=== PATIENT | female | born 1945 | race Caucasian/White ===

== ENCOUNTER 2019-08-18 09:55 | Outpatient (CLI) | payer MEDICARE, OTHER, SELFPAY ==
--- NOTE | ~2019-08-18 | CT_ITS ---
EXAMINATION: CT abdomen pelvis w con DATE: 08/18/2019 11:29 INDICATION: Chronic worsening right abdominal pain. Diarrhea. TECHNIQUE: Computed tomography (CT) of the abdomen and pelvis was performed with 100 cc Omnipaque 350 intravenous contrast. Automated exposure control and iterative reconstruction technique were employe d. Exam dose: 465.71 mGy-cm total exam DLP. COMPARISON: 01/20/2014 CT abdomen pelvis FINDINGS: There is mild discoid atelectasis or scarring at the middle lobe. The included lower lungs are clear of infiltrate or consolidation. Normal heart size. No pericardial or pleural effusion. Small sliding hiatal hernia. Diffuse hepatic steatosis. No hepatic space-occupying mass lesion. The gallbladder is present. Pancr eatic atrophy. No hepatic, pancreatic or adrenal mass lesion. There is an approximately 5.5 x 7 mm area of scarring or angiomyolipoma at the lateral aspect of the mid right kidney, with some fat attenuation. This is thought to be a benign process. No renal mass le julián is evident otherwise. No urinary tract calculus or hydroureteronephrosis. Normal caliber of the abdominal aorta with some atherosclerotic calcification of the abdominal aorta and iliac arteries. No intraperitoneal or retroperitoneal or pelvic mass lesion or adenopathy or ascites. There are numerous diverticula of the sigmoid colon; no CT evidence of diverticulitis. No bowel obstr uction, bowel wall thickening, pneumatosis or intraperitoneal free air is evident. Status post hysterectomy. The urinary bladder is unremarkable. Severe degenerative disc disease at L2-3 through L5-S1. IMPRESSION: Hepatic steatosis Small sliding hiatal hernia Diverticulosis of the colon Status post hysterectomy Reviewed, dictated and finalized at Location A. Reviewed, dictated and finalized at location A.
[2019-08-18 10:08] LABS: Basophils Absolute Auto 0.05 K/mm3 (0.00-0.10); Eosinophils Absolute Auto 0.09 K/mm3 (0.02-0.50); Eosinophils Percent Auto 1.8 % (1.0-6.0); Hematocrit 40.9 % (35.0-42.0); Hemoglobin 13.5 g/dL (11.7-13.8); Immature Granulocyte Absolute 0.02 K/mm3 (0.00-0.00); Immature Granulocyte Percent A 0.4 % (0.0-0.0); Lymphocytes Absolute Auto 1.81 K/mm3 (1.10-4.50); Lymphocytes Percent Auto 35.6 % (18.0-42.0); Mean Corpuscular Hemoglobin 31.3 pg (27.0-31.0); Mean Corpuscular Volume 94.9 fL (78.0-102.0); Mean Platelet Volume 10.5 fl (9.2-11.8); Monocytes Absolute Auto 0.54 K/mm3 (0.10-0.90); Monocytes Percent Auto 10.6 % (2.0-11.0); Neutrophils Absolute Auto 2.6 K/mm3 (1.7-7.2); Neutrophils Percent Auto 50.6 % (50.0-70.0); Platelet Count Result 221 K/mm3 (150-420); Red Blood Count 4.31 M/mm3 (4.20-5.40); Red Cell Distribution Width 12.6 % (11.6-14.4); White Blood Count 5.1 K/mm3 (4.8-10.8)
[2019-08-18 10:11] LABS: Add Urine Microscopic? NO; Appearance Urine Clear (Clear); Bilirubin Urine Negative (Negative); Blood Urine Negative (Negative); Color Urine Yellow (Yellow); Glucose Urine UA Negative (Negative); Ketones Urine Negative (Negative); Leukocyte Esterase Ur Negative LEU/UL (Negative); Nitrate Urine Negative (Negative); Protein Urine Negative (Negative); Specific Grav Ur 1.025 (1.010-1.020); Urobilinogen Urine 0.2 mg/dL (0.2-1.0); pH Urine 5.5 (5.0-8.0)
[2019-08-18 10:24] LABS: Estimated Glomerular Filt Rate > 60
[2019-08-18 10:26] LABS: Alanine Aminotransferase 44 U/L (14-59); Albumin Level 3.6 g/dL (3.4-5.0); Alkaline Phosphatase 84 U/L (46-116); Amylase 25 U/L (25-115); Anion Gap 10.8 mmol/L (7-16); Aspartate Amino Transferase 26 U/L (15-37); Bilirubin,Total 0.5 mg/dL (0.00-1.00); Blood Urea Nitrogen 13 mg/dL (7-18); Calcium 9.1 mg/dL (8.5-10.1); Carbon Dioxide 30 mmol/L (21-32); Chloride 107 mmol/L (98-108); Glucose 91 mg/dL (70-99); Lipase 37 U/L (73-393); Osmolality Calculated 298 mOsm/kg (285-295); Potassium 3.8 mmol/L (3.5-5.1); Sodium 144 mmol/L (136-145); Total Protein 6.9 g/dL (6.4-8.2)
== END 2019-08-18 09:56 | disposition home or self-care (01) ==
LOC: CHSLAB 09:58
PROVIDERS: PCP Internal Medicine; Visit Provider Internal Medicine
DX: R10.9 Unspecified abdominal pain (principal)
CPT/HCPCS: 36415; 74177; 80053; 81003; 82150; 83690; 85025; Q9965

== ENCOUNTER 2019-08-20 07:46 | Outpatient (CLI) | payer MEDICARE, OTHER, SELFPAY ==
--- NOTE | ~2019-08-20 | NM_ITS ---
EXAMINATION: NM hepatobiliary w pharm DATE: 08/20/2019 10:28 INDICATION: Gallbladder dysfunction. 2 weeks of postprandial right upper quadrant abdominal pain and diarrhea. COMPARISON: CT dated 08/18/2019 TECHNIQUE: 5.05 mCi Tc-99m mebrofenin (Choletec) was administered intravenously. Scintigraphic image s of the abdomen were obtained for one hour. 1.3 mcg sincalide (Kinevac) was administered by slow int ravenous infusion, and imaging was continued for 30 minutes. Gallbladder ejection fraction was calcul ated by the technologist. FINDINGS: There is normal clearance of radiotracer from the blood pool. There is homogeneous tracer uptake by t he liver. Activity progresses to the gallbladder and bowel. The gallbladder ejection fraction (GBEF) is 84% (normal 10-90%, but most patient with gallbladder dysfunction have GBEF < 35% which does over lap with the normal range). IMPRESSION: 1. Normal hepatobiliary scan. Reviewed, dictated and finalized at location A.
== END 2019-08-20 07:47 | disposition home or self-care (01) ==
LOC: CHSIMG 07:48
PROVIDERS: PCP Internal Medicine; Visit Provider Internal Medicine
DX: K82.8 Other specified diseases of gallbladder (principal); R10.11 Right upper quadrant pain
CPT/HCPCS: 78227; A9537; J2805

== ENCOUNTER 2019-10-30 09:55 | Outpatient (CLI) | payer MEDICARE, SELFPAY ==
[2019-10-30 10:08] LABS: Basophils Absolute Auto 0.06 K/mm3 (0.00-0.10); Eosinophils Absolute Auto 0.12 K/mm3 (0.02-0.50); Hematocrit 44.1 % (35.0-42.0); Hemoglobin 14.6 g/dL (11.7-13.8); Immature Granulocyte Absolute 0.02 K/mm3 (0.00-0.00); Immature Granulocyte Percent A 0.3 % (0.0-0.0); Lymphocytes Percent Auto 35.5 % (18.0-42.0); Mean Corpuscular HGB Conc 33.1 g/dL (32.0-36.0); Mean Corpuscular Hemoglobin 31.4 pg (27.0-31.0); Mean Corpuscular Volume 94.8 fL (78.0-102.0); Mean Platelet Volume 10.4 fl (9.2-11.8); Monocytes Absolute Auto 0.43 K/mm3 (0.10-0.90); Monocytes Percent Auto 7.3 % (2.0-11.0); Neutrophils Absolute Auto 3.2 K/mm3 (1.7-7.2); Neutrophils Percent Auto 53.9 % (50.0-70.0); Platelet Count Result 230 K/mm3 (150-420); Red Blood Count 4.65 M/mm3 (4.20-5.40); Red Cell Distribution Width 12.4 % (11.6-14.4); White Blood Count 5.9 K/mm3 (4.8-10.8)
[2019-10-30 10:15] LABS: Add Urine Microscopic? YES; Appearance Urine Clear (Clear); Bilirubin Urine Negative (Negative); Blood Urine Negative (Negative); Color Urine Yellow (Yellow); Glucose Urine UA Negative (Negative); Ketones Urine Negative (Negative); Leukocyte Esterase Ur Trace (Negative); Nitrate Urine Negative (Negative); Protein Urine Negative (Negative); Specific Grav Ur 1.015 (1.010-1.020)
[2019-10-30 10:19] LABS: RBC Urine 0-2 /hpf (0-2); Squamous Epithelial Cell Urine Few /hpf (Few); WBC Urine 0-3 /hpf (0-3)
[2019-10-30 10:20] LABS: Bacteria Urine Trace /hpf
[2019-10-30 10:32] LABS: BNP 87 pg/mL (0-100)
[2019-10-30 11:25] LABS: Alanine Aminotransferase 45 U/L (14-59); Albumin Level 3.8 g/dL (3.4-5.0); Alkaline Phosphatase 76 U/L (46-116); Anion Gap 11.5 mmol/L (7-16); Aspartate Amino Transferase 32 U/L (15-37); Bilirubin,Total 0.5 mg/dL (0.00-1.00); Blood Urea Nitrogen 16 mg/dL (7-18); Carbon Dioxide 31 mmol/L (21-32); Chloride 105 mmol/L (98-108); Cholesterol 226 mg/dL (0-200); Estimated Glomerular Filt Rate > 60; Free T3 3.35 pg/mL (2.18-3.98); Free T4 Free Thyroxine 1.16 ng/dL (0.76-1.46); Glucose 86 mg/dL (70-99); HDL Direct 58 mg/dL (40-60); LDL Cholesterol Calculated 146 mg/dL (<130); Osmolality Calculated 296 mOsm/kg (285-295); Potassium 4.5 mmol/L (3.5-5.1); Sodium 143 mmol/L (136-145); Thyroid Stimulating Hormone 1.46 uIU/mL (0.36-3.74); Total Protein 6.7 g/dL (6.4-8.2); Triglycerides 110 mg/dL (0-150)
[2019-11-02 19:41] LABS: Vitamin D 25 Hydroxy 29 ng/mL (30-100)
== END 2019-10-30 09:56 | disposition home or self-care (01) ==
PROVIDERS: PCP Internal Medicine; Visit Provider Internal Medicine
DX: I50.22 Chronic systolic (congestive) heart failure (principal); I25.10 Atherosclerotic heart disease of native coronary artery without angina pectoris; E78.2 Mixed hyperlipidemia; I10 Essential (primary) hypertension; M81.0 Age-related osteoporosis without current pathological fracture; R53.82 Chronic fatigue, unspecified
CPT/HCPCS: 36415; 80053; 80061; 81001; 82306; 83880; 84439; 84443; 84481; 85025

== ENCOUNTER 2019-11-13 09:17 | Outpatient (CLI) | payer MEDICARE, OTHER, SELFPAY ==
--- NOTE | ~2019-11-13 | DEXA_ITS ---
BMD(1) Young-Adult(2) Age-Matched(3) Region (g/cm2) T-score Z-score WHO Classification L1 0.934 -1.7 0.0 Osteopenia L2 1.036 -1.4 0.2 Osteopenia L3 1.228 0.1 1.8 Normal L4 1.229 0.1 1.7 Normal L1-L4 1.123 -0.6 1.1 Normal Trend: L1-L4 Change vs Change vs Measured Age BMD(1) Baseline Previous Date (years) (g/cm2) (%) (%) 11[age]13/2019 [age] 1.89 7.8* 4.0* 01[age]18/2016 70.3 1.080 3.6* 8.7* 09[age]29/2014 69.0 0.994 -4.6* -4.6* 05[age]23/2012 66.6 1.042 baseline - * - Indicates significant change based on 95% confidence interval. 1 - Statistically 68% of repeat scans fall within 1SD (+- 0.010 g/cm2 for AP Spine L1-L4) 2 - [place] (Combined NHANES (ages 20-30) / [employer] (ages 20-40)) AP Spine Reference Population (v112) 3 - Matched for Age, Weight (females 25-100 kg), Ethnic 11 - World Health Organization - Definition of Osteoporosis and Osteopenia for Women: Normal = T-score at or above -1.0 SD; Osteopenia = T-score between -1.0 and -2.5 SD; Osteoporosis = T-score at or below -2.5 SD; (WHO definitions only apply when a young healthy Women reference database is used to determine T-scores.) Printed: 11/13/2019 9:48:25 AM (13.60)76:3.00:50.00:12.0 0.00:10.44 0.60x1.05 23.7:%Fat=48.9% 0.00:0.00 0.00:0.00 Filename: [id number] Scan Mode: Standard;OneScan 37.0 Amoobi [id number] BMD(1) Young-Adult(2,7) Age-Matched(3) Region (g/cm2) T-score Z-score WHO Classification Neck Left 0.789 -1.8 0.0 Osteopenia Right 0.758 -2.0 -0.2 Osteopenia Mean 0.773 -1.9 -0.1 Osteopenia Difference 0.031 -0.2 -0.2 - Total Left 0.906 -0.8 0.8 Normal Right 0.842 -1.3 0.3 Osteopenia Mean 0.874 -1.1 0.5 Osteopenia Difference 0.064 -0.5 -0.5 - Hip [place] Length Comparison (mm) (Right = 102.7 mm) (Mean = 102.1 mm) (Left = 102.4 mm) Trend: Total Mean Change vs Change vs Measured Age BMD(1) Baseline Previous Date (years) (g/cm2) (%) (%) 11/13/2019 74.1 0.874 -2.5 1.6 05[birth year]23/2012 65.6 0.860 -4.0* -4.0* 09/20/2006 61.0 0.896 baseline - * - Indicates significant change based on 95% confidence interval. 1 - Statistically 68% of repeat scans fall within 1SD (+- 0.010 g/cm2 for DualFemur Total) 2 - [place] (Combined NHANES (ages 20-30) / [employer] (ages 20-40)) Femur Reference Population (v112) 3 - Matched for Age, Weight (females 25-100 kg), Ethnic 7 - DualFemur Total T-score difference is 0.5. Asymmetry is None. 11 - World Health Organization - Definition of Osteoporosis and Osteopenia for Women: Normal = T-score at or above -1.0 SD; Osteopenia = T-score between -1.0 and -2.5 SD; Osteoporosis = T-score at or below -2.5 SD; (WHO definitions only apply when a young healthy Women reference database is used to determine T-scores.) Printed: 11/13/2019 9:48:25 AM (13.60); Filename: [id number]; Right Femur; 19.2:%Fat=37.5%; Neck Angle (deg)= 75; Scan Mode: Standard 37.0 uGy; Left Femur; 18.3:%Fat=44.5%; Neck Angle (deg)= 71; Scan Mode: Standard 37.0 Amoobi [id number] Dear Jackson Rosa, Your patient Zulma Carnes completed a BMD test on 11/13/2019 using the Orteq DXA System (analysis version: 13.60) manufactured by [employer]. The following summarizes
== END 2019-11-13 09:18 | disposition home or self-care (01) ==
LOC: CHSIMG 09:19
PROVIDERS: PCP Internal Medicine; Visit Provider Internal Medicine
DX: M81.0 Age-related osteoporosis without current pathological fracture (principal)
CPT/HCPCS: 77080

== ENCOUNTER 2020-01-18 10:08 | Outpatient (CLI) | payer MEDICARE, OTHER, SELFPAY ==
[2020-01-18 10:23] VITALS: BP 131/70; PULSE 72; RESP 16; TEMP 36.4; O2SAT 98
[2020-01-18] MEDS: ZOLEDRONIC ACID 5 MG/100 ML 100 ML 400 MG IVPB (10:26)
--- NOTE | 2020-01-18 10:49 | PC.NURSE ---
Patient here for reclast infusion. Has had this in the past. Reeducation on med given. No concerns voiced. Reclast infusion administered. Tolerated well. Safe exit of hospital.
== END 2020-01-18 10:09 | disposition home or self-care (01) ==
LOC: CHSTREATRM 10:11
PROVIDERS: PCP Internal Medicine; Visit Provider Internal Medicine
DX: M81.0 Age-related osteoporosis without current pathological fracture (principal)
CPT/HCPCS: 96374; J3489

== ENCOUNTER 2020-03-21 15:19 | Outpatient (CLI) | payer MEDICARE, OTHER, SELFPAY ==
--- NOTE | ~2020-03-21 | XR_ITS ---
EXAMINATION: XR chest 2V DATE: 03/21/2020 15:46 INDICATION: Cough, sore throat and fatigue. TECHNIQUE: PA and lateral views of the chest were obtained. COMPARISON: Chest radiograph dated 11/19/2018 FINDINGS: Chronic eventration of the left hemidiaphragm. No focal airspace opacities, pulmonary edema, pleural effusion or pneumothorax. The cardiomediastinal silhouette is normal. Left breast appears smaller antwan n the right with a few surgical clips at the upper outer quadrant of the breast suggesting prior exci sional biopsy. Mild thoracic and severe lumbar spondylosis. IMPRESSION: 1. Chronic eventration of the left hemidiaphragm. No acute cardiopulmonary disease. Reviewed, dictated and finalized at location . SCREEN PROCESSOR IMPRESSION: 1. Chronic eventration of the left hemidiaphragm. No acute cardiopulmonary dise ase.
--- NOTE | ~2020-03-21 | XR_ITS ---
EXAMINATION: XR hip LT min 2V DATE: 03/21/2020 17:25 INDICATION: Chronic left hip pain TECHNIQUE: Anteroposterior and frog-leg lateral views of the left hip were obtained. COMPARISON: CT dated 08/18/2019 FINDINGS: Alignment is normal. No fracture or suspected avascular necrosis. Left hip joint space is relatively preserved. There is chondrocalcinosis along the left acetabular labrum. Endplate osteophytes at the l umbosacral junction with severe spondylosis evident on prior CT. IMPRESSION: 1. Chondrocalcinosis at the left acetabular labrum. Otherwise unremarkable left hip. Reviewed, dictated and finalized at location . ASSISTANT
[2020-03-21 15:36] LABS: Hemoglobin 13.2 g/dL (11.7-13.8); Mean Corpuscular HGB Conc 32.2 g/dL (32.0-36.0); Mean Corpuscular Hemoglobin 31.1 pg (27.0-31.0); Mean Corpuscular Volume 96.7 fL (78.0-102.0); Mean Platelet Volume 10.8 fl (9.2-11.8); Platelet Count Result 239 K/mm3 (150-420); Red Blood Count 4.24 M/mm3 (4.20-5.40); Red Cell Distribution Width 12.4 % (11.6-14.4); White Blood Count 8.5 K/mm3 (4.8-10.8)
[2020-03-21 15:55] LABS: Influenza Control Valid (Valid); SARS-CoV-2 Ag Negative (Negative)
[2020-03-21 16:13] LABS: Band Neutrophils Percent 0 % (0-6); Basophils Absolute Manual 0.08 K/mm3 (0-0.1); Basophils Percent Manual 1 % (0-1); Eosinophils Percent Manual 0 % (1-6); Lymphocytes Percent Manual 33 % (18-44); Monocytes Absolute Manual 0.51 K/mm3 (0.1-0.90); Monocytes Percent Manual 6 % (3-9); Neutrophils Percent Manual 60 % (46-73); Platelet Estimate Adequate (Adequate); Total Cells Counted 100
[2020-03-21 16:19] LABS: Alanine Aminotransferase 45 U/L (14-59); Albumin Level 3.8 g/dL (3.4-5.0); Alkaline Phosphatase 80 U/L (46-116); Anion Gap 8 mmol/L (8-16); Aspartate Amino Transferase 28 U/L (15-37); Bilirubin,Total 0.3 mg/dL (0.00-1.00); Blood Urea Nitrogen 16 mg/dL (7-18); Calcium 8.9 mg/dL (8.5-10.1); Carbon Dioxide 31 mmol/L (21-32); Chloride 105 mmol/L (98-108); Estimated Glomerular Filt Rate > 60; Glucose 114 mg/dL (70-99); Osmolality Calculated 300 mOsm/kg (285-295); Potassium 4.4 mmol/L (3.5-5.1); Sodium 144 mmol/L (136-145); Total Protein 6.8 g/dL (6.4-8.2)
== END 2020-03-21 15:20 | disposition home or self-care (01) ==
PROVIDERS: PCP Internal Medicine; Visit Provider Internal Medicine
DX: M25.552 Pain in left hip (principal); R05 Cough; J02.9 Acute pharyngitis, unspecified; Z20.828 Contact with and (suspected) exposure to other viral communicable diseases
CPT/HCPCS: 71046; 73502; 80053; 85025; 87426; 87804

== ENCOUNTER 2020-03-30 09:45 | Outpatient (CLI) | payer MEDICARE, OTHER, SELFPAY ==
--- NOTE | ~2020-03-30 | MR_ITS ---
EXAMINATION: MR hip LT wo con DATE: 03/30/2020 10:53 INDICATION: Left hip pain. TECHNIQUE: Magnetic resonance imaging (MRI) of the left hip was performed without intravenous contras t. Sequences included axial and coronal PD-weighted FS FSE and axial T1-weighted FSE of the pelvis. S equences of the hip included 2D FIESTA, T1-weighted fast GRE, and axial, coronal, and sagittal PD-himanshu ghted FS FSE. COMPARISON: Left hip radiograph 03/21/2020 FINDINGS: Bones/cartilage: There is lumbar levoscoliosis and severe spondylosis. No fracture. The hip joints demonstrate tiny os teophytes. Small [id number] images of left hip demonstrate partial thickness cartilage loss stencil printer iorly and posterior superiorly. Labrum: There is a tear of the left acetabular labrum. Fluid: There is no hip joint effusion. There is mild bilateral trochanteric bursitis. Soft tissues: There is moderate tendinopathy of the hamstring origins bilaterally. The iliopsoas tendons are normal . The left gluteal tendons are normal. There are partial tears of right gluteus minimus and gluteus m edius tendons. IMPRESSION: 1. Mild osteoarthritis of the hips. Reviewed, dictated and finalized at location A. RIPSAW OPERATOR
== END 2020-03-30 09:46 | disposition home or self-care (01) ==
LOC: CHSIMG 09:46
PROVIDERS: PCP Internal Medicine; Visit Provider Internal Medicine
DX: M25.552 Pain in left hip (principal)
CPT/HCPCS: 73721

== ENCOUNTER 2020-04-04 16:37 | Outpatient (CLI) | payer MEDICARE, SELFPAY ==
[2020-04-04 17:04] LABS: SARS-CoV-2 Ag Negative (Negative)
== END 2020-04-04 16:38 | disposition home or self-care (01) ==
LOC: CHSLAB 16:40
PROVIDERS: PCP Internal Medicine; Visit Provider Internal Medicine
DX: Z20.828 Contact with and (suspected) exposure to other viral communicable diseases (principal)
CPT/HCPCS: 87426

== ENCOUNTER 2020-05-20 11:38 | Outpatient (CLI) | payer MEDICARE, OTHER, SELFPAY ==
--- NOTE | ~2020-05-20 | CT_ITS ---
EXAMINATION: CTA chest PE protocol EXAM DATE: 05/20/2020 14:08 INDICATION: Dyspnea, COVID pneumonia, elevated d-dimer, persistent shortness of breath and dyspnea. TECHNIQUE: Spiral CTA of the chest (pulmonary arteries) was performed with 100 cc Omnipaque 350 intr avenous contrast injection. Images were acquired during the pulmonary arterial phase. Coronal maxi mum intensity projection 3D-reconstructions were created by the technologist on dedicated workstation . Axial, coronal and sagittal reformatted images were reviewed. The dose-length product (DLP) for t his examination was 369.68 mGy-cm. The exposure was tailored according to patient size (auto mA exp osure control), and iterative reconstruction (ASIR) was used as additional dose reduction technique. There is no prior study for comparison. FINDINGS: Pulmonary arteries are well opacified and without intraluminal filling defects. No thora cic aortic dissection. There are extensive predominantly linear opacities with regions of intersper sed groundglass opacity. Appearance is most consistent with resolving COVID pneumonia, may develop in to chronic lung scarring. There are no pleural or pericardial effusions. Tracheobronchial tree is p atent. There is no mediastinal, hilar or axillary lymphadenopathy. There is no pneumothorax. He art normal in size. There is mild coronary arterial calcification, arterial sclerosis. There is he patic steatosis. There is thoracic spondylosis without osteoblastic or osteolytic lesions identified . IMPRESSION: 1. No pulmonary emboli. 2. Extensive linear opacities with interspersed groundglass density, consistent with subacute to chr onic COVID pneumonia, developing chronic scarring. Reviewed, dictated and finalized at location A. E RIDE OPERATOR IMPRESSION: 1. No pulmonary emboli. 2. Extensive linear opacities with interspersed groundglass density, consisten t with subacute to chronic COVID pneumonia, developing chronic scarring.
--- NOTE | ~2020-05-20 | XR_ITS ---
EXAMINATION: XR chest 2V EXAM DATE: 05/20/2020 12:09 INDICATION: Post COVID pneumonia. Shortness of breath. TECHNIQUE: Frontal and lateral projections of the chest obtained and reviewed. Comparison is made to prior examination from 03/21/2020. FINDINGS: Scattered bilateral predominantly linear opacities, appearance consistent with subacute CO VID pneumonia, predominantly atelectasis which may develop to chronic scarring. No confluent consolid ation. This is new compared to previous examination. There is no pneumothorax suspected. There are no pleural effusions. There may be a sizable joint body in the left humeral anterior recess. Mild thora cic dextroscoliosis. IMPRESSION: Scattered predominantly linear opacities appearance consistent with subacute COVID pneumo ramón. Reviewed, dictated and finalized at location A. OUT MAN IMPRESSION: Scattered predominantly linear opacities appearance consistent with subacute COVID pneumonia.
[2020-05-20 11:57] LABS: Basophils Absolute Auto 0.06 K/mm3 (0.00-0.10); Basophils Percent Auto 0.9 % (0.0-1.0); Eosinophils Absolute Auto 0.06 K/mm3 (0.02-0.50); Eosinophils Percent Auto 0.9 % (1.0-6.0); Hematocrit 37.9 % (35.0-42.0); Hemoglobin 12.3 g/dL (11.7-13.8); Immature Granulocyte Absolute 0.02 K/mm3 (0.00-0.00); Immature Granulocyte Percent A 0.3 % (0.0-0.0); Lymphocytes Absolute Auto 1.65 K/mm3 (1.10-4.50); Lymphocytes Percent Auto 25.6 % (18.0-42.0); Mean Corpuscular HGB Conc 32.5 g/dL (32.0-36.0); Mean Corpuscular Hemoglobin 30.9 pg (27.0-31.0); Mean Corpuscular Volume 95.2 fL (78.0-102.0); Monocytes Absolute Auto 0.73 K/mm3 (0.10-0.90); Monocytes Percent Auto 11.3 % (2.0-11.0); Neutrophils Absolute Auto 3.9 K/mm3 (1.7-7.2); Platelet Count Result 344 K/mm3 (150-420); Red Blood Count 3.98 M/mm3 (4.20-5.40); Red Cell Distribution Width 13.4 % (11.6-14.4); White Blood Count 6.4 K/mm3 (4.8-10.8)
[2020-05-20 12:13] LABS: D Dimer 3.98 mg/L (0.19-0.50)
[2020-05-20 12:15] LABS: Alanine Aminotransferase 75 U/L (14-59); Albumin Level 3.6 g/dL (3.4-5.0); Alkaline Phosphatase 97 U/L (46-116); Anion Gap 6 mmol/L (8-16); Aspartate Amino Transferase 52 U/L (15-37); Bilirubin,Total 0.5 mg/dL (0.00-1.00); Blood Urea Nitrogen 11 mg/dL (7-18); Calcium 9.2 mg/dL (8.5-10.1); Carbon Dioxide 30 mmol/L (21-32); Chloride 97 mmol/L (98-108); Estimated Glomerular Filt Rate > 60; Glucose 104 mg/dL (70-99); Osmolality Calculated 275 mOsm/kg (285-295); Potassium 4.4 mmol/L (3.5-5.1); Sodium 133 mmol/L (136-145); Total Protein 7.7 g/dL (6.4-8.2)
[2020-05-20 12:19] LABS: BNP 48.8 pg/mL (0-100)
== END 2020-05-20 11:39 | disposition home or self-care (01) ==
PROVIDERS: PCP Internal Medicine; Visit Provider Internal Medicine
DX: R06.00 Dyspnea, unspecified (principal); U07.1 COVID-19; J12.82 Pneumonia due to coronavirus disease 2019; R79.1 Abnormal coagulation profile
CPT/HCPCS: 36415; 71046; 71275; 80053; 83880; 85025; 85380; Q9967

== ENCOUNTER 2020-06-02 16:58 | Emergency (ER) | payer MEDICARE, OTHER, SELFPAY ==
--- NOTE | ~2020-06-02 | XR_ITS ---
XR chest 2V 06/02/2020 18:04 Indication: Shortness of breath and chest pain. History of CHF Procedure: PA and lateral views of the chest Comparison: Comparison to multiple prior studies sequentially, with oldest reviewed study dated 02/28. Findings: Persistent patchy bilateral infiltrates, most confluent in the upper lungs. These findings unchanged compared with 05/20/2020. No pleural effusion or pneumothorax. Heart size normal. Impression: 1: Stable patchy bilateral infiltrates, suspicious for pneumonia. Reviewed, dictated and finalized at location A. BUTCHER Impression: 1: Stable patchy bilateral infiltrates, suspicious for pneumonia.
--- NOTE | ~2020-06-02 | CT_ITS ---
EXAMINATION: CTA chest PE protocol DATE: 06/02/2020 19:59 HISTORICAL INTERPRETER INDICATION: Shortness of breath. TECHNIQUE: Computed tomographic angiography (CTA) of the chest was performed with 100 mL Omnipaque-35 0 intravenous contrast. The dose-length product was 277.84 mGy-cm. Maximum intensity projection 3D-re constructions of the aorta and other arteries were constructed by the technologist on a separate work station. Automated exposure control and iterative reconstruction technique were employed. COMPARISON: CT dated 05/20/2020. FINDINGS: Study is technically adequate without evidence for pulmonary embolism. Heart size normal. N o significant pleural or pericardial effusion. There has been progression of extensive patchy groundg lass opacification with associated linear opacities no endobronchial lesions. No thoracic lymphadenop athy. No significant pleural or pericardial effusion. IMPRESSION: 1. Interval progression of extensive patchy lung consolidation involving all lobes, compatible with p neumonia. 2: No evidence for pulmonary embolism. Reviewed, dictated and finalized at location A. ORICAL INTERPRETER IMPRESSION: 1. Interval progression of extensive patchy lung consolidation involving all lo bes, compatible with pneumonia. 2: No evidence for pulmonary embolism.
[2020-06-02 17:36] VITALS: PULSE 83; RESP 18; TEMP 36.4; O2SAT 100
--- NOTE | 2020-06-02 17:42 | ECG_ITS ---
Measurements Intervals [place] Rate: 75 P: 22 ND: 125 QRS: -1 QRSD: 94 T: 10 QT: 347 QTc: 390 Interpretive Statements SINUS RHYTHM ATRIAL PREMATURE COMPLEX BORDERLINE R WAVE PROGRESSION, ANTERIOR LEADS MINIMAL Q WAVES- INFERIOR LEADS BORDERLINE ECG Electronically Signed On 06-02-2020 18:56:19 CERTIFIED TECHNICIAN by Reinaldo Smyth D.O.
[2020-06-02 17:43] VITALS: PULSE 76
--- NOTE | 2020-06-02 18:00 | ED.GENADULT ---
HPI - General Adult General Chief complaint: Shortness of Breath/Dyspnea Stated complaint: dyspnea/chest heaviness/post covid Time Seen by Provider: 06/02/20 17:44 Source: patient and family Mode of arrival: ambulatory Limitations: no limitations History of Present Illness HPI narrative: Patient is a 74-year-old female who presents with episodic chest heaviness that began yesterday lasted into the day felt a little bit more short of breath with speaking home health presented today said that she may have diminished lung sounds on the right upper region patient has been on home oxygen and short of breath since having Covid was in the hospital for roughly 20 days at [facility] has been home living with her daughter has been wearing oxygen daily and has follow-up with pulmonology in the near future patient approximately 2 weeks ago had evaluation with negative CT of the chest for pulmonary embolus. Patient has been using her nebulizer and inhaler medications with improvement. Patient denies new URI symptoms vomiting diarrhea. Related Data Home Medications Medication Instructions Recorded Confirmed aspirin [Aspir-81] 81 mg PO DAILY 06/02/20 06/02/20 biotin 1,000 mcg PO DAILY 06/02/20 06/02/20 calcium phos,dibas-vitamin D3 tablet PO 06/02/20 [Vitamin D (with calcium)] micpvvs-B1-cfld-copper-deepak 1 tablet PO BID 06/02/20 06/02/20 [Citracal-D3 Maximum Plus] carvedilol 06/02/20 cetirizine mg 06/02/20 coenzyme Q10 [Co Q-10] 200 mg PO DAILY 06/02/20 06/02/20 folic acid 06/02/20 furosemide 06/02/20 glucosamine-chondroitin [Osteo 2 tablet PO TID 06/02/20 06/02/20 Bi-Flex] lisinopril 06/02/20 magnesium 400 mg PO DAILY 06/02/20 06/02/20 omeprazole 06/02/20 potassium chloride meq PO 06/02/20 pravastatin 06/02/20 valacyclovir 06/02/20 vitamin E 400 unit PO DAILY 06/02/20 06/02/20 Allergies Allergy/AdvReac Type Severity Reaction Status Date / Time Sulfa (Sulfonamide Allergy Unknown Rash Verified 06/02/20 17:44 Antibiotics) Review of Systems Review of Systems: All systems reviewed & are unremarkable except as noted in HPI and below PMFSH Past Medical History Medical History (Updated 06/02/20 @ 20:28 by Joby Keen PA-C) CHF (congestive heart failure) Coronary artery disease COVID-19 On home oxygen therapy Family History Family History (Updated 08/15/17 @ 10:20 by DOCTOR UNKNOWN) Other Cerebrovascular accident Family history of cardiovascular disease Family history of malignant neoplasm Hypertension Social History Social History Smoking status: Never smoker Alcohol intake: current Gender identity (if verbalized by the patient): Female Exam Narrative: Exam Narrative: GENERAL: Well-appearing, well-nourished, and in no acute distress. HEAD: Normocephalic, atraumatic. EYES: PERRLA and EOMI. ENT: Nares clear, no rhinorrhea or epistaxis. Mucous membranes moist. NECK: Supple. No adenopathy or masses. No carotid bruits or JVD CHEST: Clear to auscultation. No respiratory distress. No wheezes rales or rhonchi HEART: Regular rate and rhythm. No murmur heard. Normal peripheral pulses. ABDOMEN: Soft, nontender, nondistended EXTREMITIES: Normal range of motion. 1+ edema lower extremities SKIN: Warm, dry, no rash. NEURO: No focal deficits. Alert and oriented x3. PSYCH: Normal mood and affect. Course Course Emergency Course: Patient evaluated in the emergency department had CAT scan of the chest which looks as though the patient has had interval development of pneumonia patient has had recurrent issues with this patient is afebrile nontoxic-appearing without high risk changes in the blood work at this time patient with oxygenation at 99% is on her nasal cannula oxygen has nebulizer treatments at home with incentive spirometer and pulse oximetry. Patient will precautionary be put on antibiotic with follow-up with primary care and given strict reasons to return.
[2020-06-02 18:26] LABS: Basophils Percent Auto 0.6 % (0.2-1.2); Eosinophils Absolute Auto 0.1 K/mm3 (0-0.3); Eosinophils Percent Auto 1.5 % (0-4.4); Hematocrit 38.1 % (37.0-47.0); Hemoglobin 12.3 g/dL (12.0-15.0); Immature Granulocyte Absolute 0.02 K/mm3 (0.00-0.031); Immature Granulocyte Percent A 0.3 % (0-0.5); Lymphocytes Absolute Auto 1.92 K/mm3 (0.9-3.2); Lymphocytes Percent Auto 28.9 % (18.3-44.2); Mean Corpuscular HGB Conc 32.3 g/dl (32-36); Mean Corpuscular Hemoglobin 31.2 pg (26-34); Mean Corpuscular Volume 96.7 fl (80-100); Mean Platelet Volume 10.4 fl (7.4-10.4); Monocytes Absolute Auto 0.6 K/mm3 (0.1-0.6); Monocytes Percent Auto 9.5 % (2.6-8.5); Neutrophils Absolute Auto 3.9 K/mm3 (1.3-6.7); Neutrophils Percent Auto 59.2 % (45.5-73.1); Platelet Count Result 213 k/mm3 (150-375); Red Blood Count 3.94 M/mm3 (4.2-5.4); Red Cell Distribution Width 13.6 % (11.5-14.5); White Blood Count 6.6 K/mm3 (4.5-10.0)
[2020-06-02] MEDS: SODIUM CHLORIDE 0.9% IV 500 ML 999 ML IV CONT (18:26)
[2020-06-02 18:28] LABS: Add Urine Microscopic? NO; Appearance Urine Clear (Clear); Bilirubin Urine Negative (Negative); Blood Urine Negative (Negative); Color Urine Colorless (Yellow); Glucose Urine UA Negative (Negative); Ketones Urine Negative (Negative); Leukocyte Esterase Ur Negative LEU/UL (Negative); Nitrate Urine Negative (Negative); Protein Urine Negative (Negative); Specific Grav Ur 1.006 (1.001-1.035); Urobilinogen Urine Negative mg/dL (<2.0)
[2020-06-02 18:38] LABS: INR 0.9
[2020-06-02 18:40] LABS: Anion Gap 4 mmol/L (8-16); Blood Urea Nitrogen 14 mg/dL (7-17); Calcium 9.8 mg/dL (8.4-10.2); Carbon Dioxide 32 mmol/L (22-30); Chloride 101 mmol/L (98-107); Estimated CRCL calculation 56 ml/min; Estimated Glomerular Filt Rate > 60; Glucose 102 mg/dL (65-105); Partial Thromboplastin Time 24.7 SECONDS (22.3-36.8); Potassium 4.5 mmol/L (3.4-5.0); Sodium 137 mmol/L (137-145)
[2020-06-02 18:46] LABS: D Dimer 0.93 ug/mL (<0.48)
[2020-06-02 18:51] VITALS: BP 120/56; PULSE 76; RESP 24; O2SAT 100
[2020-06-02 18:53] LABS: NT Pro B Type Natriuretic Pept 255 PG/ML (5-100); Troponin I < 0.012 ng/mL (0.000-0.034)
[2020-06-02 18:54] VITALS: O2SAT 100
[2020-06-02 19:22] VITALS: BP 120/65; PULSE 68; RESP 20; O2SAT 100
--- NOTE | 2020-06-02 19:23 | PC.NURSE ---
Assumed Care of Pt. at this time. report from KAROLINE Trimble
[2020-06-02 20:40] VITALS: BP 115/55; PULSE 71; RESP 24; O2SAT 100
== END 2020-06-02 20:40 | disposition home or self-care (01) ==
PROVIDERS: Emergency Medicine Emergency Medical Services; Emergency Provider Emergency Medicine; PCP Internal Medicine
DX: J18.9 Pneumonia, unspecified organism (principal); I50.9 Heart failure, unspecified; Z99.81 Dependence on supplemental oxygen; I25.10 Atherosclerotic heart disease of native coronary artery without angina pectoris; Z86.16 Personal history of COVID-19
CPT/HCPCS: 36415; 71046; 71275; 80048; 81003; 83880; 84484; 85025; 85380; 85610; 85730; 93005; 99284; J7040; Q9967

== ENCOUNTER 2020-06-06 16:51 | Outpatient (CLI) | payer MEDICARE, OTHER, SELFPAY ==
--- NOTE | ~2020-06-06 | XR_ITS ---
EXAMINATION: XR chest 2V DATE: 06/06/2020 17:17 INDICATION: Shortness of breath. Upper right chest pressure. Hypoxia. Cough. Pneumonia. TECHNIQUE: PA and lateral views of the chest were obtained. COMPARISON: Chest radiograph and CT dated 06/02/2020 FINDINGS: Full improvement in scattered coarse reticular opacities in both lungs with residual oblique linear o pacities in the anterior left midlung zone likely related to provided history of earlier computed pne umonia with interval improvement of residual lung disease. No new airspace opacities, pulmonary edema , pleural effusion or pneumothorax. The cardiomediastinal silhouette is normal. Severe degenerative s keletal changes at the left glenohumeral joint and lower cervical spine. Surgical clips project over the smaller left breast consistent with prior left breast excisional biopsy. IMPRESSION: 1. Interval decrease in bilateral airspace opacities consistent with improving COVID pneumonia. Reviewed, dictated and finalized at location A. OMATIC OFFICER
== END 2020-06-06 16:52 | disposition home or self-care (01) ==
LOC: CHSIMG 16:53
PROVIDERS: PCP Internal Medicine; Visit Provider Internal Medicine
DX: Z09 Encounter for follow-up examination after completed treatment for conditions other than malignant neoplasm (principal); J18.9 Pneumonia, unspecified organism
CPT/HCPCS: 71046

== ENCOUNTER 2020-06-20 07:57 | Outpatient (CLI) | payer MEDICARE, OTHER, SELFPAY ==
[2020-06-20 08:37] LABS: Alanine Aminotransferase 69 U/L (14-59); Albumin Level 3.7 g/dL (3.4-5.0); Alkaline Phosphatase 56 U/L (46-116); Anion Gap 8 mmol/L (8-16); Aspartate Amino Transferase 47 U/L (15-37); Bilirubin,Total 0.8 mg/dL (0.00-1.00); Blood Urea Nitrogen 15 mg/dL (7-18); Calcium 9.5 mg/dL (8.5-10.1); Carbon Dioxide 29 mmol/L (21-32); Chloride 104 mmol/L (98-108); Estimated Glomerular Filt Rate > 60; Glucose 98 mg/dL (70-99); Osmolality Calculated 292 mOsm/kg (285-295); Potassium 4.2 mmol/L (3.5-5.1); Sodium 141 mmol/L (136-145)
== END 2020-06-20 07:58 | disposition home or self-care (01) ==
LOC: CHSLAB 08:00
PROVIDERS: PCP Internal Medicine; Visit Provider Internal Medicine
DX: R94.5 Abnormal results of liver function studies (principal)
CPT/HCPCS: 36415; 80053

== ENCOUNTER 2020-06-27 07:01 | Outpatient (CLI) | payer MEDICARE, OTHER, SELFPAY ==
--- NOTE | ~2020-06-27 | MM_ITS ---
EXAMINATION: MM screening brandt BI w ravinder HISTORY: Screening TECHNIQUE: Craniocaudal and mediolateral oblique 3-D tomosynthesis images were obtained and synthetic 2-D images were generated. CAD analysis was submitted and interpreted. COMPARISON: Comparison to multiple prior studies sequentially, with oldest reviewed study dated 06/2014. BREAST PARENCHYMAL COMPOSITION: The breasts are heterogenously dense, which may obscure small masses. FINDINGS: There are surgical changes in the upper outer quadrant of the left breast, unchanged. There is no evidence of suspicious mass, calcification, or architectural distortion to suggest malignancy in either breast. There has been no suspicious interval change. IMPRESSION: 1. No mammographic evidence of malignancy. 2. Recommend routine screening mammography in one year. BI-RADS Category 2: Benign finding(s). Reviewed, dictated and finalized at location A. [employer]
== END 2020-06-27 07:02 | disposition home or self-care (01) ==
PROVIDERS: PCP Internal Medicine; Visit Provider Internal Medicine
DX: Z12.31 Encounter for screening mammogram for malignant neoplasm of breast (principal)
CPT/HCPCS: 77063; 77067

== ENCOUNTER 2020-07-14 14:20 | Outpatient (CLI) | payer MEDICARE, OTHER, SELFPAY ==
--- NOTE | ~2020-07-14 | XR_ITS ---
XR chest 2V DATE: 07/14/2020 14:50 INDICATION: Shortness of breath. Covid 19 pneumonia TECHNIQUE: PA and lateral views COMPARISON: June 06, 2020 PA and lateral chest June 02, 2020 2 view chest May 20, 2020 PA and lateral chest FINDINGS: There is mild residual infiltrate, atelectasis or fibrotic change in the mid to upper left lung and left lower lobe. No pulmonary consolidation is noted otherwise. No pleural effusion. There i s mild chronic elevation of the left leaf of the diaphragm. Normal heart size. No hilar or mediastinal enlargement. Osteoarthritic change at the glenohumeral joints. Dextroscoliosis and degenerative change of the thor acic spine. Osteopenia. IMPRESSION: Mild residual infiltrate, atelectasis or fibrotic change in the mid to upper left lung an d left lower lobe Reviewed, dictated and finalized at location A. IMPRESSION: Mild residual infiltrate, atelectasis or fibrotic change in the mid to upper left lung and left lower lobe
== END 2020-07-14 14:21 | disposition home or self-care (01) ==
PROVIDERS: PCP Internal Medicine
DX: U07.1 COVID-19 (principal); J12.82 Pneumonia due to coronavirus disease 2019; R06.02 Shortness of breath
CPT/HCPCS: 71046

== ENCOUNTER 2020-07-19 11:17 | Outpatient (CLI) | payer MEDICARE, OTHER, SELFPAY ==
--- NOTE | ~2020-07-19 | CT_ITS ---
EXAMINATION: CT diagnostic chest wo con EXAM DATE: 07/19/2020 16:02 INDICATION: Post COVID atelectasis, SOB, cough, diffuse chest heaviness. TECHNIQUE: Spiral CT of the chest without contrast. Axial, coronal and sagittal images were reviewe d. Coronal maximum intensity pixel images of chest reviewed. The dose-length product (DLP) for this examination was 180.73 mGy-cm. The exposure was tailored according to patient size (auto mA exposur e control), and iterative reconstruction (ASIR) was used as additional dose reduction technique. Comp arison is made to prior examination from 06/02/2020. FINDINGS: Significant interval improvement in previously seen bilateral groundglass opacities consis tent with subacute COVID pneumonia. There are residual regions of interlobular septal thickening whic h has appearance most consistent with interstitial lung disease probably will be chronic there is mil d bronchiectasis. There are no pleural or pericardial effusions. Tracheobronchial tree is patent. There is no media stinal, hilar or axillary lymphadenopathy. There is no pneumothorax. Heart normal in size. Ther e is mild to moderate coronary arterial calcification, arterial sclerosis. Upper abdomen is unremark able. There is thoracic spondylosis without osteoblastic or osteolytic lesions identified. IMPRESSION:. 1. 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 2. Mild bronchiectasis. Reviewed, dictated and finalized at location A. IMPRESSION:. 1. 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 2. Mild bronchiectasis.
[2020-07-19 11:47] LABS: Alanine Aminotransferase 52 U/L (14-59); Albumin Level 3.8 g/dL (3.4-5.0); Alkaline Phosphatase 61 U/L (46-116); Anion Gap 8 mmol/L (8-16); Aspartate Amino Transferase 44 U/L (15-37); Bilirubin,Total 0.6 mg/dL (0.00-1.00); Blood Urea Nitrogen 17 mg/dL (7-18); Calcium 9.4 mg/dL (8.5-10.1); Carbon Dioxide 31 mmol/L (21-32); Chloride 102 mmol/L (98-108); Estimated Glomerular Filt Rate > 60; Glucose 102 mg/dL (70-99); Osmolality Calculated 293 mOsm/kg (285-295); Potassium 4.2 mmol/L (3.5-5.1); Sodium 141 mmol/L (136-145); Total Protein 7.1 g/dL (6.4-8.2)
== END 2020-07-19 11:18 | disposition home or self-care (01) ==
PROVIDERS: PCP Internal Medicine; Visit Provider Internal Medicine
DX: J98.11 Atelectasis (principal); Z86.16 Personal history of COVID-19
CPT/HCPCS: 36415; 71250; 80053

== ENCOUNTER 2020-08-15 08:09 | Outpatient (CLI) | payer MEDICARE, OTHER, SELFPAY ==
--- NOTE | 2020-08-21 13:40 | WPDSIXMINUTE ---
Six Minute Walk Six Minute Walk: The patients O2 sats started at 99% on 2L And she dropped to as low as 84% on 2 L of oxygen per nasal cannula. Total walk distance 335.28 m conclusion: I would recommend 3 L of oxygen per nasal cannula on exertion and sleep and 2 L at rest. Six Minute Walk Procedure Procedure Performed Pulmonary Stress Test (6 min walk)
== END 2020-08-15 08:10 | disposition home or self-care (01) ==
PROVIDERS: PCP Internal Medicine; Visit Provider Internal Medicine
DX: J84.10 Pulmonary fibrosis, unspecified (principal); Z86.16 Personal history of COVID-19
CPT/HCPCS: 94618

== ENCOUNTER 2020-09-08 20:21 | Observation (INO) | payer MEDICARE, OTHER, SELFPAY ==
[2020-09-08] VITALS (12 sets, daily range): BP systolic 111–137; BP diastolic 52–60; PULSE 57–77; RESP 14–25; TEMP 36.4; O2SAT 92–100
--- NOTE | ~2020-09-08 | NM_ITS ---
EXAMINATION: NM martina stress w perfusion DATE: 09/09/2020 14:55 INDICATION: Chest pain TECHNIQUE: Rest images were obtained following intravenous administration of 11 mCi Tc99m tetrofosmin (Myoview). The patient was infused intravenously with Lexiscan (Regadenoson). Then, 27.1 mCi Tc99m t etrofosmin (Myoview) was administered intravenously, and stress images were obtained. Data was recons tructed into short axis and horizontal and vertical long axis SPECT images. Gated SPECT images were a lso obtained. COMPARISON: None. FINDINGS: There is no definite reversible or fixed perfusion abnormality to suggest ischemia or infar ction. There is normal left ventricular chamber size, wall motion and ejection fraction. Left ventr icular ejection fraction measures >70%. IMPRESSION: 1. Normal myocardial perfusion at rest and during stress. 2. Left ventricular ejection fraction measuring >70%. Reviewed, dictated and finalized at location A.
--- NOTE | ~2020-09-08 | CT_ITS ---
EXAMINATION: CTA chest PE protocol EXAM DATE: 09/08/2020 22:54 INDICATION: Midsternal chest pain, elevated d dimer. TECHNIQUE: Spiral CTA of the chest (pulmonary arteries) was performed with 100 cc Omnipaque 350 intr avenous contrast injection. Images were acquired during the pulmonary arterial phase. Coronal maxi mum intensity projection 3D-reconstructions were created by the technologist on dedicated workstation . Axial, coronal and sagittal reformatted images were reviewed. The dose-length product (DLP) for t his examination was 213.96 mGy-cm. The exposure was tailored according to patient size (auto mA exp osure control), and iterative reconstruction (ASIR) was used as additional dose reduction technique. Comparison is made to prior examination from 07/19/2020. FINDINGS: Pulmonary arteries are well opacified and without intraluminal filling defects. No thora cic aortic dissection. There is left upper lobe predominant interlobular septal thickening unchanged compared to prior study, probably sequela from patient's COVID pneumonia. Minimal diffuse groundglas s opacities also remain unchanged. There are no pleural or pericardial effusions. Tracheobronchial tree is patent. There is no mediastinal, hilar or axillary lymphadenopathy. There is no pneumoth orax. Heart normal in size. There is mild coronary arterial calcification, arterial sclerosis. Th ere is mild bronchiectasis. Upper abdomen is unremarkable. There is thoracic spondylosis without o steoblastic or osteolytic lesions identified. IMPRESSION: 1. No pulmonary emboli, acute findings or interval change. 2. Some chronic interstitial changes and groundglass opacities probably nonspecific interstitial pne umonitis pattern interstitial lung disease, could be sequela from patient's COVID pneumonia. Reviewed, dictated and finalized at location G. IMPRESSION: 1. No pulmonary emboli, acute findings or interval change. 2. Some chronic interstitial changes and groundglass opacities probably nonspe cific interstitial pneumonitis pattern interstitial lung disease, could be sequ bertha from patient's COVID pneumonia.
--- NOTE | ~2020-09-08 | XR_ITS ---
EXAMINATION: XR chest 2V EXAM DATE: 09/08/2020 21:06 INDICATION: Midsternal Cp X Today,Hx Covid+ 04/17,Heart Cath In 2012,Htn . TECHNIQUE: Frontal and lateral projections of the chest obtained and reviewed. Comparison is made to prior examination from 07/14/2020. FINDINGS: The lungs are clear. There are no pleural effusions. The cardiomediastinal silhouette is within normal limits. There is no pneumothorax suspected. Mild to moderate lumbar levoscoliosis. IMPRESSION: No acute cardiopulmonary findings. Reviewed, dictated and finalized at location A.
--- NOTE | 2020-09-08 20:25 | ECG_ITS ---
Measurements Intervals [place] Rate: 59 P: 39 WA: 126 QRS: 1 QRSD: 86 T: 9 QT: 374 QTc: 371 Interpretive Statements SINUS BRADYCARDIA BASELINE ARTIFACT- I, II, III, AVR, AVL BORDERLINE ECG Electronically Signed On 09-09-2020 6:42:58 CDT by Reinaldo Smyth D.O.
[2020-09-08 20:39] LABS: Basophils Absolute Auto 0.1 K/mm3 (0.0-0.1); Eosinophils Absolute Auto 0.2 K/mm3 (0-0.3); Eosinophils Percent Auto 1.7 % (0-4.4); Hematocrit 40.8 % (37.0-47.0); Immature Granulocyte Absolute 0.02 K/mm3 (0.00-0.031); Immature Granulocyte Percent A 0.2 % (0-0.5); Lymphocytes Absolute Auto 3.06 K/mm3 (0.9-3.2); Lymphocytes Percent Auto 35.3 % (18.3-44.2); Mean Corpuscular HGB Conc 31.9 g/dl (32-36); Mean Corpuscular Hemoglobin 30.4 pg (26-34); Mean Corpuscular Volume 95.6 fl (80-100); Mean Platelet Volume 10.5 fl (7.4-10.4); Monocytes Absolute Auto 0.7 K/mm3 (0.1-0.6); Monocytes Percent Auto 8.4 % (2.6-8.5); Neutrophils Absolute Auto 4.6 K/mm3 (1.3-6.7); Neutrophils Percent Auto 53.4 % (45.5-73.1); Platelet Count Result 258 k/mm3 (150-375); Red Blood Count 4.27 M/mm3 (4.2-5.4); Red Cell Distribution Width 13.1 % (11.5-14.5); White Blood Count 8.7 K/mm3 (4.5-10.0)
[2020-09-08 20:50] LABS: Partial Thromboplastin Time 24.4 SECONDS (22.3-36.8); Prothrombin Time 13.3 Seconds (11.1-14.7)
[2020-09-08 20:52] LABS: Anion Gap 7 mmol/L (8-16); Blood Urea Nitrogen 17 mg/dL (7-17); Calcium 9.7 mg/dL (8.4-10.2); Carbon Dioxide 29 mmol/L (22-30); Chloride 103 mmol/L (98-107); Estimated CRCL calculation 55 ml/min; Estimated Glomerular Filt Rate > 60; Glucose 121 mg/dL (65-105); Potassium 3.9 mmol/L (3.4-5.0); Sodium 139 mmol/L (137-145)
[2020-09-08 21:03] LABS: Troponin I < 0.012 ng/mL (0.000-0.034)
--- NOTE | 2020-09-08 21:48 | ED.CHESTPAIN ---
HPI - Chest Pain General Chief Complaint: Chest Pain Stated Complaint: chest pain and sob Time Seen by Provider: 09/08/20 21:38 Source: patient Mode of arrival: ambulatory Limitations: no limitations History of Present Illness HPI narrative: This is a 74 year old female with history of COVID pneumonia(04/17), CAD, CHF who presents for evaluation of chest tightness. She states she was sitting when she developed sudden onset midsternal chest tightness. She states the tightness lasted 15 minutes, and it was associated with dizziness . She denied associated nausea, vomiting or diaphoresis. She denies chest tightness currently. She denies having chest pain with exertion prior to this episode. She does reports after onset of her chest tightness she felt head pressure that has now resolved. She also noticed over the past 4 day increased nasal drainage and coughing up increase sputum. She denies fever or chills. Related Data Home Medications Medication Instructions Recorded Confirmed aspirin [Aspir-81] 81 mg PO DAILY 06/02/20 08/18/20 biotin 1,000 mcg PO DAILY 06/02/20 06/02/20 calcium phos,dibas-vitamin D3 tablet PO 06/02/20 [Vitamin D (with calcium)] [id number]-W2-bmxq-copper-deepak 1 tablet PO BID 06/02/20 06/02/20 [Citracal-D3 Maximum Plus] carvedilol 06/02/20 cetirizine mg 06/02/20 coenzyme Q10 [Co Q-10] 200 mg PO DAILY 06/02/20 08/18/20 folic acid 06/02/20 furosemide 06/02/20 glucosamine-chondroitin [Osteo 2 tablet PO TID 06/02/20 06/02/20 Bi-Flex] lisinopril 06/02/20 magnesium 400 mg PO DAILY 06/02/20 06/02/20 omeprazole 06/02/20 potassium chloride meq PO 06/02/20 pravastatin 06/02/20 valacyclovir 06/02/20 vitamin E 400 unit PO DAILY 06/02/20 06/02/20 Bifidobacterium infantis [Align] 4 mg PO HS 08/18/20 08/18/20 calcium citrate-vitamin D3 1 tablet 08/18/20 [Citracal + D Maximum] vitamin E 400 unit PO DAILY 04/22/21 04/22/21 vitamins A,C,Q-uqcg-gbhpfe 1 tablet 08/18/20 [PreserVision AREDS] Allergies Allergy/AdvReac Type Severity Reaction Status Date / Time Sulfa (Sulfonamide Allergy Unknown Rash Verified 09/08/20 20:28 Antibiotics) Review of Systems Review of Systems: All systems reviewed & are unremarkable except as noted in HPI and below PMFSH Past Medical History Medical History CHF (congestive heart failure) Coronary artery disease COVID-19 On home oxygen therapy Family History Family History (Updated 08/18/20 @ 12:07 by aDrling Clark, RN) Father Hyperlipidemia Cerebrovascular accident Hypertension Family history of cardiovascular disease Family history of malignant neoplasm Sibling Hyperlipidemia Hypertension Family history of cardiovascular disease Acute myocardial infarction Mother Hypertension Family history of cardiovascular disease Family history of malignant neoplasm Social History Social History Smoking status: Never smoker Alcohol intake: current Gender identity (if verbalized by the patient): Female Exam Const: General: no acute distress and alert Orientation/consciousness: patient oriented x3 Eyes: EOM: EOMs intact bilaterally Chest: Chest palpation & inspection: normal inspection of the chest Resp: Effort & Inspection: normal respiratory effort and no retractions Auscultation: clear to auscultation bilaterally Cardio: Rate: regular rate Rhythm: regular rhythm Heart sounds: no murmurs GI: GI Palp: Yes Soft to palpation, No Tenderness to palpation present (GI) and No Guarding due to palpation present (GI) Auscultation: normal bowel sounds Back/Spine/Pelvis: Back: no CVA tenderness Skin: General skin exam: normal color Rashes: no rashes Neuro: General: patient oriented x3 and moves all extremities Course Reevaluation(s) Reevaluation #1: I Discussed with patient plan to observe. She denies chest tightness currently. She will get serial troponi
[2020-09-08 22:15] LABS: D Dimer 0.85 ug/mL (<0.48)
[2020-09-08 22:16] LABS: Alanine Aminotransferase 45 U/L (4-35); Albumin Level 4.3 g/dL (3.5-5.1); Alkaline Phosphatase 74 U/L (38-126); Aspartate Amino Transferase 44 U/L (14-36); Bilirubin,Total 0.4 mg/dL (0.2-1.3); Lipase 37 U/L (23-300)
--- NOTE | 2020-09-08 23:18 | PC.NURSE ---
per EDP villegas aspirin held until CT taken.
[2020-09-08] MEDS: ASPIRIN 81 MG CHEWABLE TABLET 324 MG PO (23:23)
[2020-09-09] VITALS (10 sets, daily range): BP systolic 108–129; BP diastolic 44–63; PULSE 50–87; RESP 15–18; TEMP 36.1–36.4; O2SAT 98–100; BMI 25.8
--- NOTE | 2020-09-09 | EST_ITS ---
Patient Info Name: Zulma Carnes Age: 74 years : 1945 Gender: Female Ht: 63 in Wt: 144 lbs BSA: 1.72 m2 HR: 57 bpm BP: 121 / 67 mmHg Heart Rhythm: Sinus Rhythm Exam Date: 09/09/2020 1:50 PM Exam Location: [facility] Stress Patient Status: Inpatient Admit Date: 09/08/2020 Staff Ordering Physician: Joan Flores MD Attending Provider: Luisito Mai MD Exercise Technologist: Howie Yi RDCS, RT Exercise Physician: Mani Hernandez MD Exam Type: CA stress martina w NM Study Info Indications R07.89 - Other chest pain A regadenoson stress test was performed. Summary 1. Please correlate with nuclear medicine images, reported separately. 2. No abnormal ST-T wave changes with lexiscan. Protocol: Lexiscan Stress ECG Details Stage: REST Duration (min): 1 min : 7 sec HR (bpm): 59 SBP (mmHg): 121 DBP (mmHg): 67 Stage: REST Duration (min): 8 min : 52 sec HR (bpm): 86 SBP (mmHg): 121 DBP (mmHg): 67 Stage: STAGE 1 Duration (min): 1 min : 0 sec HR (bpm): 97 SBP (mmHg): 121 DBP (mmHg): 67 Stage: RECOVERY Duration (min): 1 min : 0 sec HR (bpm): 85 SBP (mmHg): 129 DBP (mmHg): 62 Stage: RECOVERY Duration (min): 2 min : 0 sec HR (bpm): 87 SBP (mmHg): 129 DBP (mmHg): 62 Stage: RECOVERY Duration (min): 3 min : 0 sec HR (bpm): 85 SBP (mmHg): 109 DBP (mmHg): 59 Stage: RECOVERY Duration (min): 4 min : 0 sec HR (bpm): 79 SBP (mmHg): 109 DBP (mmHg): 59 Stage: RECOVERY Duration (min): 5 min : 0 sec HR (bpm): 78 SBP (mmHg): 113 DBP (mmHg): 57 Stage: RECOVERY Duration (min): 6 min : 0 sec HR (bpm): 82 SBP (mmHg): 113 DBP (mmHg): 57 Stage: RECOVERY Duration (min): 6 min : 9 sec HR (bpm): 76 SBP (mmHg): 113 DBP (mmHg): 57 Rest HR: 86 bpm Peak HR: 97 bpm Rest Sys BP: 121 mmHg Peak Sys BP: 129 mmHg Max Pred HR: 147 bpm % Max Pred HR: 66 % Target HR: 125 bpm Max RPP: 12,513 bpm*mmHg Target HR Summary: Hemodynamic response to exercise was normal BP Response: Normal blood pressure response Termination Reason: Completed protocol Cardiac Symptoms: None Total Time: 1 min : 0 sec Rest Gonzalez BP: 67 mmHg Peak Gonzalez BP: 62 mmHg Total Dose: 0.4 mg Resting ECG Sinus bradycardia. Short [place] interval. Stress ECG No abnormal ST/T wave changes with exercise. Arrhythmias None. Report Signatures
--- NOTE | 2020-09-09 00:41 | PM.IMHP ---
H&P: HPI History of Present Illness Date/Time: 09/09/20 00:41 Chief Complaint: Chest pain Narrative: This is a 74-year-old female with past medical history significant for hypertension ,congestive heart failure ,dyslipidemia. Patient presented to the hospital she was brought to the emergency room by her grandson in their private car patient was at home sometime after dinner at the computer she was typing when she fell sudden onset retrosternal pressure intense squeeze recline back on the chair and felt really dizzy but no near-syncope or syncope no shortness of breath no diaphoresis no palpitations no orthopnea no PND no leg swelling states that she has been in her usual state of health prior to this no nausea no vomiting no abdominal pain no diarrhea however when she came to her pulmonary rehabilitation on Saturday of this week she had an episode where she felt extremely dizzy and overall not well her appetite has been okay a no other events have taken place. A preliminary workup in emergency room has been nonrevealing thus far. A CTA was performed and no pulmonary embolism was found but significant for interstitial lung disease. Patient had COVID pneumonia in April of 2020. Patient also just had her pneumonia vaccine after she was at the office for her pulmonology appointment and follow-up. Review of Systems Review of Systems: Narrative: Patient was brought to the emergency room after sudden onset of retrosternal chest pain lasted for about 5 minutes Constitutional: Constitutional: Denies chills, Reports fatigue, Denies fever(s) and Reports lethargy Eyes: Eyes: Denies change in vision ENT: Denies nasal congestion Cardiovascular: Cardiovascular: Reports chest pain, Denies irregular heart rhythm, Denies claudication, Denies radiating jaw, neck or arm pain and Denies dyspnea Respiratory: Respiratory: Denies cough, Denies dyspnea and Denies wheezing Gastrointestinal: Gastrointestinal: Denies abdominal pain and Reports diarrhea (One episode of diarrhea) Genitourinary: Genitourinary: Denies dysuria Musculoskeletal: Musculoskeletal: Denies arthralgias and Denies joint swelling Integumentary/Breasts: Skin/Breast: Denies rash Neurologic: Denies dizziness, Denies syncope and Denies focal weakness Endocrine: Endocrine: Denies cold intolerance, Denies fatigue, Denies heat intolerance and Denies palpitations Hematologic/Lymphatic: Hematologic/Lymphatic: Denies no additional hematologic/lymphatic complaints [facility] Past Medical History Medical History CHF (congestive heart failure) Coronary artery disease COVID-19 On home oxygen therapy Family History Family History (Updated 08/18/20 @ 12:07 by Darling Clark, KAROLINE) Father Hyperlipidemia Cerebrovascular accident Hypertension Family history of cardiovascular disease Family history of malignant neoplasm Sibling Hyperlipidemia Hypertension Family history of cardiovascular disease Acute myocardial infarction Mother Hypertension Family history of cardiovascular disease Family history of malignant neoplasm Social History Social History Smoking status: Never smoker Alcohol intake: current Gender identity (if verbalized by the patient): Female Meds Home Medications and Allergies Home Medications Medication Instructions Recorded Confirmed Type aspirin [Aspir-81] 81 mg PO DAILY 06/02/20 08/18/20 History biotin 1,000 mcg PO DAILY 06/02/20 06/02/20 History calcium phos,dibas-vitamin D3 tablet PO 06/02/20 History [Vitamin D (with calcium)] zfmvwcp-U0-ycjh-copper-deepak 1 tablet PO BID 06/02/20 06/02/20 History [Citracal-D3 Maximum Plus] carvedilol 06/02/20 History cetirizine mg 06/02/20 History coenzyme Q10 [Co Q-10] 200 mg PO DAILY 06/02/20 08/18/20 History folic acid 06/02/20 History furosemide 06/02/20 History glucosamine-chondroitin [Osteo 2 tablet PO TID 06/02/20 06/02/20 History
--- NOTE | 2020-09-09 01:42 | PC.NURSE ---
This patient, Zulma Carnes, was admitted to IMU Room 203-01onn 09/09/20 at 0045. Patient/family oriented to hospital policies and general routines including ID bracelet, bed and alarms, visiting hours, pain management, procedures, bathroom and other care routines, personal items, smoking policy, room service/diet, and visiting hours. Information on how to activate the Rapid Response Team has been discussed. Patient/Family are encouraged to report perceived risks to care and to ask questions if they do not understand what they are told or what they should do.
[2020-09-09 01:43] LABS: Troponin I < 0.012 ng/mL (0.000-0.034)
[2020-09-09 02:52] LABS: Troponin I < 0.012 ng/mL (0.000-0.034)
--- NOTE | 2020-09-09 06:00 | ECHO_ITS ---
Patient Info Name: Zulma Carnes Age: 74 years : 1945 Gender: Female Ht: 62 in Wt: 144 lbs BSA: 1.71 m2 HR: 58 bpm BP: 108 / 44 mmHg Heart Rhythm: Sinus Rhythm Technical Quality: Good Exam Date: 09/09/2020 8:56 AM Exam Location: [facility] Patient Status: Emergency Admit Date: 09/08/2020 Staff Ordering Physician: Magaly Alberto MD Parking Enforcement Specialist: Howie Yi RDCS, RT Attending Provider: Magaly Alberto MD Referring Physician: Dolly CHENG; Exam Type: CA echo doppler color flow Study Info Indications R07.9 - Chest pain, unspecified Strain analysis performed. Complete two-dimensional, color flow and Doppler transthoracic echocardiogram is performed with contrast to opacify the left ventricle and to improve the deliniation of the left ventricle endocardial borders. Summary 1. Left ventricular chamber dimension is normal. 2. Left ventricular systolic function is normal, estimated at 65-70%. 3. There is no increased left ventricular wall thickness. 4. Left ventricular septal wall motion is normal. 5. The left ventricular diastolic function is normal. 6. Left atrial chamber dimension is mildly enlarged. 7. There is mild mitral valve regurgitation. 8. The mitral valve has calcified annulus. 9. There is mild tricuspid valve regurgitation. Left Ventricle Left ventricular chamber dimension is normal. Left ventricular systolic function is normal, estimated at 65-70%. There is no increased left ventricular wall thickness. Left ventricular septal wall motion is normal. The left ventricular diastolic function is normal. Right Ventricle Right ventricular chamber dimension is normal. Right ventricular systolic function is normal. Left Atria Left atrial chamber dimension is mildly enlarged. Right Atria Right atrial chamber dimension is normal. Atrial Septum Intact interatrial septum visualized by color flow imaging. Aortic Valve The aortic valve is trileaflet. There is mild aortic valve sclerosis. There is no aortic valve stenosis. There is trace aortic valve regurgitation. Pulmonic Valve The pulmonic valve is normal. There is no pulmonic valve stenosis. There is trace pulmonic regurgitation. Mitral Valve The mitral valve has calcified annulus. There is no mitral valve stenosis. There is mild mitral valve regurgitation. Tricuspid Valve The tricuspid valve leaflets are normal. There is no significant tricuspid valve stenosis. There is mild tricuspid valve regurgitation. No pulmonary hypertension, estimated pulmonary arterial systolic pressure is 33 mmHg. Pericardium/Pleural The pericardium appears normal. There is no pericardial effusion. Inferior Vena Cava Normal inferior vena cava with >50% collapse upon inspiration consistent with normal right atrial pressure, 5 mmHg. Aorta The aortic root size at the sinus of Valsalva is normal. The prox ascending aorta size is normal. Left Ventricular Outflow Tract Name Value Normal LVOT 2D LVOT Diameter 1.9 cm LVOT Doppler LVOT Peak Gradient 4 mmHg LVOT Mean Grad
[2020-09-09] MEDS: OPTI-GEN TAB 1 TABLET PO (08:30)
[2020-09-09] MEDS: carvediloL 3.125 MG TABLET PO (08:30)
[2020-09-09] MEDS: ASPIRIN 81 MG ENTERIC TABLET PO (08:30)
[2020-09-09] MEDS: valACYclovir HCL 500 MG TABLET PO (08:30)
[2020-09-09] MEDS: FUROSEMIDE 20 MG TABLET PO (08:30)
[2020-09-09] MEDS: FOLIC ACID 1 MG TABLET PO (08:30)
[2020-09-09] MEDS: PANTOPRAZOLE SOD SESQUIHYDRATE 20 MG TAB PO (08:30)
[2020-09-09] MEDS: CHOLECALCIFEROL 1,000 UNITS TABLET 1000 UNITS PO (08:31)
[2020-09-09] MEDS: MAGNESIUM OXIDE 400 MG TABLET PO (08:31)
[2020-09-09] MEDS: lisinopriL 2.5 MG TABLET PO (08:31)
[2020-09-09] MEDS: LORATADINE 10 MG TABLET PO (08:31)
[2020-09-09] MEDS: VITAMIN E 400 UNIT CAPSULE PO (08:32)
[2020-09-09] MEDS: PERFLUTREN LIPID MICROSPHERES 1.5 ML VIAL DILUTED TO 10 ML TOTAL VOLUME IV PUSH (09:22)
--- NOTE | 2020-09-09 15:17 | PM.DS ---
DS: Admitting Diagnosis Admitting Diagnosis Admitting Diagnosis: Chest pain DS: Discharge Diagnosis Discharge Diagnosis (1) Chest pain: Code(s): R07.9 - Chest pain, unspecified Status: Acute Assessment and Plan: Patient has been placed in observation Tele monitoring Serial cardiac enzymes A stress test in a.m. Supportive care (2) CHF (congestive heart failure), NYHA class I: Code(s): I50.9 - Heart failure, unspecified Status: Acute Assessment and Plan: Appears to be euvolemic Continue to monitor Resume carvedilol and Lasix and lisinopril (3) Interstitial lung disease: Code(s): J84.9 - Interstitial pulmonary disease, unspecified Status: Acute Assessment and Plan: Patient had COVID pneumonia in April of this year She has been undergoing pulmonary rehabilitation DS: Summary Hospital Course Reason for hospitalization: Chief Complaint: Chest pain Narrative: This is a 74-year-old female with past medical history significant for hypertension ,congestive heart failure ,dyslipidemia. Patient presented to the hospital she was brought to the emergency room by her grandson in their private car patient was at home sometime after dinner at the computer she was typing when she fell sudden onset retrosternal pressure intense squeeze recline back on the chair and felt really dizzy but no near-syncope or syncope no shortness of breath no diaphoresis no palpitations no orthopnea no PND no leg swelling states that she has been in her usual state of health prior to this no nausea no vomiting no abdominal pain no diarrhea however when she came to her pulmonary rehabilitation on Saturday of this week she had an episode where she felt extremely dizzy and overall not well her appetite has been okay a no other events have taken place. A preliminary workup in emergency room has been nonrevealing thus far. A CTA was performed and no pulmonary embolism was found but significant for interstitial lung disease. Patient had COVID pneumonia in April of 2020. Patient also just had her pneumonia vaccine after she was at the office for her pulmonology appointment and follow-up. Hospital Course: Patient has been placed in observation Tele monitoring Serial cardiac enzymes A stress test in a.m. Supportive care Patient presented with chest pain 3 sets of cardiac enzymes are negative there is no acute changes on EKG, patient had a Lexiscan which was essentially normal, also had cardiac echo which was normal, patient's symptoms have resolved patient clinically stable will discharge the patient today Status at Discharge Functional status at discharge: independent ambulation Overall status at discharge: patient is back to baseline Time Spent with Patient Time attestation: Total time spent providing and/or coordinating discharge services: Patient was seen and examined at the time of the discharge Condition at discharge is stable Code status: Full code. Time spent preparing discharge summary, discharge medications, discussing discharge planning with family service caseworker and patient is 35 minutes. Time spent: Greater than 30 minutes Exam Narrative: Exam Narrative: Patient is comfortable, NAD HEENT: eyes are clear and none icteric LUNGS:CTA HEART: RR S1S2 ABD: BS+, Soft and nontender Lower extremities: no edema SKIN: nonjaundiced Neuro: grossly intact. DS: Data Data Completed and Pending Labs on day of discharge: Labs from last 24 hours 09/09/20 09/09/20 09/08/20 02:20 00:51 20:33 WBC RBC Hgb Hct MCV MCH MCHC RDW Plt Count MPV Immature Gran % (Auto) Neut % (Auto) Lymph % (Auto) [place] % (Auto) Eos % (Auto) Baso % (Auto) Lymph # (Auto) [place] # (Auto) Eos # (Auto) Baso # (Auto) Abs Immat Gran (auto) Absolute Neuts (auto) Absolute Nucleated RBC Nucleated RBC % PT INR APTT D-Dimer Sodium Potassium Ch
== END 2020-09-09 16:21 | disposition home or self-care (01) ==
LOC: ANHED 23:42 → ANHIMU 09-09 15:17
PROVIDERS: Emergency Medicine; Admitting Provider Internal Medicine; Emergency Provider General Practice; PCP Internal Medicine; Visit Provider Family Medicine
DX: R07.9 Chest pain, unspecified (principal); I11.0 Hypertensive heart disease with heart failure; I50.9 Heart failure, unspecified; E78.5 Hyperlipidemia, unspecified; I25.10 Atherosclerotic heart disease of native coronary artery without angina pectoris; J84.9 Interstitial pulmonary disease, unspecified; Z86.16 Personal history of COVID-19
CPT/HCPCS: 36415; 71046; 71275; 78452; 80048; 80076; 83690; 84484; 85025; 85380; 85610; 85730; 93005; 93017; 96374; 99285; A9270; A9502; C8929; G0378; J2785; Q9957; Q9967

== ENCOUNTER 2020-10-25 10:57 | Outpatient (CLI) | payer MEDICARE, OTHER, SELFPAY ==
[2020-10-25 11:54] LABS: Alanine Aminotransferase 23 U/L (4-35); Albumin Level 4.1 g/dL (3.5-5.1); Alkaline Phosphatase 64 U/L (38-126); Anion Gap 7 mmol/L (8-16); Aspartate Amino Transferase 34 U/L (14-36); Bilirubin,Total 0.4 mg/dL (0.2-1.3); Blood Urea Nitrogen 14 mg/dL (7-17); Calcium 9.6 mg/dL (8.4-10.2); Carbon Dioxide 26 mmol/L (22-30); Chloride 107 mmol/L (98-107); Estimated Glomerular Filt Rate > 60; Glucose 99 mg/dL (65-105); Potassium 4.3 mmol/L (3.4-5.0); Sodium 140 mmol/L (137-145)
== END 2020-10-25 10:58 | disposition home or self-care (01) ==
PROVIDERS: PCP Internal Medicine; Visit Provider Internal Medicine
DX: R74.01 Elevation of levels of liver transaminase levels (principal)
CPT/HCPCS: 36415; 80053; G0239

== ENCOUNTER 2020-11-05 10:15 | Outpatient (CLI) | payer MEDICARE, OTHER, SELFPAY ==
[2020-11-05 11:38] LABS: Hematocrit 39.6 % (37.0-47.0); Mean Corpuscular HGB Conc 32.8 g/dl (32-36); Mean Corpuscular Hemoglobin 31.2 pg (26-34); Mean Platelet Volume 11.3 fl (7.4-10.4); Platelet Count Result 230 k/mm3 (150-375); Red Blood Count 4.17 M/mm3 (4.2-5.4); Red Cell Distribution Width 12.9 % (11.5-14.5)
[2020-11-05 11:54] LABS: Add Urine Microscopic? YES; Alanine Aminotransferase 25 U/L (4-35); Albumin Level 4.3 g/dL (3.5-5.1); Alkaline Phosphatase 61 U/L (38-126); Anion Gap 7 mmol/L (8-16); Appearance Urine Clear (Clear); Aspartate Amino Transferase 37 U/L (14-36); Bacteria Urine Trace /hpf; Bilirubin Urine Negative (Negative); Bilirubin,Total 0.6 mg/dL (0.2-1.3); Blood Urea Nitrogen 16 mg/dL (7-17); Blood Urine Negative (Negative); Calcium 9.3 mg/dL (8.4-10.2); Carbon Dioxide 28 mmol/L (22-30); Chloride 103 mmol/L (98-107); Cholesterol 214 mg/dL (0-200); Color Urine Yellow (Yellow); Creatine Kinase 131 U/L (30-135); Estimated Glomerular Filt Rate > 60; Glucose 86 mg/dL (65-105); Glucose Urine UA Negative (Negative); HDL Direct 65 mg/dL; Ketones Urine Negative (Negative); Leukocyte Esterase Ur 1+ LEU/UL (NEGATIVE); Mucus Urine Rare /lpf; Nitrate Urine Negative (Negative); Potassium 4.3 mmol/L (3.4-5.0); Protein Urine Negative (Negative); RBC Urine 0-2 /hpf (0-2); Sodium 138 mmol/L (137-145); Specific Grav Ur 1.021 (1.001-1.035); Squamous Epithelial Cell Urine Moderate /hpf (Few); Triglycerides 140 mg/dL (<150); Urobilinogen Urine Negative mg/dL (<2.0); WBC Urine 0-3 /hpf (0-3)
[2020-11-05 11:58] LABS: NT Pro B Type Natriuretic Pept 196 pg/mL (5-100)
[2020-11-05 12:09] LABS: LDL Cholesterol Direct 102 mg/dL
[2020-11-05 13:11] LABS: Vitamin D 25 Hydroxy 48.2 ng/mL
== END 2020-11-05 10:16 | disposition home or self-care (01) ==
PROVIDERS: PCP Internal Medicine; Visit Provider Internal Medicine
DX: E78.5 Hyperlipidemia, unspecified (principal); I10 Essential (primary) hypertension; M81.0 Age-related osteoporosis without current pathological fracture; I50.22 Chronic systolic (congestive) heart failure
CPT/HCPCS: 36415; 80053; 80061; 81001; 82306; 82550; 83880; 85027

== ENCOUNTER 2020-12-16 09:30 | Outpatient (RCR) | payer MEDICARE, OTHER, SELFPAY ==
[2020-08-18 12:31] VITALS: PULSE 65
--- NOTE | 2020-09-09 08:50 | PCCPR ---
Addendum entered by Suzi Russo RN 09/15/20 18:52: Spoke with Zulma she is to follow up with Dr Rosa 09/19/20 asked that she inform us of her plan to return. She plans to ask for a release to return. Original Note: Absent due to illness Zulma called states she is hospitalized for chest pressure and increased SOB. She is to have additional diagnostic testing today. Explained she needs a release to resume rehab.
--- NOTE | 2020-09-22 17:23 | PCCPR ---
Spoke with Zulma torres, she had to cancel appointment with Dr. Rosa on 09/19 because she and her had the flu. She rescheduled the appointment for 09/27 and will obtain a release to return at that time.
== END 2020-12-16 23:59 | disposition home or self-care (01) ==
LOC: ANHCPREHAB 09:30
PROVIDERS: PCP Internal Medicine; Visit Provider Internal Medicine
DX: J84.10 Pulmonary fibrosis, unspecified (principal); B94.8 Sequelae of other specified infectious and parasitic diseases
CPT/HCPCS: 97150; G0239; G0424

== ENCOUNTER 2021-01-11 12:48 | Outpatient (CLI) | payer MEDICARE, OTHER, SELFPAY ==
--- NOTE | ~2021-01-11 | XR_ITS ---
EXAMINATION: XR chest 2V EXAM DATE: 01/11/2021 14:42 INDICATION: Cough, wheezing left lower TECHNIQUE: Frontal and lateral projections of the chest obtained and reviewed. Comparison is made to prior examination from 09/08/2020. FINDINGS: The lungs are clear. There are no pleural effusions. The cardiomediastinal silhouette is within normal limits. There is no pneumothorax suspected. The bones and soft tissues are unremarkab le. IMPRESSION: No acute cardiopulmonary findings. I discussed no acute findings with Dr. Rosa at 01/11/2021 13:33 CDT . Reviewed, dictated and finalized at location B.
[2021-01-11 13:38] LABS: Hematocrit 40.6 % (35.0-42.0); Hemoglobin 13.3 g/dL (11.7-13.8); Immature Granulocyte Percent A 0.1 % (0.0-0.0); Mean Corpuscular HGB Conc 32.8 g/dL (32.0-36.0); Mean Corpuscular Hemoglobin 31.3 pg (27.0-31.0); Mean Corpuscular Volume 95.5 fL (78.0-102.0); Mean Platelet Volume 10.5 fl (9.2-11.8); Platelet Count Result 234 K/mm3 (150-420); Red Blood Count 4.25 M/mm3 (4.20-5.40); Red Cell Distribution Width 12.9 % (11.6-14.4); White Blood Count 7.5 K/mm3 (4.8-10.8)
[2021-01-11 13:39] LABS: Basophils Percent Auto 0.8 % (0.0-1.0); Eosinophils Percent Auto 2.4 % (1.0-6.0); Lymphocytes Percent Auto 32.8 % (18.0-42.0); Monocytes Percent Auto 7.6 % (2.0-11.0); Neutrophils Percent Auto 56.3 % (50.0-70.0)
[2021-01-11 13:40] LABS: Basophils Absolute Auto 0.06 K/mm3 (0.00-0.10); Eosinophils Absolute Auto 0.18 K/mm3 (0.02-0.50); Immature Granulocyte Absolute 0.01 K/mm3 (0.00-0.00); Lymphocytes Absolute Auto 2.46 K/mm3 (1.10-4.50); Monocytes Absolute Auto 0.57 K/mm3 (0.10-0.90); Neutrophils Absolute Auto 4.2 K/mm3 (1.7-7.2)
[2021-01-11 14:46] LABS: SARS-CoV-2 RNA PCR Negative (Negative)
[2021-01-11 14:49] LABS: SARS-CoV-2 Ag Negative (Negative)
== END 2021-01-11 12:49 | disposition home or self-care (01) ==
PROVIDERS: PCP Internal Medicine; Visit Provider Internal Medicine
DX: R05 Cough (principal); R06.2 Wheezing; Z20.822 Contact with and (suspected) exposure to COVID-19
CPT/HCPCS: 36415; 71046; 85025; 87426; C9803; U0003; U0005

== ENCOUNTER 2021-01-30 08:11 | Outpatient (CLI) | payer MEDICARE, OTHER, SELFPAY ==
--- NOTE | 2021-02-06 10:48 | WPDSIXMINUTE ---
Six Minute Walk Procedure Procedure Performed Pulmonary Stress Test (6 min walk) Six Minute Walk The 6 minute walk test was carried out with the patient breathing ambient air. The pre-walk oxygen saturation was 98 %. The patient walked 1400 ft with the O2 saturation remaining over 92% during the walk. Impression: No evidence of oxyhemoglobin desaturation on this testing.
== END 2021-01-30 08:12 | disposition home or self-care (01) ==
PROVIDERS: PCP Internal Medicine; Visit Provider Internal Medicine
DX: J84.10 Pulmonary fibrosis, unspecified (principal); Z86.16 Personal history of COVID-19
CPT/HCPCS: 94618

== ENCOUNTER 2021-03-27 14:02 | Outpatient (CLI) | payer MEDICARE, OTHER, SELFPAY ==
--- NOTE | ~2021-03-27 | XR_ITS ---
XR chest 2V 03/27/2021 14:32 Indication: Shortness of breath. Prior Covid infection. Procedure: PA and lateral views of the chest Comparison: Comparison to multiple prior studies sequentially, with oldest reviewed study dated 11/2020. Findings: Heart size normal. There is chronic left upper lobe atelectasis/scarring. Chronic elevation of the left diaphragm. No acute focal pneumonia, edema or effusion. No pneumothorax. No acute osseou s abnormality. Impression: 1: No acute cardiopulmonary disease. Reviewed, dictated and finalized at location B. [employer] Impression: 1: No acute cardiopulmonary disease.
== END 2021-03-27 14:03 | disposition home or self-care (01) ==
LOC: ANHIMG 14:09
PROVIDERS: PCP Internal Medicine
DX: R06.02 Shortness of breath (principal)
CPT/HCPCS: 71046

== ENCOUNTER 2021-05-16 09:43 | Outpatient (CLI) | payer MEDICARE, OTHER, SELFPAY ==
[2021-05-16 10:55] LABS: Hematocrit 39.1 % (37.0-47.0); Mean Corpuscular HGB Conc 33.2 g/dl (32-36); Mean Corpuscular Hemoglobin 31.5 pg (26-34); Mean Corpuscular Volume 94.7 fl (80-100); Mean Platelet Volume 10.5 fl (7.4-10.4); Platelet Count Result 228 k/mm3 (150-375); Red Blood Count 4.13 M/mm3 (4.2-5.4); Red Cell Distribution Width 12.8 % (11.5-14.5); White Blood Count 6.5 K/mm3 (4.5-10.0)
[2021-05-16 11:02] LABS: Add Urine Microscopic? YES; Appearance Urine Clear (Clear); Bilirubin Urine Negative (Negative); Blood Urine Negative (Negative); Color Urine Yellow (Yellow); Glucose Urine UA Negative (Negative); Ketones Urine Negative (Negative); Leukocyte Esterase Ur Trace LEU/UL (NEGATIVE); Mucus Urine Rare /lpf; Nitrate Urine Negative (Negative); Protein Urine Negative (Negative); RBC Urine 0-2 /hpf (0-2); Specific Grav Ur 1.021 (1.001-1.035); Squamous Epithelial Cell Urine Occasional /hpf (Few); Urobilinogen Urine Negative mg/dL (<2.0); WBC Urine 0-3 /hpf (0-3)
[2021-05-16 11:13] LABS: Alanine Aminotransferase 23 U/L (4-35); Albumin Level 4.1 g/dL (3.5-5.1); Alkaline Phosphatase 68 U/L (38-126); Anion Gap 6 mmol/L (8-16); Aspartate Amino Transferase 27 U/L (14-36); Bilirubin,Total 0.6 mg/dL (0.2-1.3); Blood Urea Nitrogen 19 mg/dL (7-17); Calcium 9.3 mg/dL (8.4-10.2); Carbon Dioxide 30 mmol/L (22-30); Chloride 104 mmol/L (98-107); Cholesterol 220 mg/dL (0-200); Creatine Kinase 58 U/L (30-135); Estimated Glomerular Filt Rate > 60; Glucose 98 mg/dL (65-110); HDL Direct 66 mg/dL; Sodium 140 mmol/L (137-145); Triglycerides 133 mg/dL (<150)
[2021-05-16 11:22] LABS: NT Pro B Type Natriuretic Pept 333 pg/mL (5-100)
[2021-05-16 11:24] LABS: LDL Cholesterol Direct 132 mg/dL
[2021-05-16 11:44] LABS: Thyroid Stimulating Hormone 0.185 uIU/mL (0.465-4.680)
[2021-05-16 12:28] LABS: Free T4 Free Thyroxine 1.03 ng/mL (0.78-2.19); Vitamin D 25 Hydroxy 41.5 ng/mL
[2021-05-19 06:43] LABS: Triiodothyronine T3 Free 3.4 pg/mL (2.3-4.2)
== END 2021-05-16 09:44 | disposition home or self-care (01) ==
PROVIDERS: PCP Internal Medicine; Visit Provider Internal Medicine
DX: E78.2 Mixed hyperlipidemia (principal); I10 Essential (primary) hypertension; M81.0 Age-related osteoporosis without current pathological fracture; I50.22 Chronic systolic (congestive) heart failure; R53.82 Chronic fatigue, unspecified
CPT/HCPCS: 36415; 80053; 80061; 81001; 82306; 82550; 83880; 84439; 84443; 84481; 85027

== ENCOUNTER 2021-05-29 15:12 | Outpatient (CLI) | payer MEDICARE, OTHER, SELFPAY ==
--- NOTE | ~2021-05-29 | US_ITS ---
EXAMINATION: US thyroid EXAM DATE: 05/29/2021 15:42 INDICATION: Hyperthyroidism. TECHNIQUE: Multiple grayscale and Doppler images of the thyroid were obtained (by a technologist who performed the scan) and subsequently reviewed. Individual nodules and recommendations may be reporte d in accordance with TI-RADS system as designated by the 2017 ACR White Paper TI-RADS committee. The re is no prior study for comparison. FINDINGS: The right thyroid lobe measures 4.3 x 1.8 x 1.1 cm, the left measuring 4.1 x 1.4 x 1.2 cm. Mildly het erogeneous thyroid echogenicity and mildly hypervascular parenchyma. The isthmus measures 3 mm in thi ckness. There are scattered subcentimeter nodules requiring no further sonographic follow-up. IMPRESSION: Scattered small thyroid nodules. Return to clinical follow-up and if additional palpabl e abnormality develops a repeat ultrasound can be obtained. Reviewed, dictated and finalized at location G. CAL OFFICE TECHNICIAN IMPRESSION: Scattered small thyroid nodules. Return to clinical follow-up and if additional palpable abnormality develops a repeat ultrasound can be obtaine d.
== END 2021-05-29 15:13 | disposition home or self-care (01) ==
LOC: ANHIMG 15:19
PROVIDERS: PCP Internal Medicine; Visit Provider Internal Medicine
DX: E05.90 Thyrotoxicosis, unspecified without thyrotoxic crisis or storm (principal); E04.2 Nontoxic multinodular goiter
CPT/HCPCS: 76536

== ENCOUNTER 2021-07-11 12:24 | Outpatient (CLI) | payer MEDICARE, OTHER, SELFPAY ==
--- NOTE | ~2021-07-11 | MM_ITS ---
EXAMINATION: MM screening [facility] BI w ravinder HISTORY: Screening mammogram, family history of breast cancer in her mother and personal history of l eft breast cancer. TECHNIQUE: Craniocaudal and mediolateral oblique 3-D tomosynthesis images were obtained and synthetic 2-D images were generated. CAD analysis was submitted and interpreted. COMPARISON: 06/27/2020, 04/14/2019, 04/10/2018 BREAST PARENCHYMAL COMPOSITION: The breasts are heterogeneously dense, which may obscure small masses . FINDINGS: There are stable lumpectomy changes upper outer quadrant of the left breast. There is no mccord spicious mass, calcification, or architectural distortion to suggest malignancy in either breast. The re has been no suspicious interval change. IMPRESSION: 1. No mammographic evidence of malignancy. 2. Recommend routine screening mammography in one year. BI-RADS Category 2: Benign finding(s). Reviewed, dictated and finalized at location A.
== END 2021-07-11 12:25 | disposition home or self-care (01) ==
LOC: CHSIMG 12:25
PROVIDERS: PCP Internal Medicine; Visit Provider Internal Medicine
DX: Z12.31 Encounter for screening mammogram for malignant neoplasm of breast (principal)
CPT/HCPCS: 77063; 77067

== ENCOUNTER 2021-09-04 16:41 | Outpatient (CLI) | payer MEDICARE, OTHER, SELFPAY ==
--- NOTE | ~2021-09-04 | XR_ITS ---
EXAMINATION: XR chest 2V Exam Date/Time: 09/04/2021 17:00 CDT CLINICAL HISTORY: heaviness in chest x 1 wk Comparison: 03/27/2021. RESULT: Lines, tubes, and devices: Prior left breast surgery. Lungs and pleura: Clear. Stable left upper lung scar and left hemidiaphragm elevation. Cardiomediastinal silhouette: Stable cardiomediastinal silhouette. Other: No acute osseous or upper abdominal finding. IMPRESSION: No acute cardiopulmonary process Reviewed, dictated and finalized at location K.
--- NOTE | ~2021-09-04 | CT_ITS ---
EXAMINATION: CT sinus wo con DATE: 09/04/2021 17:16 INDICATION: TECHNIQUE: Computed tomography (CT) of the paranasal sinuses was performed without intravenous contra st. The dose-length product (DLP) was 327.26 mGy-cm. Iterative reconstruction was used. COMPARISON: None FINDINGS: There is normal development and pneumatization of the paranasal sinuses. Mild rightward bow ing of the posterior nasal septum. Opacification and mucosal thickening in the ethmoid air cells. Mil d bilateral maxillary mucosal thickening. Right maxillary retention cyst/polyp. Trace left mastoid fl uid with surrounding sclerosis/decreased pneumatization. Remaining aerated spaces are clear. Right os tiomeatal complex is patent. Narrowing of the left are new by fluid/mucosal thickening. Visualized so ft tissues are unremarkable. IMPRESSION: 1. Mild ethmoid and maxillary mucosal thickening 2. Left OMU narrowing. Reviewed, dictated and finalized at location K.
[2021-09-04 17:11] LABS: Anion Gap 10 mmol/L (8-16); Basophils Absolute Auto 0.07 K/mm3 (0.00-0.10); Basophils Percent Auto 0.7 % (0.0-1.0); Blood Urea Nitrogen 19 mg/dL (7-18); Calcium 8.6 mg/dL (8.5-10.1); Carbon Dioxide 25 mmol/L (21-32); Chloride 105 mmol/L (98-108); Eosinophils Absolute Auto 0.14 K/mm3 (0.02-0.50); Eosinophils Percent Auto 1.4 % (1.0-6.0); Estimated Glomerular Filt Rate > 60; Glucose 89 mg/dL (70-99); Hematocrit 40.5 % (35.0-42.0); Hemoglobin 13.2 g/dL (11.7-13.8); Immature Granulocyte Absolute 0.03 K/mm3 (0.00-0.00); Immature Granulocyte Percent A 0.3 % (0.0-0.0); Lymphocytes Absolute Auto 3.54 K/mm3 (1.10-4.50); Lymphocytes Percent Auto 35.6 % (18.0-42.0); Mean Corpuscular HGB Conc 32.6 g/dL (32.0-36.0); Mean Corpuscular Hemoglobin 31.1 pg (27.0-31.0); Mean Corpuscular Volume 95.5 fL (78.0-102.0); Mean Platelet Volume 10.5 fl (9.2-11.8); Monocytes Absolute Auto 0.59 K/mm3 (0.10-0.90); Monocytes Percent Auto 5.9 % (2.0-11.0); Neutrophils Absolute Auto 5.6 K/mm3 (1.7-7.2); Neutrophils Percent Auto 56.1 % (50.0-70.0); Osmolality Calculated 291 mOsm/kg (285-295); Platelet Count Result 218 K/mm3 (150-420); Red Blood Count 4.24 M/mm3 (4.20-5.40); Red Cell Distribution Width 12.9 % (11.6-14.4); Sodium 140 mmol/L (136-145)
[2021-09-04 17:15] LABS: CRP < 0.2 mg/dL (0.0-0.9)
[2021-09-04 17:54] LABS: Erythrocyte Sedimentation Rate 20 mm/hr (0-20)
[2021-09-07 21:53] LABS: Immunoglobulin E 5 kU/L (<=114)
[2021-09-13 22:48] LABS: ANCA Screen Negative (Negative)
== END 2021-09-04 16:42 | disposition home or self-care (01) ==
LOC: CHSLAB 16:44
PROVIDERS: PCP Internal Medicine; Visit Provider Internal Medicine
DX: J32.9 Chronic sinusitis, unspecified (principal)
CPT/HCPCS: 36415; 70486; 71046; 80048; 82785; 85025; 85652; 86036; 86140

== ENCOUNTER 2021-11-13 12:50 | Outpatient (CLI) | payer MEDICARE, OTHER, SELFPAY ==
--- NOTE | ~2021-11-13 | DEXA_ITS ---
Bone Density Report Name: SIDNEY ANDERSON Age: 76 Sex: Female Ethnicity: White Date of : 1945 Indication: postmenopausal; screening for osteoporosis; height loss; inflammatory bowel disease; cancer; hysterectomy; secondary osteoporosis; Referring Provider: Jackson Rosa Study: Bone densitometry was performed. Exam Date: November 13, 2021 Accession number: [id number] Bone Density: Region BMD T-score Z-score Classification AP Spine(L1, L3, L4) 0.915 -1.3 1.2 Osteopenia Femoral Neck (Left) 0.582 -2.4 -0.3 Osteopenia Total Hip (Left) 0.753 -1.5 0.2 Osteopenia Femoral Neck (Right) 0.595 -2.3 -0.2 Osteopenia Total Hip (Right) 0.769 -1.4 0.4 Osteopenia Femoral Neck Mean 0.588 -2.3 -0.3 Osteopenia Total Hip Mean 0.761 -1.5 0.3 Osteopenia World Health Organization criteria for BMD impression classify patients as: Normal (T-score at or above -1.0), Osteopenia (T-score between -1.0 and -2.5), or Osteoporosis (T-score at or below -2.5). 10-year Fracture Risk: FRAX not reported because: Treated for osteoporosis Clinical Information Provided by Patient: Has secondary osteoporosis Is being treated for osteoporosis Has used the following medications: Actonel (i.e. risedronate), Boniva (i.e. ibandronate), Reclast (i.e. zoledronate), Vitamin D, Calcium Has the following medical conditions: Cancer, Inflammatory bowel diseases, Hysterectomy Patient maximum height was 64 Drinks caffeinated beverages Onset of menses at age 15 Number of children 3 Impression: The patient has low bone mass, based on the Left Femoral Neck T-score. Discussion: It is important to ask patients whether they are taking their medications and to encourage continued and appropriate compliance with their osteoporosis therapies to reduce fracture risk. It is also important to review their risk factors and encourage appropriate calcium and vitamin D intakes, exercise, fall prevention and other lifestyle measures. Follow-Up: Consider a repeat BMD and Vertebral Fracture Assessment (VFA) exam in 2 years or sooner if medically necessary, to reassess this patient's status. Reported by: Dr. Ruddy Quiles on 11/13/2021 1:21:00 PM. Reviewed, dictated and finalized at location A. [facility]
== END 2021-11-13 12:51 | disposition home or self-care (01) ==
LOC: CHSIMG 12:52
PROVIDERS: PCP Internal Medicine; Visit Provider Internal Medicine
DX: M81.0 Age-related osteoporosis without current pathological fracture (principal)
CPT/HCPCS: 77080

== ENCOUNTER 2021-11-30 17:36 | Outpatient (CLI) | payer MEDICARE, OTHER, SELFPAY | END 2021-11-30 17:37 | disposition home or self-care (01) | LOC: CHSLAB 17:38 | PROVIDERS: PCP Internal Medicine; Visit Provider Internal Medicine | DX: R19.7 Diarrhea, unspecified (principal) | CPT/HCPCS: 87324 ==

== ENCOUNTER 2021-12-07 09:58 | Outpatient (CLI) | payer MEDICARE, OTHER, SELFPAY ==
--- NOTE | 2021-12-07 10:10 | PC.NURSE ---
Pt to OP infusion center amb per self. A&Ox3. Plan of care explained. Pt without questions or concerns. Oriented to area. Call nair in reach. Reminded to voice needs.
[2021-12-07] MEDS: ZOLEDRONIC ACID 5 MG/100 ML 100 ML 400 MG IVPB (10:25)
--- NOTE | 2021-12-07 10:41 | PC.NURSE ---
Medication infused. Pt tolerated well. Has no complaints. Discharged to home amb per self.
== END 2021-12-07 09:59 | disposition home or self-care (01) ==
LOC: CHSTREATRM 10:01
PROVIDERS: PCP Internal Medicine; Visit Provider Internal Medicine
DX: M81.0 Age-related osteoporosis without current pathological fracture (principal)
CPT/HCPCS: 96372; 96374; J3489

== ENCOUNTER 2022-05-29 09:35 | Outpatient (CLI) | payer MEDICARE, OTHER, SELFPAY ==
--- NOTE | 2022-05-29 | EST_ITS ---
Patient Info Name: Zulma Carnes Age: 76 years : 1945 Gender: Female Ht: 62 in Wt: 148 lbs BSA: 1.73 m2 HR: 64 bpm BP: 139 / 67 mmHg Heart Rhythm: Sinus Rhythm Exam Date: 05/29/2022 10:49 AM Exam Location: [facility] Stress Patient Status: Outpatient Admit Date: 05/29/2022 Staff Ordering Physician: Alen Cherry Attending Provider: Alen Cherry Exercise Technologist: Kanika Dan CT Nurse: YAIR HIGGINS Exam Type: CA stress martina w NM Study Info Indications R06.02 - Shortness of breath R53.83 - Other fatigue I25.10 - Atherosclerotic heart disease of [place] coronary artery without angina pectoris A regadenoson stress test was performed. Summary 1. No abnormal ST/T wave changes diagnostic of ischemia with Lexiscan. 2. Please correlate with nuclear medicine images, reported separately. Protocol: Lexiscan Stress ECG Details Stage: REST Duration (min): 0 min : 56 sec HR (bpm): 66 SBP (mmHg): 139 DBP (mmHg): 67 Stage: REST Duration (min): 5 min : 26 sec HR (bpm): 62 SBP (mmHg): 143 DBP (mmHg): 65 Stage: STAGE 1 Duration (min): 0 min : 59 sec HR (bpm): 92 SBP (mmHg): 143 DBP (mmHg): 65 Stage: RECOVERY Duration (min): 1 min : 0 sec HR (bpm): 90 SBP (mmHg): 143 DBP (mmHg): 65 Stage: RECOVERY Duration (min): 2 min : 0 sec HR (bpm): 83 SBP (mmHg): 143 DBP (mmHg): 65 Stage: RECOVERY Duration (min): 3 min : 0 sec HR (bpm): 81 SBP (mmHg): 142 DBP (mmHg): 64 Stage: RECOVERY Duration (min): 3 min : 48 sec HR (bpm): 74 SBP (mmHg): 142 DBP (mmHg): 64 Rest HR: 62 bpm Peak HR: 94 bpm Rest Sys BP: 143 mmHg Peak Sys BP: 142 mmHg Max Pred HR: 145 bpm % Max Pred HR: 65 % Target HR: 123 bpm Max RPP: 13,348 bpm*mmHg Total Time: 1 min : 0 sec Rest Gonzalez BP: 65 mmHg Peak Gonzalez BP: 64 mmHg Total Dose: 0.4 mg Resting ECG Sinus rhythm. Stress ECG Sinus rhythm. No abnormal ST/T wave changes diagnostic of ischemia with Lexiscan. Arrhythmias None. Report Signatures
--- NOTE | ~2022-05-29 | NM_ITS ---
EXAMINATION: NM martina stress w perfusion DATE: 05/29/2022 11:57 INDICATION: Coronary artery disease TECHNIQUE: Rest images were obtained following intravenous administration of 9.3 mCi Tc99m tetrofosmi n (Myoview). The patient was infused intravenously with Lexiscan (Regadenoson). Then, 30.0 mCi Tc99m tetrofosmin (Myoview) was administered intravenously, and stress images were obtained in supine posit ion. Repeat post stress images were obtained in prone position.. Data was reconstructed into short ax is and horizontal and vertical long axis SPECT images. Gated SPECT images were also obtained. COMPARISON: None. FINDINGS: There is no definite reversible or fixed perfusion abnormality to suggest ischemia or infar ction. There is normal left ventricular chamber size, wall motion and ejection fraction. Left ventr icular ejection fraction measures >70%. IMPRESSION: 1. Normal myocardial perfusion at rest and during stress. 2. Left ventricular ejection fraction measuring >70%. Reviewed, dictated and finalized at location A. TAPPER
== END 2022-05-29 09:36 | disposition home or self-care (01) ==
PROVIDERS: PCP Internal Medicine; Visit Provider Internal Medicine Cardiovascular Disease
DX: I25.10 Atherosclerotic heart disease of native coronary artery without angina pectoris (principal); I10 Essential (primary) hypertension; R07.9 Chest pain, unspecified; R06.02 Shortness of breath; R53.83 Other fatigue
CPT/HCPCS: 78452; 93017; A9502; J2785

== ENCOUNTER 2022-06-04 11:15 | Outpatient (CLI) | payer MEDICARE, OTHER, SELFPAY ==
--- NOTE | ~2022-06-04 | XR_ITS ---
EXAMINATION: XR chest 2V DATE: 06/04/2022 11:47 INDICATION: Cough for four days TECHNIQUE: Frontal and lateral views of the chest are obtained COMPARISON: 09/04/2021 FINDINGS: The lungs are free of acute opacities. No pleural effusion or pneumothorax. The cardiomedia stinal silhouette is normal. There is moderate thoracic spondylosis. There are changes of left total shoulder arthroplasty. There are changes of left partial mastectomy. IMPRESSION: 1. No acute cardiopulmonary abnormality. Reviewed, dictated and finalized at location B. T SERVICES COORDINATOR
[2022-06-04 11:34] LABS: Basophils Absolute Auto 0.06 K/mm3 (0.00-0.10); Basophils Percent Auto 0.9 % (0.0-1.0); Eosinophils Absolute Auto 0.14 K/mm3 (0.02-0.50); Eosinophils Percent Auto 2.2 % (1.0-6.0); Hematocrit 39.9 % (35.0-42.0); Hemoglobin 12.8 g/dL (11.7-13.8); Immature Granulocyte Absolute 0.01 K/mm3 (0.00-0.00); Immature Granulocyte Percent A 0.2 % (0.0-0.0); Lymphocytes Percent Auto 24.9 % (18.0-42.0); Mean Corpuscular HGB Conc 32.1 g/dL (32.0-36.0); Mean Corpuscular Hemoglobin 29.8 pg (27.0-31.0); Mean Platelet Volume 10.6 fl (9.2-11.8); Monocytes Absolute Auto 0.61 K/mm3 (0.10-0.90); Monocytes Percent Auto 9.5 % (2.0-11.0); Neutrophils Percent Auto 62.3 % (50.0-70.0); Platelet Count Result 185 K/mm3 (150-420); Red Blood Count 4.29 M/mm3 (4.20-5.40); Red Cell Distribution Width 12.8 % (11.6-14.4); White Blood Count 6.4 K/mm3 (4.8-10.8)
[2022-06-04 11:52] LABS: Alanine Aminotransferase 17 U/L (14-59); Albumin Level 3.6 g/dL (3.4-5.0); Alkaline Phosphatase 64 U/L (46-116); Anion Gap 8 mmol/L (8-16); Aspartate Amino Transferase 14 U/L (15-37); Bilirubin,Total 0.3 mg/dL (0.00-1.00); Blood Urea Nitrogen 13 mg/dL (7-18); Calcium 8.6 mg/dL (8.5-10.1); Carbon Dioxide 28 mmol/L (21-32); Chloride 103 mmol/L (98-108); Estimated Glomerular Filt Rate > 60; Glucose 115 mg/dL (70-99); Osmolality Calculated 289 mOsm/kg (285-295); Potassium 3.8 mmol/L (3.5-5.1); Sodium 139 mmol/L (136-145); Total Protein 7.3 g/dL (6.4-8.2)
== END 2022-06-04 11:16 | disposition home or self-care (01) ==
LOC: CHSLAB 11:19
PROVIDERS: PCP Internal Medicine; Visit Provider Internal Medicine
DX: R05.9 Cough, unspecified (principal)
CPT/HCPCS: 36415; 71046; 80053; 85025

== ENCOUNTER 2022-07-16 11:58 | Outpatient (CLI) | payer MEDICARE, OTHER, SELFPAY ==
--- NOTE | ~2022-07-16 | MM_ITS ---
EXAMINATION: MM screening [facility] BI w ravinder HISTORY: Screening TECHNIQUE: Craniocaudal and mediolateral oblique 3-D tomosynthesis images were obtained and synthetic 2-D images were generated. CAD analysis was submitted and interpreted. COMPARISON: Comparison to multiple prior studies sequentially, with oldest reviewed study dated 11/09. BREAST PARENCHYMAL COMPOSITION: The breasts are heterogeneously dense, which may obscure small masses . FINDINGS: There are benign breast calcifications. There are surgical changes in the upper aspect of t he left breast, consistent with previous lumpectomy. There is no evidence of suspicious mass, calcifi cation, or architectural distortion to suggest malignancy in either breast. There has been no suspici ous interval change. IMPRESSION: 1. No mammographic evidence of malignancy. 2. Recommend routine screening mammography in one year. BI-RADS Category 2: Benign finding(s). Reviewed, dictated and finalized at location A.
[2022-07-16 12:29] LABS: Basophils Absolute Auto 0.06 K/mm3 (0.00-0.10); Basophils Percent Auto 1.1 % (0.0-1.0); Eosinophils Absolute Auto 0.17 K/mm3 (0.02-0.50); Eosinophils Percent Auto 3.1 % (1.0-6.0); Hematocrit 39.4 % (35.0-42.0); Hemoglobin 12.8 g/dL (11.7-13.8); Immature Granulocyte Absolute 0.01 K/mm3 (0.00-0.00); Immature Granulocyte Percent A 0.2 % (0.0-0.0); Lymphocytes Absolute Auto 2.04 K/mm3 (1.10-4.50); Lymphocytes Percent Auto 36.7 % (18.0-42.0); Mean Corpuscular HGB Conc 32.5 g/dL (32.0-36.0); Mean Corpuscular Hemoglobin 30.3 pg (27.0-31.0); Mean Corpuscular Volume 93.1 fL (78.0-102.0); Mean Platelet Volume 10.7 fl (9.2-11.8); Monocytes Absolute Auto 0.33 K/mm3 (0.10-0.90); Monocytes Percent Auto 5.9 % (2.0-11.0); Platelet Count Result 251 K/mm3 (150-420); Red Blood Count 4.23 M/mm3 (4.20-5.40); Red Cell Distribution Width 13.9 % (11.6-14.4); White Blood Count 5.6 K/mm3 (4.8-10.8)
[2022-07-16 12:43] LABS: Hemoglobin A1C 5.5 % (<5.7)
[2022-07-16 12:46] LABS: Appearance Urine Clear (Clear); Bilirubin Urine Negative (Negative); Blood Urine Negative (Negative); Color Urine Light Yellow (Yellow); Glucose Urine UA Negative (Negative); Ketones Urine Negative (Negative); Leukocyte Esterase Ur Negative (Negative); Nitrate Urine Negative (Negative); Protein Urine Negative (Negative); Urobilinogen Urine 0.2 mg/dL (0.2-1.0)
[2022-07-16 13:17] LABS: Alanine Aminotransferase 26 U/L (14-59); Albumin Level 3.7 g/dL (3.4-5.0); Alkaline Phosphatase 68 U/L (46-116); Anion Gap 8 mmol/L (8-16); Aspartate Amino Transferase 22 U/L (15-37); Bilirubin,Total 0.6 mg/dL (0.00-1.00); Blood Urea Nitrogen 17 mg/dL (7-18); Carbon Dioxide 29 mmol/L (21-32); Chloride 108 mmol/L (98-108); Cholesterol 230 mg/dL (0-200); Estimated Glomerular Filt Rate > 60; Free T3 3.24 pg/mL (2.18-3.98); Free T4 Free Thyroxine 1.11 ng/dL (0.76-1.46); Glucose 102 mg/dL (70-99); HDL Direct 76 mg/dL (40-60); LDL Cholesterol Calculated 140 mg/dL (<130); NT Pro B Type Natriuretic Pept 402 pg/mL (0-450); Osmolality Calculated 301 mOsm/kg (285-295); Potassium 4.2 mmol/L (3.5-5.1); Sodium 145 mmol/L (136-145); Thyroid Stimulating Hormone 1.46 uIU/mL (0.36-3.74); Total Protein 6.7 g/dL (6.4-8.2); Triglycerides 71 mg/dL (0-150); Vitamin B12 384 pg/mL (193-986)
[2022-07-16 13:22] LABS: Add Urine Microscopic? NO
[2022-07-18 21:17] LABS: Vitamin D 25 Hydroxy 31 ng/mL (30-100)
[2022-07-21 05:12] LABS: Methylmalonic Acid 177 nmol/L (87-318)
== END 2022-07-16 11:59 | disposition home or self-care (01) ==
LOC: CHSIMG 12:02
PROVIDERS: PCP Internal Medicine; Visit Provider Internal Medicine
DX: G31.84 Mild cognitive impairment of uncertain or unknown etiology (principal); M81.0 Age-related osteoporosis without current pathological fracture; R73.01 Impaired fasting glucose; E78.2 Mixed hyperlipidemia; R53.82 Chronic fatigue, unspecified; I10 Essential (primary) hypertension; Z12.31 Encounter for screening mammogram for malignant neoplasm of breast; E53.8 Deficiency of other specified B group vitamins; I50.9 Heart failure, unspecified
CPT/HCPCS: 36415; 77063; 77067; 80053; 80061; 81003; 82306; 82607; 83036; 83880; 83921; 84439; 84443; 84481; 85025

== ENCOUNTER 2022-08-27 15:43 | Outpatient (CLI) | payer MEDICARE, OTHER, SELFPAY ==
--- NOTE | ~2022-08-27 | MR_ITS ---
MRI of the brain Clinical History: Dizziness Technique: Axial and sagittal T1-weighted images were acquired. These were followed by axial T2-weigh donnie, diffusion weighted, gradient, and FLAIR images. Following intravenous administration of 14 cc Mu ltiHance gadolinium, T1-weighted fat-sat imaging was performed in the axial and coronal planes. Findings: There is no acute infarct, intracranial hemorrhage, or mass lesion. There are mild chronic white matter changes in the periventricular white matter bilaterally. Ventricles and subarachnoid spaces are unremarkable. Orbits are unremarkable. Paranasal sinuses and m astoid air cells are essentially clear. Major intracranial flow voids are intact. Sagittal midline structures are intact. No abnormal postcontrast enhancement identified. IMPRESSION: Mild chronic vascular ischemic changes, otherwise unremarkable exam. Reviewed, dictated and finalized at location M.
--- NOTE | ~2022-08-27 | US_ITS ---
EXAMINATION: US carotid duplex BI DATE: 08/27/2022 16:31 INDICATION: Dizziness. Cerebral atherosclerosis. TECHNIQUE: Grayscale, color Doppler, and pulsed Doppler images of the cervical carotid arteries were obtained. The degree of vessel stenosis is placed in one of the following categories: normal, <50%, 5 0-69%, >=70% but less than near-occlusion, near-occlusion, or total occlusion. Note that percent sten osis relative to normal distal artery lumen diameter is indirectly measured from velocity measurement s as described by Ladarius, et al. Radiology 2003; 229:340-346. COMPARISON: None. FINDINGS: RIGHT: The right common carotid artery (CCA) peak systolic velocity (PSV) is 95 cm/s. The right internal car otid artery (ICA) PSV is 92 cm/s. The right ICA end-diastolic velocity (EDV) is 24 cm/s. The right IC A/CCA PSV ratio is 1.0. Grayscale and color Doppler images yield an estimate of <50% diameter reducti on from plaque in the ICA. The external carotid artery (ECA) PSV is 102 cm/s. There is antegrade flow in the right vertebral artery. LEFT: The left CCA PSV is 108 cm/s. The left ICA PSV is 95 cm/s. The left ICA EDV is 15 cm/s. The left ICA/ CCA PSV ratio is 0.9. Grayscale and color Doppler images yield an estimate of <50% diameter reduction from plaque in the ICA. The ECA PSV is 86 cm/s. There is antegrade flow in the left vertebral artery . IMPRESSION: 1. <50% stenosis in the right internal carotid artery. 2. <50% stenosis in the left internal carotid artery. Reviewed, dictated and finalized at location B.
== END 2022-08-27 15:44 | disposition home or self-care (01) ==
PROVIDERS: PCP Internal Medicine; Visit Provider Internal Medicine
DX: I65.23 Occlusion and stenosis of bilateral carotid arteries (principal)
CPT/HCPCS: 70553; 93880; A9577

== ENCOUNTER 2022-09-11 15:53 | Outpatient (CLI) | payer MEDICARE, OTHER, SELFPAY ==
--- NOTE | ~2022-09-11 | MR_ITS ---
MRI of the cervical spine Clinical History: Neck pain Technique: Axial T2-weighted and gradient images, and sagittal T1-weighted, T2-weighted, and STIR yordan ges were acquired. Findings: No acute fracture seen. 2 mm anterolisthesis of C4 over C5 is present. No suspicious bone m arrow signal abnormality seen. At C2-C3, there is no significant disc bulge or herniation. No spinal canal stenosis, cord compressio n, or neural foraminal narrowing. At C3-C4, there is degenerative disc narrowing, with minimal disc osteophyte complex. There is left-s ided facet arthropathy. No grayson spinal canal stenosis, cord compression, or right neural foraminal n arrowing. Probable minimal left neural foraminal narrowing. At C4-C5, there is mild disc osteophyte complex. No grayson spinal canal stenosis or cord compression. Bilateral neural foramina are probably preserved. At C5-C6, there is moderate degenerative distended with minimal disc osteophyte compresses. No grayson spinal canal stenosis or cord compression. There is probable minimal left neural foraminal narrowing. At C6-C7, there is moderate degenerative disc narrowing with minimal disc osteophyte complex. No boone k spinal canal stenosis or cord compression. There is probable left neural foraminal narrowing. Right neural foramen preserved. No abnormal signal seen in the spinal cord. Paravertebral soft tissues are unremarkable. Impression: Mild overall degenerative spondylosis, as detailed above. 2 mm anterolisthesis of C4 over C5. Reviewed, dictated and finalized at [facility]. Impression: Mild overall degenerative spondylosis, as detailed above. 2 mm anterolisthesis of C4 over C5.
== END 2022-09-11 15:54 | disposition home or self-care (01) ==
LOC: ANHIMG 15:55
PROVIDERS: PCP Internal Medicine
DX: M47.812 Spondylosis without myelopathy or radiculopathy, cervical region (principal); M43.12 Spondylolisthesis, cervical region
CPT/HCPCS: 72141

== ENCOUNTER 2022-10-25 16:09 | Outpatient (CLI) | payer MEDICARE, OTHER, SELFPAY ==
[2022-10-25 17:11] LABS: SARS-CoV-2 RNA PCR Positive (Negative)
== END 2022-10-25 16:10 | disposition home or self-care (01) ==
LOC: CHSLAB 16:12
PROVIDERS: PCP Internal Medicine; Visit Provider Nurse Practitioner Family
DX: U07.1 COVID-19 (principal)
CPT/HCPCS: 87635

== ENCOUNTER 2022-11-16 09:53 | Outpatient (CLI) | payer MEDICARE, OTHER, SELFPAY ==
[2022-11-16 10:46] LABS: Alanine Aminotransferase 23 U/L (6-35); Albumin Level 3.9 g/dL (3.5-5.1); Alkaline Phosphatase 79 U/L (38-126); Anion Gap 6 mmol/L (8-16); Aspartate Amino Transferase 26 U/L (14-36); Bilirubin,Total 0.3 mg/dL (0.2-1.3); Blood Urea Nitrogen 19 mg/dL (7-17); Calcium 8.8 mg/dL (8.4-10.2); Carbon Dioxide 30 mmol/L (22-30); Chloride 105 mmol/L (98-107); Cholesterol 200 mg/dL (0-200); Estimated Glomerular Filt Rate > 60; Glucose 96 mg/dL (65-110); HDL Direct 59 mg/dL; Potassium 4.1 mmol/L (3.4-5.0); Sodium 141 mmol/L (137-145); Triglycerides 91 mg/dL (<150)
[2022-11-16 10:47] LABS: Hemoglobin A1C 5.4 % (<5.7)
[2022-11-16 10:58] LABS: LDL Cholesterol Direct 102 mg/dL
== END 2022-11-16 09:54 | disposition home or self-care (01) ==
LOC: ANHLAB 09:55
PROVIDERS: PCP Internal Medicine; Visit Provider Internal Medicine
DX: E78.2 Mixed hyperlipidemia (principal); R73.01 Impaired fasting glucose
CPT/HCPCS: 36415; 80053; 80061; 83036

== ENCOUNTER 2023-01-15 11:17 | Outpatient (CLI) | payer MEDICARE, OTHER, SELFPAY | END 2023-01-15 11:18 | disposition home or self-care (01) | LOC: CHSLAB 11:21 | PROVIDERS: PCP Internal Medicine; Visit Provider Specialist | DX: C44.529 Squamous cell carcinoma of skin of other part of trunk (principal); L98.8 Other specified disorders of the skin and subcutaneous tissue | CPT/HCPCS: 88305 ==

== ENCOUNTER 2023-02-13 12:31 | Outpatient (CLI) | payer MEDICARE, OTHER, SELFPAY ==
[2023-02-13 12:50] VITALS: BMI 26.9
[2023-02-13] MEDS: ZOLEDRONIC ACID 5 MG/100 ML 100 ML 400 MG IVPB (12:50)
[2023-02-13 12:51] VITALS: BP 150/77; PULSE 68; RESP 14; TEMP 36.3; O2SAT 97
--- NOTE | 2023-02-13 13:23 | PC.NURSE ---
Patient here for yearly IV Reclast infusion. Education given. No concerns voiced. IV Reclast administered. SEE MAR. Tolerated well. Safe exit of hospital per self/amb.
== END 2023-02-13 12:32 | disposition home or self-care (01) ==
PROVIDERS: PCP Internal Medicine; Visit Provider Internal Medicine
DX: M81.0 Age-related osteoporosis without current pathological fracture (principal)
CPT/HCPCS: 96374; J3489

== ENCOUNTER 2023-03-05 14:38 | Outpatient (CLI) | payer MEDICARE, OTHER, SELFPAY | END 2023-03-05 14:39 | disposition home or self-care (01) | LOC: CHSLAB 14:42 | PROVIDERS: PCP Internal Medicine; Visit Provider Specialist | DX: C44.729 Squamous cell carcinoma of skin of left lower limb, including hip (principal) | CPT/HCPCS: 88305 ==

== ENCOUNTER 2023-05-10 12:14 | Outpatient (CLI) | payer MEDICARE, OTHER, SELFPAY ==
[2023-05-10 14:09] LABS: Hematocrit 42.4 % (37.0-47.0); Hemoglobin 13.4 g/dL (12.0-15.0); Mean Corpuscular HGB Conc 31.6 g/dl (32-36); Mean Corpuscular Hemoglobin 30.7 pg (26-34); Mean Platelet Volume 10.7 fl (7.4-10.4); Platelet Count Result 233 k/mm3 (150-375); Red Blood Count 4.37 M/mm3 (4.2-5.4); Red Cell Distribution Width 13.1 % (11.5-14.5); White Blood Count 6.3 K/mm3 (4.5-10.0)
[2023-05-10 14:21] LABS: Alanine Aminotransferase 22 U/L (6-35); Alkaline Phosphatase 59 U/L (38-126); Anion Gap 8 mmol/L (8-16); Aspartate Amino Transferase 31 U/L (14-36); Bilirubin,Total 0.8 mg/dL (0.2-1.3); Blood Urea Nitrogen 24 mg/dL (7-17); Calcium 9.2 mg/dL (8.4-10.2); Carbon Dioxide 27 mmol/L (22-30); Chloride 105 mmol/L (98-107); Cholesterol 223 mg/dL (0-200); Estimated Glomerular Filt Rate > 60; Glucose 94 mg/dL (65-110); HDL Direct 64 mg/dL; Potassium 4.3 mmol/L (3.4-5.0); Sodium 140 mmol/L (137-145); Triglycerides 80 mg/dL (<150)
[2023-05-10 14:22] LABS: Hemoglobin A1C 5.4 % (<5.7)
[2023-05-10 14:27] LABS: NT Pro B Type Natriuretic Pept 216 pg/mL (19.9-100)
[2023-05-10 14:32] LABS: LDL Cholesterol Direct 121 mg/dL
[2023-05-10 14:44] LABS: Free T4 Free Thyroxine 1.29 ng/mL (0.78-2.19)
[2023-05-10 14:48] LABS: Thyroid Stimulating Hormone 0.398 uIU/mL (0.465-4.680)
[2023-05-10 15:20] LABS: Appearance Urine Clear (Clear); Bilirubin Urine Negative (Negative); Blood Urine Negative (Negative); Color Urine Yellow (Yellow); Glucose Urine UA Negative (Negative); Ketones Urine Negative (Negative); Leukocyte Esterase Ur Negative LEU/UL (NEGATIVE); Nitrate Urine Negative (Negative); Protein Urine Negative (Negative); Specific Grav Ur 1.023 (1.001-1.035); Urobilinogen Urine 0.2 mg/dL (<2.0)
[2023-05-10 15:30] LABS: Add Urine Microscopic? NO
[2023-05-15 06:18] LABS: Triiodothyronine T3 Free 3.6 pg/mL (2.3-4.2)
== END 2023-05-10 12:15 | disposition home or self-care (01) ==
PROVIDERS: PCP Internal Medicine; Visit Provider Internal Medicine
DX: F03.A3 Unspecified dementia, mild, with mood disturbance (principal); E78.2 Mixed hyperlipidemia; I11.0 Hypertensive heart disease with heart failure; I50.9 Heart failure, unspecified; R53.82 Chronic fatigue, unspecified; I25.10 Atherosclerotic heart disease of native coronary artery without angina pectoris
CPT/HCPCS: 36415; 80053; 80061; 81003; 83036; 83880; 84439; 84443; 84481; 85027

== ENCOUNTER 2023-08-08 12:50 | Outpatient (CLI) | payer MEDICARE, OTHER, SELFPAY ==
--- NOTE | ~2023-08-08 | MM_ITS ---
EXAMINATION: MM screening [facility] BI w ravinder HISTORY: Screening TECHNIQUE: Craniocaudal and mediolateral oblique 3-D tomosynthesis images were obtained and synthetic 2-D images were generated. CAD analysis was submitted and interpreted. COMPARISON: Comparison to multiple prior studies sequentially, with oldest reviewed study dated 01/28. BREAST PARENCHYMAL COMPOSITION: Dense: The breasts are heterogeneously dense, which may obscure small masses FINDINGS: Stable architectural distortion upper aspect of the left breast, consistent with previous l umpectomy. There are benign bilateral breast calcifications which are unchanged. There is no evidence of suspicious mass, calcification, or architectural distortion to suggest malignancy in either breas t. There has been no suspicious interval change. IMPRESSION: 1. No mammographic evidence of malignancy. 2. Recommend routine screening mammography in one year. BI-RADS Category 2: Benign finding(s). Reviewed, dictated and finalized at location A.
== END 2023-08-08 12:51 | disposition home or self-care (01) ==
LOC: CHSIMG 12:51
PROVIDERS: PCP Internal Medicine; Visit Provider Internal Medicine
DX: Z12.31 Encounter for screening mammogram for malignant neoplasm of breast (principal)
CPT/HCPCS: 77063; 77067

== ENCOUNTER 2023-08-13 13:04 | Outpatient (CLI) | payer MEDICARE, OTHER, SELFPAY | END 2023-08-13 13:05 | disposition home or self-care (01) | LOC: CHSLAB 13:12 | PROVIDERS: PCP Internal Medicine; Visit Provider Specialist | DX: C44.529 Squamous cell carcinoma of skin of other part of trunk (principal) | CPT/HCPCS: 88305 ==

== ENCOUNTER 2023-11-08 10:15 | Outpatient (CLI) | payer MEDICARE, OTHER, SELFPAY ==
[2023-11-08 10:58] LABS: Hematocrit 40.9 % (37.0-47.0); Hemoglobin 13.3 g/dL (12.0-15.0); Mean Corpuscular HGB Conc 32.5 g/dl (32-36); Mean Corpuscular Hemoglobin 31.1 pg (26-34); Mean Corpuscular Volume 95.8 fl (80-100); Mean Platelet Volume 10.8 fl (7.4-10.4); Platelet Count Result 227 k/mm3 (150-375); Red Blood Count 4.27 M/mm3 (4.2-5.4); Red Cell Distribution Width 13.4 % (11.5-14.5); White Blood Count 5.9 K/mm3 (4.5-10.0)
[2023-11-08 11:01] LABS: Appearance Urine Clear (Clear); Bacteria Urine None Seen /hpf; Bilirubin Urine Negative (Negative); Blood Urine Negative (Negative); Color Urine Dark Yellow (Yellow); Glucose Urine UA Negative (Negative); Ketones Urine Trace mg/dL (Negative); Leukocyte Esterase Ur Trace LEU/UL (Negative); Nitrate Urine Negative (Negative); Non Pathogenic Casts 0-2; Protein Urine Trace mg/dL (Negative); RBC Urine 0-2 /hpf (0-2); Specific Grav Ur 1.026 (1.001-1.035); Squamous Epithelial Cell Urine Occasional /hpf (Few); WBC Urine 0-5 /hpf (0-3)
[2023-11-08 11:05] LABS: Add Urine Microscopic? YES
[2023-11-08 11:16] LABS: Alanine Aminotransferase 20 U/L (6-35); Albumin Level 4.5 g/dL (3.5-5.1); Alkaline Phosphatase 66 U/L (38-126); Anion Gap 8 mmol/L (4-12); Aspartate Amino Transferase 25 U/L (14-36); Bilirubin,Total 0.8 mg/dL (0.2-1.3); Blood Urea Nitrogen 19 mg/dL (7-17); Calcium 9.1 mg/dL (8.4-10.2); Carbon Dioxide 29 mmol/L (22-30); Chloride 104 mmol/L (98-107); Cholesterol 202 mg/dL (0-200); Creatine Kinase 66 U/L (30-135); Estimated Glomerular Filt Rate > 60; Glucose 96 mg/dL (65-110); HDL Direct 59 mg/dL; Potassium 4.2 mmol/L (3.4-5.0); Sodium 141 mmol/L (137-145); Triglycerides 130 mg/dL (<150)
[2023-11-08 11:25] LABS: NT Pro B Type Natriuretic Pept 227 pg/mL (19.9-100)
[2023-11-08 11:27] LABS: LDL Cholesterol Direct 115 mg/dL
[2023-11-08 11:34] LABS: Free T4 Free Thyroxine 1.27 ng/mL (0.78-2.19)
[2023-11-09 11:28] LABS: Triiodothyronine T3 Free 3.8 pg/mL (2.3-4.2)
== END 2023-11-08 10:16 | disposition home or self-care (01) ==
LOC: ANHLAB 10:22
PROVIDERS: PCP Internal Medicine; Visit Provider Internal Medicine
DX: I11.0 Hypertensive heart disease with heart failure (principal); I50.22 Chronic systolic (congestive) heart failure; E78.2 Mixed hyperlipidemia; E05.90 Thyrotoxicosis, unspecified without thyrotoxic crisis or storm
CPT/HCPCS: 36415; 80053; 80061; 81001; 82550; 83880; 84439; 84443; 84481; 85027

== ENCOUNTER 2023-12-10 13:11 | Outpatient (CLI) | payer MEDICARE, OTHER, SELFPAY ==
--- NOTE | ~2023-12-10 | DEXA_ITS ---
Bone Density Report Name: SIDNEY ANDERSON Age: 78 Sex: Female Ethnicity: White Date of : 1945 Indication: osteopenia; monitoring treatment; height loss; inflammatory bowel disease; cancer; hysterectomy; Referring Provider: Jackson Rosa Study: Bone densitometry was performed. Exam Date: December 10, 2023 Accession number: [id number] Bone Density: Region BMD T-score Z-score Classification AP Spine(L1-L4) 0.891 -1.4 1.1 Osteopenia Femoral Neck (Left) 0.560 -2.6 -0.4 Osteoporosis Total Hip (Left) 0.788 -1.3 0.6 Osteopenia Femoral Neck (Right) 0.584 -2.4 -0.2 Osteopenia Total Hip (Right) 0.787 -1.3 0.6 Osteopenia Femoral Neck Mean 0.572 -2.5 -0.3 Osteoporosis Total Hip Mean 0.787 -1.3 0.6 Osteopenia World Health Organization criteria for BMD impression classify patients as: Normal (T-score at or above -1.0), Osteopenia (T-score between -1.0 and -2.5), or Osteoporosis (T-score at or below -2.5). 10-year Fracture Risk: FRAX not reported because: Some T-score for Spine Total or Hip Total or Femoral Neck at or below -2.5 Treated for osteoporosis Previous Exams: Region Exam Age BMD T-score BMD Change BMD Change Date g/cm2 vs Baseline vs Previous AP Spine (L1-L4) 12/10/2023 78 0.891 -1.4 -0.102 (-10.3% -0.102 (-10.3% 11/13/2019 74 0.993 -0.5 Total Hip(Left) 12/10/2023 78 0.788 -1.3 0.035 (4.7%)* 0.035 (4.7%)* 11/13/2021 76 0.753 -1.5 Total Hip(Right) 12/10/2023 78 0.787 -1.3 0.017 (2.3%) 0.017 (2.3%) 11/13/2021 76 0.769 -1.4 *Denotes significance at 95% confidence level, LSC for AP Spine = 0.022 g/cm2, LSC for Total Hip = 0.027 g/cm2 # Denotes dissimilar scan types or analysis methods Clinical Information Provided by Patient: Is being treated for osteoporosis Has used the following medications: Actonel (i.e. risedronate), Boniva (i.e. ibandronate), Fosamax (i.e. alendronate), Reclast (i.e. zoledronate), Vitamin D, Calcium Has the following medical conditions: Cancer, Inflammatory bowel diseases, Hysterectomy Patient maximum height was 64 Menopause Age: 30 No regular weight bearing exercise Drinks caffeinated beverages Onset of menses at age 15 Number of children 3 Impression: The patient has osteoporosis, based on the Left Femoral Neck T-score. No significant bone loss was observed. Discussion: PATIENT UNDER TREATMENT WITH NO SIGNIFICANT BMD LOSS SINCE LAST EXAM. In an untreated
== END 2023-12-10 13:12 | disposition home or self-care (01) ==
LOC: CHSIMG 13:15
PROVIDERS: PCP Internal Medicine; Visit Provider Internal Medicine
DX: Z78.0 Asymptomatic menopausal state (principal); M85.89 Other specified disorders of bone density and structure, multiple sites; M81.0 Age-related osteoporosis without current pathological fracture
CPT/HCPCS: 77080

== ENCOUNTER 2024-04-03 13:03 | Outpatient (CLI) | payer MEDICARE, OTHER, SELFPAY ==
[2024-04-03 13:19] VITALS: BP 127/74; PULSE 72; RESP 14; TEMP 36.6; O2SAT 98
[2024-04-03 13:26] VITALS: BMI 24.3
[2024-04-03] MEDS: DENOSUMAB 60 MG/ML SYRINGE SUB-Q (13:34)
--- NOTE | 2024-04-03 13:39 | PC.NURSE ---
Patient here for Prolia injection. Education given. All concerns voiced answered. Injection administered. SEE MAR/patient care notes. Tolerated well.
== END 2024-04-03 13:04 | disposition home or self-care (01) ==
PROVIDERS: PCP Internal Medicine; Visit Provider Internal Medicine
DX: M81.0 Age-related osteoporosis without current pathological fracture (principal)
CPT/HCPCS: 96372; J0897

== ENCOUNTER 2024-05-07 08:55 | Outpatient (CLI) | payer MEDICARE, OTHER, SELFPAY ==
[2024-05-07 09:13] LABS: Hematocrit 40.1 % (35.0-42.0); Hemoglobin 12.9 g/dL (11.7-13.8); Mean Corpuscular HGB Conc 32.2 g/dL (32-36); Mean Corpuscular Volume 93.3 fL (78.0-102.0); Mean Platelet Volume 10.1 fl (9.2-11.8); Platelet Count Result 238 K/mm3 (150-420); White Blood Count 6.3 K/mm3 (4.8-10.8)
[2024-05-07 09:16] LABS: Add Urine Microscopic? NO; Appearance Urine Clear (Clear); Bilirubin Urine Negative (Negative); Blood Urine Negative (Negative); Color Urine Yellow (Yellow); Glucose Urine UA Negative (Negative); Ketones Urine Negative (Negative); Leukocyte Esterase Ur Negative (Negative); Nitrate Urine Negative (Negative); Protein Urine Negative (Negative); Specific Grav Ur 1.025 (1.010-1.020); Urobilinogen Urine 0.2 mg/dL (0.2-1.0)
[2024-05-07 10:08] LABS: Hemoglobin A1C 5.2 % (<5.7)
[2024-05-07 10:13] LABS: Alanine Aminotransferase 18 U/L (14-59); Albumin Level 3.7 g/dL (3.4-5.0); Alkaline Phosphatase 71 U/L (46-116); Anion Gap 8 mmol/L (4-12); Aspartate Amino Transferase 16 U/L (15-37); Bilirubin,Total 0.7 mg/dL (0.00-1.00); Blood Urea Nitrogen 18 mg/dL (7-18); Calcium 8.8 mg/dL (8.5-10.1); Carbon Dioxide 28 mmol/L (21-32); Chloride 106 mmol/L (98-108); Cholesterol 195 mg/dL (0-200); Creatine Kinase 74 U/L (26-192); Estimated Glomerular Filt Rate > 60; Free T3 3.16 pg/mL (2.18-3.98); Free T4 Free Thyroxine 1.15 ng/dL (0.76-1.46); Glucose 90 mg/dL (70-99); HDL Direct 64 mg/dL (40-60); LDL Cholesterol Calculated 110 mg/dL (<130); NT Pro B Type Natriuretic Pept 262 pg/mL (0-450); Osmolality Calculated 295 mOsm/kg (285-295); Potassium 4.2 mmol/L (3.5-5.1); Sodium 142 mmol/L (136-145); Thyroid Stimulating Hormone 2.97 uIU/mL (0.36-3.74); Total Protein 6.3 g/dL (6.4-8.2); Triglycerides 107 mg/dL (0-150)
== END 2024-05-07 08:56 | disposition home or self-care (01) ==
PROVIDERS: PCP Internal Medicine; Visit Provider Internal Medicine
DX: E78.2 Mixed hyperlipidemia (principal); I10 Essential (primary) hypertension; I50.22 Chronic systolic (congestive) heart failure; I25.10 Atherosclerotic heart disease of native coronary artery without angina pectoris; R73.01 Impaired fasting glucose; E05.90 Thyrotoxicosis, unspecified without thyrotoxic crisis or storm
CPT/HCPCS: 36415; 80053; 80061; 81003; 82550; 83036; 83880; 84439; 84443; 84481; 85027

== ENCOUNTER 2024-05-25 16:26 | Outpatient (CLI) | payer MEDICARE, OTHER, SELFPAY ==
--- OUTSIDE RECORDS SUMMARY | 2024-05-25 16:47 | XMS_ITS | CONTINUITY OF CARE DOCUMENT ---
Author Name tobin rudd Address Unknown Organization [facility] Address [address] [place] [address] [address] [place] [address] Phone [phone] Care Team Providers Care Physical Therapy Attendant Name Role Phone Gabe Wright MD Unavailable [phone] Gabe Wright MD Unavailable [phone] INSURANCE PROVIDERS Payer name Policy type / Coverage type Jdoie red constitution party ID FOR LIFE [id number] [place] [employer] Medicare [id number]
--- OUTSIDE RECORDS SUMMARY | 2024-05-25 16:47 | XMS_ITS | Clinical Summary ---
Author Organization [facility] Address [address] [place] [address]. [place], [place] [address] [place] [id number] Care Team Providers Care Aluminum Shingle Roofer Name Role Phone Jackson Rosa MD Primary Care Provider [phone] Carlos Agustin MD Unavailable Efrem Alves MD Unavailable Allergies Active Allergy Reactions Criticality Noted Date Comments Ibandronic Acid Palpitations Low 12/04/2017 Indomethacin Syncope 02/17/2019 Sulfa Antibiotics Rash Low 08/10/2014 Medications aspirin 81 MG chewable tabletIndication s:Anticoagulant Therapy Chew 1 tablet (81 mg total) by mouth daily. Indications: Anticoagulant Therapy 12/12/19 13 Active Calcium-Magnesiu m-Vitamin D 600-40-500 MG-MG-UNIT TABLET SR 24 HRIndications:Nu tritional Support Take 2 tablets by mouth daily. Indications: Nutritional Support 12/12/19 13 Active Coenzyme Q10 (COQ-10) 100 MG CapIndications:N utritional Support Take 200 mg by mouth daily. Indications: Nutritional Support 05/20/19 15 Active folic acid 1 MG tabletIndication s:Nutritional Support Take 1 tablet (1 mg total) by mouth daily. Indications: Nutritional Support 12/12/19 13 Active furosemide 20 MG tabletIndication s:Fluid Retention Take 1 tablet (20 mg total) by mouth daily. Indications: Fluid Retention 07/10/19 14 Active omeprazole 20 MG capsuleIndicatio ns:Gastroesophag eal Reflux Disease Take 1 capsule (20 mg total) by mouth daily. Indications: Gastroesophageal Reflux Disease 04/17/20 17 Active cetirizine 10 MG tabletIndication s:Allergic Rhinitis,Seasona l Allergy Take 1 tablet (10 mg total) by mouth daily. Indications: Allergic Rhinitis, Seasonal Allergy 1 tablet daily 02/12/20 19 Active pravastatin 10 MG tabletIndication s:Hypercholester olemia Take 1 tablet (10 mg total) by mouth daily. Indications: High Amount of Cholesterol in the Blood 1 tablet daily 02/12/20 19 Active valACYclovir 500 MG tabletIndication s:herpes virus Take 1 tablet (500 mg total) by mouth daily. Indications: herpes virus 02/12/20 19 Active Potassium 99 MG tablet Take 1 tablet by mouth as needed. Active Multiple Vitamins-Mineral s (PRESERVISION AREDS OR) Take 1 tablet by mouth daily. Active ipratropium-albu terol 0.5-2.5 (3) MG/3ML Solution as needed. 09/09/19 21 Active Boswellia-Glucos amine-Vit D (OSTEO BI-FLEX ONE PER DAY OR) Take 1 tablet by mouth daily. Active Magnesium 400 MG Tab Take 1 tablet by mouth daily. Active Biotin 1000 MCG Tab Take 1 tablet by mouth daily. Active Probiotic Product (ALIGN) 4 MG Cap Take 1 capsule by mouth every other day. Active vitamin E 400 UNIT capsule Take 1 capsule (400 Units total) by mouth 2 (two) times a week. Active losartan 25 MG tablet Take 1 tablet (25 mg total) by mouth daily. 09/28/19 21 Active FLOVENT HFA 220 MCG/ACT inhaler as needed. 05/08/19 22 Active ALPRAZolam (XANAX) 0.25 MG tablet as needed. 03/12/20 22 Active escitalopram (LEXAPRO) 10 MG tablet Take 0.5 tablets (5 mg total) by mouth daily. 05/18/19 23 Active amoxicillin (AMOXIL) 500 MG tablet Take 1 tablet (500 mg total) by mouth 3 (three) times daily. 08/08/19 24 Active COMPRESSION STOCKINGS, DME,Indications: Varicose veins of bilateral lower extremities with other complications,PV D (peripheral vascular disease) (CMS/HCC),Chroni c venous insufficiency Thigh high compression stockings. 20-30 mmHg, will be placed on you post procedure. Then follow post procedure directions. 1 Package 4 11/01/19 Active albuterol sulfate HFA 108 (90 Base) MCG/ACT inhaler Inhale 2 puffs into the lungs every 4 (four) hours as needed. 11/21/19 Active Active Problems Problem Noted Date Diagnosed Date SOB (shortness of breath) on exertion 06/24/2023 Chronic venous insufficiency 06/05/2023 Varicose veins of bilateral lower extremities with other complications 06/05/2023 History of breast cancer 01/29/2012 CAD (coronary artery disease) History of varicose veins HTN (hypertension) HLD (hyperlipidemia) PVD (peripheral vascular disease) Pain Overview (09/05/2018): Multiple back injections for pain. GERD (gastroesophageal reflux disease) Cataract [facility] ([facility]) Bleeding Overview (09/05/2018): : History of bleeding, 1yr ago lower GI bleed colonoscopy negative, 5-6 yrs stomach ulcer tamoxifen side effect. Anemia Encounters Date Type Department Care Team Description 05/25/2024 2:00 PM RESTAURANT GREETER Office Visit [facility] [address] [place] [address] Carlos Agustin MD Arrived 05/25/2024 1:27 PM RESTAURANT GREETER Hospital Encounter [facility] [address] [place] [address] Carlos Agustin MD Arrived 05/25/2024 Travel 05/22/2024 Telephone [facility] [address] [place] [address] Carlos Agustin MD Appointment Reminder 05/20/2024 Orders Only [facility] [address] [place] [address] Carlos Agusitn MD from Last 3 Months Family History Medical History Relation Comments CABG Brother 1 Heart Attack Brother 1 CHF Father Hyperlipidemia Father Hypertension Father Stroke Father Hypertension Mother Stroke Mother Heart Attack Other cardiovascular disease Other malignant neoplasm Other Relation Status Comments Brother 1 (Age 72) Brother 2 (Age 42) drowning accid ent Father Mother (Age 91) Other Social History Tobacco Use Types Packs/Day Years Used Date Smoking Tobacco: Never Passive Smoke Exposure: Never Smokeless Tobacco: Never Tobacco Cessation:Counseling Given: Not Answered Alcohol Use Standard Drinks/Week Comments Yes 0 (1 standard drink = 0.6 oz pur e alcohol) very rare wine usage Comments Unknown Sex and Gender Information Value Date Recorded Sex Assigned at Female 05/25/2024 1:26 PM RESTAURANT GREETER Legal Sex Female 9:00 PM CDT Gender Identity Not on file Sexual Orientation Not on file Occupation Industry Job Start Date Job End Date Retired Not on file Not on file Not on file Last Filed Vital Signs Vital Sign Reading Time Taken Comments Blood Pressure 128/58 01/30/2024 2:00 PM CDT Pulse 67 01/30/2024 2:00 PM CDT Temperature 36.1 ??C (97 ??F) 11/03/2019 12:30 PM CDT Respiratory Rate 18 01/30/2024 2:00 PM CDT Oxygen Saturation 95% 01/30/2024 2:00 PM CDT Inhaled Oxygen Concentration - - Weight 65.6 kg (144 lb 9.6 oz) 01/30/2024 2:00 P M CDT Height 157.5 cm (5' 2 ) 01/30/2024 2:00 PM CDT Body Mass Index 26.45 01/30/2024 2:00 PM CDT Plan of Treatment Upcoming Encounters Date Type Department Care Team (Late st Contact Info) Description 06/03/2024 1:00 PM RESTAURANT GREETER Office Visit [facility] [address] [place] [id number] Efrem Alves MD [address] [place] [address] Health Maintenance Due Date Last Done Comments ASCVD Statin 1945 Hepatitis C 1963 Zoster Vaccines (1 of 2) 1996 DTaP, Tdap and Td Vaccines (1 - Tdap) 12/02/1999 12/01/1999 Annual Medicare Wellness Visit 09/14/2011 ASCVD LDL 06/27/2014 06/27/2013 Pneumococcal Vaccine: 65+ Years (2 of 2 - PPSV23 or PCV20) 11/02/2020 09/07/2020 RSV Immunization or 60+ Years (1 - 1-dose 75+ series) 2021 COVID-19 Vaccine ( - season) 2023 01/31/2022, 05/03/2021, 08/30/2020, Additional history exists Influenza Adult (#1) 2024 03/12/2019, 01/28/2018, 01/04/2017, Additional history exists Dexa Scan (General) Completed 01/18/2016 Meningococcal B Vaccine Aged Out No l onger eligible based on patient's age to complete this topic Meningococcal Vaccine Aged Out No sally kleber eligible based on patient's age to complete this topic RSV Immunizations Under 20 Months Aged Out No longer eligible based on patient's age to complete this topic Medical Devices Implanted Type Area Shell Coremaker Device Identifier Shelf Expiration Date Model / Serial / Lot Knee Components Knee Components Description:Right knee Knee Components Knee Components Description:Rt knee Iol [employer] [id number] - [id number] Implanted:Qty: 1 on 10/13/2019 by Stephane Samson MD at [facility] Lens Left: Eye [employer] 01/27/2024 [id number] / [id number] / N/A Description:Implant verified by Iol [employer] Li61ao - [id number] Implanted:Qty: 1 on 11/03/2019 by Stephane Samson MD at [facility] Lens Right: Eye [employer] 08/27/2023 [id number] / [id number] Description:Lens verified pe r surgeon and chart Procedures Procedure Name Priority Date/Time Associated Diagnosis Comments ECG 12-LEAD Routine 05/25/2024 1:42 PM RESTAURANT GREETER Coronary artery disease involving hoh coronary artery of hoh heart, unspecified whether angina present Procedure Note - 05/25/2024 1:42 PM CSTThis note is in progress. [address] [place] [address] Test Date: 2024-05-25 Pat Name: ZULMA CARNES Department: 3 Room: Gender: Female Industrial Design Engineer: : [id number] Requested By: CARLOS AGUSTIN Order Number: [id number] Reading MD: Measurements Intervals [place] Rate: 80 P: 73 MS: 120 QRS: 64 QRSD: 88 T: 56 QT: 351 QTc: 406 Interpretive Statements SINUS RHYTHM MODERATE ST DEPRESSION LIPID PANEL Routine 06/27/2013 12:00 AM RESTAURANT GREETER from Last 3 Months or Most Recently Relevant to Health Maintenance Results * LIPID PANEL (06/27/2013 12:00 AM RESTAURANT GREETER) TRIGLYCERIDES 78 0 - 150 mg/dl MEDINFORMATIX TO EPIC CONVERSION CHOLESTEROL 215 0 - 200 mg/dl MEDINFORMAT[employer] TO EPIC CONVERSION HDL 61 40 - 59 mg/dl MEDIN[employer] TO EPIC CONVERSION LDL CONVERSION 138 0 - 100 mg/dl MEDINFORMATIX TO EPIC CONVERSION 06/27/2013 06/27/2013 Narrative MEDINFORMATIX TO EPIC CONVERSION - 07/14/2013 10:34 AM CDT Reviewed by ISA Jul 14 2013 10:40:27:000AM us Generic Conversion Md [facility] Final R esult MEDINFORMATIX TO EPIC CONVERSION from Last 3 Months or Most Recently Relevant to Health Maintenance [place] [address] [place] [address] MEDICARE MEDICARE Care Teams Aluminum Shingle Roofer Relationship Specialty Start Date End Date Jackson Rosa MD [address] [place] [address] PCP - General INTERNAL MEDICINE 04/02/16 Carlos Agustin MD [address] [place] [address] Consulting Physician CARDIOVASCULAR DISEASE 11/03/23 Efrem Alves MD [address] [place] [address] Vascular/Truck Packer INTERNAL MEDICINE 12/17/23
--- OUTSIDE RECORDS SUMMARY | 2024-05-25 16:48 | XMS_ITS | Encounter Summary ---
Author Organization [facility] Address [address] [place] [address] Care Team Providers Care Instructional Paraprofessional Name Role Phone Jackson Rosa MD Primary Care Provider + Encounter Details Date Type Department Care Team (Latest Contact Info) Description 07/12/2004 Outpatient Historical [facility] Cabezas, Cyndee Crespo MD NO ADDRESS ON FILE SCREENING MAMM-MALIG NEOPL-HI RISK (Primary Dx) Social History Tobacco Use Types Packs/Day Years Used Date Smoking Tobacco: Never Assessed Comments Unknown Sex and Gender Information Value Date Recorded Sex Assigned at Not on file Legal Sex Female 3:45 AM SWEATBAND MAKER Gender Identity Not on file Sexual Orientation Not on file documented as of this encounter Plan of Treatment Not on file documented as of this encounter Visit Diagnoses Diagnosis Screening mammogram for high-risk patient- Primary documented in this encounter Care Teams Instructional Paraprofessional Relationship Specialty Start Date End Date Jackson Rosa MD [address] [place] [address] PCP - General 07/05/09 documented as of this encounter
--- OUTSIDE RECORDS SUMMARY | 2024-05-25 16:48 | XMS_ITS | Patient Health Summary ---
Author Organization [facility] Address [address] [facility] [place] [address] Care Team Providers Care Appeals Nurse Name Role Phone Jackson Rosa MD Primary Care Provider [phone] Sammie Fox RN Unavailable Deyanira Daigle RN FLIGHT Unavailable Luis Carlos Rivas MD Unavailable [phone] Note from [facility],non-owned Affiliates and Associated Physician Practices is amultiple site organization consisting of ambulatory clinics and hospital sitesin [place], [place], [place] and [place]. This disclosure is being madepursuant to the Care Everywhere program and may not contain all information available regarding this patient. Last updated 18.[facility] Allergies * Sulfa Drugs(Rash) -Low Criticality Medications * Be aware that medications may not be up to date on this document. Alwaysverify current medications with the patient. * atenolol (TENORMIN) 25 MG tablet Take 25 mg by mouth once daily. * folic acid (FOLVITE) 1 MG tablet Take 1 mg by mouth once daily. * pravastatin (PRAVACHOL) 10 MG tablet Take 10 mg by mouth at bedtime. * esomeprazole (NEXIUM) 20 MG packet Take 20 mg by mouth once daily. * Vitamin E 400 UNITS CHEW Take 400 Units by mouth once daily. * Vitamin D, Cholecalciferol, 1000 UNITS TABS Take 5,000 Units by mouth once daily. * Coenzyme Q10 (CO Q 10) 10 MG CAPS Take 100 mg by mouth once daily. * Biotin 1000 MCG TABS Take 1,000 mcg by mouth once daily. * furosemide (LASIX) 20 MG tablet Take 20 mg by mouth once daily. Active Problems No known active problems Immunizations * Covid Pfizer primary monovalent 12+ yr 0.3mL Purple cap(Given 05/03/2021, 08/30/2020) * INFLUENZA VACCINE(Given 01/27/2015) * Pneumococcal Pcv13 Conj(Given 09/07/2020) * Td (Adult), 2 Lf Tetanus Toxoid, Adsorbed, Pf(Given 12/01/1999) Social History Tobacco Use Types Packs/Day Years Used Date Smoking Tobacco: Never Smokeless Tobacco: Never Alcohol Use Standard Drinks/Week Comments Yes 0 (1 standard drink = 0.6 oz pur e alcohol) Sex and Gender Information Value Date Recorded Sex Assigned at Female 05/03/2021 6:03 PM FUSE SPOOLER Gender Identity Female 05/03/2021 6:03 PM FUSE SPOOLER Sexual Orientation Straight 05/03/2021 6: 03 PM FUSE SPOOLER Last Filed Vital Signs Vital Sign Reading Time Taken Comments Blood Pressure 132/78 06/21/2016 8:16 AM FUSE SPOOLER Pulse 55 06/21/2016 8:16 AM FUSE SPOOLER Temperature 36.7 ??C (98.1 ??F) 08/13/2014 11:27 AM C DT Respiratory Rate 18 08/13/2014 11:27 AM CDT Oxygen Saturation 100% 08/13/2014 11:27 AM CDT Inhaled Oxygen Concentration - - Weight 70.3 kg (155 lb) 09/03/2016 3:25 PM CDT Height 157.5 cm (5' 2 ) 09/03/2016 3:25 PM CDT Body Mass Index 28.35 09/03/2016 3:25 PM CDT Medical Devices Implanted Type Area Superintendent Plant Protection Device Identifier Shelf Expiration Date Model / Serial / Lot Nexgen Complete Knee Solution Cruciate Retaining Trabecular Metal Monoblock Tibial Component Tibial Size 3, Femoral Size C-H, 10mm Height Implanted:Qty: 1 on 08/10/2014 by Angel Luis Villegas MD at [facility] Right: Knee [employer] 01/27/2019 [id number] Nexgen Complete Knee Solution Cruciate Retaining Cr-Flex Femoral Component Porous Size D, Right Implanted:Qty: 1 on 08/10/2014 by Angel Luis Villegas MD at [facility] Right: Knee [employer] 11/28/2023 / [id number] Bill Only Basic Derrick Excludes Agc Kn Implanted:Qty: 1 on 08/10/2014 by Angel Luis Villegas MD at [facility] [employer] BILL ONLY BASIC DERRICK EXCLUDES AGC KN ZIMM / / Bill Only Tb Upchrg Implanted:Qty: 1 on 08/10/2014 by Angel Luis Villegas MD at [facility] [employer] UPCHRG MELY BILL ONLY TB / / Procedures * XR KNEE RIGHT 2VW OR LESS(Performed 03/14/2015) Performed for Right knee pain * XR TIBIA FIBULA RIGHT 2VW(Performed 11/25/2014) Performed for Pain in joint, lower leg, right * XR KNEE RIGHT 4VW OR MORE(Performed 11/25/2014) Performed for Pain in joint, lower leg, right * C-REACTIVE PROTEIN(Performed 10/14/2014) Performed for Knee joint replacement by other means * ERYTHROCYTE SEDIMENTATION RATE(Performed 10/14/2014) Performed for Knee joint replacement by other means * XR KNEE RIGHT 2VW OR LESS(Performed 10/14/2014) Performed for Pain in joint, lower leg, right * XR KNEE RIGHT 2VW OR LESS(Performed 2014) Performed for Pain in joint, lower leg, right * XR KNEE RIGHT 2VW OR LESS(Performed 08/26/2014) Performed for Pain in joint, lower leg, right * LAB RESULTS ORDER(Performed 08/15/2014) * BASIC METABOLIC PANEL (CALCIUM TOTAL)(Performed 08/13/2014) * CBC W AUTO DIFFERENTIAL(Performed 08/13/2014) * BASIC METABOLIC PANEL (CALCIUM TOTAL)(Performed 08/11/2014) * CBC W AUTO DIFFERENTIAL(Performed 08/11/2014) * XR KNEE RIGHT 2VW OR LESS(Performed 08/10/2014) Performed for Postoperative examination * ARTHROPLASTY TOTAL KNEE MELY(Performed 08/10/2014) Performed for Right knee DJD * BLOOD TYPE VERIFICATION(Performed 08/10/2014) * TYPE + SCREEN PANEL(Performed 08/10/2014) Performed for Preop examination * PT-INR(Performed 08/10/2014) Performed for Preop examination * BASIC METABOLIC PANEL (CALCIUM TOTAL)(Performed 08/10/2014) Performed for Preop examination * CBC W AUTO DIFFERENTIAL(Performed 08/10/2014) Performed for Preop examination * URINALYSIS REFLEX MICROSCOPIC REFLEX CULTURE(Performed 08/02/2014) Performed for Preoperative examination * CULTURE MSSA/MRSA(Performed 08/02/2014) Performed for Preoperative examination * TRANSFERRIN(Performed 08/02/2014) Performed for Preoperative examination * ALBUMIN BLOOD(Performed 08/02/2014) Performed for Preoperative examination * XR KNEE RIGHT 4VW OR MORE(Performed 05/18/2014) Performed for Pain in joint, lower leg, right Results * XR KNEE 1 OR 2 VW RIGHT (03/14/2015 1:32 PM FUSE SPOOLER) Only the most recent of5 resultswithin the time period is included. Anatomical Region Laterality Modality Lower Extremity Radiographic Kristan ging 03/14/2015 3:17 PM FUSE SPOOLER Impressions 03/14/2015 3:18 PM FUSE SPOOLER Satisfactory postop appearance. Narrative 03/14/2015 3:18 PM FUSE SPOOLER Right knee 2 views. History: Postop. 2 views of the knee show total knee prosthesis in satisfactory position. Procedure Note Ata Hernández MD - 03/14/2015 Right knee 2 views. History: Postop. 2 views of the knee show total knee prosthesis in satisfactory position. IMPRESSION Satisfactory postop appearance. Angel Luis Villegas MD DIAGNOSTIC IMAGING O RDERABLES * XR TIBIA AND FIBULA 2 VW RIGHT (11/25/2014 1:23 PM CDT) Anatomical Region Laterality Modality Lower Extremity Radiographic Kristan ging 11/25/2014 3:07 PM CDT Impressions 11/25/2014 3:08 PM CDT No acute fracture of the right tibia or fibula. Narrative 11/25/2014 3:08 PM CDT Examination: Right tibia fibula 2 views History: Anterior leg pain Findings: 2 views of the right tibia and fibula were performed with comparison made to prior knee radiographs dated 11/25/2014. Partially seen is a 2 component right knee arthroplasty in unchanged position. Alignment of the right tibia and fibula appears normal. No acute fracture is seen. Procedure Note Дмитрий Beltre MD - 11/25/2014 Examination: Right tibia fibula 2 views History: Anterior leg pain Findings: 2 views of the right tibia and fibula were performed with comparison made to prior knee radiographs dated 11/25/2014. Partially seen is a 2 component right knee arthroplasty in unchanged position. Alignment of the right tibia and fibula appears normal. No acute fracture is seen. IMPRESSION No acute fracture of the right tibia or fibula. Angel Luis Villegas MD DIAGNOSTIC IMAGING O RDERABLES * XR KNEE 4+ VW RIGHT (11/25/2014 1:23 PM CDT) Only the most recent of2 resultswithin the time period is included. Anatomical Region Laterality Modality Lower Extremity Radiographic Kristan ging 11/25/2014 3:32 PM CDT Impressions 11/25/2014 3:33 PM CDT 2 component right knee arthroplasty in unchanged near anatomic position. Narrative 11/25/2014 3:33 PM CDT Examination: Right knee minimum 4 views History: Right knee osteoarthritis Findings: 4 views of the right knee were performed with comparison made to 10/14/2014. There is a 2 component right knee arthroplasty in unchanged near anatomic position. There is no periprosthetic fracture or osteolysis. No joint effusion is noted. Procedure Note Дмитрий Beltre MD - 11/25/2014 Examination: Right knee minimum 4 views History: Right knee osteoarthritis Findings: 4 views of the right knee were performed with comparison made to 10/14/2014. There is a 2 component right knee arthroplasty in unchanged near anatomic position. There is no periprosthetic fracture or osteolysis. No joint effusion is noted. IMPRESSION 2 component right knee arthroplasty in unchanged near anatomic position. Angel Luis Villegas MD DIAGNOSTIC IMAGING O RDERABLES * (ABNORMAL) C-REACTIVE PROTEIN (10/14/2014 3:02 PM CDT) C-Reactive Protein 0.59(H) <0.30 mg/dL 10/14/2014 3:34 PM CDT [facility] Blood BLOOD SPECIMEN / Unknown Lab Venipuncture / Unknown 10/14/2014 3:02 PM CDT 10/14/2014 3:07 PM CDT Angel Luis Villegas MD LAB - CHEMISTRY ORDE LUISANA Performing Organization Address City/[facility]/ZIP Co de Phone Number [facility] [address] [place] [phone] * (ABNORMAL) SED RATE WESTERGREN (10/14/2014 3:02 PM CDT) [facility] Erythrocyte Sedimentation Rate Westergren 34(H) 0 - 30 mm/hr 10/14/2014 3:35 PM CDT [facility] Blood BLOOD SPECIMEN / Unknown Lab Venipuncture / Unknown 10/14/2014 3:02 PM CDT 10/14/2014 3:07 PM CDT Angel Luis Villegas MD LAB - HEMATOLOGY ORD VAMSHI Performing Organization Address City/[facility]/ZIP Co de Phone Number [facility] [address] [place] [phone] * LAB RESULTS ORDER (08/15/2014 5:25 AM CDT) Narrative 08/15/2014 5:25 AM CDT Ordered by an unspecified provider. Scanned Document LAB - THERAPEUTIC DR FERNANDEZ MONITORING ORDERABLES * (ABNORMAL) CBC W AUTO DIFFERENTIAL (08/13/2014 4:19 AM CDT) Only the most recent of3 resultswithin the time period is included. [facility] WBC 6.1 4.4 - 10.7 x10^9/L 08/13/2014 4:47 AM CDT [facility] RBC 3.27(L) 3.80 - 5.20 x10^12/L 08/13/2014 4:47 AM CDT [facility] Hemoglobin 9.9(L) 12.0 - 15.6 gm/dL 08/13/2014 4:47 AM CDT [facility] Hematocrit 29.6(L) 35.9 - 45.5 % 08/13/2014 4:47 AM CDT [facility] MCV 90.5 80.7 - 98.3 fl 08/13/2014 4:47 AM CDT [facility] MCH 30.3 26.7 - 34.0 pg 08/13/2014 4:47 AM CDT [facility] MCHC 33.4 30.8 - 35.9 gm/dL 08/13/2014 4:47 AM CDT [facility] Platelet Count 185 153 - 416 x10^9/L 08/13/2014 4:47 AM T [facility] RDW-CV 12.1 12.1 - 14.9 % 08/13/2014 4:47 AM T [facility] MPV 10.9 9.4 - 12.9 fl 08/13/2014 4:47 AM T [facility] Neutrophils % 58.8 44.0 - 73.0 % 08/13/2014 4:47 AM T [facility] Lymphocytes % 26.1 20.0 - 43.0 % 08/13/2014 4:47 AM T [facility] Monocytes % 12.4 5.0 - 13.0 % 08/13/2014 4:47 AM T [facility] Eosinophils % 2.0 0.0 - 6.0 % 08/13/2014 4:47 AM T [facility] Basophils % 0.5 0.0 - 2.0 % 08/13/2014 4:47 AM T [facility] Immature Granulocytes 0.2 0 - 1 % 08/13/2014 4:47 AM CDT [facility] Neutrophil Absolute 3.62 2.01 - 7.14 x10^9/L 08/13/2014 4:47 AM CDT [facility] Lymphocytes Absolute 1.60 1.07 - 3.94 x10^9/L 08/13/2014 4:47 AM CDT [facility] Monocytes Absolute 0.76 0.26 - 1.07 x10^9/L 08/13/2014 4:47 AM CDT [facility] Eosinophils Absolute 0.12 0 - 0.47 x10^9/L 08/13/2014 4:47 AM CDT [facility] Basophils Absolute 0.03 0 - 0.08 x10^9/L 08/13/2014 4:47 AM CDT [facility] Immature Granulocytes Absolute 0.01 0.00 - 0.06 x10^9/L 08/13/2014 4:47 AM CDT [facility] Blood BLOOD SPECIMEN / Unknown Lab Venipuncture / Unknown 08/13/2014 4:19 AM CDT 08/13/2014 4:30 AM CDT Elyse Delcid MD LAB - HEMATOLOGY ORD ERABLES [facility] [address] [place] [address] * (ABNORMAL) BASIC METABOLIC PANEL (CALCIUM TOTAL) (08/13/2014 4:19 AM CDT) Only the most recent of3 resultswithin the time period is included. Glucose 95 74 - 106 mg/dL 08/13/2014 4:56 AM [facility] Sodium 142 136 - 145 mmol/L 08/13/2014 4:56 AM [facility] Potassium 4.0 3.5 - 5.1 mmol/L 08/13/2014 4:56 AM [facility] Chloride 108(H) 98 - 107 mmol/L 08/13/2014 4:56 AM [facility] CO2 29 22 - 31 mmol/L 08/13/2014 4:56 AM [facility] Calcium 8.7 8.5 - 10.1 mg/dL 08/13/2014 4:56 AM [facility] Anion Gap 5 5 - 15 mmol/L 08/13/2014 4:56 AM [facility] BUN 13 7 - 21 mg/dL 08/13/2014 4:56 AM [facility] Creatinine 0.48(L) 0.50 - 1.30 mg/dL 08/13/2014 4:56 AM [facility] eGFR by MDRD >60 >60 mL/min/1.7 3m2 08/13/2014 4:56 AM [facility] eGFR by MDRD >60 >60 mL/min/1.7 3m2 08/13/2014 4:56 AM T [facility] Blood BLOOD SPECIMEN / Unknown Lab Venipuncture / Unknown 08/13/2014 4:19 AM CDT 08/13/2014 4:30 AM CDT Elyse Delcid MD LAB - CHEMISTRY ASHLYN LIEBERMAN Performing Organization Address [facility] Co de Phone Number [facility] [address] [place] [address] * BLOOD TYPE VERIFICATION (08/10/2014 6:30 AM CDT) ABO O 08/10/2014 7:19 AM CDT [facility] Rh Type Positive 08/10/2014 7:19 AM CDT [facility] Miscellaneous samples (specimen) BLOOD SPECIMEN / Unknown Venipuncture / Unknown 08/10/2014 6:30 AM CDT 08/10/2014 7:13 AM CDT Angel Luis Villegas MD LAB - BLOOD BANK ORD VAMSHI Performing Organization Address [facility] de Phone Number [facility] [address] [place] [address] * TYPE + SCREEN PANEL (08/10/2014 6:21 AM CDT) ABO O 08/10/2014 7:09 AM CDT [facility] Rh Type Positive 08/10/2014 7:09 AM CDT [facility] Comment:History check perfor med. Retype required. Antibody Screen Negative 08/10/2014 7:09 AM CDT [facility] Miscellaneous samples (specimen) BLOOD SPECIMEN / Unknown Venipuncture / Unknown 08/10/2014 6:21 AM CDT 08/10/2014 6:25 AM CDT Martha Montez MD LAB - BLOOD BANK ORD VAMSHI Performing Organization Address [facility] Co de Phone Number [facility] [address] [place] [address] * PT-INR (08/10/2014 6:21 AM CDT) PT 10.7 9.5 - 11.6 sec 08/10/2014 6:42 AM CDT [facility] INR 1.0 0.9 - 1.1 08/10/2014 6:42 AM CDT [facility] Blood BLOOD SPECIMEN / Unknown Venipuncture / Unknown 08/10/2014 6:21 AM CDT 08/10/2014 6:25 AM CDT Narrative [facility] - 08/10/2014 6:42 AM CDT Conventional Warfarin Anticoagulant Therapy INR Reference Range: ??2.0-3.0 Intensive Warfarin Anticoagulant Therapy INR Reference Range: ? 2.5-3.5 Martha Montez MD LAB - COAGULATION OR DERABLES [facility] [address] [place] [address] * URINALYSIS ROUTINE W/REFLEX TO CULTURE (08/02/2014 1:08 PM CDT) Color UA Yellow Straw, Yellow, Dark Yellow 08/02/2014 1:24 PM CDT [facility] Clarity UA Clear 08/02/2014 1:24 PM CDT [facility] Specific [place] UA 1.009 1.005 - 1.030 08/02/2014 1:24 PM T [facility] pH UA 6.5 5.0 - 8.0 pH 08/02/2014 1:24 PM CDT [facility] Protein UA Negative Negative 08/02/2014 1:24 PM CDT [facility] Blood UA Negative Negative 08/02/2014 1:24 PM CDT [facility] Leukocyte UA Negative Negative 08/02/2014 1:24 PM CDT [facility] Nitrite UA Negative Negative 08/02/2014 1:24 PM CDT [facility] Glucose UA Negative Negative 08/02/2014 1:24 PM CDT [facility] Ketone UA Negative Negative 08/02/2014 1:24 PM CDT [facility] Bilirubin UA Negative Negative 08/02/2014 1:24 PM CDT [facility] Urobilinogen UA 0.2 0.1 - 1.0 EU/dL 08/02/2014 1:24 PM T [facility] Reflex Status Culture not indicated 08/02/2014 1:24 PM CDT [facility] Urine URINE SPECIMEN OBTAINED BY CLEAN CATCH PROCEDURE / Unknown Collection / Unknown 08/02/2014 1:08 PM CDT 08/02/2014 1:07 PM CDT Angel Luis Villegas MD LAB - URINALYSIS ORD ERABLES Performing Organization Address [facility] Co de Phone Number [facility] [address] [place] [address] * CULTURE MSSA/MRSA (08/02/2014 1:03 PM CDT) Culture Negative for MRSA/MSSA MIGUEL 08/03/2014 7:08 PM CDT [facility] Microbiology SPECIMEN FROM NASAL FOSSAE / Unknown Collection / Unknown 08/02/2014 1:03 PM CDT 08/02/2014 1:04 PM CDT Angel Luis Villegas MD LAB - MICROBIOLOGY O RDERABLES Performing Organization Address [facility] Co de Phone Number [facility] [address] [phone] * (ABNORMAL) TRANSFERRIN (08/02/2014 1:00 PM CDT) Transferrin 237(L) 250 - 380 mg/dL 08/02/2014 1:31 PM CDT [facility] Blood BLOOD SPECIMEN / Unknown Lab Venipuncture / Unknown 08/02/2014 1:00 PM CDT 08/02/2014 1:04 PM CDT Angel Luis Villegas MD LAB - CHEMISTRY ASHLYN LIEBERMAN Performing Organization Address City/[facility] Co de Phone Number [facility] [address] [place] [address] * ALBUMIN BLOOD (08/02/2014 1:00 PM CDT) Albumin 3.8 3.4 - 5.0 gm/dL 08/02/2014 1:25 PM CDT [facility] Blood BLOOD SPECIMEN / Unknown Lab Venipuncture / Unknown 08/02/2014 1:00 PM CDT 08/02/2014 1:04 PM CDT Angel Luis Villegas MD LAB - CHEMISTRY ASHLYN LIEBERMAN [facility] Organization Address City/State/ZIP Co de Phone Number [facility] [address] [place] [address] Care Teams Appeals Nurse Relationship Specialty Start Date End Date Jackson Rosa MD PCP - General Internal Medicine 05/18/14 Sammie Fox, KAROLINE Grain Elevator Superintendent 08/10/14 Deyanira Daigle, [facility] Account Development Associate 08/12/14 [place] [id number] [address] Orthopedic Surgery 09/03/16
--- OUTSIDE RECORDS SUMMARY | 2024-05-25 16:48 | XMS_ITS | Encounter Summary ---
Author Organization [facility] Address [address] [place] [address] Care Team Providers Care Diesel Bus Mechanic Name Role Phone Jackson Rosa MD Primary Care Provider + Encounter Details Date Type Department Care Team (Latest Contact Info) Description 01/29/2006 Outpatient Historical HIS [facility] GEOFF Cabezas, Cyndee Crespo MD NO ADDRESS ON FILE Other Follow-Up Examination (Primary Dx) Social History Tobacco Use Types Packs/Day Years Used Date Smoking Tobacco: Never Assessed Comments Unknown Sex and Gender Information Value Date Recorded Sex Assigned at Not on file Legal Sex Female 3:45 AM CANVAS BASTER Gender Identity Not on file Sexual Orientation Not on file documented as of this encounter Plan of Treatment Not on file documented as of this encounter Visit Diagnoses Diagnosis Other follow-up examination(V67.59)- Primary Other follow-up examination documented in this encounter Care Teams Diesel Bus Mechanic Relationship Specialty Start Date End Date Jackson Rosa MD [address] [place] [address] PCP - General 07/05/09 documented as of this encounter
--- OUTSIDE RECORDS SUMMARY | 2024-05-25 16:48 | XMS_ITS | Clinical Summary ---
Author Organization [facility] Administrative Offices Address [address] [place] [phone] Care Team Providers Care Sanitation Worker Cleaning Equipment Name Role Phone Jackson Rosa MD Primary Care Provider + Allergies Active Allergy Reactions Criticality Noted Date Comments Sulfa Dyne Rash Low 01/29/2012 Medications atenolol (TENORMIN) 25 mg Oral tablet Take 25 mg by mouth daily. Active folic acid (FOLVITE) 1 mg Oral tablet Take 1 mg by mouth daily. Active pravastatin (PRAVACHOL) 10 mg Oral tablet Take 10 mg by mouth Daily LATE. Active esomeprazole (NEXIUM) 20 mg Oral CpDR Take 20 mg by mouth daily before breakfast. Active GLUCOSAMINE HCL/CHONDR MERCEDES A NA (OSTEO BI-FLEX ORAL) Take by mouth. Active Coenzyme M94-Nnxwajw E (COQ10 SG 100) 100-100 mg-unit Oral Cap Take by mouth. Active ASPIRIN Take 1 Tablet by mouth. 12/11/2012 Active cholecalciferol, vitamin D3, 5,000 unit Take 1 Tablet by mouth. 07/26/2014 Active furosemide (LASIX) 20 mg tablet Take 1 Tablet by mouth. 07/09/2013 Active vitamin E 400 unit capsule Take 1 Tablet by mouth. 05/20/2014 Active BONIVA 150 mg tablet 01/30/2016 Active valACYclovir (VALTREX) 500 mg tablet 01/30/2016 Active Active Problems Problem Noted Date Diagnosed Date History of breast cancer 01/29/2012 Family History Medical History Relation Name Comments Heart Disease Brother 1 Heart Disease Brother 2 Healthy Brother 3 Healthy Brother 4 Heart Disease Father Breast Cancer Mother age:83 Heart Disease Mother age:83 Ovarian Cancer Neg Hx Relation Name Status Comments Brother 1 Brother 2 Brother 3 Alive Brother 4 Alive Father Mother age:83 Social History Tobacco Use Types Packs/Day Years Used Date Smoking Tobacco: Never Alcohol Use Standard Drinks/Week Comments Not Asked 0 (1 standard drink = 0.6 oz pur e alcohol) Comments Unknown Sex and Gender Information Value Date Recorded Sex Assigned at Not on file Legal Sex Female 3:45 AM JOB SPECIFICATION WRITER Gender Identity Not on file Sexual Orientation Not on file Last Filed Vital Signs Vital Sign Reading Time Taken Comments Blood Pressure 122/58 04/18/2016 9:52 AM JOB SPECIFICATION WRITER Pulse 61 04/18/2016 9:52 AM JOB SPECIFICATION WRITER Temperature - - Respiratory Rate - - Oxygen Saturation - - Inhaled Oxygen Concentration - - Weight 68.9 kg (152 lb) 04/18/2016 9:52 AM JOB SPECIFICATION WRITER Height 157.5 cm (5' 2 ) 04/18/2016 9:52 AM JOB SPECIFICATION WRITER Body Mass Index 27.8 04/18/2016 9:52 AM JOB SPECIFICATION WRITER Plan of Treatment Health Maintenance Due Date Last Done Comments DTAP/TDAP/TD VACCINES (1 - Tdap) 1965 PNEUMOCOCCAL VACCINE 65+ YEARS (1 of 2 - PCV) 09/13/18 66 ZOSTER VACCINE (1 of 2) 1996 RSV VACCINE (60+ or ) (1 - 1-dose 75+ series) 2021 INFLUENZA VACCINE (#1) 2023 OSTEOPOROSIS SCREENING Completed 01/18/2016 Procedures Procedure Name Priority Date/Time Associated Diagnosis Comments XR DEXA BONE DENSITY 2 SITES Routine 01/18/2016 from Last 3 Months or Most Recently Relevant to Health Maintenance Results * XR DEXA BONE DENSITY 2 SITES (01/18/2016) Anatomical Region Laterality Modality Other us Jackson Rosa MD DIAGNOSTIC IMAGING ORDER ELAN Edited Result - Final from Last 3 Months or Most Recently Relevant to Health Maintenance Insurance MEDICARE PART A AND B [facility] [place] [address] Care Teams Sanitation Worker Cleaning Equipment Relationship Specialty Start Date End Date Jackson Rosa MD [address] [place] [address] PCP - General 07/05/09
--- OUTSIDE RECORDS SUMMARY | 2024-05-25 16:48 | XMS_ITS | Encounter Summary ---
Author Organization [facility] Address [address] [place] [address]. [place], [place] [address] [place] [address] Care Team Providers Care Computer Aide Name Role Phone Jackson Rosa MD Primary Care Provider [phone] Irma Willams MD Unavailable Efrem Alves MD Unavailable Encounter Details Date Type Department Care Team (Late Contact Info) Description 05/20/2024 Orders Only [facility] [address] [place] [address] Irma Willams MD [address] [place] [address] Social History Tobacco Use Types Packs/Day Years Used Date Smoking Tobacco: Never Passive Smoke Exposure: Never Smokeless Tobacco: Never Alcohol Use Standard Drinks/Week Comments Yes 0 (1 standard drink = 0.6 oz pur e alcohol) very rare wine usage Comments Unknown Sex and Gender Information Value Date Recorded Sex Assigned at Female 05/25/2024 1:26 PM DERMATOLOGY NURSE PRACTITIONER Legal Sex Female 9:00 PM CDT Gender Identity Not on file Sexual Orientation Not on file Occupation Industry Job Start Date Job End Date Retired Not on file Not on file Not on file documented as of this encounter Plan of Treatment Upcoming Encounters Date Type Department Care Team (Late Contact Info) Description 06/03/2024 1:00 PM DERMATOLOGY NURSE PRACTITIONER Office Visit [facility] el [address] [place] [address] Efrem Alves MD [address] [place] [address] Pending Results Name Type Priority Associated Diagnoses Date /Time ECG 12 lead (HOSPITAL PERFORMED ONLY) EKG-NonRad Routine Coronary artery disease involving [place] coronary artery of [place] heart, unspecified whether angina present 05/25/2024 1:42 PM DERMATOLOGY NURSE PRACTITIONER documented as of this encounter Visit Diagnoses Diagnosis Coronary artery disease involving [place] coronary artery of [place] heart, unspecified whether angina present- Primary documented in this encounter Care Teams Computer Aide Relationship Specialty Start Date End Date Jackson Rosa MD [address] [place] [phone] PCP - General INTERNAL MEDICINE 04/02/16 Irma Willams MD [address] [place] [address] Consulting Physician CARDIOVASCULAR DISEASE 11/03/23 Efrem Alves MD [address] [place] [address] Vascular/Hospitalist Physician INTERNAL MEDICINE 12/17/23 documented as of this encounter
--- OUTSIDE RECORDS SUMMARY | 2024-05-25 16:48 | XMS_ITS | Encounter Summary ---
Author Organization [facility] Address [address] [place] [address]. [place], [place] [address] [place] [address] Care Team Providers Care Relief Mate Name Role Phone Jackson Rosa MD Primary Care Provider [phone] Irma Agustin MD Unavailable Efrem Alves MD Unavailable Encounter Details Date Type Department Care Team (Latest Contact Info) Description 05/25/2024 1:27 PM AGENT TELEGRAPHER Hospital Encounter [facility] [address] [facility] [address] Irma Agustin MD [address] [place] [address] Arrived Social History Tobacco Use Types Packs/Day Years Used Date Smoking Tobacco: Never Passive Smoke Exposure: Never Smokeless Tobacco: Never Alcohol Use Standard Drinks/Week Comments Yes 0 (1 standard drink = 0.6 oz pur e alcohol) very rare wine usage Comments Unknown Sex and Gender Information Value Date Recorded Sex Assigned at Female 05/25/2024 1:26 PM AGENT TELEGRAPHER Legal Sex Female 9:00 PM CDT Gender Identity Not on file Sexual Orientation Not on file Occupation Industry Job Start Date Job End Date Retired Not on file Not on file Not on file documented as of this encounter Plan of Treatment Upcoming Encounters Date Type Department Care Team (Late st Contact Info) Description 06/03/2024 1:00 PM AGENT TELEGRAPHER Office Visit [facility] eld [address] [place] [address] Efrem Alves MD [address] [place] [address] Pending Results Name Type Priority Associated Diagnoses Date /Time ECG 12 lead (HOSPITAL PERFORMED ONLY) EKG-NonRad Routine Coronary artery disease involving [place] coronary artery of [place] heart, unspecified whether angina present 05/25/2024 1:42 PM AGENT TELEGRAPHER documented as of this encounter Procedures Procedure Name Priority Date/Time Associated Diagnosis Comments ECG 12-LEAD Routine 05/25/2024 1:42 PM AGENT TELEGRAPHER Coronary artery disease involving [place] coronary artery of [place] heart, unspecified whether angina present Procedure Note - 05/25/2024 1:42 PM CSTThis note is in progress. [address] [place] [address] Test Date: 2024-05-25 Pat Name: ZULMA CARNES Department: 3 Room: Gender: Female Change Control Manager: : 1945 Requested By: IRMA AGUSTIN Order Number: [id number] Guilherme MD: Measurements Intervals [place] Rate: 80 P: 73 HI: 120 QRS: 64 QRSD: 88 T: 56 QT: 351 QTc: 406 Interpretive Statements SINUS RHYTHM MODERATE ST DEPRESSION documented in this encounter Visit Diagnoses Diagnosis Coronary artery disease involving [place] coronary artery of [place] heart, unspecified whether angina present documented in this encounter Care Teams Relief Mate Relationship Specialty Start Date End Date Jackson Rosa MD [address] [place] [address] PCP - General INTERNAL MEDICINE 04/02/16 Irma Agustin MD [address] [place] [address] Consulting Physician CARDIOVASCULAR DISEASE 11/03/23 Efrem Alves MD [address] [place] [address] [place] [address] Vascular/Physician Assistant Certified INTERNAL MEDICINE 12/17/23 documented as of this encounter
--- OUTSIDE RECORDS SUMMARY | 2024-05-25 16:48 | XMS_ITS | Encounter Summary ---
Author Organization [facility] Address [address] [place] [address] Care Team Providers Care Research Group Director Name Role Phone Jackson Rosa MD Primary Care Provider + Encounter Details Date Type Department Care Team (Latest Contact Info) Description 09/09/2001 Outpatient Historical HIS [facility] Cabezas, Cyndee Crespo MD NO ADDRESS ON FILE PERS HX OF BREAST MALIGNANCY (Primary Dx) Social History Tobacco Use Types Packs/Day Years Used Date Smoking Tobacco: Never Assessed Comments Unknown Sex and Gender Information Value Date Recorded Sex Assigned at Not on file Legal Sex Female 3:45 AM MANUFACTURE SPECIALIST Gender Identity Not on file Sexual Orientation Not on file documented as of this encounter Plan of Treatment Not on file documented as of this encounter Visit Diagnoses Diagnosis Personal history of malignant neoplasm of breast- Primary documented in this encounter Care Teams Research Group Director Relationship Specialty Start Date End Date Jackson Rosa MD [address] [place] [phone] PCP - General 07/05/09 documented as of this encounter
--- OUTSIDE RECORDS SUMMARY | 2024-05-25 16:48 | XMS_ITS | Encounter Summary ---
Author Organization [facility] Address [address] [place] [address] Care Team Providers Care Contract Accountant Name Role Phone Jackson Rosa MD Primary Care Provider + Encounter Details Date Type Department Care Team (Latest Contact Info) Description 08/12/2002 Outpatient Historical HIS [facility] Cabezas, Cyndee Crespo MD NO ADDRESS ON FILE SCREENING MAMM-MAILG NEOPL-OTHER (Primary Dx) Social History Tobacco Use Types Packs/Day Years Used Date Smoking Tobacco: Never Assessed Comments Unknown Sex and Gender Information Value Date Recorded Sex Assigned at Not on file Legal Sex Female 3:45 AM MEDICAL STAFF SERVICES MANAGER Gender Identity Not on file Sexual Orientation Not on file documented as of this encounter Plan of Treatment Not on file documented as of this encounter Visit Diagnoses Diagnosis Other screening mammogram- Primary documented in this encounter Care Teams Contract Accountant Relationship Specialty Start Date End Date Jackson Rosa MD [address] [place] [phone] PCP - General 07/05/09 documented as of this encounter
--- OUTSIDE RECORDS SUMMARY | 2024-05-25 16:48 | XMS_ITS | Encounter Summary ---
Author Organization [facility] Address [address] [place] [address]. [place] [address] [place] [address] Care Team Providers Care System Analyst Name Role Phone Jackson Rosa MD Primary Care Provider [phone] Irma Willams MD Unavailable Efrem Alves MD Unavailable Encounter Details Date Type Department Care Team (Latest Contact Info) Description 05/25/2024 Travel Social History Tobacco Use Types Packs/Day Years Used Date Smoking Tobacco: Never Passive Smoke Exposure: Never Smokeless Tobacco: Never Alcohol Use Standard Drinks/Week Comments Yes 0 (1 standard drink = 0.6 oz pur e alcohol) very rare wine usage Comments Unknown Sex and Gender Information Value Date Recorded Sex Assigned at Female 05/25/2024 1:26 PM CLERK SUPERVISOR Legal Sex Female 9:00 PM CDT Gender Identity Not on file Sexual Orientation Not on file Occupation Industry Job Start Date Job End Date Retired Not on file Not on file Not on file documented as of this encounter Plan of Treatment Upcoming Encounters Date Type Department Care Team (Late Contact Info) Description 06/03/2024 1:00 PM CLERK SUPERVISOR Office Visit [facility] [address] [place] [address] Efrem Alves MD [address] [place], [place] [address] documented as of this encounter Visit Diagnoses Not on filedocumented in this encounter Care Teams System Analyst Relationship Specialty Start Date End Date Jackson Rosa MD [address] [place] [address] PCP - General INTERNAL MEDICINE 04/02/16 Irma Willams MD [address] [place], [place] [address] Consulting Physician CARDIOVASCULAR DISEASE 11/03/23 Efrem Alves MD [address] [place], [place] [address] Vascular/Monitor Tech INTERNAL MEDICINE 12/17/23 documented as of this encounter
--- OUTSIDE RECORDS SUMMARY | 2024-05-25 16:48 | XMS_ITS | Encounter Summary ---
Author Organization [facility] Address [address] [place] [address] Care Team Providers Care Manager Delivery Name Role Phone Jackson Rosa MD Primary Care Provider + Encounter Details Date Type Department Care Team (Late st Contact Info) Description 08/14/2004 Outpatient Historical HIS [facility] Cyndee Cabezas MD NO ADDRESS ON FILE SURGERY FOLLOWUP, OTHER (Primary Dx) Social History Tobacco Use Types Packs/Day Years Used Date Smoking Tobacco: Never Assessed Comments Unknown Sex and Gender Information Value Date Recorded Sex Assigned at Not on file Legal Sex Female 3:45 AM DRAINMAN Gender Identity Not on file Sexual Orientation Not on file documented as of this encounter Plan of Treatment Not on file documented as of this encounter Visit Diagnoses Diagnosis Follow-up examination, following other surgery- Primary documented in this encounter Care Teams Manager Delivery Relationship Specialty Start Date End Date Jackson Rosa MD [address] [place] [phone] PCP - General 07/05/09 documented as of this encounter
--- OUTSIDE RECORDS SUMMARY | 2024-05-25 16:48 | XMS_ITS | Encounter Summary ---
Author Organization [facility] Address [address] [place] [address] Care Team Providers Care Oscillograph Technician Name Role Phone Jackson Rosa MD Primary Care Provider + Encounter Details Date Type Department Care Team (Latest Contact Info) Description 01/24/1999 Outpatient Historical HIS [facility] Cabezas, Cyndee Crespo MD NO ADDRESS ON FILE Other screening mammogram (Primary Dx) Social History Tobacco Use Types Packs/Day Years Used Date Smoking Tobacco: Never Assessed Comments Unknown Sex and Gender Information Value Date Recorded Sex Assigned at Not on file Legal Sex Female 3:45 AM LOCAL COORDINATOR Gender Identity Not on file Sexual Orientation Not on file documented as of this encounter Plan of Treatment Not on file documented as of this encounter Visit Diagnoses Diagnosis Other screening mammogram- Primary documented in this encounter Care Teams Oscillograph Technician Relationship Specialty Start Date End Date Jackson Rosa MD [address] [place] [address] PCP - General 07/05/09 documented as of this encounter
--- OUTSIDE RECORDS SUMMARY | 2024-05-25 16:48 | XMS_ITS | Encounter Summary ---
Author Organization [facility] Address [address] [place] [address]. [place], [place] [address] [place] [address] Care Team Providers Care Air [employer] Senior Officer Name Role Phone Jackson Rosa MD Primary Care Provider [phone] Gaurang Gonzalez MD Unavailable Unavailab Jeremiah Crowder MD Unavailable Unavailabl Whit Marcial APRN, SOCIAL WORKER ASSISTANT-C Unavailable Irma Willams MD Unavailable Efrem Alves MD Unavailable Encounter Details Date Type Department Care Team (Late Contact Info) Description 12/01/2014 Abstract [facility] AT [address] [address] Gaurang Gonzalez MD Social History Tobacco Use Types Packs/Day Years Used Date Smoking Tobacco: Never Alcohol Use Standard Drinks/Week Comments Yes 0 (1 standard drink = 0.6 oz pur e alcohol) Occasionally, Wine. Comments Unknown Sex and Gender Information Value Date Recorded Sex Assigned at Female 05/25/2024 1:26 PM UNDERGROUND HEAVY EQUIPMENT OPERATOR Legal Sex Female 9:00 PM CDT Gender Identity Not on file Sexual Orientation Not on file Occupation Industry Job Start Date Job End Date Retired Not on file Not on file Not on file documented as of this encounter Plan of Treatment Upcoming Encounters Date Type Department Care Team (Late st Contact Info) Description 06/03/2024 1:00 PM UNDERGROUND HEAVY EQUIPMENT OPERATOR Office Visit [facility] eld [address] [place] [address] Efrem Alves MD [address] [place] [address] documented as of this encounter Visit Diagnoses Not on filedocumented in this encounter Additional Health Concerns Infection Onset Date Last Indicated Resolved Time COVID-19 Rule Out 10/10/2019 10/10/2019 10/11/2019 1:50 PM CDT COVID-19 Rule Out 10/31/2019 10/31/2019 11/01/2019 10:23 PM CDT documented as of this encounter Care Teams [employer] Senior Officer Relationship Specialty Start Date End Date Jackson Rosa MD [address] [place] [address] PCP - General INTERNAL MEDICINE 04/02/16 Gaurang Gonzalez MD [address] [place] [address] CARDIOVASCULAR DISEASE 04/02/16 05/20/18 Jeremiah Rolon MD [address] [place] [address] [place] Fagot Heater Helper CARDIOVASCULAR DISEASE 07/28/18 11/02/23 Whit Perez, TELEPHONE INTERCEPTOR OPERATOR, SOCIAL WORKER ASSISTANT-C 9 [facility] [address] [place] [address] NURSE PRACTITIONER 02/17/19 12/05/23 Irma Willams MD [address] [place] [address] Consulting Physician CARDIOVASCULAR DISEASE 11/03/23 Efrem Alves MD [address] [place] [address] Vascular/Fagot Heater Helper INTERNAL MEDICINE 12/17/23 documented as of this encounter
--- OUTSIDE RECORDS SUMMARY | 2024-05-25 16:48 | XMS_ITS ---
Author Organization [facility] Address [address] [place] [address] Care Team Providers Care Imaging Clerk Name Role Phone Jackson Rosa MD Primary Care Provider [phone] Active Problems Problem Noted Date Diagnosed Date Anemia 09/06/2022 09/06/2022 Bleeding 09/06/2022 09/06/2022 Overview (09/06/2022): : History of bleeding, 1yr ago lower GI bleed colonoscopy negative, 5-6 yrs stomach ulcer tamoxifen side effect. Breast cancer 09/06/2022 09/06/2022 CAD (coronary artery disease) 09/06/2022 Cataract 09/06/2022 09/06/2022 History of varicose veins 09/06/20222022 HLD (hyperlipidemia) 09/06/2022 09/06/2022 Pain 09/06/2022 09/06/2022 Overview (09/06/2022): Multiple back injections for pain. HTN (hypertension) 09/06/2022 09/06/2022 Cervicalgia 07/27/2022 Primary localized osteoarthrosis of shoulder reg ion 02/13/2022 09/06/2022 Ear pressure, left 12/27/2021 Dysfunction of left eustachian tube 12/04/2021 Left chronic serous otitis media 11/16/2021 Chronic atticoantral suppurative otitis media of left ear 11/16/2021 Mixed conductive and sensori neural hearing loss of left ear with restricted hearing of right ear 11/16/2021 Sensorineural hearing loss (SNHL) of both ears 0 08/11/2021 ETD (Eustachian tube dysfunction), bilateral Mastoiditis of left side 08/11/2021 Pain in joint of left shoulder 07/17/2021 0 09/06/2022 Subclinical hyperthyroidism 07/04/2021 Assessment & Plan (07/04/2021 11:03 AM BAG MAKER): I explained to the patient how subclinical hyperthyroidism, a very often does not need specific treatment. It is hard to explain her symptoms on this very mildly overactive thyroid and treatment probably not make any difference. However one of the concerns with subclinical hyperthyroidism is bone density loss, which she already has. I have requested to repeat a TFTs including TPO antibody. Should the TSH continued to be suppressed, will probably start antithyroid medication with Tapazole, a low-dose, mostly for bone protection Regarding her scattered , thyroid nodules, they are the main reason for her subclinical hyperthyroidism. No specific intervention is indicated at this time but follow-up with ultrasound probably 1 or 2 years BMI 27.0-27.9,adult 10/12/2019 Right lower quadrant abdominal pain 09/07/2019 Assessment & Plan (10/12/2019 2:01 PM CDT): Severe pain that she was having before has resolved after taking flagyl. She is still having some pulling pain in right side that occurs with certain movement such as if she rolls from back to side in bed. She does have history of biliary narrowing found on EUS in 2017. She has had CT, HIDA scan, US, and labs done last month with PCP and these were all negative. No indication that this is biliary related. Given her history of spinal issues and pain occurring with certain movement, this is likely neuropathic. Assessment & Plan (09/07/2019 2:33 PM CDT): Pt having bloating/pain in RLQ. She says the pain does get better if she has a BM or passes gas. She does admit to having very foul smelling gas as well. She says she has had issues with BM's all her life. Possible bacterial overgrowth. She currently take Metamucil and Align probiotics. Will give course of flagyl. Continue probiotics and Metamucil. Alternating constipation and diarrhea 09/07/2019 Assessment & Plan (10/12/2019 1:56 PM CDT): Back to normal after taking course of flagyl. Pt was previously on Metamucil and Align. She stopped the Metamucil once her BM's became normal and just eats bran on daily basis. She continues to take align. Assessment & Plan (09/07/2019 2:35 PM CDT): Pt usually has BM daily. Will usually have small stool and feelings of incomplete emptying with first BM, then loose stools after this. She has lots of gas and bloating and usually gets better for some times after BM. She had stool studies done with PCP and these were negative. Will give course of flagyl. Bloating 09/07/2019 Assessment & Plan (10/12/2019 1:55 PM CDT): Resolved after taking flagyl Assessment & Plan (09/07/2019 2:36 PM CDT): Pt says as soon as she eats, she feels gurgling and gas, then pain in RLQ occurs. She says passing gas or having BM does relieve pain for a short time and then comes back. Continue Metamucil and Align. Will treat with flagyl to see if this will help with possible bacterial overgrowth. GERD (gastroesophageal reflux disease) 0 Assessment & Plan (09/07/2019 2:36 PM CDT): Well controlled on omeprazole 20mg daily. Continue this medication. 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 Abnormal rotation of CBD. They used conservative measures with diet. They considered ERCP if pain occurred, but did not need to do so. Pt denies fevers, chills, or abnormal color urine. Pain is more RLQ and appears to be related to BM's. Recent labs were normal. Shoulder pain 08/04/2015 09/06/2022 Knee pain 04/01/2015 09/06/2022 History of breast cancer 01/29/2012 023 Current Oncology Plans No current plan information found. Past Plans No past plan information found. Radiation Treatments * No radiation treatments are documented for this patient in [facility]. Treatments may have been administered in another system. Lifetime Dose Tracking * Chemical Lifetime Dose Automatic Entry Manual Entr y DLP 432 mGycm 432 mGycm 0 mGycm
--- OUTSIDE RECORDS SUMMARY | 2024-05-25 16:48 | XMS_ITS | Encounter Summary ---
Author Organization [facility] Address [address] [place] [address] Care Team Providers Care Qualifications Examiner Name Role Phone Jackson Rosa MD Primary Care Provider + Encounter Details Date Type Department Care Team (Latest Contact Info) Description 03/04/2007 Outpatient Historical [facility] Cabezas, Cyndee Crespo MD NO ADDRESS ON FILE Screening Mammogram for High-Risk Patient (Primary Dx) Social History Tobacco Use Types Packs/Day Years Used Date Smoking Tobacco: Never Assessed Comments Unknown Sex and Gender Information Value Date Recorded Sex Assigned at Not on file Legal Sex Female 3:45 AM NETWORK INFRASTRUCTURE ARCHITECT Gender Identity Not on file Sexual Orientation Not on file documented as of this encounter Plan of Treatment Not on file documented as of this encounter Visit Diagnoses Diagnosis Screening mammogram for high-risk patient- Primary documented in this encounter Care Teams Qualifications Examiner Relationship Specialty Start Date End Date Jackson Rosa MD [address] [place] [address] PCP - General 07/05/09 documented as of this encounter
--- OUTSIDE RECORDS SUMMARY | 2024-05-25 16:48 | XMS_ITS | Encounter Summary ---
Author Organization [facility] Address [address] [place] [address] Care Team Providers Care Manager Visual Name Role Phone Jackson Rosa MD Primary Care Provider + Encounter Details Date Type Department Care Team (Latest Contact Info) Description 09/05/1999 Outpatient Historical HIS [facility] Cabezas, Cyndee Crespo MD NO ADDRESS ON FILE Personal history of malignant neoplasm of breast (Primary Dx) Social History Tobacco Use Types Packs/Day Years Used Date Smoking Tobacco: Never Assessed Comments Unknown Sex and Gender Information Value Date Recorded Sex Assigned at Not on file Legal Sex Female 3:45 AM CONING MACHINE OPERATOR Gender Identity Not on file Sexual Orientation Not on file documented as of this encounter Plan of Treatment Not on file documented as of this encounter Visit Diagnoses Diagnosis Personal history of malignant neoplasm of breast- Primary documented in this encounter Care Teams Manager Visual Relationship Specialty Start Date End Date Jackson Rosa MD [address] [place] [address] PCP - General 07/05/09 documented as of this encounter
--- OUTSIDE RECORDS SUMMARY | 2024-05-25 16:48 | XMS_ITS | Encounter Summary ---
Author Organization [facility] Address [address] [place] [address] Care Team Providers Care Open Source Developer Name Role Phone Jackson Rosa MD Primary Care Provider + Encounter Details Date Type Department Care Team (Latest Contact Info) Description 10/13/2003 Outpatient Historical HIS [facility] Cabezas, Cyndee Crespo MD NO ADDRESS ON FILE SCREENING MAMM-MAILG NEOPL-OTHER (Primary Dx) Social History Tobacco Use Types Packs/Day Years Used Date Smoking Tobacco: Never Assessed Comments Unknown Sex and Gender Information Value Date Recorded Sex Assigned at Not on file Legal Sex Female 3:45 AM DEPUTY CLERK OF SUPERIOR COURT Gender Identity Not on file Sexual Orientation Not on file documented as of this encounter Plan of Treatment Not on file documented as of this encounter Visit Diagnoses Diagnosis Other screening mammogram- Primary documented in this encounter Care Teams Open Source Developer Relationship Specialty Start Date End Date Jackson Rosa MD [address] [place] [address] PCP - General 07/05/09 documented as of this encounter
--- OUTSIDE RECORDS SUMMARY | 2024-05-25 16:48 | XMS_ITS | Clinical Summary ---
Author Organization [facility] Address [address] [facility] [place] [address] Care Team Providers Care Family Nurse Name Role Phone Jackson Rosa MD Primary Care Provider [phone] Sammie Fox RN Unavailable Deyanira Daigle EDITORIAL PROJECT MANAGER Unavailable [phone] Luis Carlos Rivas MD Unavailable [phone] Source Comments [facility],non-owned Affiliates and Associated Physician Practices is amultiple site organization consisting of ambulatory clinics and hospital sitesin [place], [place], [place] and [place]. This disclosure is being madepursuant to the Care Everywhere program and may not contain all information available regarding this patient. Last updated 18.[facility] Allergies Active Allergy Reactions Criticality Noted Date Comments Sulfa Drugs Rash Low 08/10/2014 Medications * Be aware that medications may not be up to date on this document. Alwaysverify current medications with the patient. Medication Sig Dispensed Refills Start Date End Date Status atenolol (TENORMIN) 25 MG tablet Take 25 mg by mouth once daily. Active folic acid (FOLVITE) 1 MG tablet Take 1 mg by mouth once daily. Active pravastatin (PRAVACHOL) 10 MG tablet Take 10 mg by mouth at bedtime. Active esomeprazole (NEXIUM) 20 MG packet Take 20 mg by mouth once daily. Active Vitamin E 400 UNITS CHEW Take 400 Units by mouth once daily. Active Vitamin D, Cholecalciferol, 1000 UNITS TABS Take 5,000 Units by mouth once daily. Active Coenzyme Q10 (CO Q 10) 10 MG CAPS Take 100 mg by mouth once daily. Active Biotin 1000 MCG TABS Take 1,000 mcg by mouth once daily. Active furosemide (LASIX) 20 MG tablet Take 20 mg by mouth once daily. Active Active Problems No known active problems Immunizations Name Administration Dates Next Due [employer] primary monoval ent 12+ yr 0.3mL Purple cap 05/03/2021,08/30/2020 INFLUENZA VACCINE 01/27/2015 Pneumococcal Pcv13 Conj 09/07/2020 Td (Adult), 2 Lf Tetanus Toxoid, Adsorbed, Pf Family History Medical History Relation Name Comments CAD (Coronary Artery Disease) Other Hypertension Other Relation Name Status Comments Other Social History Tobacco Use Types Packs/Day Years Used Date Smoking Tobacco: Never Smokeless Tobacco: Never Alcohol Use Standard Drinks/Week Comments Yes 0 (1 standard drink = 0.6 oz pur e alcohol) Sex and Gender Information Value Date Recorded Sex Assigned at Female 05/03/2021 6:03 PM SUPPLIER SPECIALIST Gender Identity Female 05/03/2021 6:03 PM SUPPLIER SPECIALIST Sexual Orientation Straight 05/03/2021 6: 03 PM SUPPLIER SPECIALIST Last Filed Vital Signs Vital Sign Reading Time Taken Comments Blood Pressure 132/78 06/21/2016 8:16 AM SUPPLIER SPECIALIST Pulse 55 06/21/2016 8:16 AM SUPPLIER SPECIALIST Temperature 36.7 ??C (98.1 ??F) 08/13/2014 11:27 AM C DT Respiratory Rate 18 08/13/2014 11:27 AM CDT Oxygen Saturation 100% 08/13/2014 11:27 AM CDT Inhaled Oxygen Concentration - - Weight 70.3 kg (155 lb) 09/03/2016 3:25 PM CDT Height 157.5 cm (5' 2 ) 09/03/2016 3:25 PM CDT Body Mass Index 28.35 09/03/2016 3:25 PM CDT Plan of Treatment Health Maintenance Due Date Last Done Comments BONE DENSITY TESTING 1945 MEDICARE AWV ? 12 MONTHS 1945 HEPATITIS C SCREENING 09/08/1964 ZOSTER VACCINE (1 of 2) 1996 DTAP/TDAP/TD VACCINES (1 - Tdap) 12/02/1999 12/01/1999 PNEUMOCOCCAL VACCINE 50+ (2 of 2 - PPSV23) 09/07/2021 09/07/2020 Respiratory Syncytial Virus (RSV) Vaccine Pt: or over 60 yrs (1 - 1-dose 75+ series) 2021 COVID-19 VACCINE (4 - season) 2023 05/03/2021, 08/30/2020, 08/02/2020 INFLUENZA VACCINE (#1) 2023 , 03/12/2019, 01/28/2018, Additional history exists DEPRESSION SCREENING 04/29/2024 HEPATITIS B VACCINE Aged Out No longe r eligible based on patient's age to complete this topic HIB VACCINE Aged Out No longer eligi ble based on patient's age to complete this topic HPV VACCINE Aged Out No longer eligi ble based on patient's age to complete this topic MENINGOCOCCAL (Group B) VACCINE Aged Out No longer eligible based on patient's age to complete this topic MENINGOCOCCAL VACCINE Aged Out No sally kleber eligible based on patient's age to complete this topic Medical Devices Implanted Type Area Retail Marketing Executive Device Identifier Shelf Expiration Date Model / Serial / Lot Nexgen Complete Knee Solution Cruciate Retaining Trabecular Metal Monoblock Tibial Component Tibial Size 3, Femoral Size C-H, 10mm Height Implanted:Qty: 1 on 08/10/2014 by Angel Luis Villegas MD at [facility] Right: Knee [employer] 01/27/2019 [id number] Nexgen Complete Knee Solution Cruciate Retaining Cr-Flex Femoral Component Porous Size D, Right Implanted:Qty: 1 on 08/10/2014 by Angel Luis Villegas MD at [facility] Right: Knee [employer] 11/28/2023 / [id number] Bill Only Basic Derrick Excludes Agc Kn Implanted:Qty: 1 on 08/10/2014 by Angel Luis Villegas MD at [facility] [employer] BILL ONLY BASIC DERRICK EXCLUDES AGC KN ZIMM / / Bill Only Tb Upchrg Implanted:Qty: 1 on 08/10/2014 by Angel Luis Villegas MD at [facility] [employer] UPCHRG MELY BILL ONLY TB / / Care Teams Family Nurse Relationship Specialty Start Date End Date Jackson Rosa MD PCP - General Internal Medicine 05/18/14 Sammie Fox RN Strawhat Sizer [facility] 08/12/14 [place] [id number] [address] Orthopedic Surgery 09/03/16
--- OUTSIDE RECORDS SUMMARY | 2024-05-25 16:48 | XMS_ITS | Encounter Summary ---
Author Organization [facility] Address [address] [place] [address] Care Team Providers Care Separator Operator Shellfish Meats Name Role Phone Jackson Rosa MD Primary Care Provider + Encounter Details Date Type Department Care Team (Latest Contact Info) Description 09/03/2000 Outpatient Historical HIS [facility] GEOFF Cabezas, Cyndee Crespo MD NO ADDRESS ON FILE Personal history of malignant neoplasm of breast (Primary Dx) Social History Tobacco Use Types Packs/Day Years Used Date Smoking Tobacco: Never Assessed Comments Unknown Sex and Gender Information Value Date Recorded Sex Assigned at Not on file Legal Sex Female 3:45 AM CASHIER ASSOCIATE Gender Identity Not on file Sexual Orientation Not on file documented as of this encounter Plan of Treatment Not on file documented as of this encounter Visit Diagnoses Diagnosis Personal history of malignant neoplasm of breast- Primary documented in this encounter Care Teams Separator Operator Shellfish Meats Relationship Specialty Start Date End Date Jackson Rosa MD [address] [place] [phone] PCP - General 07/05/09 documented as of this encounter
--- OUTSIDE RECORDS SUMMARY | 2024-05-25 16:48 | XMS_ITS | Encounter Summary ---
Author Organization [facility] Address [address] [place] [address]. [place], [place] [id number] [place] [address] Care Team Providers Care Help Desk Representative Name Role Phone Jackson Rosa MD Primary Care Provider [phone] Irma Willams MD Unavailable Efrem Alves MD Unavailable Encounter Details Date Type Department Care Team (Late st Contact Info) Description 05/25/2024 2:00 PM CLAIMS ANALYST Office Visit [facility] [place] [address] Irma Willams MD [address] [place] [address] Arrived Social History Tobacco Use Types Packs/Day Years Used Date Smoking Tobacco: Never Passive Smoke Exposure: Never Smokeless Tobacco: Never Alcohol Use Standard Drinks/Week Comments Yes 0 (1 standard drink = 0.6 oz pur e alcohol) very rare wine usage Comments Unknown Sex and Gender Information Value Date Recorded Sex Assigned at Female 05/25/2024 1:26 PM CLAIMS ANALYST Legal Sex Female 9:00 PM CDT Gender Identity Not on file Sexual Orientation Not on file Occupation Industry Job Start Date Job End Date Retired Not on file Not on file Not on file documented as of this encounter Plan of Treatment Upcoming Encounters Date Type Department Care Team (Late st Contact Info) Description 06/03/2024 1:00 PM CLAIMS ANALYST Office Visit [facility] el [address] [place] [phone] Efrem Alves MD [address] [place] [address] documented as of this encounter Visit Diagnoses Not on filedocumented in this encounter Care Teams Help Desk Representative Relationship Specialty Start Date End Date Jackson Rosa MD [address] [place] [address] PCP - General INTERNAL MEDICINE 04/02/16 Irma Willams MD [address] [place] [address] Consulting Physician CARDIOVASCULAR DISEASE 11/03/23 Efrem Alves MD [address] [place] [address] Vascular/Framing Mill Operator INTERNAL MEDICINE 12/17/23 documented as of this encounter
--- OUTSIDE RECORDS SUMMARY | 2024-05-25 16:48 | XMS_ITS | Referral Summary ---
Author Organization [facility] Address [address] [place] [address] Care Team Providers Care Single Spindle Screw Machine Operator Name Role Phone Jackson Rosa MD Primary Care Provider [phone] Sammie Fox RN Unavailable [phone] Deyanira Daigle DIGITAL RETOUCHER Unavailable [phone] Luis Carlos Rivas MD Unavailable [phone] Source Comments [facility],non-owned Affiliates and Associated Physician Practices is amultiple site organization consisting of ambulatory clinics and hospital sitesin [place], [place], [place] and [place]. This disclosure is being madepursuant to the Care Everywhere program and may not contain all information available regarding this patient. Last updated 18.[facility] Allergies Active Allergy Reactions Criticality Noted Date [...] problems Immunizations Name Administration Dates Next Due [employer] primary monoval ent 12+ yr 0.3mL Purple cap 05/03/2021,08/30/2020 INFLUENZA VACCINE 01/27/2015 Pneumococcal Pcv13 Conj 09/07/2020 Td (Adult), 2 Lf Tetanus Toxoid, Adsorbed, Pf Social History Tobacco Use Types Packs/Day Years Used Date Smoking Tobacco: Never Smokeless Tobacco: Never Alcohol Use Standard Drinks/Week Comments Yes 0 (1 standard drink = 0.6 oz pur e alcohol) Sex and Gender Information Value Date Recorded Sex Assigned at Female 05/03/2021 6:03 PM AVIONICS ELECTRONICS TECHNICIAN Gender Identity Female 05/03/2021 6:03 PM AVIONICS ELECTRONICS TECHNICIAN Sexual Orientation Straight 05/03/2021 6: 03 PM AVIONICS ELECTRONICS TECHNICIAN Last Filed Vital Signs Vital Sign Reading Time Taken Comments Blood Pressure 132/78 06/21/2016 8:16 AM AVIONICS ELECTRONICS TECHNICIAN Pulse 55 06/21/2016 8:16 AM AVIONICS ELECTRONICS TECHNICIAN Temperature 36.7 ??C (98.1 ??F) 08/13/2014 11:27 AM C DT Respiratory Rate 18 08/13/2014 11:27 AM CDT Oxygen Saturation 100% 08/13/2014 11:27 AM CDT Inhaled Oxygen Concentration - - Weight 70.3 kg (155 lb) 09/03/2016 3:25 PM CDT Height 157.5 cm (5' 2 ) 09/03/2016 3:25 PM CDT Body Mass Index 28.35 09/03/2016 3:25 PM CDT Functional Status Functional Status Response Date of Assess ment Is person deaf or have serious hearing difficult y? No 08/10/2014 Is person blind or have serious difficulty seein g? No 08/10/2014 Does person have serious dif ficulty walking/climbing stairs? No 08/10/2014 Does person have difficulty dressing/bathing? No 08/10/2014 Does person have difficulty doing errands alone? No 08/10/2014 Cognitive Status Response Date of Assessm ent Does person have difficulty concentrating/remembering/making decisions? No 08/10/2014 Plan of Treatment Not on file Medical Devices Implanted Type Area Third Miller Device Identifier Shelf Expiration Date Model / Serial / Lot Nexgen Complete Knee Solution Cruciate Retaining Trabecular Metal Monoblock Tibial Component Tibial Size 3, Femoral Size C-H, 10mm Height Implanted:Qty: 1 on 08/10/2014 by Angel Luis Villegas MD at [facility] Right: Knee [employer] 01/27/2019 [id number] Nexgen Complete Knee Solution Cruciate Retaining Cr-Flex Femoral Component Porous Size D, Right Implanted:Qty: 1 on 08/10/2014 by Anegl Luis Villegas MD at [facility] Right: Knee [employer] 11/28/2023 / [id number] Bill Only Basic Derrick Excludes Agc Kn Implanted:Qty: 1 on 08/10/2014 by Angel Luis Villegas MD at [facility] [employer] BILL ONLY BASIC DERRICK EXCLUDES AGC KN ZIMM / / Bill Only Tb Upchrg Implanted:Qty: 1 on 08/10/2014 by Angel Luis Villegas MD at [facility] [employer] MELY BILL ONLY TB / / Care Teams Single Spindle Screw Machine Operator Relationship Specialty Start Date End Date Jackson Rosa MD PCP - General Internal Medicine 05/18/14 Sammie Fox, KAROLINE Carpet Cleaning Technician 08/10/14 Deyanira Daigle, [facility] Supervisor Loading 08/12/14 [place] [id number] [address] Orthopedic Surgery 09/03/16
--- OUTSIDE RECORDS SUMMARY | 2024-05-25 16:48 | XMS_ITS | Encounter Summary ---
Author Organization [facility] Address [address] [place] [address] Care Team Providers Care Legal Support Assistant Name Role Phone Jackson Rosa MD Primary Care Provider + Encounter Details Date Type Department Care Team (Latest Contact Info) Description 09/07/1998 Outpatient Historical HIS [facility] GE[facility] Cabezas, Cyndee Crespo MD NO ADDRESS ON FILE Personal history of malignant neoplasm of breast (Primary Dx) Social History Tobacco Use Types Packs/Day Years Used Date Smoking Tobacco: Never Assessed Comments Unknown Sex and Gender Information Value Date Recorded Sex Assigned at Not on file Legal Sex Female 3:45 AM CONTROL MANAGER Gender Identity Not on file Sexual Orientation Not on file documented as of this encounter Plan of Treatment Not on file documented as of this encounter Visit Diagnoses Diagnosis Personal history of malignant neoplasm of breast- Primary documented in this encounter Care Teams Legal Support Assistant Relationship Specialty Start Date End Date Jackson Rosa MD [address] [place] [phone] PCP - General 07/05/09 documented as of this encounter
--- OUTSIDE RECORDS SUMMARY | 2024-05-25 16:48 | XMS_ITS | Encounter Summary ---
Author Organization [facility] Address [address] [place] [address] Care Team Providers Care Peripheral Edp Equipment Operator Name Role Phone Jackson Rosa MD Primary Care Provider + Encounter Details Date Type Department Care Team (Latest Contact Info) Description 03/31/2008 Outpatient Historical HIS [facility] GEOFF Cabezas, Ezequiel Crespo MD NO ADDRESS ON FILE Other Screening Mammogram Social History Tobacco Use Types Packs/Day Years Used Date Smoking Tobacco: Never Assessed Comments Unknown Sex and Gender Information Value Date Recorded Sex Assigned at Not on file Legal Sex Female 3:45 AM SUBSTITUTE CROSSING GUARD Gender Identity Not on file Sexual Orientation Not on file documented as of this encounter Plan of Treatment Not on file documented as of this encounter Procedures Procedure Name Priority Date/Time Associated Diagnosis Comments MAMMO SCREEN BILAT W OR WO CAD Routine 03/31/2008 8:30 AM SUBSTITUTE CROSSING GUARD documented in this encounter Results * MAMMO DIGITAL SCREEN BILAT (03/31/2008 8:30 AM SUBSTITUTE CROSSING GUARD) Anatomical Region Laterality Modality Breast Bilateral Other 03/31/2008 8:30 AM SUBSTITUTE CROSSING GUARD Narrative 03/31/2008 12:03 PM SUBSTITUTE CROSSING GUARD ? [facility] ? [address] ?[place], [place] ??[address] ?Admit Date: 03/31/2008 ?ARCHIBEE, ZULMA A ?Sex: F ?Admit Prov: EZEQUIEL CABEZAS ? Date: 1945 ?Primary Care Prov: ? CMRN: [id number] ?Room: MDB-A ?SSN: [id number] ? IMAGING SERVICES ?Ordering Prov: EZQEUIEL CABEZAS ? Accession Number: [id number] ?Interpretation ? EXAM: BILATERAL SCREENING FULL FIELD DIGITAL MAMMOGRAM WITH CAD. 03/31/2008 ? History: Personal history of breast cancer with prior left conservation ? therapy. ? Technique: Mediolateral oblique and craniocaudal views of both breasts were ? performed using full field digital mammography. Computer aided diagnosis ? was performed. ??Comparison is made with prior studies dated 02/2007, ? 01/2006, 06/2004. ? Breast Composition: ??Scattered fibroglandular densities. ? Findings: ??Mammographic changes consistent with breast conservation therapy ? on the left are noted. No suspicious findings are seen on the mammogram. ? Since the prior exam, there has been no significant change. Computer aided ? diagnosis detected no significant abnormality. ? Assessment: BI-RADS Category: 2, benign findings. Stable postoperative ? changes. ? Recommendation: Bilateral screening mammogram in one year. ? Assessment BIRADS: ??2-Benign finding ? Recommendation: ??Normal interval follow-up ? Dictated by: ??ELENA LOU ? Electronically signed by: ??ELENA LOU ??03/31/2008 12:01 ? Transcribed: ??03/31/2008 11:08 ?AMK Procedure Note Elena Lou - 03/31/2008 [facility] [address] [place], [place] [address] Admit Date: 03/31/2008 ZULMA CARNES Sex: F Admit Prov: EZEQUIEL CABEZAS Date: 1945 Primary Care Prov: CMRN: [id number] Room: [facility] SSN: [id number] IMAGING SERVICES Ordering Prov: EZEQUIEL CABEZAS Interpretation EXAM: BILATERAL SCREENING FULL FIELD DIGITAL MAMMOGRAM WITH CAD.03/31/2008 History: Personal history of breast cancer with prior leftconservation therapy. Technique: Mediolateral oblique and craniocaudal views of bothbreasts were performed using full field digital mammography. Computer aideddiagnosis was performed. Comparison is made with prior studies dated104/2006, 01/2006, 06/2004. Breast Composition: Scattered fibroglandular densities. Findings: Mammographic changes consistent with breast conservationtherapy on the left are noted. No suspicious findings are seen on themammogram. Since the prior exam, there has been no significant change. Computeraided diagnosis detected no significant abnormality. Assessment: BI-RADS Category: 2, benign findings. Stablepostoperative changes. Recommendation: Bilateral screening mammogram in one year. Assessment BIRADS: 2-Benign finding Recommendation: Normal interval follow-up Dictated by: ELENA LOU Electronically signed by: ELENA LOU 03/31/2008 12:01 Transcribed: 03/31/2008 11:08 AMK Ezequiel Cabezas MD MAMMO ORDERABLES Final Resul t documented in this encounter Visit Diagnoses Diagnosis Other screening mammogram documented in this encounter Care Teams Peripheral Edp Equipment Operator Relationship Specialty Start Date End Date Jackson Rosa MD [address] [place] [phone] PCP - General 07/05/09 documented as of this encounter
[2024-05-25 16:49] LABS: Basophils Absolute Auto 0.08 K/mm3 (0.00-0.10); Basophils Percent Auto 1.1 % (0.0-1.0); Eosinophils Absolute Auto 0.16 K/mm3 (0.02-0.50); Eosinophils Percent Auto 2.2 % (1.0-6.0); Hematocrit 39.7 % (35.0-42.0); Hemoglobin 12.9 g/dL (11.7-13.8); Immature Granulocyte Absolute 0.02 K/mm3 (0.00-0.00); Immature Granulocyte Percent A 0.3 % (0.0-0.0); Lymphocytes Absolute Auto 2.43 K/mm3 (1.10-4.50); Lymphocytes Percent Auto 33.4 % (18.0-42.0); Mean Corpuscular HGB Conc 32.5 g/dL (32-36); Mean Corpuscular Hemoglobin 30.4 pg (27.0-31.0); Mean Corpuscular Volume 93.6 fL (78.0-102.0); Mean Platelet Volume 10.7 fl (9.2-11.8); Monocytes Absolute Auto 0.47 K/mm3 (0.10-0.90); Monocytes Percent Auto 6.5 % (2.0-11.0); Neutrophils Absolute Auto 4.12 K/mm3 (1.70-7.20); Neutrophils Percent Auto 56.5 % (50.0-70.0); Platelet Count Result 228 K/mm3 (150-420); Red Blood Count 4.24 M/mm3 (4.20-5.40); Red Cell Distribution Width 12.9 % (11.6-14.4); White Blood Count 7.3 K/mm3 (4.8-10.8)
--- OUTSIDE RECORDS SUMMARY | 2024-05-25 16:49 | XMS_ITS | Referral Summary ---
Author Organization [facility] Address [address] [place] [address] Care Team Providers Care Piano Regulator Name Role Phone Jackson Rosa MD Primary Care Provider [phone] Allergies Active Allergy Reactions Criticality Noted Date Comments Ibandronate Palpitations Low 12/04/2017 Sulfa (Sulfonamide Antibiotics) Rash Medium Febrile rash Medications pravastatin (PRAVACHOL) 10 mg tabletIndicatio ns:hyperlipidem ia Take 1 tablet (10 mg total) by mouth nightly Active omeprazole (PriLOSEC) 20 mg capsuleIndicati ons:gerd Take 1 capsule (20 mg total) by mouth every morning 8 Active furosemide (LASIX) 20 mg tabletIndicatio ns:Edema,hypert ension Take 1 tablet (20 mg total) by mouth every morning 8 Active aspirin 81 mg tabletIndicatio ns:prevention of thrombosis Take 1 tablet (81 mg total) by mouth every morning 8 Active coenzyme Q10 100 mg capsuleIndicati ons:supplement Take 1 tablet by mouth every morning Active vitamin E 400 unit capsuleIndicati ons:supplement Take 1 tablet by mouth 2 (two) times a week Saturday and Wednesdays 5 Active biotin 1 mg tabletIndicatio ns:supplement Take 1 tablet (1,000 mcg total) by mouth every morning Active potassium 99 mg tabletIndicatio ns:hypokalemia prevention Take 1 tablet (99 mg total) by mouth every morning Active glucosamine-cho ndroitin 250-200 mg tabletIndicatio ns:supplement Take 1 tablet by mouth every morning Active vit C/E/Zn/coppr/stephanie tein/zeaxan (PRESERVISION AREDS 2 ORAL)Indication s:eye health Take 1 tablet by mouth every morning Active valACYclovir (VALTREX) 500 mg tabletIndicatio ns:Skin/Soft Tissue Infection Take 1 tablet (500 mg total) by mouth every morning 6 Active cetirizine (ZyrTEC) 10 mg tabletIndicatio ns:Seasonal Allergic Rhinitis Take 1 tablet (10 mg total) by mouth every morning 0 Active Bifidobacterium infantis (ALIGN) 4 mg capsuleIndicati ons:gut health Take 1 capsule (4 mg total) by mouth every other day In the morning Active escitalopram (LEXAPRO) 5 mg tabletIndicatio ns:Anxiety with Depression Take 1 tablet (5 mg total) by mouth every morning 2 Active fluticasone propionate (FLONASE) 50 mcg/actuation nasal sprayIndication s:Allergic Rhinitis Administer 1 spray into each nostril daily as needed for allergies or rhinitis 2 Active ipratropium-alb uteroL (DUO-NEB) 0.5-2.5 mg/3 mL nebulizer solution Take 3 mL by nebulization as needed for wheezing or shortness of breath In winter months 1 Active losartan (COZAAR) 25 mg tabletIndicatio ns:hypertension Take 1 tablet (25 mg total) by mouth daily with breakfast 1 Active cyclobenzaprine (FLEXERIL) 5 mg tablet Take 1 tablet (5 mg total) by mouth nightly 10 tablet 2 Active Additional Information Patient taking differently:5 mg oral3 times daily PRN, muscle spasms, Indications: Muscle Spasm, Informant: Self, Reported on 11/26/2022 calcium 26-vit D3-magnesium 15 167 mg calcium- 1.67 mcg-83 mg capsuleIndicati ons:Hypocalcemi a Prevention,Prev ention of Vitamin D Deficiency Take 2 tablets by mouth every morning 3 Active folic acid 0.8 mg capsuleIndicati ons:supplement Take 1 tablet by mouth every morning [address] (CYMBALTA) 30 mg capsuleIndicati ons:Anxiety with Depression Take 1 capsule (30 mg total) by mouth nightly 3 Active mupirocin (BACTROBAN) 2 % ointmentIndicat ions:Minor Bacterial Skin Infections Apply 1 Application topically daily as needed (sore in nose) 3 Active ALPRAZolam (XANAX) 0.25 mg tabletIndicatio ns:anxiety Take 1 tablet (0.25 mg total) by mouth 3 (three) times a day as needed for anxiety 2 Active nystatin 100,000 unit/mL suspensionIndic ations:oral candidiasis Take 5 mL (500,000 Units total) by mouth 4 (four) times a day as needed (mouth sores/thrush) 3 Active HYDROcodone-emilie taminophen (NORCO) 5-325 mg per tabletIndicatio ns:Pain Take 1 tablet by mouth every 6 (six) hours as needed for pain 15 tablet 3 Active Additional Information Patient not taking.Reported on 02/18/2023 ofloxacin (FLOXIN) 0.3 % otic solution Administer 4 drops into the left ear 2 (two) times a day 5 mL 5 3 Active Additional Information Patient not taking.Reported on 02/18/2023 doxepin (SINEquan) 10 mg capsuleIndicati ons:Insomnia 1 tablet by mouth 30 minutes before bedtime 30 capsule 5 3 Active Active Problems Problem Noted Date Diagnosed [...] 07/04/2021 Assessment & Plan (07/04/2021 11:03 AM LOOM FIXER APPRENTICE): I explained to the patient how subclinical [...] PM CDT): Pt had EUS back in 2016 that showed atrophy of pancreas and portion [...] 09/06/2022 History of breast cancer 01/29/2012 023 Immunizations Name Administration Dates Next Due Influenza, Quadrivalent, Spl it, Preservative Free, Intramuscular 03/12/2019,01/28/2018,01/04/2017 Influenza, Trivalent, High D ose, Split, Preservative Free, Intramuscular 02/13/2013 Influenza, Trivalent, Preser vative Free, Intramuscular 01/27/2015 Influenza, Unspecified 01/27/2015 Pfizer SARS-CoV-2 Monovalent Vaccination (12+ Yrs) PURPLE 08/30/2020 Pfizer Sars-Cov-2 Bivalent V accination (12+ YRS) 01/31/2022 Pneumococcal Conjugate PCV 13 09/07/2020 Td, adsorbed 12/01/1999 Social History Tobacco Use Types Packs/Day Years Used Date Smoking Tobacco: Never Smokeless Tobacco: Never Tobacco Cessation:Counseling Given: Not Answered Alcohol Use Standard Drinks/Week Comments Yes 0 (1 standard drink = 0.6 oz pur e alcohol) social AUDIT-C Answer Date Recorded Q1: How often do you have a drink containing alc ohol? 2-4 times a month 12/21/2022 Q2: How many drinks containi ng alcohol do you have on a typical day when you are drinking? 1 or 2 12/21/2022 Q3: How often do you have si x or more drinks on one occasion? Never 12/21/2022 PHQ-2 Answer Date Recorded PHQ-2 Total Score (If total score is 3 or more points, staff should administer the PHQ-9) 0 07/04/2021 Personal Safety Answer Date Recorded Have you ever been in or are you currently in a harmful physical or emotional relationship or is someone making you feel afraid or unsafe? Denies 12/21/2022 Comments No Sex and Gender Information Value Date Recorded Sex Assigned at Not on file Legal Sex Female 12:56 AM LOOM FIXER APPRENTICE Gender Identity Female 10/06/2019 1:08 PM CDT Sexual Orientation Not on file Last Filed Vital Signs Vital Sign Reading Time Taken Comments Blood Pressure 148/77 02/18/2023 8:21 AM CDT Pulse 76 02/18/2023 8:21 AM CDT Temperature 36.7 ??C (98.1 ??F) 02/18/2023 8:21 AM CD T Respiratory Rate 19 12/21/2022 3:10 PM CDT Oxygen Saturation 95% 02/18/2023 8:21 AM CDT Inhaled Oxygen Concentration - - Weight 67.2 kg (148 lb 3.2 oz) 05/15/2023 3:06 P M LOOM FIXER APPRENTICE Height 157.5 cm (5' 2 ) 05/15/2023 3:06 PM LOOM FIXER APPRENTICE Body Mass Index 27.11 05/15/2023 3:06 PM LOOM FIXER APPRENTICE Plan of Treatment Not on file Medical Devices Implanted Type Area Pipe Manufacture Supervisor Device Identifier Shelf Expiration Date Model / Serial / Lot Knee Replacement Right: Knee Procedures Procedure Name Priority Date/Time Associated Diagnosis Comments COLONOSCOPY 12/04/2017 11:53 AM CDT from Last 3 Months or Most Recently Relevant to Health Maintenance Results * COLONOSCOPY (12/04/2017 11:53 AM CDT) Anatomical Region Laterality Modality Other Narrative Procedure Note Dwayne Chan MD - 12/04/2017 11:53 AM CDT [facility] Patient Name: Zulma Carnes Procedure Date: 12/04/2017 11:53 AM Date of : 1945 Admit Type: Outpatient Age: 72 Gender: Female Attending MD: Dwayne Chan MD Room: [facility] 2 Note Status: Finalized Patient Profile: 72 WF, no family h/o colon cancer. Screening. hasc/o irregular bowel movements. Procedure: Colonoscopy Indications: Screening for colorectal malignant neoplasm, Last colonoscopy: November 2009 Referring MD: Jackson Rosa MD Providers: Dwayne Chan MD Impression: - Diverticulosis in the distal sigmoid colon. - Internal hemorrhoids. - No specimens collected. Recommendation: - Repeat colonoscopy in 10 years for screeningpurposes. - Trial or probiotics daily. - Follow up my office if needed. Medicines: Monitored Anesthesia Care Complications: No immediate complications. Estimated Blood Loss: Estimated blood loss: none. Procedure: Pre-Anesthesia Assessment: - Prior to the procedure, a History and Physical was performed, and patient medications and allergieswere reviewed. The patient's tolerance of previous anesthesia was also reviewed. The risks and benefitsof the procedure and the sedation options and riskswere discussed with the patient. All questions were answered, and informed consent was obtained. Prior Anticoagulants: The patient has taken no previous anticoagulant or antiplatelet agents. ASA Grade Assessment: II - A patient with mild systemicdisease. After reviewing the risks and benefits, the patientwas deemed in satisfactory condition to undergo the procedure. The benefits, risks and alternatives of theprocedure and sedation were discussed and informed consent was obtained. All questions were answered. Please referto the signed informed consent document in the medical record. The scope was passed under direct vision.The Pediatric Colonoscope PCF-H190L [id number] was introduced through the anus and advanced to the the cecum, identified by appendiceal orifice andileocecal valve. The colonoscopy was performed without difficulty. The patient tolerated the procedurewell. The quality of the bowel preparation was good. Findings: The perianal and digital rectal examinations were normal. The cecum appeared normal. Many small-mouthed diverticula were found in the distal sigmoidcolon. No polyps and no inflammatory changes noted in the colon. Internal hemorrhoids were found during retroflexion. The hemorrhoids were small. Electronically signed by Dwayne Chan M.D. Dwayne Chan MD 12/04/2017 12:56:49 PM Number of Addenda: 0 Note Initiated On: 12/04/2017 11:53 AM Procedure Code(s): --- Professional --- G0121, Colorectal cancer screening; colonoscopy on individual not meeting criteria for high risk Diagnosis Code(s): --- Professional --- Z12.11, Encounter for screening for malignant neoplasm of colon K64.8, Other hemorrhoids K57.30, Diverticulosis of large intestine without perforation orabscess without bleeding CPT copyright 2017 [place] [employer]. All rights reserved. The codes documented in this report are preliminary and upon voice and data technician reviewmay be revised to meet current compliance requirements. Recognized by the [place] [employer] for promoting quality in endoscopy Dwayne Chan MD ENDOSCOPY PROCEDURES Final Result from Last 3 Months or Most Recently Relevant to Health Maintenance Insurance MEDICARE [facility] [place] MEDICARE MEDICARE FOR LIFE Advance Directives For more information, please contact: [phone] * Full Code (Latest Code Status on File) Date Activated Date Inactivated Comments 12/04/2017 11:05 AM 12/04/2017 3:39 PM Care Teams Piano Regulator Relationship Specialty Start Date End Date Jackson Rosa MD [address] [place] [address] PCP - General 07/04/16
--- OUTSIDE RECORDS SUMMARY | 2024-05-25 16:49 | XMS_ITS | Continuity of Care Document ---
Author Organization [facility] Address [address] [place] [address] Phone Care Team Providers Care Maintenance Porter Name Role Phone Elaine KLEIN, Cinthya Unavailable Unavailable Advance Directives Directive Yes / No Effective Date File Name No Information Encounters Encounter Description Practice Location Reason(s) For Visit Diagnoses Date Provider Providers Copied on Encounter [facility], [address], [place], [place], [address], [place] tel:[phone] [facility] No Information Elaine Mendes. [address] [facility] [place], [facility] [place], [place], [id number] , [place]. tel:[phone] [facility], [address], [place], [place], [id number], [place] tel:[phone] [facility] Dilation of biliary tract Azra Hung. [address], [place], [address], [place]. tel:[phone] Family History Family Member Type Diagnosis Age At Onset No Information Payers Payer name Insurance type Covered democrat ID Authoriza tion(s) No Information Social History [...]
--- OUTSIDE RECORDS SUMMARY | 2024-05-25 16:49 | XMS_ITS | Clinical Summary ---
Author Organization [facility] Address [address] [place] [address] Care Team Providers Care Cant Gang Sawyer Name Role Phone Jackson Rosa MD Primary Care Provider + [phone] Allergies Active Allergy Reactions Criticality Noted Date [...] 07/04/2021 Assessment & Plan (07/04/2021 11:03 AM SUPERVISORY AIR INTERCEPT CONTROLLER): I explained to the patient how subclinical [...] Conjugate PCV 13 09/07/2020 Td, adsorbed 12/01/1999 Surgical History Surgery Date Site/Laterality Comments HYSTERECTOMY 04/29/1976 - 04/28/1977 OOPHORECTOMY 04/29/1977 - 04/28/1978 APPENDECTOMY 04/29/1971 - 04/28/1972 MASTECTOMY PARTIAL / LUMPECTOMY 04/29/1995 - 04/28/1996 Left REPLACEMENT TOTAL KNEE 08/10/2014 Right COLONOSCOPY 11/27/2009 MYRINGOTOMY W/ TUBES 12/04/2021 Left COLONOSCOPY W/ POLYPECTOMY 12/04/2017 CATARACT EXTRACTION 10/13/2019 Left CATARACT EXTRACTION 11/03/2019 Right REVERSE TOTAL SHOULDER ARTHROPLASTY 01/27/2022 - 2021 Left Medical History Medical History Date Comments Irritable bowel syndrome Hyperlipidemia Myocardial infarction (HCC) Colon polyp Allergic rhinitis Anxiety Cancer (CMS/HCC) (HCC) Cataract Heart disease Hypertension History of kidney problems History of radiation therapy GERD (gastroesophageal reflux disease) Sinusitis Ear problems CHF (congestive heart failure) (CMS/[facility]) (HCC) Depression Osteopenia Osteoporosis History of radiation therapy 1994 Family History Medical History Relation Name Comments Cancer Father Cancer Mother Anesthesia problems Neg Hx Relation Name Status Comments Father Mother Social History Tobacco Use Types Packs/Day Years [...] on file Legal Sex Female 12:56 AM SUPERVISORY AIR INTERCEPT CONTROLLER Gender Identity Female 10/06/2019 1:08 PM CDT Sexual Orientation Not on file Obstetrics History Last Filed Vital Signs Vital Sign Reading Time Taken Comments Blood Pressure 148/77 02/18/2023 8:21 AM CDT Pulse 76 02/18/2023 8:21 AM CDT Temperature 36.7 ??C (98.1 ??F) 02/18/2023 8:21 AM CD T Respiratory Rate 19 12/21/2022 3:10 PM CDT Oxygen Saturation 95% 02/18/2023 8:21 AM CDT Inhaled Oxygen Concentration - - Weight 67.2 kg (148 lb 3.2 oz) 05/15/2023 3:06 P M SUPERVISORY AIR INTERCEPT CONTROLLER Height 157.5 cm (5' 2 ) 05/15/2023 3:06 PM SUPERVISORY AIR INTERCEPT CONTROLLER Body Mass Index 27.11 05/15/2023 3:06 PM SUPERVISORY AIR INTERCEPT CONTROLLER Plan of Treatment Health Maintenance Due Date Last Done Comments Hepatitis C Screening 1945 Hepatitis B Screening 1963 Zoster Vaccine (1 of 2) 1996 DTaP/Tdap/Td Vaccine (1 - Tdap) 12/02/1999 0 Well Visit 65+ 09/14/2011 Osteoporosis Screening-Bone Density Scan 01/17/2018 01/18/2016 Pneumococcal vaccine 65+ (2 of 2 - PPSV23 or PCV20) 09/07/2021 09/07/2020 Depression Screening 07/04/2022 07/04/2021 Fall Risk Assessment 12/22/2023 12/21/2022 Covid-19 Vaccine (4 - 2023-2 5 season) 2023 01/31/2022, 05/03/2021, 08/30/2020 Influenza Vaccine (#1) 2023 9, 01/28/2018, 01/04/2017, Additional history exists Breast Cancer Screening-Mammogram Discontinued 012 Colon Cancer Screening-CT Colonography Discontinued 12/04/2017 Colon Cancer Screening-Colonoscopy Discontinued 12/04/2017 Colon Cancer Screening-DNA Stool Discontinued 12/05/19 18 Colon Cancer Screening-FIT Discontinued 12/04/2017 Colon Cancer Screening-FOBT Discontinued 12/04/2017 Colon Cancer Screening-Sigmoidoscopy Discontinued 12/04/2017 Colorectal Cancer Screening Discontinued Medical Devices Implanted Type Area Hot Dip Plater Device Identifier Shelf Expiration Date Model / Serial / Lot Knee Replacement Right: Knee Procedures Procedure Name Priority Date/Time Associated Diagnosis Comments COLONOSCOPY 12/04/2017 11:53 AM CDT from Last 3 Months or Most Recently Relevant to Health Maintenance Results * COLONOSCOPY (12/04/2017 11:53 AM CDT) Anatomical Region Laterality Modality Other Narrative Procedure Note Dwayne Chan MD - 12/04/2017 11:[address] [facility] Patient Name: Zulma Carnes Procedure Date: 12/04/2017 11:53 AM Date of : 1945 Admit Type: Outpatient Age: 72 Gender: Female Attending MD: Dwayne Chan MD Room: [facility] ENDOSCOPY ROOM 2 Note Status: Finalized Patient [...] passed under direct vision.The Pediatric Colonoscope PCF-H190L [id number] was introduced through the anus and advanced [...] perforation orabscess without bleeding CPT copyright 2017 [employer]. All rights reserved. The codes documented in this report are preliminary and upon newspaper managing editor reviewmay be revised to meet current compliance requirements. Recognized by the [place] [employer] for promoting quality in endoscopy Dwayne Chan MD ENDOSCOPY PROCEDURES Final Result from Last 3 Months or Most Recently Relevant to Health Maintenance Insurance MEDICARE [facility] MEDICARE [facility] FOR LIFE Advance Directives For more information, please contact: [phone] * Full Code (Latest Code Status on File) Date Activated Date Inactivated Comments 12/04/2017 11:05 AM 12/04/2017 3:39 PM Care Teams Cant Gang Sawyer Relationship Specialty Start Date End Date Jackson Rosa MD [address] [place] [address] PCP - General 07/04/16
[2024-05-25 17:20] LABS: Alanine Aminotransferase 27 U/L (14-59); Alkaline Phosphatase 65 U/L (46-116); Anion Gap 10 mmol/L (4-12); Aspartate Amino Transferase 19 U/L (15-37); Bilirubin,Total 0.5 mg/dL (0.00-1.00); Calcium 9.7 mg/dL (8.5-10.1); Carbon Dioxide 30 mmol/L (21-32); Chloride 104 mmol/L (98-108); Estimated Glomerular Filt Rate > 60; Glucose 90 mg/dL (70-99); Potassium 4.3 mmol/L (3.5-5.1); Sodium 144 mmol/L (136-145); Total Protein 6.5 g/dL (6.4-8.2)
[2024-05-25 17:27] LABS: CRP < 0.5 mg/dL (0.0-0.9)
[2024-05-25 17:33] LABS: Blood Urea Nitrogen 20 mg/dL (7-18); Osmolality Calculated 300 mOsm/kg (285-295)
[2024-05-25 18:29] LABS: Erythrocyte Sedimentation Rate 24 mm/hr (0-20)
== END 2024-05-25 16:27 | disposition home or self-care (01) ==
PROVIDERS: PCP Internal Medicine; Visit Provider Internal Medicine
DX: R19.7 Diarrhea, unspecified (principal); R10.9 Unspecified abdominal pain
CPT/HCPCS: 36415; 80053; 82784; 83516; 85025; 85652; 86036; 86140; 86671

== ENCOUNTER 2024-05-27 08:11 | Outpatient (CLI) | payer MEDICARE, OTHER, SELFPAY ==
--- NOTE | ~2024-05-27 | CT_ITS ---
EXAMINATION: CT abdomen pelvis w con DATE: 05/27/2024 08:46 INDICATION: Right lower quadrant abdominal pain. Diarrhea. TECHNIQUE: Computed tomography (CT) of the abdomen and pelvis was performed with 100 mL Omnipaque 350 intravenous contrast. Automated exposure control and iterative reconstruction technique were employe d. The dose-length product was 284.21 mGy-cm. COMPARISON: CT abdomen and pelvis 08/18/2019 FINDINGS: The visualized portions of the lung bases are clear without pneumonia or pleural effusion. The heart size is normal. There are coronary artery calcifications. No pericardial effusion. The live r, gallbladder, spleen, pancreas, adrenal glands, and left kidney are normal. There is a 9 mm mass co ntaining fat in right kidney, consistent with an angiomyolipoma. There is diverticulosis of the colon without evidence of diverticulitis. The appendix is not visualized. There are no pathologically enla rged lymph nodes. There is no free intraperitoneal fluid. There is lumbar levoscoliosis and severe sp ondylosis. IMPRESSION: 1. No etiology for the patient's symptoms. Reviewed, dictated and finalized at location A. ING MACHINE OPERATOR
[2024-05-27 09:25] LABS: Toxigenic C. Diff NEGATIVE (NEGATIVE)
== END 2024-05-27 08:12 | disposition home or self-care (01) ==
LOC: CHSIMG 08:14
PROVIDERS: PCP Internal Medicine; Visit Provider Internal Medicine
DX: R19.7 Diarrhea, unspecified (principal); R10.9 Unspecified abdominal pain
CPT/HCPCS: 74177; 87045; 87425; 87427; 87449; 87493; 87798; Q9967

== ENCOUNTER 2024-06-08 17:49 | Outpatient (CLI) | payer MEDICARE, OTHER, SELFPAY ==
--- OUTSIDE RECORDS SUMMARY | 2024-06-08 17:54 | XMS_ITS | Encounter Summary ---
Author Organization [facility] Address [address] [place] [address] Care Team Providers Care Motel Clerk Name Role Phone Jackson Rosa MD Primary Care Provider + Encounter Details Date Type Department Care Team (Latest Contact Info) Description 09/03/2000 Outpatient Historical [facility] GEOFF Cabezas, Cyndee Crespo MD NO ADDRESS ON FILE Personal history of malignant neoplasm of breast (Primary Dx) Social History Tobacco Use Types Packs/Day Years Used Date Smoking Tobacco: Never Assessed Comments Unknown Sex and Gender Information Value Date Recorded Sex Assigned at Not on file Legal Sex Female 3:45 AM CUSTOMER SERVICE TECHNICIAN Gender Identity Not on file Sexual Orientation Not on file documented as of this encounter Plan of Treatment Not on file documented as of this encounter Visit Diagnoses Diagnosis Personal history of malignant neoplasm of breast- Primary documented in this encounter Care Teams Motel Clerk Relationship Specialty Start Date End Date Jackson Rosa MD [address] [place] [address] PCP - General 07/05/09 documented as of this encounter
--- OUTSIDE RECORDS SUMMARY | 2024-06-08 17:54 | XMS_ITS | Encounter Summary ---
Author Organization [facility] Address [facility] [address] [place] [address] Care Team Providers Care Turntable Engineer Name Role Phone Jackson Rosa MD Primary Care Provider [phone] Gaurang Gonzalez MD Unavailable Unavailab Jeremiah Crowder MD Unavailable UnavailWhit Garnett PARTRIDGE FARMER, METAL MINE INSPECTOR-C Unavailable Irma Willams MD Unavailable Efrem Alves MD Unavailable Encounter Details Date Type Department Care Team (Late Contact Info) Description 12/01/2014 Abstract [facility] AT [address] [address] Gaurang Gonzalez MD Social History Tobacco Use Types Packs/Day Years Used Date Smoking Tobacco: Never Alcohol Use Standard Drinks/Week Comments Yes 0 (1 standard drink = 0.6 oz pur e alcohol) Occasionally, Wine. Comments Unknown Sex and Gender Information Value Date Recorded Sex Assigned at Female 05/25/2024 1:26 PM RETAIL SERVICE SPECIALIST Legal Sex Female 9:00 PM CDT Gender Identity Not on file Sexual Orientation Not on file Occupation Industry Job Start Date Job End Date Retired Not on file Not on file Not on file documented as of this encounter Plan of Treatment Upcoming Encounters Date Type Department Care Team ([facility] Contact Info) Description 06/16/2024 1:00 PM RETAIL SERVICE SPECIALIST Appointment [facility] [address] [facility] [place] [address] Irma Willams MD [address] [place] [address] 05/10/2025 8:30 AM RETAIL SERVICE SPECIALIST Office Visit [facility] [address] [id number] Irma Willams MD [address] [place] [address] documented as of this encounter Visit Diagnoses Not on filedocumented in this encounter Additional Health Concerns Infection Onset Date Last Indicated Resolved Time COVID-19 Rule Out 10/10/2019 10/10/2019 10/11/2019 1:50 PM CDT COVID-19 Rule Out 10/31/2019 10/31/2019 11/01/2019 10:23 PM CDT documented as of this encounter Care Teams Turntable Engineer Relationship Specialty Start Date End Date Jackson Rosa MD [address] [place] [address] PCP - General INTERNAL MEDICINE 04/02/16 Gaurang Gonzalez MD [address] [place] [address] CARDIOVASCULAR DISEASE 04/02/16 05/20/18 Jeremiah Rolon MD [address] [place] [address] [place] Freight Team Associate CARDIOVASCULAR DISEASE 07/28/18 11/02/23 Whit Perez APRN, METAL MINE INSPECTOR-C [address] [facility] [address] [place] [address] NURSE PRACTITIONER 02/17/19 12/05/23 Irma Willams MD [address] [place] [address] Consulting Physician CARDIOVASCULAR DISEASE 11/03/23 Efrem Alves MD [address] [place] [address] Vascular/Freight Team Associate INTERNAL MEDICINE 12/17/23 documented as of this encounter
--- OUTSIDE RECORDS SUMMARY | 2024-06-08 17:54 | XMS_ITS | Encounter Summary ---
Author Organization [facility] Address [address] [place] [address] Care Team Providers Care Bakery Helper Name Role Phone Jackson Rosa MD Primary Care Provider + Encounter Details Date Type Department Care Team (Latest Contact Info) Description 03/31/2008 Outpatient Historical HIS [facility] Cabezas, Ezequiel Crespo MD NO ADDRESS ON FILE Other Screening Mammogram Social History Tobacco Use Types Packs/Day Years Used Date Smoking Tobacco: Never Assessed Comments Unknown Sex and Gender Information Value Date Recorded Sex Assigned at Not on file Legal Sex Female 3:45 AM GLASS BLOWING INSTRUCTOR Gender Identity Not on file Sexual Orientation Not on file documented as of this encounter Plan of Treatment Not on file documented as of this encounter Procedures Procedure Name Priority Date/Time Associated Diagnosis Comments MAMMO SCREEN BILAT W OR WO CAD Routine 03/31/2008 8:30 AM GLASS BLOWING INSTRUCTOR documented in this encounter Results * MAMMO DIGITAL SCREEN BILAT (03/31/2008 8:30 AM GLASS BLOWING INSTRUCTOR) Anatomical Region Laterality Modality Breast Bilateral Other 03/31/2008 8:30 AM GLASS BLOWING INSTRUCTOR Narrative 03/31/2008 12:03 PM GLASS BLOWING INSTRUCTOR [address] [address] Admit Date: 03/31/2008 ZULMA CARNES Sex: F Admit Prov: EZEQUIEL CABEZAS Date: 1945 Primary Care Prov: CMRN: [id number] Room: KIRT SSN: [id number] IMAGING SERVICES Ordering Prov: EZEQUIEL CABEZAS Accession Number: [id number] Interpretation EXAM: BILATERAL SCREENING FULL FIELD DIGITAL MAMMOGRAM WITH CAD. 03/31/2008 History: Personal history of breast cancer with prior left conservation therapy. Technique: Mediolateral oblique and craniocaudal views of both breasts were performed using full field digital mammography. Computer aided diagnosis was performed. Comparison is made with prior studies dated 02/2007, 01/2006, 06/2004. Breast Composition: Scattered fibroglandular densities. Findings: Mammographic changes consistent with breast conservation therapy on the left are noted. No suspicious findings are seen on the mammogram. Since the prior exam, there has been no significant change. Computer aided diagnosis detected no significant abnormality. Assessment: BI-RADS Category: 2, benign findings. Stable postoperative changes. Recommendation: Bilateral screening mammogram in one year. Assessment BIRADS: 2-Benign finding Recommendation: Normal interval follow-up Dictated by: ELENA LOU Electronically signed by: ELENA LOU 03/31/2008 12:01 Transcribed: 03/31/2008 11:08 AMK Procedure Note Elena Lou - 03/31/2008 [facility] [place] [address], [place] [address] Admit Date: 03/31/2008 ZULMA CARNES Sex: F Admit Prov: EZEQUIEL CABEZAS Date: 1945 Primary Care Prov: CMRN: [id number] Room: MASONAshleigh SSN: [id number] IMAGING SERVICES Ordering Prov: EZEQUIEL CABEZAS Interpretation [...] LOU 03/31/2008 12:01 Transcribed: 03/31/2008 11:08 AMK us Ezequiel Cabezas MD MAMMO ORDERABLES Final Resul t documented in this encounter Visit Diagnoses Diagnosis Other screening mammogram documented in this encounter Care Teams Bakery Helper Relationship Specialty Start Date End Date Jackson Rosa MD [address] [place] [address] PCP - General 07/05/09 documented as of this encounter
--- OUTSIDE RECORDS SUMMARY | 2024-06-08 17:54 | XMS_ITS ---
Author Organization [facility] Address [address] [place] [address] Care Team Providers Care Expense Analyst Name Role Phone Jackson Rosa MD Primary Care Provider + [phone] Active Problems Problem Noted Date Diagnosed Date [...] 07/04/2021 Assessment & Plan (07/04/2021 11:03 AM CRUTCHING CONTRACTOR): I explained to the patient how subclinical [...] treatments are documented for this patient in [facility]. Treatments may have been administered in another system. Lifetime Dose Tracking * Chemical Lifetime Dose Automatic Entry Manual Entr y DLP 432 mGycm 432 mGycm 0 mGycm
--- OUTSIDE RECORDS SUMMARY | 2024-06-08 17:54 | XMS_ITS | Continuity of Care Document ---
Author Organization [facility] Address [address] [place] [address] Phone Care Team Providers Care Pediatrician/Medical Doctor Name Role Phone Elaine KLEIN, Cinthya Unavailable Unavailable Advance Directives Directive Yes / No Effective Date File Name No Information Encounters Encounter Description Practice Location Reason(s) For Visit Diagnoses Date Provider Providers Copied on Encounter [facility] [address], [place], [place], [id number], [place] tel:[phone] [facility] No Information Elaine Mendes. [address] [facility], [facility] [place], [id number] , [place]. tel:[phone] [facility] [address], [place], [place], [address], [place] tel:[phone] [facility] Dilation of biliary tract Azra Hung. [address], [address], [place], [address], [place]. tel:[phone] Family History Family Member Type Diagnosis Age At Onset No Information Payers Payer name Insurance type Covered republican ID Authoriza tion(s) No Information Social History [...]
--- OUTSIDE RECORDS SUMMARY | 2024-06-08 17:54 | XMS_ITS | Clinical Summary ---
Author Organization [facility] Address [address] [place] [address] Care Team Providers Care Laborer Poultry Hatchery Name Role Phone Jakcson Rosa MD Primary Care Provider [phone] Irma Agustin MD Unavailable Efrem Alves MD Unavailable Allergies Active Allergy Reactions Criticality Noted Date Comments Ibandronic Acid Palpitations Low 12/04/2017 Indomethacin Syncope 02/17/2019 Sulfa Antibiotics Rash Low 08/10/2014 Medications aspirin 81 MG chewable tabletIndication s:Anticoagulant Therapy Chew 1 tablet (81 mg total) by mouth daily. Indications: Anticoagulant Therapy 013 Active Calcium-Magnesiu m-Vitamin D 600-40-500 MG-MG-UNIT TABLET SR 24 HRIndications:Nu tritional Support Take 2 tablets by mouth daily. Indications: Nutritional Support 013 Active Coenzyme Q10 (COQ-10) 100 MG CapIndications:N utritional Support Take 200 mg by mouth daily. Indications: Nutritional Support 015 Active folic acid 1 MG tabletIndication s:Nutritional Support Take 1 tablet (1 mg total) by mouth daily. Indications: Nutritional Support 013 Active furosemide 20 MG tabletIndication s:Fluid Retention Take 1 tablet (20 mg total) by mouth daily. Indications: Fluid Retention 014 Active omeprazole 20 MG capsuleIndicatio ns:Gastroesophag eal Reflux Disease Take 1 capsule (20 mg total) by mouth daily. Indications: Gastroesophageal Reflux Disease Active cetirizine 10 MG tabletIndication s:Allergic Rhinitis,Seasona l Allergy Take 1 tablet (10 mg total) by mouth daily. Indications: Allergic Rhinitis, Seasonal Allergy 1 tablet daily Active pravastatin 10 MG tabletIndication s:Hypercholester olemia Take 1 tablet (10 mg total) by mouth daily. Indications: High Amount of Cholesterol in the Blood 1 tablet daily Active valACYclovir 500 MG tabletIndication s:herpes virus Take 1 tablet (500 mg total) by mouth daily. Indications: herpes virus Active Potassium 99 MG tablet Take 1 tablet by mouth as needed. Active Multiple Vitamins-Mineral s (PRESERVISION AREDS OR) Take 1 tablet by mouth daily. Active Boswellia-Glucos amine-Vit D (OSTEO BI-FLEX ONE [...] tablet (25 mg total) by mouth daily. Active escitalopram (LEXAPRO) 10 MG tablet Take 0.5 tablets (5 mg total) by mouth daily. Active COMPRESSION STOCKINGS, DME,Indications: Varicose veins of bilateral lower extremities with other complications,PV D (peripheral vascular disease) (CMS/HCC),Chroni c venous insufficiency Thigh high compression stockings. 20-30 mmHg, will be placed on you post procedure. Then follow post procedure directions. 1 Package 4 Active albuterol sulfate HFA 108 (90 Base) MCG/ACT inhaler Inhale 2 puffs into the lungs every 4 (four) hours as needed. Active ipratropium-albu terol 0.5-2.5 (3) MG/3ML Solution as needed. 2024 Discontin ued(Disco ntinued by another clinician ) FLOVENT HFA 220 MCG/ACT inhaler as needed. 022 2024 Discontin ued(Disco ntinued by another clinician ) ALPRAZolam (XANAX) 0.25 MG tablet as needed. 022 2024 Discontin ued(Disco ntinued by another clinician ) amoxicillin (AMOXIL) 500 MG tablet Take 1 tablet (500 mg total) by mouth 3 (three) times daily. 024 2024 Discontin ued(Disco ntinued by another clinician ) Active Problems Problem Noted Date Diagnosed Date [...] GERD (gastroesophageal reflux disease) Cataract Breast cancer ([facility]) Bleeding Overview (09/05/2018): : History of bleeding, 1yr ago lower GI bleed colonoscopy negative, 5-6 yrs stomach ulcer tamoxifen side effect. Anemia Encounters Date Type Department Care Team Description 06/03/2024 1:00 PM SIZE TESTER [facility] [address] [place] [address] Efrem Alves MD Follow Up (4 month follow up - improved.) 06/03/2024 Travel 05/25/2024 2:00 PM SIZE TESTER Office Visit [facility] [address] [place] [address] Irma Agustin MD 05/25/2024 1:27 PM SIZE TESTER - 05/25/2024 11:59 PM SIZE TESTER Hospital Encounter [facility] [address] [place] [address] Iram Agustin MD Discharge Disposition: Home or Self Care (Routine Discharge) 05/25/2024 Travel 05/22/2024 Telephone [facility] [address] [place] [address] Irma Agustin MD Appointment Reminder 05/20/2024 Orders Only [facility] [address] [place] [address] Irma Agustin MD from Last 3 Months Family History [...] Sex Assigned at Female 05/25/2024 1:26 PM SIZE TESTER Legal Sex Female 9:00 PM CDT Gender Identity Not on file Sexual Orientation Not on file Occupation Industry Job Start Date Job End Date Retired Not on file Not on file Not on file Last Filed Vital Signs Vital Sign Reading Time Taken Comments Blood Pressure 138/72 06/03/2024 12:50 PM SIZE TESTER Pulse 69 06/03/2024 12:50 PM SIZE TESTER Temperature 36.1 C (97 F) 11/03/2019 12:30 PM CDT Respiratory Rate 16 06/03/2024 12:5 0 PM SIZE TESTER Oxygen Saturation 94% 06/03/2024 12: 50 PM SIZE TESTER Inhaled Oxygen Concentration - - Weight 63.4 kg (139 lb 12.8 oz) 025 12:50 PM SIZE TESTER Height 156.2 cm (5' 1.5 ) 06/03/2024 12 :50 PM SIZE TESTER Body Mass Index 25.99 06/03/2024 12:50 PM SIZE TESTER Plan of Treatment Upcoming Encounters Date Type Department Care Team (Late st Contact Info) Description 06/16/2024 1:[address] [facility] [address] [place] [address] Irma Agustin MD [address] [place] [address] 05/10/2025 8:30 AM SIZE TESTER [facility] [address] [place] [address] Irma Agustin MD [address] [place], [place] [address] Health Maintenance Due Date Last Done Comments [...] 1-dose 75+ series) 2021 COVID-19 Vaccine ( season) 2023 01/31/2022, 05/03/2021, 08/30/2020, Additional history [...] this topic Medical Devices Implanted Type Area Railroad Car Cleaner Device Identifier Shelf Expiration Date Model / Serial / Lot Knee Components Knee Components Description:Right knee Knee Components Knee Components Description:Rt knee Iol Augustus [id number] - [id number] Implanted:Qty: 1 on 10/13/2019 by Stephane Samson MD at [facility] Lens Left: Eye [employer] 01/27/2024 [id number] / [id number] / N/A Description:Implant verified by MD Iol Baus[employer] Li61ao - [id number] Implanted:Qty: 1 on 11/03/2019 by Stephane Samson MD at [facility] Lens Right: Eye [employer] 08/27/2023 [id number] / [id number] Description:Lens verified pe r surgeon and chart Procedures Procedure Name Priority Date/Time Associated Diagnosis Comments ECG 12-LEAD Routine 05/25/2024 1:42 PM SIZE TESTER Coronary artery disease involving [place] coronary artery of [place] heart, unspecified whether angina present LIPID PANEL Routine 06/27/2013 12:00 AM SIZE TESTER from Last 3 Months or Most Recently Relevant to Health Maintenance Results * ECG 12 lead (HOSPITAL PERFORMED ONLY) (05/25/2024 1:42 PM SIZE TESTER) 05/25/2024 1:42 PM SIZE TESTER Narrative [facility] - 05/26/2024 6:18 AM SIZE TESTER [address] [place] [address] Test Date: 2024-05-25 Pat Name: [facility] Department: 3 Room: Gender: Female Fine Arts Packer: : [id number] Requested By: IRMA AGUSTIN Order Number: [id number] Reading MD: Irma Agustin Measurements Intervals [place] Rate: 80 P: 73 [place]: 120 QRS: 64 QRSD: 88 T: 56 QT: 351 QTc: 406 Interpretive Statements SINUS RHYTHM MODERATE ST DEPRESSION TESTER Procedure Note Irma Agustin MD - 05/26/[address] [place] [address] Test Date: 2024-05-25 Pat Name: [facility] Department: 3 Room: Gender: Female Fine Arts Packer: : [id number] Requested By: IRMA AGUSTIN Order Number: [id number] Reading MD: Irma Agustin Measurements Intervals [place] Rate: 80 P: 73 [place]: 120 QRS: 64 QRSD: 88 T: 56 QT: 351 QTc: 406 Interpretive Statements SINUS RHYTHM MODERATE ST DEPRESSION TESTER us Irma Agustin MD ECG ORDERABLES Final Result [facility] * LIPID PANEL (06/27/2013 12:00 AM SIZE TESTER) TRIGLYCERIDES 78 0 - 150 mg/dl MEDINFORMATIX [...] Most Recently Relevant to Health Maintenance [place] [address] [address] [place] [address] MEDICARE MEDICARE Care Teams Laborer Poultry Hatchery Relationship Specialty Start Date End Date Jackson Rosa MD [address] [place] [address] PCP - General INTERNAL MEDICINE 04/02/16 Irma Agustin MD [address] [place] [address] Consulting Physician CARDIOVASCULAR DISEASE 11/03/23 Eferm Alves MD [address] [place] [address] Vascular/Director Account Management INTERNAL MEDICINE 12/17/23
--- OUTSIDE RECORDS SUMMARY | 2024-06-08 17:54 | XMS_ITS | Encounter Summary ---
Author Organization [facility] Address [address] [place] [address] Care Team Providers Care Aluminum Siding Installer Name Role Phone Jackson Rosa MD Primary Care Provider + Encounter Details Date Type Department Care Team (Latest Contact Info) Description 08/12/2002 Outpatient Historical HIS [facility] Cabezas, Cyndee Crespo MD NO ADDRESS ON FILE SCREENING MAMM-MAILG NEOPL-OTHER (Primary Dx) Social History Tobacco Use Types Packs/Day Years Used Date Smoking Tobacco: Never Assessed Comments Unknown Sex and Gender Information Value Date Recorded Sex Assigned at Not on file Legal Sex Female 3:45 AM CASING IN LINE FEEDER Gender Identity Not on file Sexual Orientation Not on file documented as of this encounter Plan of Treatment Not on file documented as of this encounter Visit Diagnoses Diagnosis Other screening mammogram- Primary documented in this encounter Care Teams Aluminum Siding Installer Relationship Specialty Start Date End Date Jackson Rosa MD [address] [place] [address] PCP - General 07/05/09 documented as of this encounter
--- OUTSIDE RECORDS SUMMARY | 2024-06-08 17:54 | XMS_ITS | Clinical Summary ---
Author Organization [facility] Address [address] [place] [address] Care Team Providers Care Print And Pattern Designer Name Role Phone Jackson Rosa MD Primary [...] BI-FLEX ORAL) Take by mouth. Active Coenzyme I57-Shdrojs E (COQ10 SG 100) 100-100 mg-unit Oral [...] on file Legal Sex Female 3:45 AM ACTUARIAL CONSULTANT Gender Identity Not on file Sexual Orientation Not on file Last Filed Vital Signs Vital Sign Reading Time Taken Comments Blood Pressure 122/58 04/18/2016 9:52 AM ACTUARIAL CONSULTANT Pulse 61 04/18/2016 9:52 AM ACTUARIAL CONSULTANT Temperature - - Respiratory Rate - - Oxygen Saturation - - Inhaled Oxygen Concentration - - Weight 68.9 kg (152 lb) 04/18/2016 9:52 AM ACTUARIAL CONSULTANT Height 157.5 cm (5' 2 ) 04/18/2016 9:52 AM ACTUARIAL CONSULTANT Body Mass Index 27.8 04/18/2016 9:52 AM ACTUARIAL CONSULTANT Plan of Treatment Health Maintenance Due Date [...] Maintenance Insurance MEDICARE PART A AND B [facility] [place] [address] Care Teams Print And Pattern Designer Relationship Specialty Start Date End Date Jackson Rosa MD [address] [place] [address] PCP - General 07/05/09
--- OUTSIDE RECORDS SUMMARY | 2024-06-08 17:54 | XMS_ITS | Encounter Summary ---
Author Organization [facility] Address [address] [place] [address] Care Team Providers Care Painter Maintenance Name Role Phone Jackson Rosa MD Primary Care Provider + Encounter Details Date Type Department Care Team (Latest Contact Info) Description 03/04/2007 Outpatient Historical HIS [facility] Cabezas, Cyndee Crespo MD NO ADDRESS ON FILE Screening Mammogram for High-Risk Patient (Primary Dx) Social History Tobacco Use Types Packs/Day Years Used Date Smoking Tobacco: Never Assessed Comments Unknown Sex and Gender Information Value Date Recorded Sex Assigned at Not on file Legal Sex Female 3:45 AM MANAGER MARKET RESEARCH Gender Identity Not on file Sexual Orientation Not on file documented as of this encounter Plan of Treatment Not on file documented as of this encounter Visit Diagnoses Diagnosis Screening mammogram for high-risk patient- Primary documented in this encounter Care Teams Painter Maintenance Relationship Specialty Start Date End Date Jackson Rosa MD [address] [place] [address] PCP - General 07/05/09 documented as of this encounter
--- OUTSIDE RECORDS SUMMARY | 2024-06-08 17:54 | XMS_ITS | Referral Summary ---
Author Organization [facility] Address [address] [place] [address] Care Team Providers Care Blower Insulator Name Role Phone Jackson Rosa MD Primary Care Provider [phone] Sammie Fox RN Unavailable Deyanira Daigle FRONT LINE SUPERVISOR Unavailable Luis Carlos Rivas MD Unavailable [phone] Source Comments [facility],non-owned Affiliates and Associated Physician Practices is amultiple site organization consisting of ambulatory clinics and hospital sitesin [place], [place], [place] and [place]. This disclosure is being madepursuant to the Care Everywhere program and may not contain all information available regarding this patient. Last updated 18.[facility] Allergies Active Allergy Reactions Criticality Noted [...] problems Immunizations Name Administration Dates Next Due Lingorami primary monoval ent 12+ yr 0.3mL Purple [...] Sex Assigned at Female 05/03/2021 6:03 PM FISH HATCHERY WORKER Gender Identity Female 05/03/2021 6:03 PM FISH HATCHERY WORKER Sexual Orientation Straight 05/03/2021 6: 03 PM FISH HATCHERY WORKER Last Filed Vital Signs Vital Sign Reading Time Taken Comments Blood Pressure 132/78 06/21/2016 8:16 AM FISH HATCHERY WORKER Pulse 55 06/21/2016 8:16 AM FISH HATCHERY WORKER Temperature 36.7 C (98.1 F) 08/13/2014 11:27 AM CDT Respiratory Rate 18 08/13/2014 11:27 AM CDT [...] on file Medical Devices Implanted Type Area Milk Treater Device Identifier Shelf Expiration Date Model / Serial / Lot Nexgen Complete Knee Solution Cruciate Retaining Trabecular Metal Monoblock Tibial Component Tibial Size 3, Femoral Size C-H, 10mm Height Implanted:Qty: 1 on 08/10/2014 by Angel Luis Villegas MD at [facility] [place][note 2] Right: Knee [employer] 01/27/2019 [id number] / [id number] Nexgen Complete Knee Solution Cruciate Retaining Cr-Flex Femoral Component Porous Size D, Right Implanted:Qty: 1 on 08/10/2014 by Angel Luis Villegas MD at [facility] [place][note 2] Right: Knee [employer] 11/28/2023 / [id number] Bill Only Basic Derrick Excludes Agc Kn Implanted:Qty: 1 on 08/10/2014 by Angel Luis Villegas MD at [facility] [place][note 2] [employer] BILL ONLY BASIC DERRICK EXCLUDES AGC KN ZIMM / / Bill Only Tb Upchrg Implanted:Qty: 1 on 08/10/2014 by Angel Luis Villegas MD at [facility] [place][note 2] [employer] Inc UPCHRG MELY BILL ONLY TB / / Care Teams Blower Insulator Relationship Specialty Start Date End Date Jackson Rosa MD PCP - General Internal Medicine 05/18/14 Sammie Fox, KAROLINE Sales Representative Raw Fibers 08/10/14 Deyanira Daigle, [facility] Teleradiologist 08/12/14 [place] [id number] [address] Orthopedic Surgery 09/03/16
--- OUTSIDE RECORDS SUMMARY | 2024-06-08 17:54 | XMS_ITS | Patient Health Summary ---
Author Organization [facility] Address [address] [place] [address] Care Team Providers Care Carbon Capture Power Plant Engineer Name Role Phone Jackson Rosa MD Primary Care Provider [phone] Sammie Fox RN Unavailable [phone] Deyanira Daigle CUSTOMER CONTACT SALES ASSOCIATE Unavailable Luis Carlos Rivas MD Unavailable Note from [facility],non-owned Affiliates and Associated Physician Practices is amultiple site organization consisting of ambulatory clinics and hospital sitesin [place], [place], [place] and [place]. This disclosure is being madepursuant to the Care Everywhere program and may not contain all information available regarding this patient. Last updated 18.[facility] Allergies * Sulfa Drugs(Rash) -Low Criticality Medications [...] Sex Assigned at Female 05/03/2021 6:03 PM PUBLIC AFFAIRS OFFICER Gender Identity Female 05/03/2021 6:03 PM PUBLIC AFFAIRS OFFICER Sexual Orientation Straight 05/03/2021 6: 03 PM PUBLIC AFFAIRS OFFICER Last Filed Vital Signs Vital Sign Reading Time Taken Comments Blood Pressure 132/78 06/21/2016 8:16 AM PUBLIC AFFAIRS OFFICER Pulse 55 06/21/2016 8:16 AM PUBLIC AFFAIRS OFFICER Temperature 36.7 C (98.1 F) 08/13/2014 11:27 AM CDT Respiratory Rate 18 08/13/2014 11:27 AM CDT Oxygen Saturation 100% 08/13/2014 11:27 AM CDT Inhaled Oxygen Concentration - - Weight 70.3 kg (155 lb) 09/03/2016 3:25 PM CDT Height 157.5 cm (5' 2 ) 09/03/2016 3:25 PM CDT Body Mass Index 28.35 09/03/2016 3:25 PM CDT Medical Devices Implanted Type Area [employer] Producer Device Identifier Shelf Expiration Date Model / Serial / Lot Nexgen Complete Knee Solution Cruciate Retaining Trabecular Metal Monoblock Tibial Component Tibial Size 3, Femoral Size C-H, 10mm Height Implanted:Qty: 1 on 08/10/2014 by Angel Luis Villegas MD at [facility] Right: [employer]nee [employer] 01/27/2019 [id number] Nexgen Complete Knee Solution Cruciate Retaining Cr-Flex Femoral Component Porous Size D, Right Implanted:Qty: 1 on 08/10/2014 by Angel Luis Villegas MD at [facility] Right: [employer]nee [employer] 11/28/2023 / [id number] Bill Only Basic Derrick Excludes Agc Kn Implanted:Qty: 1 on 08/10/2014 by Angel Luis Villegas MD at [facility] [employer] BILL ONLY BASIC DERRICK EXCLUDES AGC KN ZIMM / / Bill Only Tb Upchrg Implanted:Qty: 1 on 08/10/2014 by Angel Luis Villegas MD at [facility] [employer] UPCHRG MELY BILL ONLY TB [...] OR 2 VW RIGHT (03/14/2015 1:32 PM PUBLIC AFFAIRS OFFICER) Only the most recent of5 resultswithin the time period is included. Anatomical Region Laterality Modality Lower Extremity Radiographic Kristan ging 03/14/2015 3:17 PM PUBLIC AFFAIRS OFFICER Impressions 03/14/2015 3:18 PM PUBLIC AFFAIRS OFFICER Satisfactory postop appearance. Narrative 03/14/2015 3:18 PM PUBLIC AFFAIRS OFFICER Right knee 2 views. History: Postop. 2 [...] 0.59(H) <0.30 mg/dL 10/14/2014 3:34 PM CDT [facility] Blood BLOOD SPECIMEN / Unknown Lab Venipuncture / Unknown 10/14/2014 3:02 PM CDT 10/14/2014 3:07 PM CDT Angel Luis Villegas MD LAB - CHEMISTRY ORDE RABLAST [facility] [address] [place] [phone] * (ABNORMAL) SED RATE WESTERGREN (10/14/2014 3:02 PM CDT) [facility] Erythrocyte Sedimentation Rate Westergren 34(H) 0 - 30 mm/hr 10/14/2014 3:35 PM CDT [facility] Blood BLOOD SPECIMEN / Unknown Lab Venipuncture / Unknown 10/14/2014 3:02 PM CDT 10/14/2014 3:07 PM CDT Angel Luis Villegas MD LAB - HEMATOLOGY ORD ERABLES Performing Organization Address City/[facility] Co de Phone Number [facility] [address] [place] [address] * LAB RESULTS ORDER (08/15/2014 5:25 AM CDT) Narrative 08/15/2014 5:25 AM CDT Ordered by an unspecified provider. Scanned Document LAB - THERAPEUTIC DR FERNANDEZ MONITORING ORDERABLES * (ABNORMAL) CBC W AUTO DIFFERENTIAL (08/13/2014 4:19 AM CDT) Only the most recent of3 resultswithin the time period is included. [facility] WBC 6.1 4.4 - 10.7 x10^9/L 08/13/2014 4:47 AM CDT [facility] RBC 3.27(L) 3.80 - 5.20 x10^12/L 08/13/2014 4:47 AM CDT [facility] Hemoglobin 9.9(L) 12.0 - 15.6 gm/dL 08/13/2014 4:47 AM CDT [facility] Hematocrit 29.6(L) 35.9 - 45.5 % 08/13/2014 4:47 AM CDT [facility] MCV 90.5 80.7 - 98.3 fl 08/13/2014 4:47 AM CDT [facility] MCH 30.3 26.7 - 34.0 pg 08/13/2014 4:47 AM CDT [facility] MCHC 33.4 30.8 - 35.9 gm/dL 08/13/2014 4:47 AM CDT [facility] Platelet Count 185 153 - 416 x10^9/L 08/13/2014 4:47 AM CDT [facility] RDW-CV 12.1 12.1 - 14.9 % 08/13/2014 4:47 AM CDT [facility] MPV 10.9 9.4 - 12.9 fl 08/13/2014 4:47 AM [facility] Neutrophils % 58.8 44.0 - 73.0 % 08/13/2014 4:47 AM T [facility] Lymphocytes % 26.1 20.0 - 43.0 % 08/13/2014 4:47 AM T [facility] Monocytes % 12.4 5.0 - 13.0 % 08/13/2014 4:47 AM T [facility] Eosinophils % 2.0 0.0 - 6.0 % 08/13/2014 4:47 AM CDT [facility] Basophils % 0.5 0.0 - 2.0 % 08/13/2014 4:47 AM T [facility] Immature Granulocytes 0.2 0 - 1 % 08/13/2014 4:47 AM CDT [facility] Neutrophil Absolute 3.62 2.01 - 7.14 x10^9/L 08/13/2014 4:47 AM CDT [facility] Lymphocytes Absolute 1.60 1.07 - 3.94 x10^9/L 08/13/2014 4:47 AM CDT [facility] Monocytes Absolute 0.76 0.26 - 1.07 x10^9/L 08/13/2014 4:47 AM CDT [facility] Eosinophils Absolute 0.12 0 - 0.47 x10^9/L 08/13/2014 4:47 AM CDT [facility] Basophils Absolute 0.03 0 - 0.08 x10^9/L 08/13/2014 4:47 AM CDT [facility] Immature Granulocytes Absolute 0.01 0.00 - 0.06 x10^9/L 08/13/2014 4:47 AM T [facility] Blood BLOOD SPECIMEN / Unknown Lab Venipuncture / Unknown 08/13/2014 4:19 AM CDT 08/13/2014 4:30 AM CDT Elyse Delcid MD LAB - HEMATOLOGY ORD ERABLES [facility] [address] [place] [address] * (ABNORMAL) BASIC METABOLIC PANEL (CALCIUM TOTAL) (08/13/2014 4:19 AM CDT) Only the most recent of3 resultswithin the time period is included. Glucose 95 74 - 106 mg/dL 08/13/2014 4:56 AM [facility] Sodium 142 136 - 145 mmol/L 08/13/2014 4:56 AM [facility] Potassium 4.0 3.5 - 5.1 mmol/L 08/13/2014 4:56 AM [facility] Chloride 108(H) 98 - 107 mmol/L 08/13/2014 4:56 AM [facility] CO2 29 22 - 31 mmol/L 08/13/2014 4:56 AM [facility] Calcium 8.7 8.5 - 10.1 mg/dL 08/13/2014 4:56 AM [facility] Anion Gap 5 5 - 15 mmol/L 08/13/2014 4:56 AM [facility] BUN 13 7 - 21 mg/dL 08/13/2014 4:56 AM [facility] Creatinine 0.48(L) 0.50 - 1.30 mg/dL 08/13/2014 4:56 AM [facility] eGFR by MDRD >60 >60 mL/min/1.7 3m2 08/13/2014 4:56 AM [facility] eGFR by MDRD >60 >60 mL/min/1.7 3m2 08/13/2014 4:56 AM [facility] Blood BLOOD SPECIMEN / Unknown Lab Venipuncture / Unknown 08/13/2014 4:19 AM CDT 08/13/2014 4:30 AM CDT Elyse Delcid MD LAB - CHEMISTRY ASHLYN LIEBERMAN Performing Organization Address [facility] Co de Phone Number [facility] [address] [place] [address] * BLOOD TYPE VERIFICATION (08/10/2014 6:30 AM CDT) ABO O 08/10/2014 7:19 AM CDT [facility] Rh Type Positive 08/10/2014 7:19 AM CDT [facility] Miscellaneous samples (specimen) BLOOD SPECIMEN / Unknown Venipuncture / Unknown 08/10/2014 6:30 AM CDT 08/10/2014 7:13 AM CDT Angel Luis Villegas MD LAB - BLOOD BANK ORD VAMSHI Performing Organization Address [facility] de Phone Number [facility] [address] [place] [address] * TYPE + SCREEN PANEL (08/10/2014 6:21 AM CDT) ABO O 08/10/2014 7:09 AM CDT [facility] Rh Type Positive 08/10/2014 7:09 AM CDT [facility] Comment:History check perfor med. Retype required. Antibody Screen Negative 08/10/2014 7:09 AM CDT [facility] Miscellaneous samples (specimen) BLOOD SPECIMEN / Unknown Venipuncture / Unknown 08/10/2014 6:21 AM CDT 08/10/2014 6:25 AM CDT Martha Montez MD LAB - BLOOD BANK ORD VAMSHI Performing Organization Address [facility] Co de Phone Number [facility] [address] [place] [address] * PT-INR (08/10/2014 6:21 AM CDT) PT 10.7 9.5 - 11.6 sec 08/10/2014 6:42 AM CDT [facility] INR 1.0 0.9 - 1.1 08/10/2014 6:42 AM T [facility] Blood BLOOD SPECIMEN / Unknown Venipuncture / Unknown 08/10/2014 6:21 AM CDT 08/10/2014 6:25 AM CDT Narrative [facility] - 08/10/2014 6:42 AM CDT Conventional Warfarin Anticoagulant Therapy INR Reference Range: 2.0-3.0 Intensive Warfarin Anticoagulant Therapy INR Reference Range: 2.5-3.5 Martha Montez MD LAB - COAGULATION OR DERABLES [facility] [address] [place], [place] [id number] * URINALYSIS ROUTINE W/REFLEX TO CULTURE (08/02/2014 1:08 PM CDT) Color UA Yellow Straw, Yellow, Dark Yellow 08/02/2014 1:24 PM CDT [facility] Clarity UA Clear 08/02/2014 1:24 PM CDT [facility] Specific [place] UA 1.009 1.005 - 1.030 08/02/2014 1:24 PM CDT [facility] pH UA 6.5 5.0 - 8.0 pH 08/02/2014 1:24 PM CDT [facility] Protein UA Negative Negative 08/02/2014 1:24 PM CDT [facility] Blood UA Negative Negative 08/02/2014 1:24 PM CDT [facility] Leukocyte UA Negative Negative 08/02/2014 1:24 PM CDT [facility] Nitrite UA Negative Negative 08/02/2014 1:24 PM CDT [facility] Glucose UA Negative Negative 08/02/2014 1:24 PM CDT [facility] Ketone UA Negative Negative 08/02/2014 1:24 PM CDT [facility] Bilirubin UA Negative Negative 08/02/2014 1:24 PM CDT [facility] Urobilinogen UA 0.2 0.1 - 1.0 EU/dL 08/02/2014 1:24 PM CDT [facility] Reflex Status Culture not indicated 08/02/2014 1:24 PM T [facility] Urine URINE SPECIMEN OBTAINED BY CLEAN CATCH PROCEDURE / Unknown Collection / Unknown 08/02/2014 1:08 PM CDT 08/02/2014 1:07 PM CDT Angel Luis Villegas MD LAB - URINALYSIS ORD VAMSHI Performing Organization Address City/[facility]/ZIP Co de Phone Number [facility] [address] [place] [phone] * CULTURE MSSA/MRSA (08/02/2014 1:03 PM CDT) Culture Negative for MRSA/MSSA MIGUEL 08/03/2014 7:08 PM CDT [facility] MICROBIOLOGY Microbiology SPECIMEN FROM NASAL FOSSAE / Unknown Collection / Unknown 08/02/2014 1:03 PM CDT 08/02/2014 1:04 PM CDT Angel Luis Villegas MD LAB - MICROBIOLOGY O RDERABLES Performing Organization Address [facility] Co de Phone Number [facility] MICROBIOLOGY [address] [place], [place] [phone] [place] [address] * (ABNORMAL) TRANSFERRIN (08/02/2014 1:00 PM CDT) Transferrin 237(L) 250 - 380 mg/dL 08/02/2014 1:31 PM CDT [facility] Blood BLOOD SPECIMEN / Unknown Lab Venipuncture / Unknown 08/02/2014 1:00 PM CDT 08/02/2014 1:04 PM CDT Angel Luis Villegas MD LAB - CHEMISTRY ASHLYN LIEBERMAN Performing Organization Address City/[facility] Co de Phone Number [facility] [address] [place] [phone] * ALBUMIN BLOOD (08/02/2014 1:00 PM CDT) Albumin 3.8 3.4 - 5.0 gm/dL 08/02/2014 1:25 PM CDT [facility] Blood BLOOD SPECIMEN / Unknown Lab Venipuncture / Unknown 08/02/2014 1:00 PM CDT 08/02/2014 1:04 PM CDT Angel Luis Villegas MD LAB - CHEMISTRY ORDE RABLES [facility] Organization Address City/State/ZIP Co de Phone Number [facility] [address] [place], [place] [phone] Care Teams Carbon Capture Power Plant Engineer Relationship Specialty Start Date End Date Jackson Rosa MD PCP - General Internal Medicine 05/18/14 Sammie Fox RN Car Unloader Helper 08/10/14 Deyanira Daigle, [facility] Expert Medical Writer 08/12/14 [place] [id number] [address] Orthopedic Surgery 09/03/16
--- OUTSIDE RECORDS SUMMARY | 2024-06-08 17:54 | XMS_ITS | Encounter Summary ---
Author Organization [facility] Address [address] [place] [address] Care Team Providers Care Mobile Paramedical Examiner Name Role Phone Tammy Ball MD Primary Care Provider [phone] Irma Willams MD Unavailable Efrem Alves MD Unavailable Reason for Visit * Reason Comments Follow Up 4 month follow up - improved. Encounter Details Date Type Department Care Team (Late st Contact Info) Description 06/03/2024 1:00 PM MANAGER BASKETBALL Office Visit [facility] Lilia joya [address] [place] [address] Efrem Alves MD [address] [place] [address] Follow Up (4 month follow up - improved.) Social History Tobacco Use Types Packs/Day Years Used Date Smoking Tobacco: Never Passive Smoke Exposure: Never Smokeless Tobacco: Never Alcohol Use Standard Drinks/Week Comments Yes 0 (1 standard drink = 0.6 oz pur e alcohol) very rare wine usage Comments Unknown Sex and Gender Information Value Date Recorded Sex Assigned at Female 05/25/2024 1:26 PM MANAGER BASKETBALL Legal Sex Female 9:00 PM CDT Gender Identity Not on file Sexual Orientation Not on file Occupation Industry Job Start Date Job End Date Retired Not on file Not on file Not on file documented as of this encounter Last Filed Vital Signs Vital Sign Reading Time Taken Comments Blood Pressure 138/72 06/03/2024 12:50 PM MANAGER BASKETBALL Pulse 69 06/03/2024 12:50 PM MANAGER BASKETBALL Temperature - - Respiratory Rate 16 06/03/2024 12:5 0 PM MANAGER BASKETBALL Oxygen Saturation 94% 06/03/2024 12: 50 PM MANAGER BASKETBALL Inhaled Oxygen Concentration - - Weight 63.4 kg (139 lb 12.8 oz) 025 12:50 PM MANAGER BASKETBALL Height 156.2 cm (5' 1.5 ) 06/03/2024 12 :50 PM MANAGER BASKETBALL Body Mass Index 25.99 06/03/2024 12:50 PM MANAGER BASKETBALL documented in this encounter Progress Notes * Efrem Alves MD - 06/03/2024 1:00 PM CST Reason for Visit: Follow Up (4 month follow up - improved.) History of Present Illness: 78-year-old female whose cardiovascular history consists of: 1. Chronic venous insufficiency with CEAP II disease. 2. Right leg Varithena in 12/20. 3. Mild CAD. 4. Hypertension. 5. Hyperlipidemia. Patient is doing well with no tenderness noted along sclerosed varicosities in anterior perez. Patient doing well with no large patent varicosities noted though smaller varicosities noted. ASSESSMENT AND PLAN: 1. Chronic venous insufficiency with CEAP II disease. Continue daily compression stockings. 2. Right leg Varithena on 12/20. Tenderness at sclerosed varicosities are resolved. Patient happy with results of the procedure. Smaller veins noted that does not need any procedure and patient is asymptomatic presently. Follow-up in 6 months. 3. Mild CAD. Defer to cardiology. 4. Hypertension and hyperlipidemia. Defer to cardiology. Medications: Current Outpatient Medications: albuterol sulfate HFA 108 (90 Base) MCG/ACT inhaler, Inhale 2 puffs into the lungs every 4 (four) hours as needed., Disp: , Rfl: aspirin 81 MG chewable tablet, Chew 1 tablet (81 mg total) by mouth daily. Indications: Anticoagulant Therapy, Disp: , Rfl: Biotin 1000 MCG Tab, Take 1 tablet by mouth daily., Disp: , Rfl: Sbkjfgqyz-Texjbmhjjct-Zrm D (OSTEO BI-FLEX ONE PER DAY OR), Take 1 tablet by mouth daily., Disp: , Rfl: Slmldmo-Cplnswabx-Dvcbinw D 600-40-500 MG-MG-UNIT TABLET SR 24 HR, Take 2 tablets by mouth daily. Indications: Nutritional Support , Disp: , Rfl: cetirizine 10 MG tablet, Take 1 tablet (10 mg total) by mouth daily. Indications: Allergic Rhinitis, Seasonal Allergy 1 tablet daily, Disp: , Rfl: Coenzyme Q10 (COQ-10) 100 MG Cap, Take 200 mg by mouth daily. Indications: Nutritional Support , Disp: , Rfl: COMPRESSION STOCKINGS, DME,, Thigh high compression stockings. 20-30 mmHg, will be placed on you post procedure. Then follow post procedure directions., Disp: 1 Package, Rfl: 4 escitalopram (LEXAPRO) 10 MG tablet, Take 0.5 tablets (5 mg total) by mouth daily., Disp: , Rfl: folic acid 1 MG tablet, Take 1 tablet (1 mg total) by mouth daily. Indications: Nutritional Support, Disp: , Rfl: furosemide 20 MG tablet, Take 1 tablet (20 mg total) by mouth daily. Indications: Fluid Retention, Disp: , Rfl: losartan 25 MG tablet, Take 1 tablet (25 mg total) by mouth daily., Disp: , Rfl: Magnesium 400 MG Tab, Take 1 tablet by mouth daily., Disp: , Rfl: Multiple Vitamins-Minerals (PRESERVISION AREDS OR), Take 1 tablet by mouth daily., Disp: , Rfl: omeprazole 20 MG capsule, Take 1 capsule (20 mg total) by mouth daily. Indications: Gastroesophageal Reflux Disease, Disp: , Rfl: Potassium 99 MG tablet, Take 1 tablet by mouth as needed., Disp: , Rfl: pravastatin 10 MG tablet, Take 1 tablet (10 mg total) by mouth daily. Indications: High Amount of Cholesterol in the Blood 1 tablet daily, Disp: , Rfl: Probiotic Product (ALIGN) 4 MG Cap, Take 1 capsule by mouth every other day., Disp: , Rfl: valACYclovir 500 MG tablet, Take 1 tablet (500 mg total) by mouth daily. Indications: herpes virus,Disp: , Rfl: vitamin E 400 UNIT capsule, Take 1 capsule (400 Units total) by mouth 2 (two) times a week., Disp: , Rfl: Review of patient's allergies indicates: Allergen Reactions Indocin [Indomethacin] Syncope Ibandronic Acid Palpitations Sulfa Antibiotics Rash Past Medical History: Diagnosis Date Anemia Bleeding : History of GI bleeding, 1yr ago lower GI bleed colonoscopy negative, 5-6 yrs stomach ulcer tamoxifen side effect. Breast cancer (CMS/HCC [facility]/HCC) left breast w/radiation & 5/yrs oral chemo CAD (coronary artery disease) Cataract both eyes Chest pain CHF (congestive heart failure) (CMS/HCC HHS/HCC) Dyslipidemia GERD (gastroesophageal reflux disease) H/O dizziness History of blood transfusion 1976 after hyst History of varicose veins both legs HLD (hyperlipidemia) HTN (hypertension) Lab test positive for detection of COVID-19 virus 04/2020 MRSA infection 2015 right axilla & knee, 2016 right knee-has not been cleared Pain Multiple back injections for pain. PVD (peripheral vascular disease) ([facility]/HCC) SOB (shortness of breath) on exertion occ Past Surgical History: Procedure Laterality Date APPENDECTOMY BREAST SURGERY Left left breast surgey CATARACT EXTRACTION COLONOSCOPY FLX DX W/COLLJ SPEC WHEN PFRMD CTA CHEST 09/08/2020 [facility]: No pulm emboli,acute findings or interval change.Chronic interstitial changes & groundglass opacities probably nonspecific interstitial pneumonitis pattern interstitial lung disease, could be sequela from patient's COVID pneumonia ELECTROCARDIOGRAM, COMPLETE 09/08/2020 [facility]: Sinus bradycardia,rate 59. Compared to EKG 06-02-2020.Sinus ole new EXCISION MASS/LESION Bilateral l ovary tumor. HEART CATH 12/30/2012 , Lt heart pressure, Selective coronary angio, Closure device placement HYSTERECTOMY abd JOINT REPLACEMENT RTKR NJX NONCMPND SCLRSNT 1 VEIN Right 12/19/2023 Dr. Alves NM PHARM STRESS ONLY 09/09/2020 [facility]: No abn ST-T wave changes with lexiscan.Resting:sinus ole/short [place] interval. StressECG: No abn ST-t wave changes w/exercise.Arrhythmias USE ECHOCARDIOGRAM 09/09/2020 [facility]: LVEF 67%. Lt atrial chamber mildly enlarged.Mild MV regurg.MV calcified annulus.MildTV regurg. No increased Lt ventricular wall thickness Social History Tobacco Use Smoking status: Never Passive exposure: Never Smokeless tobacco: Never Vaping Use Vaping status: Unknown Substance Use Topics Alcohol use: Yes Comment: very rare wine usage Drug use: No Family History Problem Relation Name Age of Onset Stroke Mother Hypertension Mother CHF Father 69 Hyperlipidemia Father Stroke Father Hypertension Father Heart Attack Brother 66 CABG Brother 66 Heart Attack Other fm hx Other (cardiovascular disease) Other fm hx Other (malignant neoplasm) Other fm hx Family Status Relation Name Status Mother at age 91 Father Brother at age 72 Brother at age 42 drowning accident Other fm hx (Not Specified) No partnership data on file Review of Systems Constitutional: Negative for recent unintentional weight gain and recent unintentional weight loss. HENT: Negative for new or significant hearing loss and headaches. Eyes: Negative for blurred vision and double vision. Respiratory: Negative for cough and wheezing. Cardiovascular: Positive for leg swelling and varicose veins. Negative for chest pain and palpitations. Gastrointestinal: Negative for heartburn and nausea. Genitourinary: Negative for dysuria and hematuria. Musculoskeletal: Negative for myalgias. Skin: Negative for rash. Neurological: Negative for dizziness. Endo/Heme/Allergies: Negative for new or significant bruising/bleeding. Psychiatric/Behavioral: Negative for depression. Vitals: 06/03/24 1250 BP: 138/72 Patient Position: Sitting BP Location: Right arm Pulse: 69 Weight: 63.4 kg (139 lb 12.8 oz) Height: 1.562 m (5' 1.5 ) Body mass index is 25.99 kg/m??. Cardiac Exam Rate/Rhythm: Normal rate and regular rhythm. PMI: PMI is not displaced. Pulses: Normal pulses. Femoral pulses are 2+ on the right side and 2+ on the left side. Heart Sounds: Normal heart sounds. Normal S1 sounds. Normal S2 sounds. No gallop present. No S3. NoS4. Murmurs: Physical Exam Constitutional: No distress. Healthy Appearance. HENT: Oropharynx clear. Eyes: Pupils equal, round, and reactive to light. Conjunctivae normal. Neck: Neck supple. No JVD. Abdomen: Abdomen soft. Bowel sounds normal. No tenderness. No mass. No hepatomegaly. No splenomegaly. Abdominal aorta not palpably enlarged. No abdominal bruit present. Pulmonary: Effort normal. Breath sounds normal. Skin: Left lower exremity varicose veins. No rash. No cyanosis. No clubbing. No xanthoma. Musculoskeletal: No kyphosis. Normal ROM. Neurological: Alert. Oriented x 3. Appropriate mood and affect. Normal motor skills. Normal gait. Comments: Mild tenderness noted sclerosed varicosity in right anterior perez and mid calf. Mild edema noted with no edema extending into feet. Diagnoses/Impression: 1. Chronic venous insufficiency 2. Varicose veins of bilateral lower extremities with other complications Referring Provider: No ref. provider found PCP: TAMMY BALL MD GER BASKETBALL documented in this encounter Plan of Treatment Upcoming Encounters Date Type Department Care Team (Late st Contact Info) Description 06/16/2024 1:00 PM MANAGER BASKETBALL Appointment [facility] [address] [place] [address] [place] [address] Irma Willams MD [address] [place] [address] 05/10/2025 8:30 AM MANAGER BASKETBALL Office Visit [facility] [place] [id number] Irma Willams MD [address] [place] [address] documented as of this encounter Visit Diagnoses Diagnosis Chronic venous insufficiency- Primary Unspecified venous (peripheral) insufficiency Varicose 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
--- OUTSIDE RECORDS SUMMARY | 2024-06-08 17:54 | XMS_ITS | Clinical Summary ---
Author Organization [facility] Address [address] [place] [address] Care Team Providers Care Fitter Up Name Role Phone Jackson Rosa MD Primary Care Provider [phone] Sammie Fox RN Unavailable [phone] Deyanira Daigle ELECTROMECHANISMS DESIGN DRAFTER Unavailable [phone] Luis Carlos Rivas MD Unavailable [phone] Source Comments [facility],non-owned Affiliates and Associated Physician Practices is amultiple site organization consisting of ambulatory clinics and hospital sitesin [place], [place], [place] and [place]. This disclosure is being madepursuant to the Care Everywhere program and may not contain all information available regarding this patient. Last updated 18.[facility] Allergies Active Allergy Reactions Criticality Noted Date [...] problems Immunizations Name Administration Dates Next Due Elo [employer] Eletrônicosjem Parametric Sound primary monoval ent 12+ yr 0.3mL Purple [...] Sex Assigned at Female 05/03/2021 6:03 PM BUSINESS PROCESS REPRESENTATIVE Gender Identity Female 05/03/2021 6:03 PM BUSINESS PROCESS REPRESENTATIVE Sexual Orientation Straight 05/03/2021 6: 03 PM BUSINESS PROCESS REPRESENTATIVE Last Filed Vital Signs Vital Sign Reading Time Taken Comments Blood Pressure 132/78 06/21/2016 8:16 AM BUSINESS PROCESS REPRESENTATIVE Pulse 55 06/21/2016 8:16 AM BUSINESS PROCESS REPRESENTATIVE Temperature 36.7 C (98.1 F) 08/13/2014 11:27 [...] Comments BONE DENSITY TESTING 1945 MEDICARE AWV 12 MONTHS 1945 HEPATITIS C SCREENING 09/08/1964 ZOSTER VACCINE (1 of 2) 1996 DTAP/TDAP/TD VACCINES (1 - Tdap) 12/02/1999 12/01/1999 PNEUMOCOCCAL VACCINE 50+ (2 of 2 - PPSV23) 09/07/2021 09/07/2020 Respiratory Syncytial Virus (RSV) Vaccine Pt: or over 60 yrs (1 - 1-dose 75+ series) 2021 COVID-19 VACCINE ( - season) 2023 05/03/2021, 08/30/2020, 08/02/2020 INFLUENZA [...] this topic Medical Devices Implanted Type Area Curriculum Designer Device Identifier Shelf Expiration Date Model / Serial / Lot Nexgen Complete Knee Solution Cruciate Retaining Trabecular Metal Monoblock Tibial Component Tibial Size 3, Femoral Size C-H, 10mm Height Implanted:Qty: 1 on 08/10/2014 by Angel Luis Villegas MD at [facility] Right: Knee [employer] 01/27/2019 [id number] Nexgen Complete Knee Solution Cruciate Retaining Cr-Flex Femoral Component Porous Size D, Right Implanted:Qty: 1 on 08/10/2014 by Angel Luis Villegas MD at [facility] Right: Knee [employer] 11/28/2023 / [id number] Bill Only Basic Derrick Excludes Agc Kn Implanted:Qty: 1 on 08/10/2014 by Angel Luis Villegas MD at [facility] [employer] BILL ONLY BASIC DERRICK EXCLUDES AGC KN ZIMM / / Bill Only Tb Upchrg Implanted:Qty: 1 on 08/10/2014 by Angel Luis Villegas MD at [facility] Mely Ramos UPCHRG MELY BILL ONLY TB / / Care Teams Fitter Up Relationship Specialty Start Date End Date Jackson Rosa MD PCP - General Internal Medicine 05/18/14 Sammie Fox, KAROLINE Town Manager 08/10/14 [facility] Windows Infrastructure Engineer 08/12/14 [place] [address] [address] Orthopedic Surgery 09/03/16
--- OUTSIDE RECORDS SUMMARY | 2024-06-08 17:54 | XMS_ITS | Encounter Summary ---
Author Organization [facility] Address [address] [place] [address] Care Team Providers Care Cloth Roll Winder Name Role Phone Jackson Rosa MD Primary Care Provider + Encounter Details Date Type Department Care Team (Latest Contact Info) Description 09/05/1999 Outpatient Historical [facility] Cabezas, Cyndee Crespo MD NO ADDRESS ON FILE Personal history of malignant neoplasm of breast (Primary Dx) Social History Tobacco Use Types Packs/Day Years Used Date Smoking Tobacco: Never Assessed Comments Unknown Sex and Gender Information Value Date Recorded Sex Assigned at Not on file Legal Sex Female 3:45 AM MOTOR ROOM CONTROLLER Gender Identity Not on file Sexual Orientation Not on file documented as of this encounter Plan of Treatment Not on file documented as of this encounter Visit Diagnoses Diagnosis Personal history of malignant neoplasm of breast- Primary documented in this encounter Care Teams Cloth Roll Winder Relationship Specialty Start Date End Date Jackson Rosa MD [address] [place] [phone] PCP - General 07/05/09 documented as of this encounter
--- OUTSIDE RECORDS SUMMARY | 2024-06-08 17:54 | XMS_ITS | Encounter Summary ---
Author Organization [facility] Address [address] [place] [address] Care Team Providers Care Senior Shipping Clerk Name Role Phone Jackson Rosa MD Primary Care Provider + Encounter Details Date Type Department Care Team (Latest Contact Info) Description 10/13/2003 Outpatient Historical HIS [facility] Cabezas, Cyndee Crespo MD NO ADDRESS ON FILE SCREENING MAMM-MAILG NEOPL-OTHER (Primary Dx) Social History Tobacco Use Types Packs/Day Years Used Date Smoking Tobacco: Never Assessed Comments Unknown Sex and Gender Information Value Date Recorded Sex Assigned at Not on file Legal Sex Female 3:45 AM PULP DRIER Gender Identity Not on file Sexual Orientation Not on file documented as of this encounter Plan of Treatment Not on file documented as of this encounter Visit Diagnoses Diagnosis Other screening mammogram- Primary documented in this encounter Care Teams Senior Shipping Clerk Relationship Specialty Start Date End Date Jackson Rosa MD [address] [place] [phone] PCP - General 07/05/09 documented as of this encounter
--- OUTSIDE RECORDS SUMMARY | 2024-06-08 17:54 | XMS_ITS | Encounter Summary ---
Author Organization [facility] Address [address] [place] [address] Care Team Providers Care Emblem Drawer In Name Role Phone Jackson Rosa MD Primary Care Provider + Encounter Details Date Type Department Care Team (Latest Contact Info) Description 09/07/1998 Outpatient Historical HIS [facility] Cabezas, Cyndee Crespo MD NO ADDRESS ON FILE Personal history of malignant neoplasm of breast (Primary Dx) Social History Tobacco Use Types Packs/Day Years Used Date Smoking Tobacco: Never Assessed Comments Unknown Sex and Gender Information Value Date Recorded Sex Assigned at Not on file Legal Sex Female 3:45 AM SKIN TANNER Gender Identity Not on file Sexual Orientation Not on file documented as of this encounter Plan of Treatment Not on file documented as of this encounter Visit Diagnoses Diagnosis Personal history of malignant neoplasm of breast- Primary documented in this encounter Care Teams Emblem Drawer In Relationship Specialty Start Date End Date Jackson Rosa MD [address] [place] [phone] PCP - General 07/05/09 documented as of this encounter
--- OUTSIDE RECORDS SUMMARY | 2024-06-08 17:54 | XMS_ITS | Encounter Summary ---
Author Organization [facility] Address [address] [place] [address] Care Team Providers Care Charter And Tour Bus Driver Name Role Phone Jackson Rosa MD Primary Care Provider + Encounter Details Date Type Department Care Team (Latest Contact Info) Description 07/12/2004 Outpatient Historical HIS [facility] Cabezas, Cyndee Crespo MD NO ADDRESS ON FILE SCREENING MAMM-MALIG NEOPL-HI RISK (Primary Dx) Social History Tobacco Use Types Packs/Day Years Used Date Smoking Tobacco: Never Assessed Comments Unknown Sex and Gender Information Value Date Recorded Sex Assigned at Not on file Legal Sex Female 3:45 AM LABORATORY MANAGER Gender Identity Not on file Sexual Orientation Not on file documented as of this encounter Plan of Treatment Not on file documented as of this encounter Visit Diagnoses Diagnosis Screening mammogram for high-risk patient- Primary documented in this encounter Care Teams Charter And Tour Bus Driver Relationship Specialty Start Date End Date Jackson Rosa MD [address] [place] [address] PCP - General 07/05/09 documented as of this encounter
--- OUTSIDE RECORDS SUMMARY | 2024-06-08 17:54 | XMS_ITS | Encounter Summary ---
Author Organization [facility] Address [address] [place] [address] Care Team Providers Care Raw Material Planner Name Role Phone Jackson Rosa MD Primary Care Provider + Encounter Details Date Type Department Care Team (Latest Contact Info) Description 09/09/2001 Outpatient Historical HIS [facility] Cabezas, Cyndee Crespo MD NO ADDRESS ON FILE PERS HX OF BREAST MALIGNANCY (Primary Dx) Social History Tobacco Use Types Packs/Day Years Used Date Smoking Tobacco: Never Assessed Comments Unknown Sex and Gender Information Value Date Recorded Sex Assigned at Not on file Legal Sex Female 3:45 AM ORDER CALLER Gender Identity Not on file Sexual Orientation Not on file documented as of this encounter Plan of Treatment Not on file documented as of this encounter Visit Diagnoses Diagnosis Personal history of malignant neoplasm of breast- Primary documented in this encounter Care Teams Raw Material Planner Relationship Specialty Start Date End Date Jackson Rosa MD [address] [place] [phone] PCP - General 07/05/09 documented as of this encounter
--- OUTSIDE RECORDS SUMMARY | 2024-06-08 17:54 | XMS_ITS | Clinical Summary ---
Author Organization [facility] Address [address] [place] [address] Care Team Providers Care Emergency Care Attendant Name Role Phone Jackson Rosa MD Primary Care Provider [phone] Allergies Active Allergy Reactions Criticality Noted Date [...] 07/04/2021 Assessment & Plan (07/04/2021 11:03 AM DIRECTOR REGULATORY COMPLIANCE): I explained to the patient how subclinical [...] Sinusitis Ear problems CHF (congestive heart failure) (CMS/[facility]) (HCC) Depression Osteopenia Osteoporosis [...] on file Legal Sex Female 12:56 AM DIRECTOR REGULATORY COMPLIANCE Gender Identity Female 10/06/2019 1:08 PM CDT Sexual Orientation Not on file Obstetrics History Last Filed Vital Signs Vital Sign Reading Time Taken Comments Blood Pressure 148/77 02/18/2023 8:21 AM CDT Pulse 76 02/18/2023 8:21 AM CDT Temperature 36.7 C (98.1 F) 02/18/2023 8:21 AM CDT Respiratory Rate 19 12/21/2022 3:10 PM CDT Oxygen Saturation 95% 02/18/2023 8:21 AM CDT Inhaled Oxygen Concentration - - Weight 67.2 kg (148 lb 3.2 oz) 05/15/2023 3:06 P M DIRECTOR REGULATORY COMPLIANCE Height 157.5 cm (5' 2 ) 05/15/2023 3:06 PM DIRECTOR REGULATORY COMPLIANCE Body Mass Index 27.11 05/15/2023 3:06 PM DIRECTOR REGULATORY COMPLIANCE Plan of Treatment Health Maintenance Due Date [...] Screening Discontinued Medical Devices Implanted Type Area Ditching Machine Operator Device Identifier Shelf Expiration Date Model / Serial / Lot Knee Replacement Right: Knee Procedures Procedure Name Priority Date/Time Associated Diagnosis Comments COLONOSCOPY 12/04/2017 11:53 AM CDT from Last 3 Months or Most Recently Relevant to Health Maintenance Results * COLONOSCOPY (12/04/2017 11:53 AM CDT) Anatomical Region Laterality Modality Other Narrative Procedure Note Dwayne Chan MD - 12/04/2017 11:53 AM CDT [facility] Patient Name: Zulma Carnes Procedure Date: 12/04/2017 11:53 AM Date of : 1945 Admit Type: Outpatient Age: 72 Gender: Female Attending MD: Dwayne Chan MD Room: [facility] RO[facility] 2 Note Status: Finalized Patient [...] passed under direct vision.The Pediatric Colonoscope [id number]-[id number] was introduced through the anus and advanced [...] perforation orabscess without bleeding CPT copyright 2017 [employer]. All rights reserved. The codes documented in this report are preliminary and upon data entry representative reviewmay be revised to meet current compliance requirements. Recognized by the [employer] for promoting quality in endoscopy Dwayne Chan MD ENDOSCOPY PROCEDURES Final Result from Last 3 Months or Most Recently Relevant to Health Maintenance Insurance MEDICARE [employer] [facility] MEDICARE MEDICARE FOR LIFE Advance Directives For more information, please contact: [phone] * Full Code (Latest Code Status on File) Date Activated Date Inactivated Comments 12/04/2017 11:05 AM 12/04/2017 3:39 PM Care Teams Emergency Care Attendant Relationship Specialty Start Date End Date Jackson Rosa MD [address] [place] [address] PCP - General 07/04/16
--- OUTSIDE RECORDS SUMMARY | 2024-06-08 17:54 | XMS_ITS | Encounter Summary ---
Author Organization [facility] Address [address] [place] [address] Care Team Providers Care Risk Modeler Name Role Phone Jackson Rosa MD Primary Care Provider + Encounter Details Date Type Department Care Team (Latest Contact Info) Description 01/24/1999 Outpatient Historical HIS [facility]OFF Cabezas, Cyndee Crespo MD NO ADDRESS ON FILE Other screening mammogram (Primary Dx) Social History Tobacco Use Types Packs/Day Years Used Date Smoking Tobacco: Never Assessed Comments Unknown Sex and Gender Information Value Date Recorded Sex Assigned at Not on file Legal Sex Female 3:45 AM SATELLITE INSTALLER Gender Identity Not on file Sexual Orientation Not on file documented as of this encounter Plan of Treatment Not on file documented as of this encounter Visit Diagnoses Diagnosis Other screening mammogram- Primary documented in this encounter Care Teams Risk Modeler Relationship Specialty Start Date End Date Jackson Rosa MD [address] [place] [address] PCP - General 07/05/09 documented as of this encounter
--- OUTSIDE RECORDS SUMMARY | 2024-06-08 17:55 | XMS_ITS | Referral Summary ---
Author Organization [facility] Address [address] [place] [address] Care Team Providers Care Lump Maker Name Role Phone Jackson Rosa MD Primary Care Provider + [phone] Allergies Active Allergy Reactions Criticality Noted Date [...] 07/04/2021 Assessment & Plan (07/04/2021 11:03 AM PATIENT ACCOUNT ANALYST): I explained to the patient how subclinical [...] on file Legal Sex Female 12:56 AM PATIENT ACCOUNT ANALYST Gender Identity Female 10/06/2019 1:08 PM CDT [...] lb 3.2 oz) 05/15/2023 3:06 P M PATIENT ACCOUNT ANALYST Height 157.5 cm (5' 2 ) 05/15/2023 3:06 PM PATIENT ACCOUNT ANALYST Body Mass Index 27.11 05/15/2023 3:06 PM PATIENT ACCOUNT ANALYST Plan of Treatment Not on file Medical Devices Implanted Type Area Clinic Lpn Device Identifier Shelf Expiration Date Model / Serial / Lot Knee Replacement Right: Knee Procedures Procedure Name Priority Date/Time Associated Diagnosis Comments COLONOSCOPY 12/04/2017 11:53 AM CDT from Last 3 Months or Most Recently Relevant to Health Maintenance Results * COLONOSCOPY (12/04/2017 11:53 AM CDT) Anatomical Region Laterality Modality Other Narrative Procedure Note Dwayne Chan MD - 12/04/2017 11:53 AM CDT [facility] Patient Name: Zulma Carnes Procedure Date: 12/04/2017 11:53 AM Date of : 1945 Admit Type: Outpatient Age: 72 Gender: Female Attending MD: Dwayne Chan MD Room: [facility] ENDOSCOPY ROOM 2 Note Status: Finalized Patient [...] passed under direct vision.The Pediatric Colonoscope PCF-H190L [id number] was introduced through the anus and advanced [...] perforation orabscess without bleeding CPT copyright 2017 [employer]. All rights reserved. The codes documented in this report are preliminary and upon supervisor intermediates reviewmay be revised to meet current compliance requirements. Recognized by the [place] Society for Gastrointestinal Endoscopy for promoting quality in endoscopy Dwayne Chan MD ENDOSCOPY PROCEDURES Final Result from Last 3 Months or Most Recently Relevant to Health Maintenance Insurance MEDICARE [employer] MEDICARE MEDICARE FOR LIFE Advance Directives For more information, please contact: [phone] * Full Code (Latest Code Status on File) Date Activated Date Inactivated Comments 12/04/2017 11:05 AM 12/04/2017 3:39 PM Care Teams Lump Maker Relationship Specialty Start Date End Date Jackson Rosa MD [address] [place] [address] PCP - General 07/04/16
== END 2024-06-08 17:50 | disposition home or self-care (01) ==
PROVIDERS: PCP Internal Medicine; Visit Provider Internal Medicine
DX: R19.7 Diarrhea, unspecified (principal)
CPT/HCPCS: 82653; 83993

== ENCOUNTER 2024-08-10 12:14 | Outpatient (CLI) | payer MEDICARE, OTHER, SELFPAY ==
--- NOTE | ~2024-08-10 | MM_ITS ---
EXAMINATION: MM screening brandt BI w ravinder HISTORY: Screening TECHNIQUE: Craniocaudal and mediolateral oblique 3-D tomosynthesis images were obtained and synthetic 2-D images were generated. CAD analysis was submitted and interpreted. COMPARISON: Comparison to multiple prior studies sequentially, with oldest reviewed study dated 03/29. BREAST PARENCHYMAL COMPOSITION: Dense: The breasts are heterogeneously dense, which may obscure small masses FINDINGS: There is a new focal asymmetry laterally in the right breast, posterior third. The left kelsey ast is stable without evidence for malignancy. There are changes of partial mastectomy of the left br east from previous malignancy. IMPRESSION: 1. New right breast asymmetry laterally on CC view, posterior third. 2. Additional mammographic views and possible breast ultrasound are recommended. BI-RADS Category 0: Incomplete: Needs additional imaging evaluation. Reviewed, dictated and finalized at location B. IMPRESSION: 1. New right breast asymmetry laterally on CC view, posterior third. 2. Additional mammographic views and possible breast ultrasound are recommended . BI-RADS Category 0: Incomplete: Needs additional imaging evaluation.
--- OUTSIDE RECORDS SUMMARY | 2024-08-10 13:27 | XMS_ITS | Encounter Summary ---
Author Organization [facility] Address [address] [place] [address] Care Team Providers Care Software Applications Designer Name Role Phone Jackson Rosa MD Primary Care Provider [phone] Irma Willams MD Unavailable Efrem Alves MD Unavailable Encounter Details Date Type Department Care Team (Late Contact Info) Description 06/22/2024 [employer] Message Enc [facility]eld [address] [place] [address] [facility] [place] Provider Echo results Social History Tobacco Use Types Packs/Day Years Used Date Smoking Tobacco: Never Passive Smoke Exposure: Never Smokeless Tobacco: Never Alcohol Use Standard Drinks/Week Comments Yes 0 (1 standard drink = 0.6 oz pur e alcohol) very rare wine usage Comments Unknown Sex and Gender Information Value Date Recorded Sex Assigned at Female 05/25/2024 1:26 PM MEDICAID SPECIALIST Legal Sex Female 9:00 PM CDT Gender Identity Not on file Sexual Orientation Not on file Occupation Industry Job Start Date Job End Date Retired Not on file Not on file Not on file documented as of this encounter Plan of Treatment Upcoming Encounters Date Type Department Care Team (Late Contact Info) Description 05/10/2025 8:30 AM MEDICAID SPECIALIST Office Visit [facility] [address] [place] [address] Irma Willams MD [address] [place] [address] documented as of this encounter Visit Diagnoses Not on filedocumented in this encounter Care Teams Software Applications Designer Relationship Specialty Start Date End Date Jackson Rosa MD [address] [place] [address] PCP - General INTERNAL MEDICINE 04/02/16 Irma Willams MD [address] [place] [address] Consulting Physician CARDIOVASCULAR DISEASE 11/03/23 Efrem Alves MD [address] [place] [address] Vascular/Hot Metal Mixer Operator INTERNAL MEDICINE 12/17/23 documented as of this encounter
--- OUTSIDE RECORDS SUMMARY | 2024-08-10 13:27 | XMS_ITS | CONTINUITY OF CARE DOCUMENT ---
Author Name tobin rudd Address Unknown Organization [facility] Address [address] [place] [address] [address] [place] [address] Phone [phone] Care Team Providers Care Management Professor Name Role Phone Gabe Wright MD Unavailable [phone] Gabe Wright MD Unavailable [phone] INSURANCE PROVIDERS Payer name Policy type / Coverage type Jodie red green party ID FOR LIFE [id number] [place] MEDICARE Medicare [id number]
--- OUTSIDE RECORDS SUMMARY | 2024-08-10 13:28 | XMS_ITS | Encounter Summary ---
Author Organization [facility] Address [address] [place] [address] Care Team Providers Care Health Information Manager Name Role Phone Jackson Rosa MD Primary Care Provider + Encounter Details Date Type Department Care Team (Latest Contact Info) Description 09/09/2001 Outpatient Historical HIS [facility] GE[facility] Cabezas, Cyndee Crespo MD NO ADDRESS ON FILE PERS HX OF BREAST MALIGNANCY (Primary Dx) Social History Tobacco Use Types Packs/Day Years Used Date Smoking Tobacco: Never Assessed Comments Unknown Sex and Gender Information Value Date Recorded Sex Assigned at Not on file Legal Sex Female 3:45 AM FILM LOADER Gender Identity Not on file Sexual Orientation Not on file documented as of this encounter Plan of Treatment Not on file documented as of this encounter Visit Diagnoses Diagnosis Personal history of malignant neoplasm of breast- Primary documented in this encounter Care Teams Health Information Manager Relationship Specialty Start Date End Date Jackson Rosa MD [address] [place] [address] PCP - General 07/05/09 documented as of this encounter
--- OUTSIDE RECORDS SUMMARY | 2024-08-10 13:28 | XMS_ITS | Encounter Summary ---
Author Organization [facility] Address [address] [place] [address] Care Team Providers Care Process Project Engineer Name Role Phone Jackson Rosa MD Primary Care Provider + Encounter Details Date Type Department Care Team (Latest Contact Info) Description 10/13/2003 Outpatient Historical HIS [facility] GEOFF Cabezas, Cyndee Crespo MD NO ADDRESS ON FILE SCREENING MAMM-MAILG NEOPL-OTHER (Primary Dx) Social History Tobacco Use Types Packs/Day Years Used Date Smoking Tobacco: Never Assessed Comments Unknown Sex and Gender Information Value Date Recorded Sex Assigned at Not on file Legal Sex Female 3:45 AM LOCKSTITCH CUP SETTER Gender Identity Not on file Sexual Orientation Not on file documented as of this encounter Plan of Treatment Not on file documented as of this encounter Visit Diagnoses Diagnosis Other screening mammogram- Primary documented in this encounter Care Teams Process Project Engineer Relationship Specialty Start Date End Date Jackson Rosa MD [address] [place] [phone] PCP - General 07/05/09 documented as of this encounter
--- OUTSIDE RECORDS SUMMARY | 2024-08-10 13:28 | XMS_ITS | Clinical Summary ---
Author Organization [facility] Address [address] [place] [address] Care Team Providers Care Final Canoe Inspector Name Role Phone Jackson Rosa MD Primary Care Provider + [phone] Allergies Active Allergy Reactions Criticality Noted Date [...] 07/04/2021 Assessment & Plan (07/04/2021 11:03 AM AUTO PHONE INSTALLER): I explained to the patient how subclinical [...] History of breast cancer 01/29/2012 023 Immunizations Immunization Administration Dates Next Due Influenza, Quadrivalent, Spl [...] (HCC) Colon polyp Allergic rhinitis Anxiety Cancer (HCC) Cataract Heart disease Hypertension History of kidney problems History of radiation therapy GERD (gastroesophageal reflux disease) Sinusitis Ear problems CHF (congestive heart failure) (HCC) Depression Osteopenia Osteoporosis History of radiation [...] on file Legal Sex Female 12:56 AM AUTO PHONE INSTALLER Gender Identity Female 10/06/2019 1:08 PM CDT [...] lb 3.2 oz) 05/15/2023 3:06 P M AUTO PHONE INSTALLER Height 157.5 cm (5' 2 ) 05/15/2023 3:06 PM AUTO PHONE INSTALLER Body Mass Index 27.11 05/15/2023 3:06 PM AUTO PHONE INSTALLER Plan of Treatment Health Maintenance Due Date Last Done Comments Hepatitis C Screening 1945 Hepatitis B Screening 1964 Zoster Vaccine (1 of 2) 1996 DTaP/Tdap/Td Vaccine (1 - Tdap) 12/02/1999 0 Well Visit 65+ 09/14/2011 Osteoporosis Screening-Bone Density Scan 01/17/2018 01/18/2016 Pneumococcal vaccine 65+ (2 of 2 - PPSV23) 09/07/2021 09/07/2020 Depression Screening 07/04/2022 07/04/2021 Fall [...] Screening Discontinued Medical Devices Implanted Type Area Coordinator Skill Training Program Device Identifier Shelf Expiration Date Model / [...] Female Attending MD: Dwayne Chan MD Room: [facility] ENDOSCOPY ROOM 2 Note Status: Finalized Patient [...] passed under direct vision.The Pediatric Colonoscope PCF-H190L [id number] was introduced through the anus and advanced [...] perforation orabscess without bleeding CPT copyright 2017 [employer]. All rights reserved. The codes documented in this report are preliminary and upon medical biller/coder reviewmay be revised to meet current compliance requirements. Recognized by the [place] Society for Gastrointestinal Endoscopy for promoting quality in endoscopy Dwayne Chan MD ENDOSCOPY PROCEDURES Final Result from Last 3 Months or Most Recently Relevant to Health Maintenance Insurance MEDICARE [employer] [address] [address] MEDICARE FOR LIFE Advance Directives For more information, please contact: [phone] * Full Code (Latest Code Status on File) Date Activated Date Inactivated Comments 12/04/2017 11:05 AM 12/04/2017 3:39 PM Care Teams Final Canoe Inspector Relationship Specialty Start Date End Date Jackson Rosa MD [address] [place] [address] PCP - General 07/04/16
--- OUTSIDE RECORDS SUMMARY | 2024-08-10 13:28 | XMS_ITS | Encounter Summary ---
Author Organization [facility] Address [address] [place] [address] Care Team Providers Care Hairspring Adjuster Name Role Phone Jackson Rosa MD Primary Care Provider + Encounter Details Date Type Department Care Team (Latest Contact Info) Description 03/31/2008 Outpatient Historical HIS [facility] Cabezas, Ezequiel Crespo MD NO ADDRESS ON FILE Other Screening Mammogram Social History Tobacco Use Types Packs/Day Years Used Date Smoking Tobacco: Never Assessed Comments Unknown Sex and Gender Information Value Date Recorded Sex Assigned at Not on file Legal Sex Female 3:45 AM DESIGN LEAD Gender Identity Not on file Sexual Orientation Not on file documented as of this encounter Plan of Treatment Not on file documented as of this encounter Procedures Procedure Name Priority Date/Time Associated Diagnosis Comments MAMMO SCREEN BILAT W OR WO CAD Routine 03/31/2008 8:30 AM DESIGN LEAD documented in this encounter Results * MAMMO DIGITAL SCREEN BILAT (03/31/2008 8:30 AM DESIGN LEAD) Anatomical Region Laterality Modality Breast Bilateral Other 03/31/2008 8:30 AM DESIGN LEAD Narrative 03/31/2008 12:03 PM DESIGN LEAD [address] [address] Admit Date: 03/31/2008 ZULMA CARNES Sex: F Admit Prov: EZEQUIEL CABEZAS Date: 1945 Primary Care Prov: CMRN: [id number] Room: KIRT SSN: [id number] IMAGING SERVICES Ordering Prov: EZEQUIEL CABEZAS Accession Number: [id number] Interpretation EXAM: BILATERAL SCREENING FULL FIELD DIGITAL [...] AMK Procedure Note Elena Lou - 03/31/2008 [facility] [address], [place] [address] Admit Date: 03/31/2008 ZULMA CARNES Sex: F Admit Prov: EZEQUIEL CABEZAS Date: 1945 Primary Care Prov: CMRN: [id number] Room: MASON[facility]leigh SSN: [id number] IMAGING SERVICES Ordering Prov: EZEQUIEL CABEZAS Interpretation [...] mammogram documented in this encounter Care Teams Hairspring Adjuster Relationship Specialty Start Date End Date Jackson Rosa MD [address] [place] [phone] PCP - General 07/05/09 documented as of this encounter
--- OUTSIDE RECORDS SUMMARY | 2024-08-10 13:28 | XMS_ITS | Encounter Summary ---
Author Organization [facility] Address [address] [place] [address] Care Team Providers Care Plasma Specialist Name Role Phone Jackson Rosa MD Primary Care Provider + Encounter Details Date Type Department Care Team (Latest Contact Info) Description 09/05/1999 Outpatient Historical HIS [facility] GEOFF Cabezas, Cyndee Crespo MD NO ADDRESS ON FILE Personal history of malignant neoplasm of breast (Primary Dx) Social History Tobacco Use Types Packs/Day Years Used Date Smoking Tobacco: Never Assessed Comments Unknown Sex and Gender Information Value Date Recorded Sex Assigned at Not on file Legal Sex Female 3:45 AM PEDIATRIC 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
--- OUTSIDE RECORDS SUMMARY | 2024-08-10 13:28 | XMS_ITS | Encounter Summary ---
Author Organization [facility] Address [address] [place] [address] Care Team Providers Care Foreign Clerk Name Role Phone Jackson Rosa MD Primary Care Provider + Encounter Details Date Type Department Care Team (Latest Contact Info) Description 08/12/2002 Outpatient Historical HIS [facility] GEOFF Cabezas, Cyndee Crespo MD NO ADDRESS ON FILE SCREENING MAMM-MAILG NEOPL-OTHER (Primary Dx) Social History Tobacco Use Types Packs/Day Years Used Date Smoking Tobacco: Never Assessed Comments Unknown Sex and Gender Information Value Date Recorded Sex Assigned at Not on file Legal Sex Female 3:45 AM CROP NUTRITION SCIENTIST Gender Identity Not on file Sexual Orientation Not on file documented as of this encounter Plan of Treatment Not on file documented as of this encounter Visit Diagnoses Diagnosis Other screening mammogram- Primary documented in this encounter Care Teams Foreign Clerk Relationship Specialty Start Date End Date Jackson Rosa MD [address] [place] [address] PCP - General 07/05/09 documented as of this encounter
--- OUTSIDE RECORDS SUMMARY | 2024-08-10 13:28 | XMS_ITS | Encounter Summary ---
Author Organization [facility] Address [facility] [place] [address] Care Team Providers Care It Help Desk Manager Name Role Phone Jackson Rosa MD Primary Care Provider [phone] Gaurang Gonzalez MD Unavailable Unavailab Jeremiah Crowder MD Unavailable [phone] Whit Perez APRN MANAGER HARBOR-C Unavailable [phone] Irma Willams MD Unavailable Efrem Alves MD Unavailable Encounter Details Date Type Department Care Team (Late Contact Info) Description 12/01/2014 Abstract [facility] AT [address] [address] Gaurang Gonzalez MD Social History Tobacco Use Types Packs/Day Years Used Date Smoking Tobacco: Never Alcohol Use Standard Drinks/Week Comments Yes 0 (1 standard drink = 0.6 oz pur e alcohol) Occasionally, Wine. Comments Unknown Sex and Gender Information Value Date Recorded Sex Assigned at Female 05/25/2024 1:26 PM PLUGGER MAN Legal Sex Female 9:00 PM CDT Gender Identity Not on file Sexual Orientation Not on file Occupation Industry Job Start Date Job End Date Retired Not on file Not on file Not on file documented as of this encounter Plan of Treatment Upcoming Encounters Date Type Department Care Team (Late st Contact Info) Description 05/10/2025 8:30 AM PLUGGER MAN Office Visit [facility] [place] [address] Irma Willams MD [address] [place] [address] documented as of this encounter Visit Diagnoses Not on filedocumented in this encounter Additional Health Concerns Infection Onset Date Last Indicated Resolved Time COVID-19 Rule Out 10/10/2019 10/10/2019 10/11/2019 1:50 PM CDT COVID-19 Rule Out 10/31/2019 10/31/2019 11/01/2019 10:23 PM CDT documented as of this encounter Care Teams It Help Desk Manager Relationship Specialty Start Date End Date Jackson Rosa MD [address] [place] [address] PCP - General INTERNAL MEDICINE 04/02/16 Gaurang Gonzalez MD [address] [place] [address] CARDIOVASCULAR DISEASE 04/02/16 05/20/18 Jeremiah Rolon MD [address] [place] [address] [place] Fence Machine Operator CARDIOVASCULAR DISEASE 07/28/18 11/02/23 Whit Perez APRN, MANAGER HARBOR-C [address] [facility] [address] [place] [address] NURSE PRACTITIONER 02/17/19 12/05/23 Irma Willams MD [address] [place] [address] Consulting Physician CARDIOVASCULAR DISEASE 11/03/23 Efrem Alves MD [address] [place] [address] Vascular/Fence Machine Operator INTERNAL MEDICINE 12/17/23 documented as of this encounter
--- OUTSIDE RECORDS SUMMARY | 2024-08-10 13:28 | XMS_ITS | Encounter Summary ---
Author Organization [facility] Address [address] [place] [address] Care Team Providers Care Warehouse Delivery Manager Name Role Phone Jackson Rosa MD Primary Care Provider + Encounter Details Date Type Department Care Team (Latest Contact Info) Description 09/07/1998 Outpatient Historical HIS [facility] GEOFF Cabezas, Cyndee Crespo MD NO ADDRESS ON FILE Personal history of malignant neoplasm of breast (Primary Dx) Social History Tobacco Use Types Packs/Day Years Used Date Smoking Tobacco: Never Assessed Comments Unknown Sex and Gender Information Value Date Recorded Sex Assigned at Not on file Legal Sex Female 3:45 AM SHELL PLATER Gender Identity Not on file Sexual Orientation Not on file documented as of this encounter Plan of Treatment Not on file documented as of this encounter Visit Diagnoses Diagnosis Personal history of malignant neoplasm of breast- Primary documented in this encounter Care Teams Warehouse Delivery Manager Relationship Specialty Start Date End Date Jackson Rosa MD [address] [place] [address] PCP - General 07/05/09 documented as of this encounter
--- OUTSIDE RECORDS SUMMARY | 2024-08-10 13:28 | XMS_ITS | Continuity of Care Document ---
Author Organization [facility] Address [address] [place] [address] Phone Care Team Providers Care Braille Proofreader Name Role Phone Elaine KLEIN, Cinthya Unavailable Unavailable Advance Directives Directive Yes / No Effective Date File Name No Information Encounters Encounter Description Practice Location Reason(s) For Visit Diagnoses Date Provider Providers Copied on Encounter [facility], [address], [place], [place], [id number], [place] tel:[phone] [facility] No Information Elaine Mendes. [address] [facility], [facility] [place], [place], [id number] , [place]. tel:[phone] [employer] [facility], [address], [place], [place], [id number], [place] tel:[phone] [facility] Dilation of biliary tract Azra Hung. [address], [place], [address], [place]. tel:[phone] Family History Family Member Type Diagnosis Age At Onset No Information Payers Payer name Insurance type Covered constitution party ID Authoriza tion(s) No Information Social [...]
--- OUTSIDE RECORDS SUMMARY | 2024-08-10 13:28 | XMS_ITS | Referral Summary ---
Author Organization [facility] Address [address] [place] [address] Care Team Providers Care Infrastructure Project Manager Name Role Phone Jackson Rosa MD Primary Care Provider + [phone] Allergies Active Allergy Reactions Criticality Noted Date [...] 07/04/2021 Assessment & Plan (07/04/2021 11:03 AM CUSTOMER RESPONSE REPRESENTATIVE): I explained to the patient how subclinical [...] on file Legal Sex Female 12:56 AM CUSTOMER RESPONSE REPRESENTATIVE Gender Identity Female 10/06/2019 1:08 PM CDT [...] lb 3.2 oz) 05/15/2023 3:06 P M CUSTOMER RESPONSE REPRESENTATIVE Height 157.5 cm (5' 2 ) 05/15/2023 3:06 PM CUSTOMER RESPONSE REPRESENTATIVE Body Mass Index 27.11 05/15/2023 3:06 PM CUSTOMER RESPONSE REPRESENTATIVE Plan of Treatment Not on file Medical Devices Implanted Type Area Railroad Signal And Switch Operator Device Identifier Shelf Expiration Date Model [...] 11:[address] [facility] Patient Name: Zulma Carnes Procedure Date: 12/04/2017 11:53 AM Date of : 1945 Admit Type: Outpatient Age: 72 Gender: Female Attending MD: Dwayne Chan MD Room: [facility] ENDOSCOPY ROOM 2 Note Status: Finalized [...] passed under direct vision.The Pediatric Colonoscope PCF-H190L [id number] was introduced through the anus and advanced [...] perforation orabscess without bleeding CPT copyright 2017 [employer]. All rights reserved. The codes documented in this report are preliminary and upon erp manager reviewmay be revised to meet current compliance requirements. Recognized by the [place] [employer] for Gastro[employer] for promoting quality in endoscopy Dwayne Chan MD ENDOSCOPY PROCEDURES Final Result from Last 3 Months or Most Recently Relevant to Health Maintenance Insurance MEDICARE [employer] MEDICARE MEDICARE FOR LIFE Advance Directives For more information, please contact: [phone] * Full Code (Latest Code Status on File) Date Activated Date Inactivated Comments 12/04/2017 11:05 AM 12/04/2017 3:39 PM Care Teams Infrastructure Project Manager Relationship Specialty Start Date End Date Jackson Rosa MD [address] [place] [address] PCP - General 07/04/16
--- OUTSIDE RECORDS SUMMARY | 2024-08-10 13:28 | XMS_ITS | Encounter Summary ---
Author Organization [facility] Address [address] [place] [address] Care Team Providers Care Charge Poster Name Role Phone Jackson Rosa MD Primary Care Provider + Encounter Details Date Type Department Care Team (Latest Contact Info) Description 09/03/2000 Outpatient Historical HIS [facility] Cabezas, Cyndee Crespo MD NO ADDRESS ON FILE Personal history of malignant neoplasm of breast (Primary Dx) Social History Tobacco Use Types Packs/Day Years Used Date Smoking Tobacco: Never Assessed Comments Unknown Sex and Gender Information Value Date Recorded Sex Assigned at Not on file Legal Sex Female 3:45 AM TWINE WINDER Gender Identity Not on file Sexual Orientation Not on file documented as of this encounter Plan of Treatment Not on file documented as of this encounter Visit Diagnoses Diagnosis Personal history of malignant neoplasm of breast- Primary documented in this encounter Care Teams Charge Poster Relationship Specialty Start Date End Date Jackson Rosa MD [address] [place] [phone] PCP - General 07/05/09 documented as of this encounter
--- OUTSIDE RECORDS SUMMARY | 2024-08-10 13:28 | XMS_ITS | Encounter Summary ---
Author Organization [facility] Address [address] [place] [address] Care Team Providers Care Truck Switcher Name Role Phone Jackson Rosa MD Primary Care Provider + Encounter Details Date Type Department Care Team (Latest Contact Info) Description 03/04/2007 Outpatient Historical HIS [facility] Cabezas, Cyndee Crespo MD NO ADDRESS ON FILE Screening Mammogram for High-Risk Patient (Primary Dx) Social History Tobacco Use Types Packs/Day Years Used Date Smoking Tobacco: Never Assessed Comments Unknown Sex and Gender Information Value Date Recorded Sex Assigned at Not on file Legal Sex Female 3:45 AM REVIEW MANAGER Gender Identity Not on file Sexual Orientation Not on file documented as of this encounter Plan of Treatment Not on file documented as of this encounter Visit Diagnoses Diagnosis Screening mammogram for high-risk patient- Primary documented in this encounter Care Teams Truck Switcher Relationship Specialty Start Date End Date Jackson Rosa MD [address] [place] [address] PCP - General 07/05/09 documented as of this encounter
--- OUTSIDE RECORDS SUMMARY | 2024-08-10 13:28 | XMS_ITS | Encounter Summary ---
Author Organization [facility] Address [address] [place] [address] Care Team Providers Care Spring Coiler Name Role Phone Jackson Rosa MD Primary [...] on file Legal Sex Female 3:45 AM WRAPPING MACHINE HELPER Gender Identity Not on file Sexual Orientation Not on file documented as of this encounter Plan of Treatment Not on file documented as of this encounter Visit Diagnoses Diagnosis Follow-up examination, following other surgery- Primary documented in this encounter Care Teams Spring Coiler Relationship Specialty Start Date End Date Jackson Rosa MD [address] [place] [phone] PCP - General 07/05/09 documented as of this encounter
--- OUTSIDE RECORDS SUMMARY | 2024-08-10 13:28 | XMS_ITS | Clinical Summary ---
Author Organization [facility] Address [address] [place] [address] Care Team Providers Care Instrument And Electrical Technician Name Role Phone Jackson Rosa MD Primary Care Provider [phone] Irma Agustin MD Unavailable Efrem Alves MD Unavailable Allergies Active Allergy Reactions Criticality Noted Date Comments Ibandronate Palpitations Low 12/04/2017 Indomethacin Syncope 02/17/2019 Sulfa [...] Rhinitis, Seasonal Allergy 1 tablet daily 02/12/20 Active pravastatin 10 MG tabletIndication s:Hypercholester olemia Take 1 tablet (10 mg total) by mouth daily. Indications: High Amount of Cholesterol in the Blood 1 tablet daily 02/12/20 19 Active valACYclovir 500 MG tabletIndication s:herpes virus Take 1 tablet (500 mg total) by mouth daily. Indications: herpes virus 02/12/20 Active Potassium 99 MG tablet Take 1 [...] total) by mouth daily. 09/28/19 21 Active escitalopram (LEXAPRO) 10 MG tablet Take 0.5 tablets (5 mg total) by mouth daily. 05/18/19 23 Active COMPRESSION STOCKINGS, DME,Indications: Varicose veins of bilateral lower extremities with other complications,PV D (peripheral vascular disease),Chronic venous insufficiency Thigh high compression stockings. 20-30 mmHg, will be placed on you post procedure. Then follow post procedure directions. 1 Package 4 11/01/19 24 Active albuterol sulfate HFA 108 (90 Base) MCG/ACT inhaler Inhale 2 puffs into the lungs every 4 (four) hours as needed. 11/21/19 24 Active Active Problems Problem Noted Date Diagnosed [...] GERD (gastroesophageal reflux disease) Cataract Breast cancer ([facility]/HCC HHS/HCC) Bleeding Overview (09/05/2018): : History of bleeding, 1yr ago lower GI bleed colonoscopy negative, 5-6 yrs stomach ulcer tamoxifen side effect. Anemia Encounters Date Type Department Care Team Description 06/22/2024 XIHA Message Enc [facility] [address] [place] [address] [facility] Provider Echo results 06/16/2024 12:55 PM WET PLANT OPERATOR - 06/16/2024 11:59 PM WET PLANT OPERATOR Hospital Encounter [facility] [address] [place] [address] Irma Agustin MD Discharge Disposition: Home or Self Care (Routine Discharge) 06/16/2024 Travel 06/03/2024 1:00 PM WET PLANT OPERATOR Office Visit [place] [facility] [address] [place] [address] Efrem Alves MD Follow Up (4 month follow up - improved.) 06/03/2024 Travel 05/25/2024 2:00 PM WET PLANT OPERATOR Office Visit [facility] [address] [place] [address] Irma Agustin MD Heart Problem 05/25/2024 1:27 PM WET PLANT OPERATOR - 05/25/2024 11:59 PM WET PLANT OPERATOR Hospital Encounter [facility] [address] [place] [address] Irma Agustin MD Discharge Disposition: Home or Self Care (Routine Discharge) 05/25/2024 Travel 05/22/2024 Telephone [place] [facility] [address] [place] [address] Irma Agustin MD Appointment Reminder 05/20/2024 Orders Only [facility] [address] [place] [address] Irma Agustin MD from Last 3 Months [...] Sex Assigned at Female 05/25/2024 1:26 PM WET PLANT OPERATOR Legal Sex Female 9:00 PM CDT Gender Identity Not on file Sexual Orientation Not on file Occupation Industry Job Start Date Job End Date Retired Not on file Not on file Not on file Last Filed Vital Signs Vital Sign Reading Time Taken Comments Blood Pressure 138/72 06/03/2024 12:50 PM WET PLANT OPERATOR Pulse 69 06/03/2024 12:50 PM WET PLANT OPERATOR Temperature 36.1 C (97 F) 11/03/2019 12:30 PM CDT Respiratory Rate 16 06/03/2024 12:5 0 PM WET PLANT OPERATOR Oxygen Saturation 94% 06/03/2024 12: 50 PM WET PLANT OPERATOR Inhaled Oxygen Concentration - - Weight 63.4 kg (139 lb 12.8 oz) 025 12:50 PM WET PLANT OPERATOR Height 156.2 cm (5' 1.5 ) 06/03/2024 12 :50 PM WET PLANT OPERATOR Body Mass Index 25.99 06/03/2024 12:50 PM WET PLANT OPERATOR Plan of Treatment Upcoming Encounters Date Type Department Care Team (Late st Contact Info) Description 05/10/2025 8:30 AM WET PLANT OPERATOR Office Visit [facility] [place] [address] Irma Agustin MD [address] [place], [place] [id number] Health Maintenance Due Date Last Done Comments ASCVD Statin 1945 Hepatitis C 1963 Zoster Vaccines (1 of 2) 1996 DTaP, Tdap and Td Vaccines (1 - Tdap) 12/02/1999 12/01/1999 Annual Medicare Wellness Visit 09/14/2011 ASCVD LDL 06/27/2014 06/27/2013 Pneumococcal Vaccine: 50+ Years (2 of 2 - PPSV23 or PCV20) 11/02/2020 09/07/2020 RSV Immunization or 60+ Years (1 - 1-dose 75+ series) 2021 COVID-19 Vaccine (5 - season) 2023 01/31/2022, 05/03/2021, 08/30/2020, Additional history exists Dexa Scan (General) Completed [...] this topic Medical Devices Implanted Type Area Facilities Plant Engineer Device Identifier Shelf Expiration Date Model / Serial / Lot Knee Components Knee Components Description:Right knee Knee Components Knee Components Description:Rt knee Iol Augustus [id number] - [id number] Implanted:Qty: 1 on 10/13/2019 by Stephane Samson MD at [facility] Lens Left: Eye [employer] 01/27/2024 [id number] / [id number] / N/A Description:Implant verified by [employer]ol [employer] Li61ao - [id number] Implanted:Qty: 1 on 11/03/2019 by Stephane Samson MD at [facility] Lens Right: Eye [employer] 08/27/2023 [id number] / [id number] Description:Lens verified pe r surgeon and chart Procedures Procedure Name Priority Date/Time Associated Diagnosis Comments USE ECHOCARDIOGRAM Routine 06/16/2024 1: 39 PM WET PLANT OPERATOR Murmur ECG 12-LEAD Routine 05/25/2024 1:42 PM WET PLANT OPERATOR Coronary artery disease involving [place] coronary artery of [place] heart, unspecified whether angina present LIPID PANEL Routine 06/27/2013 12:00 AM WET PLANT OPERATOR from Last 3 Months or Most Recently Relevant to Health Maintenance Results * USE ECHOCARDIOGRAM (06/16/2024 1:39 PM WET PLANT OPERATOR) Anatomical Region Laterality Modality Cardiac Ultrasound 06/16/2024 1:03 PM WET PLANT OPERATOR Narrative 06/21/2024 1:31 PM WET PLANT OPERATOR Echocardiography Report Pat.Name: Zulma Carnes Pat.ID: [id number] .Date: 06/16/2024 Refer.MD: [facility] Exam Time: 1:03:00 PM Study Type:[facility] Height: 61 in Weight: 139 lb BSA: 1.62 m2 Age: 6 1945,78Y Sex: F Sonogrphr: Am Pat. Stat.:Outpatient Reason for Study:Murmur Procedures: Study performed at [place], [place] and interpreted by [facility]. 2D, M-mode, Doppler, Color Flow ++++++++++++++++++++++++++++++++++++ SUMMARY: ++++++++++++++++++++++++++++++++++++ The left ventricular size is normal. Estimated left ventricular ejection fraction is 60-65%. Left ventricular diastolic function is abnormal (grade 1 - impaired relaxation). The right ventricle size is normal. The right ventricular function is normal. Trace mitral regurgitation. Calcified posterior mitral annulus. There is trace tricuspid regurgitation. ++++++++++++++++++++++++++++++++++++ FINDINGS: ++++++++++++++++++++++++++++++++++++ LV: The left ventricular size is normal. The left ventricular systolic function is normal. Estimated left ventricular ejection fraction is 60-65%. Left ventricular diastolic function is abnormal (grade 1 - impaired relaxation). RV: The right ventricle size is normal. The right ventricular function is normal. LA: Left atrial size is normal. RA: The right atrial size is normal. MEGHAN: No evidence of pericardial effusion. AO: Aorta is normal. SVn: Inferior vena cava is normal. AV: The aortic valve is trileaflet. There is no aortic stenosis. There is no evidence of aortic regurgitation. MV: Structurally normal mitral valve. Trace mitral regurgitation. Calcified posterior mitral annulus. PV: The pulmonic valve is normal There is trace pulmonic regurgitation TV: The tricuspid valve appears structurally normal. There is trace tricuspid regurgitation. <Electronic Signature> 06/21/2024 01:31 PM Irma Agustin M.D. Procedure Note Irma Agustin MD - 06/21/2024 Echocardiography Report Pat.Name: Zulma Carnes [facility].ID: [id number] .Date: 06/16/2024 Refer.MD: [facility] Exam Time: 1:03:00 PM Study Type:[facility] Height: 61 in Weight: 139 lb BSA: 1.62 m2 Age: 6 1945,78Y Sex: F Sonogrphr: Am Pat. Stat.:Outpatient Reason for Study:Murmur Procedures: Study performed at [place], [place] and interpreted by [facility]. 2D, M-mode, Doppler, Color Flow ++++++++++++++++++++++++++++++++++++ SUMMARY: ++++++++++++++++++++++++++++++++++++ The left ventricular size is normal. Estimated left ventricular ejection fraction is 60-65%. Left ventricular diastolic function is abnormal (grade 1 - impaired relaxation). The right ventricle size is normal. The right ventricular function is normal. Trace mitral regurgitation. Calcified posterior mitral annulus. There is trace tricuspid regurgitation. ++++++++++++++++++++++++++++++++++++ FINDINGS: ++++++++++++++++++++++++++++++++++++ LV: The left ventricular size is normal. The left ventricular systolic function is normal. Estimated left ventricular ejection fraction is 60-65%. Left ventricular diastolic function is abnormal (grade 1 - impaired relaxation). RV: The right ventricle size is normal. The right ventricular function is normal. LA: Left atrial size is normal. RA: The right atrial size is normal. MEGHAN: No evidence of pericardial effusion. AO: Aorta is normal. SVn: Inferior vena cava is normal. AV: The aortic valve is trileaflet. There is no aortic stenosis. There is no evidence of aortic regurgitation. MV: Structurally normal mitral valve. Trace mitral regurgitation. Calcified posterior mitral annulus. PV: The pulmonic valve is normal There is trace pulmonic regurgitation TV: The tricuspid valve appears structurally normal. There is trace tricuspid regurgitation. <Electronic Signature> 06/21/2024 01:31 PM Irma Agustin M.D. us Irma Agustin MD ECHO Final Result * ECG 12 lead (HOSPITAL PERFORMED ONLY) (05/25/2024 1:42 PM WET PLANT OPERATOR) 05/25/2024 1:42 PM WET PLANT OPERATOR Narrative [facility] RAD - 05/26/2024 6:18 AM WET PLANT OPERATOR [address] [place] [address] Test Date: 2024-05-25 Pat Name: ZULMA CARNES Department: 3 Room: Gender: Female Manager Gyn: : 1945 Requested By: IRMA AGUSTIN Order Number: [id number] Reading MD: Irma Agustin Measurements Intervals [place] Rate: 80 P: 73 NH: 120 QRS: 64 QRSD: 88 T: 56 QT: 351 QTc: 406 Interpretive Statements SINUS RHYTHM MODERATE ST DEPRESSION PLANT OPERATOR Procedure Note Irma Agustin MD - 05/26/[address] [place] [address] Test Date: 2024-05-25 Pat Name: ZULMA MONICA Department: 3 Room: Gender: Female Manager Gyn: : 1945 Requested By: IRMA AGUSTIN Order Number: [id number] Reading MD: Irma Agustin Measurements Intervals [place] Rate: 80 P: 73 NH: 120 QRS: 64 QRSD: 88 T: 56 QT: 351 QTc: 406 Interpretive Statements SINUS RHYTHM MODERATE ST DEPRESSION PLANT OPERATOR us Irma Agustin MD ECG ORDERABLES Final Result Performing Organization Address City/[facility] Co de Phone Number [facility] * LIPID PANEL (06/27/2013 12:00 AM WET PLANT OPERATOR) TRIGLYCERIDES 78 0 - 150 mg/dl MEDINFORMATIX [...] Conversion Md [facility] Final R esult Performing Organization Address City/[facility]/ZIP Co de Phone Number MEDINFORMATIX TO EPIC CONVERSION from Last 3 Months or Most Recently Relevant to Health Maintenance [place] [address] [place] [address] MEDICARE MEDICARE [facility] Care Teams Instrument And Electrical Technician Relationship Specialty Start Date End Date Jackson Rosa MD [address] [place] [phone] PCP - General INTERNAL MEDICINE 04/02/16 Irma Agustin MD [address] [place] [address] Consulting Physician CARDIOVASCULAR DISEASE 11/03/23 Efrem Alves MD [address] [place] [address] Vascular/Cnmt INTERNAL MEDICINE 12/17/23
--- OUTSIDE RECORDS SUMMARY | 2024-08-10 13:28 | XMS_ITS ---
Author Organization [facility] Address [address] [place] [address] Care Team Providers Care Ticket Seller Name Role Phone Jackson Rosa MD Primary Care Provider + [phone] Active Problems Problem Noted Date Diagnosed Date [...] 07/04/2021 Assessment & Plan (07/04/2021 11:03 AM ENVIRONMENTAL TECHNICIAN): I explained to the patient how subclinical [...] History of breast cancer 01/29/2012 023 Current Treatment and Therapy Plans No current plan information found. Past Treatment and Therapy Plans No past plan information found. Lifetime Dose Tracking * Chemical Lifetime Dose Automatic Entry Manual Entr y DLP 432 mGycm 432 mGycm 0 mGycm
--- OUTSIDE RECORDS SUMMARY | 2024-08-10 13:28 | XMS_ITS | Clinical Summary ---
Author Organization [facility] Address [address] [place] [address] Care Team Providers Care Freight Elevator Operator Name Role Phone Jackson Rosa MD [...] BI-FLEX ORAL) Take by mouth. Active Coenzyme C67-Eyavtsr E (COQ10 SG 100) 100-100 mg-unit Oral [...] on file Legal Sex Female 3:45 AM MACHINE STAPLER Gender Identity Not on file Sexual Orientation Not on file Last Filed Vital Signs Vital Sign Reading Time Taken Comments Blood Pressure 122/58 04/18/2016 9:52 AM MACHINE STAPLER Pulse 61 04/18/2016 9:52 AM MACHINE STAPLER Temperature - - Respiratory Rate - - Oxygen Saturation - - Inhaled Oxygen Concentration - - Weight 68.9 kg (152 lb) 04/18/2016 9:52 AM MACHINE STAPLER Height 157.5 cm (5' 2 ) 04/18/2016 9:52 AM MACHINE STAPLER Body Mass Index 27.8 04/18/2016 9:52 AM MACHINE STAPLER Plan of Treatment Health Maintenance Due Date Last Done Comments DTAP/TDAP/TD VACCINES (1 - Tdap) 1965 PNEUMOCOCCAL VACCINE 50+ YEARS (1 of 2 - PCV) 09/13/18 [...] Maintenance Insurance MEDICARE PART A AND [place] [address] Care Teams Freight Elevator Operator Relationship Specialty Start Date End Date Jackson Rosa MD [address] [place] [address] PCP - General 07/05/09
--- OUTSIDE RECORDS SUMMARY | 2024-08-10 13:28 | XMS_ITS | Encounter Summary ---
Author Organization [facility] Address [address] [place] [address] Care Team Providers Care Rope Cutter Name Role Phone Jackson Rosa MD Primary Care Provider + Encounter Details Date Type Department Care Team (Latest Contact Info) Description 07/12/2004 Outpatient Historical HIS [facility] Cabezas, Cyndee Crespo MD NO ADDRESS ON FILE SCREENING MAMM-MALIG NEOPL-HI RISK (Primary Dx) Social History Tobacco Use Types Packs/Day Years Used Date Smoking Tobacco: Never Assessed Comments Unknown Sex and Gender Information Value Date Recorded Sex Assigned at Not on file Legal Sex Female 3:45 AM COMBINING MACHINE OPERATOR Gender Identity Not on file Sexual Orientation Not on file documented as of this encounter Plan of Treatment Not on file documented as of this encounter Visit Diagnoses Diagnosis Screening mammogram for high-risk patient- Primary documented in this encounter Care Teams Rope Cutter Relationship Specialty Start Date End Date Jackson Rosa MD [address] [place] [address] PCP - General 07/05/09 documented as of this encounter
--- OUTSIDE RECORDS SUMMARY | 2024-08-10 13:28 | XMS_ITS | Encounter Summary ---
Author Organization [facility] Address [address] [place] [address] Care Team Providers Care Invasive Manager Name Role Phone Jackson Rosa MD Primary Care Provider + Encounter Details Date Type Department Care Team (Latest Contact Info) Description 01/29/2006 Outpatient Historical HIS [facility] Cabezas, Cyndee Crespo MD NO ADDRESS ON FILE Other Follow-Up Examination (Primary Dx) Social History Tobacco Use Types Packs/Day Years Used Date Smoking Tobacco: Never Assessed Comments Unknown Sex and Gender Information Value Date Recorded Sex Assigned at Not on file Legal Sex Female 3:45 AM CLINICAL PROJECT ASSISTANT Gender Identity Not on file Sexual Orientation Not on file documented as of this encounter Plan of Treatment Not on file documented as of this encounter Visit Diagnoses Diagnosis Other follow-up examination(V67.59)- Primary Other follow-up examination documented in this encounter Care Teams Invasive Manager Relationship Specialty Start Date End Date Jackson Rosa MD [address] [place] [address] PCP - General 07/05/09 documented as of this encounter
--- OUTSIDE RECORDS SUMMARY | 2024-08-10 13:28 | XMS_ITS | Clinical Summary ---
Author Organization [facility] Address [address] [place] [address] Care Team Providers Care Receptionist Airline Lounge Name Role Phone Jackson Rosa MD Primary Care Provider [phone] Sammie Fox RN Unavailable [phone] Deyanira Daigle NURSERY TECHNICIAN Unavailable Luis Carlos Rivas MD Unavailable [phone] Source Comments [facility],non-owned Affiliates and Associated Physician Practices is amultiple site organization consisting of ambulatory clinics and hospital sitesin [place], [place], [place] and [place]. This disclosure is being madepursuant to the Care Everywhere program and may not contain all information available regarding this patient. Last updated 18.[facility] Allergies Active Allergy Reactions Criticality Noted Date Comments Sulfa Drugs Rash Low 08/10/2014 Medications * Be aware that medications may not be up to date on this document. Alwaysverify current medications with the patient. atenolol (TENORMIN) 25 MG tablet Take 25 [...] Active Problems No known active problems Immunizations Immunization Administration Dates Next Due Parenthoods primary monoval ent 12+ yr 0.3mL Purple [...] = 0.6 oz pur e alcohol) Comments No Sex and Gender Information Value Date Recorded Sex Assigned at Female 05/03/2021 6:03 PM MANAGER OFFICE SERVICES Legal Sex Female 9:20 AM MANAGER OFFICE SERVICES Gender Identity Female 05/03/2021 6:03 PM MANAGER OFFICE SERVICES Sexual Orientation Straight 05/03/2021 6: 03 PM MANAGER OFFICE SERVICES Last Filed Vital Signs Vital Sign Reading Time Taken Comments Blood Pressure 132/78 06/21/2016 8:16 AM MANAGER OFFICE SERVICES Pulse 55 06/21/2016 8:16 AM MANAGER OFFICE SERVICES Temperature 36.7 C (98.1 F) 08/13/2014 11:27 [...] ( - season) 2023 05/03/2021, 08/30/2020, 08/02/2020 DEPRESSION SCREENING 04/29/2024 INFLUENZA VACCINE (Season Ended) 2024 01/26/2021, 03/12/2019, 01/28/2018, Additional history exists HEPATITIS B VACCINE Aged Out No longe r eligible based on patient's age to complete this topic HIB VACCINE Aged Out No longer eligi ble based on patient's age to complete this topic HPV VACCINE Aged Out No longer eligi ble based on patient's age to complete this topic MENINGOCOCCAL (Group B) VACCINE SHARED DECISION-MAKING Aged Out No longer eligible based on patient's age to complete this topic MENINGOCOCCAL GROUPS A/C/Y/W VACCINE Aged Out No longer eligible based on patient's age to complete this topic Medical Devices Implanted Type Area Banquet Server On Call Device Identifier Shelf Expiration Date Model / Serial / Lot Nexgen Complete Knee Solution Cruciate Retaining Trabecular Metal Monoblock Tibial Component Tibial Size 3, Femoral Size C-H, 10mm Height Implanted:Qty: 1 on 08/10/2014 by Angel Luis Villegas MD at [facility] Right: Knee [employer] 01/27/2019 [id number] Nexgen Complete Knee Solution Cruciate Retaining Cr-Flex Femoral Component Porous Size D, Right Implanted:Qty: 1 on 08/10/2014 by Angel Luis Villegas MD at [facility] Right: Knee [employer] 11/28/2023 / / [id number] Bill Only Basic Derrick Excludes Agc Kn Implanted:Qty: 1 on 08/10/2014 by Angel Luis Villegas MD at [facility] [employer] BILL ONLY BASIC DERRICK EXCLUDES AGC KN ZIMM / / Bill Only Tb Upchrg Implanted:Qty: 1 on 08/10/2014 by Angel Luis Villegas MD at [facility] [employer] UPCHRG MELY BILL ONLY TB / / Insurance MEDICARE Member Subscriber Plan / Payer (Ef fective 2011-Present) Name:Zulma Carnes Member ID:[id number] Relation to Subscriber:Self Name:Zulma Carnes Subscriber ID:[id number] Payer ID:Not on file Group ID:Not on file Type:Medicare Address: [place] [id number] MEDICARE Member Subscriber Plan / Payer (Ef fective for All Dates) Name:Zulma Carnes Member ID:[id number] Relation to Subscriber:Self Name:Zulma Carnes Subscriber ID:[id number] Payer ID:Not on file Group ID:Not on file Type:Medicare Address: [place] [id number] MEDICARE Care Teams Receptionist Airline Lounge Relationship Specialty Start Date End Date Jackson Rosa MD PCP - General Internal Medicine 05/18/14 Sammie Fox, KAROLINE Commercial Baking Teacher 08/10/14 Deyanira Daigle, [facility] Mechanical Engineer 08/12/14 [place] [id number] [id number] Orthopedic Surgery 09/03/16
--- OUTSIDE RECORDS SUMMARY | 2024-08-10 13:28 | XMS_ITS | Encounter Summary ---
Author Organization [facility] Address [address] [place] [address] Care Team Providers Care Analytics Senior Manager Name Role Phone Jackson Rosa MD Primary Care Provider + Encounter Details Date Type Department Care Team (Latest Contact Info) Description 01/24/1999 Outpatient Historical HIS [facility] Cabezas, Cyndee Crespo MD NO ADDRESS ON FILE Other screening mammogram (Primary Dx) Social History Tobacco Use Types Packs/Day Years Used Date Smoking Tobacco: Never Assessed Comments Unknown Sex and Gender Information Value Date Recorded Sex Assigned at Not on file Legal Sex Female 3:45 AM CERAMIC DESIGN ENGINEER Gender Identity Not on file Sexual Orientation Not on file documented as of this encounter Plan of Treatment Not on file documented as of this encounter Visit Diagnoses Diagnosis Other screening mammogram- Primary documented in this encounter Care Teams Analytics Senior Manager Relationship Specialty Start Date End Date Jackson Rosa MD [address] [place] [phone] PCP - General 07/05/09 documented as of this encounter
== END 2024-08-10 12:15 | disposition home or self-care (01) ==
PROVIDERS: PCP Internal Medicine; Visit Provider Internal Medicine
DX: Z12.31 Encounter for screening mammogram for malignant neoplasm of breast (principal); R92.8 Other abnormal and inconclusive findings on diagnostic imaging of breast
CPT/HCPCS: 77063; 77067

== ENCOUNTER 2024-08-27 08:59 | Outpatient (CLI) | payer MEDICARE, OTHER, SELFPAY ==
--- NOTE | ~2024-08-27 | MMUS_ITS ---
EXAMINATION: MM diagnostic brandt RT w ravinder, US breast RT limited HISTORY: Follow-up right breast asymmetry TECHNIQUE: Additional 3-D tomosynthesis images of the right breast were performed and synthetic 2-D i mages were generated. CAD analysis was submitted and interpreted. High resolution Limited right breas t ultrasound was performed. COMPARISON: Comparison to multiple prior studies sequentially, with oldest reviewed study dated 03/29. BREAST PARENCHYMAL COMPOSITION: Dense: The breasts are heterogeneously dense, which may obscure small masses FINDINGS: MAMMOGRAPHIC FINDINGS: Focal asymmetry laterally in the right breast is less apparent with spot compression views, consisten t with superimposed fibroglandular tissue. No discrete mass identified. There are no suspicious calci fications or architectural distortion. ULTRASOUND: Limited right breast ultrasound: Normal heterogeneous echotexture without focal solid or cystic mass. IMPRESSION: 1. No evidence for malignancy in the right breast. 2. Routine yearly screening mammogram and regular clinical breast examination are recommended. BI-RADS Category 1: Negative Reviewed, dictated and finalized at location A. IMPRESSION: 1. No evidence for malignancy in the right breast. 2. Routine yearly screening mammogram and regular clinical breast examination a re recommended. BI-RADS Category 1: Negative
--- OUTSIDE RECORDS SUMMARY | 2024-08-27 09:19 | XMS_ITS | Encounter Summary ---
Author Organization [facility] Address [address] [place] [address] Care Team Providers Care Electrical Assembly Supervisor Name Role Phone Jackson Rosa MD Primary Care Provider + Encounter Details Date Type Department Care Team (Latest Contact Info) Description 10/13/2003 Outpatient Historical HIS [facility] Cabezas, Cyndee Crespo MD NO ADDRESS ON FILE SCREENING MAMM-MAILG NEOPL-OTHER (Primary Dx) Social History Tobacco Use Types Packs/Day Years Used Date Smoking Tobacco: Never Assessed Comments Unknown Sex and Gender Information Value Date Recorded Sex Assigned at Not on file Legal Sex Female 3:45 AM NET APPLICATIONS DEVELOPER Gender Identity Not on file Sexual Orientation Not on file documented as of this encounter Plan of Treatment Not on file documented as of this encounter Visit Diagnoses Diagnosis Other screening mammogram- Primary documented in this encounter Care Teams Electrical Assembly Supervisor Relationship Specialty Start Date End Date Jackson Rosa MD [address] [place] [phone] PCP - General 07/05/09 documented as of this encounter
--- OUTSIDE RECORDS SUMMARY | 2024-08-27 09:19 | XMS_ITS | Clinical Summary ---
Author Organization [facility] Address [address] [place] [address] Care Team Providers Care Supervisor Silvering Department Name Role Phone Jackson Rosa MD Primary Care Provider Sammie Fox RN Unavailable Deyanira Daigle PUBLIC HEALTH SANITARIAN TECHNICIAN Unavailable [phone] Luis Carlos Rivas MD Unavailable [phone] Source Comments [facility],non-owned Affiliates and Associated Physician Practices is amultiple site organization consisting of ambulatory clinics and hospital sitesin [place], [place], [place] and [place]. This disclosure is being madepursuant to the Care Everywhere program and may not contain all information available regarding this patient. Last updated 18.[facility] Allergies Active Allergy Reactions Criticality Noted [...] problems Immunizations Immunization Administration Dates Next Due Ankota primary monoval ent 12+ yr 0.3mL Purple [...] Sex Assigned at Female 05/03/2021 6:03 PM DRYWALL TAPER Legal Sex Female 9:20 AM DRYWALL TAPER Gender Identity Female 05/03/2021 6:03 PM DRYWALL TAPER Sexual Orientation Straight 05/03/2021 6: 03 PM DRYWALL TAPER Last Filed Vital Signs Vital Sign Reading Time Taken Comments Blood Pressure 132/78 06/21/2016 8:16 AM DRYWALL TAPER Pulse 55 06/21/2016 8:16 AM DRYWALL TAPER Temperature 36.7 C (98.1 F) 08/13/2014 11:27 [...] this topic Medical Devices Implanted Type Area Knife Grinder Device Identifier Shelf Expiration Date Model / Serial / Lot Nexgen Complete Knee Solution Cruciate Retaining Trabecular Metal Monoblock Tibial Component Tibial Size 3, Femoral Size C-H, 10mm Height Implanted:Qty: 1 on 08/10/2014 by Angel Luis Villegas MD at [facility] Right: Knee [employer] 01/27/2019 [id number] Nexgen Complete Knee Solution Cruciate Retaining Cr-Flex Femoral Component Porous Size D, Right Implanted:Qty: 1 on 08/10/2014 by Angel Luis Villegas MD at [facility] Right: Knee [employer] 11/28/2023 / / [id number] Bill Only Basic Derrick Excludes Agc Kn Implanted:Qty: 1 on 08/10/2014 by Angel Luis Villegas MD at [facility] [employer] BILL ONLY BASIC DERRICK EXCLUDES AGC KN ZIMM / / Bill Only Tb Upchrg Implanted:Qty: 1 on 08/10/2014 by Angel Luis Villegas MD at [facility] [employer] UPCHRG MELY BILL ONLY TB / / Insurance MEDICARE Member Subscriber Plan / Payer (Ef fective 2011-Present) Name:Zulma Carnes Member ID:[id number] Relation to Subscriber:Self Name:Zulma Carnes Subscriber ID:[id number] Payer ID:Not on file Group ID:Not on file Type:Medicare Address: [place] [phone] MEDICARE Member Subscriber Plan / Payer (Ef fective for All Dates) Name:Zulma Carnes Member ID:[id number] Relation to Subscriber:Self Name:Zulma Carnes Subscriber ID:[id number] Payer ID:Not on file Group ID:Not on file Type:Medicare Address: [place] [id number] MEDICARE Care Teams Supervisor Silvering Department Relationship Specialty Start Date End Date Jackson Rosa MD PCP - General Internal Medicine 05/18/14 Sammie Fox, KAROLINE Optical Element Coater 08/10/14 Deyanira Daigle, [facility] Director Non Profit 08/12/14 [place] [id number] [id number] Orthopedic Surgery 09/03/16
--- OUTSIDE RECORDS SUMMARY | 2024-08-27 09:19 | XMS_ITS | Encounter Summary ---
Author Organization [facility] Address [address] [place] [address] Care Team Providers Care Pediatric Intensive Physician Name Role Phone Jackson Rosa MD Primary Care Provider + Encounter Details Date Type Department Care Team (Latest Contact Info) Description 01/24/1999 Outpatient Historical HIS [facility] Cabezas, Cyndee Crespo MD NO ADDRESS ON FILE Other screening mammogram (Primary Dx) Social History Tobacco Use Types Packs/Day Years Used Date Smoking Tobacco: Never Assessed Comments Unknown Sex and Gender Information Value Date Recorded Sex Assigned at Not on file Legal Sex Female 3:45 AM PRINT PRESS OPERATOR Gender Identity Not on file Sexual Orientation Not on file documented as of this encounter Plan of Treatment Not on file documented as of this encounter Visit Diagnoses Diagnosis Other screening mammogram- Primary documented in this encounter Care Teams Pediatric Intensive Physician Relationship Specialty Start Date End Date Jackson Rosa MD [address] [place] [phone] PCP - General 07/05/09 documented as of this encounter
--- OUTSIDE RECORDS SUMMARY | 2024-08-27 09:19 | XMS_ITS | Encounter Summary ---
Author Organization [facility] Address [address] [place] [address] Care Team Providers Care Visitor Services Assistant Name Role Phone Jackson Rosa MD Primary Care Provider + Encounter Details Date Type Department Care Team (Latest Contact Info) Description 09/09/2001 Outpatient Historical HIS [facility] Cabezas, Cyndee Crespo MD NO ADDRESS ON FILE PERS HX OF BREAST MALIGNANCY (Primary Dx) Social History Tobacco Use Types Packs/Day Years Used Date Smoking Tobacco: Never Assessed Comments Unknown Sex and Gender Information Value Date Recorded Sex Assigned at Not on file Legal Sex Female 3:45 AM MANAGER COSMETIC Gender Identity Not on file Sexual Orientation Not on file documented as of this encounter Plan of Treatment Not on file documented as of this encounter Visit Diagnoses Diagnosis Personal history of malignant neoplasm of breast- Primary documented in this encounter Care Teams Visitor Services Assistant Relationship Specialty Start Date End Date Jackson Rosa MD [address] [place] [phone] PCP - General 07/05/09 documented as of this encounter
--- OUTSIDE RECORDS SUMMARY | 2024-08-27 09:19 | XMS_ITS | Encounter Summary ---
Author Organization [facility] Address [address] [place] [address] Care Team Providers Care Housing Project Manager Name Role Phone Jackson Rosa MD Primary Care Provider + Encounter Details Date Type Department Care Team (Latest Contact Info) Description 09/05/1999 Outpatient Historical HIS [facility] GE[facility] Cabezas, Cyndee Crespo MD NO ADDRESS ON FILE Personal history of malignant neoplasm of breast (Primary Dx) Social History Tobacco Use Types Packs/Day Years Used Date Smoking Tobacco: Never Assessed Comments Unknown Sex and Gender Information Value Date Recorded Sex Assigned at Not on file Legal Sex Female 3:45 AM DIRECTOR OF ACCOUNTS RECEIVABLE Gender Identity Not on file Sexual Orientation Not on file documented as of this encounter Plan of Treatment Not on file documented as of this encounter Visit Diagnoses Diagnosis Personal history of malignant neoplasm of breast- Primary documented in this encounter Care Teams Housing Project Manager Relationship Specialty Start Date End Date Jackson Rosa MD [address] [place] [phone] PCP - General 07/05/09 documented as of this encounter
--- OUTSIDE RECORDS SUMMARY | 2024-08-27 09:19 | XMS_ITS | CONTINUITY OF CARE DOCUMENT ---
Author Name tobin rudd Address Unknown Organization [facility] Address [address] [place] [address] [address] [place] [address] Phone [phone] Care Team Providers Care Automatic Engraver Name Role Phone Gabe Wright MD Unavailable [phone] Gabe Wright MD Unavailable [phone] INSURANCE PROVIDERS Payer name Policy type / Coverage type Jodie red republican ID FOR LIFE [id number] [place] MEDIC[place] Medicare [id number]
--- OUTSIDE RECORDS SUMMARY | 2024-08-27 09:19 | XMS_ITS | Encounter Summary ---
Author Organization [facility] Address [address] [place] [address] Care Team Providers Care Rn Informatics Name Role Phone Jackson Rosa MD Primary Care Provider + Encounter Details Date Type Department Care Team (Latest Contact Info) Description 07/12/2004 Outpatient Historical HIS [facility] Cabezas, Cyndee Crespo MD NO ADDRESS ON FILE SCREENING MAMM-MALIG NEOPL-HI RISK (Primary Dx) Social History Tobacco Use Types Packs/Day Years Used Date Smoking Tobacco: Never Assessed Comments Unknown Sex and Gender Information Value Date Recorded Sex Assigned at Not on file Legal Sex Female 3:45 AM AIRPORT ENGINEER Gender Identity Not on file Sexual Orientation Not on file documented as of this encounter Plan of Treatment Not on file documented as of this encounter Visit Diagnoses Diagnosis Screening mammogram for high-risk patient- Primary documented in this encounter Care Teams Rn Informatics Relationship Specialty Start Date End Date Jackson Rosa MD [address] [place] [address] PCP - General 07/05/09 documented as of this encounter
--- OUTSIDE RECORDS SUMMARY | 2024-08-27 09:19 | XMS_ITS | Clinical Summary ---
Author Organization [facility] Administrative Offices Address [address] [place] [address] Care Team Providers Care Alloy Weigher Name Role Phone Jackson Rosa MD Primary [...] BI-FLEX ORAL) Take by mouth. Active Coenzyme W05-[id number] E (COQ10 SG 100) 100-100 mg-unit Oral [...] on file Legal Sex Female 3:45 AM IMMIGRATION INVESTIGATOR Gender Identity Not on file Sexual Orientation Not on file Last Filed Vital Signs Vital Sign Reading Time Taken Comments Blood Pressure 122/58 04/18/2016 9:52 AM IMMIGRATION INVESTIGATOR Pulse 61 04/18/2016 9:52 AM IMMIGRATION INVESTIGATOR Temperature - - Respiratory Rate - - Oxygen Saturation - - Inhaled Oxygen Concentration - - Weight 68.9 kg (152 lb) 04/18/2016 9:52 AM IMMIGRATION INVESTIGATOR Height 157.5 cm (5' 2 ) 04/18/2016 9:52 AM IMMIGRATION INVESTIGATOR Body Mass Index 27.8 04/18/2016 9:52 AM IMMIGRATION INVESTIGATOR Plan of Treatment Health Maintenance Due Date Last Done Comments DTAP/TDAP/TD VACCINES (1 - Tdap) 1965 PNEUMOCOCCAL VACCINE 50+ YEARS (1 of 2 - PCV) 09/13/18 66 ZOSTER VACCINE (1 of 2) 1996 OSTEOPOROSIS SCREENING 01/17/2021 01/18/2016 RSV VACCINE (60+ or ) (1 - 1-dose 75+ series) 2021 INFLUENZA VACCINE (#1) 2023 Procedures Procedure Name Priority Date/Time Associated Diagnosis [...] Maintenance Insurance [facility]IC[facility] [place] [address] Care Teams Alloy Weigher Relationship Specialty Start Date End Date Jackson Rosa MD [address] [place] [phone] PCP - General 07/05/09
--- OUTSIDE RECORDS SUMMARY | 2024-08-27 09:19 | XMS_ITS ---
Author Organization [facility] Address [address] [place] [address] Care Team Providers Care Superior Court Justice Name Role Phone Jackson Rosa MD Primary Care Provider + [phone] Active Problems Problem Noted Date Diagnosed Date [...] 07/04/2021 Assessment & Plan (07/04/2021 11:03 AM PLASMA CENTER TECHNICIAN): I explained to the patient how [...]
--- OUTSIDE RECORDS SUMMARY | 2024-08-27 09:19 | XMS_ITS | Encounter Summary ---
Author Organization [facility] Address [address] [place] [address] Care Team Providers Care Aerospace Physiological Technician Name Role Phone Jackson Rosa MD Primary Care Provider + Encounter Details Date Type Department Care Team (Latest Contact Info) Description 09/07/1998 Outpatient Historical HIS [facility] Cabezas, Cyndee Crespo MD NO ADDRESS ON FILE Personal history of malignant neoplasm of breast (Primary Dx) Social History Tobacco Use Types Packs/Day Years Used Date Smoking Tobacco: Never Assessed Comments Unknown Sex and Gender Information Value Date Recorded Sex Assigned at Not on file Legal Sex Female 3:45 AM ADULT PROBATION OFFICER Gender Identity Not on file Sexual Orientation Not on file documented as of this encounter Plan of Treatment Not on file documented as of this encounter Visit Diagnoses Diagnosis Personal history of malignant neoplasm of breast- Primary documented in this encounter Care Teams Aerospace Physiological Technician Relationship Specialty Start Date End Date Jackson Rosa MD [address] [place] [phone] PCP - General 07/05/09 documented as of this encounter
--- OUTSIDE RECORDS SUMMARY | 2024-08-27 09:19 | XMS_ITS | Encounter Summary ---
Author Organization [facility] Address [address] [place] [address] Care Team Providers Care Demolition Hammer Operator Name Role Phone Jackson Rosa MD Primary Care Provider + Encounter Details Date Type Department Care Team (Latest Contact Info) Description 03/31/2008 Outpatient Historical HIS [facility] Cabezas, Ezequiel Crespo MD NO ADDRESS ON FILE Other Screening Mammogram Social History Tobacco Use Types Packs/Day Years Used Date Smoking Tobacco: Never Assessed Comments Unknown Sex and Gender Information Value Date Recorded Sex Assigned at Not on file Legal Sex Female 3:45 AM BURLAPPER Gender Identity Not on file Sexual Orientation Not on file documented as of this encounter Plan of Treatment Not on file documented as of this encounter Procedures Procedure Name Priority Date/Time Associated Diagnosis Comments MAMMO SCREEN BILAT W OR WO CAD Routine 03/31/2008 8:30 AM BURLAPPER documented in this encounter Results * MAMMO DIGITAL SCREEN BILAT (03/31/2008 8:30 AM BURLAPPER) Anatomical Region Laterality Modality Breast Bilateral Other 03/31/2008 8:30 AM BURLAPPER Narrative 03/31/2008 12:03 PM BURLAPPER [address] [address] Admit Date: 03/31/2008 ZULMA CARNES Sex: F Admit Prov: EZEQUIEL CABEZAS Date: 1945 Primary Care Prov: CMRN: [id number] Room: KIRT SSN: [id number] IMAGING SERVICES Ordering Prov: EZEQUIEL CABEZAS Accession Number: [id number] Interpretation EXAM: BILATERAL SCREENING FULL FIELD DIGITAL [...] AMK Procedure Note Elena Lou - 03/31/2008 [facility] [address] [place] [address] Admit Date: 03/31/2008 ZULMA CARNES Sex: F Admit Prov: EZEQUIEL CABEZAS Date: 1945 Primary Care Prov: CMRN: [id number] Room: MASONAshleigh SSN: [id number] IMAGING SERVICES Ordering Prov: EZEQUIEL CABEZAS Interpretation [...] mammogram documented in this encounter Care Teams Demolition Hammer Operator Relationship Specialty Start Date End Date Jackson Rosa MD [address] [place] [phone] PCP - General 07/05/09 documented as of this encounter
--- OUTSIDE RECORDS SUMMARY | 2024-08-27 09:19 | XMS_ITS | Referral Summary ---
Author Organization [facility] Address [address] [place] [address] Care Team Providers Care Religion Teacher Name Role Phone Jackson Rosa MD Primary Care Provider + [phone] Allergies Active Allergy Reactions Criticality Noted Date [...] 07/04/2021 Assessment & Plan (07/04/2021 11:03 AM PST SUPERVISOR): I explained to the patient how subclinical [...] on file Legal Sex Female 12:56 AM PST SUPERVISOR Gender Identity Female 10/06/2019 1:08 PM CDT [...] lb 3.2 oz) 05/15/2023 3:06 P M PST SUPERVISOR Height 157.5 cm (5' 2 ) 05/15/2023 3:06 PM PST SUPERVISOR Body Mass Index 27.11 05/15/2023 3:06 PM PST SUPERVISOR Plan of Treatment Not on file Medical Devices Implanted Type Area Funding Analyst Device Identifier Shelf Expiration Date Model / Serial / Lot Knee Replacement Right: Knee Procedures Procedure Name Priority Date/Time Associated Diagnosis Comments COLONOSCOPY 12/04/2017 11:53 AM CDT from Last 3 Months or Most Recently Relevant to Health Maintenance Results * COLONOSCOPY (12/04/2017 11:53 AM CDT) Anatomical Region Laterality Modality Other Narrative Procedure Note Dwayne Chan MD - 12/04/2017 11:53 AM CDT [facility] Patient Name: Zulma Carnes Procedure Date: 12/04/2017 11:53 AM Date of : 1945 Admit Type: Outpatient Age: 72 Gender: Female Attending MD: Dwayne Chan MD Room: [facility] ENDOSCOPY ROOM 2 Note Status: Finalized Patient [...] passed under direct vision.The Pediatric Colonoscope PCF-H190L [id number] was introduced through the anus and advanced [...] perforation orabscess without bleeding CPT copyright 2017 [employer]. All rights reserved. The codes documented in this report are preliminary and upon brim welt sewing machine operator reviewmay be revised to meet current compliance requirements. Recognized by the [employer] for promoting quality in endoscopy Dwayne Chan MD ENDOSCOPY PROCEDURES Final Result from Last 3 Months or Most Recently Relevant to Health Maintenance Insurance MEDICARE Placed MEDICARE MEDICARE FOR LIFE Advance Directives For more information, please contact: [phone] * Full Code (Latest Code Status on File) Date Activated Date Inactivated Comments 12/04/2017 11:05 AM 12/04/2017 3:39 PM Care Teams Religion Teacher Relationship Specialty Start Date End Date Jackson Rosa MD [address] [place] [address] PCP - General 07/04/16
--- OUTSIDE RECORDS SUMMARY | 2024-08-27 09:19 | XMS_ITS | Encounter Summary ---
Author Organization [facility] Address [address] [place] [address] Care Team Providers Care Senior Sales Operations Manager Name Role Phone Jackson Rosa MD Primary Care Provider + Encounter Details Date Type Department Care Team (Latest Contact Info) Description 09/03/2000 Outpatient Historical HIS [facility] Cabezas, Cyndee Crespo MD NO ADDRESS ON FILE Personal history of malignant neoplasm of breast (Primary Dx) Social History Tobacco Use Types Packs/Day Years Used Date Smoking Tobacco: Never Assessed Comments Unknown Sex and Gender Information Value Date Recorded Sex Assigned at Not on file Legal Sex Female 3:45 AM WARRANTY CLERK Gender Identity Not on file Sexual Orientation Not on file documented as of this encounter Plan of Treatment Not on file documented as of this encounter Visit Diagnoses Diagnosis Personal history of malignant neoplasm of breast- Primary documented in this encounter Care Teams Senior Sales Operations Manager Relationship Specialty Start Date End Date Jackson Rosa MD [address] [place] [phone] PCP - General 07/05/09 documented as of this encounter
--- OUTSIDE RECORDS SUMMARY | 2024-08-27 09:19 | XMS_ITS | Encounter Summary ---
Author Organization [facility] Address [address] [place] [address] Care Team Providers Care Curriculum Developer Name Role Phone Jackson Rosa MD [...] on file Legal Sex Female 3:45 AM TIME MOTION ANALYST Gender Identity Not on file Sexual Orientation Not on file documented as of this encounter Plan of Treatment Not on file documented as of this encounter Visit Diagnoses Diagnosis Follow-up examination, following other surgery- Primary documented in this encounter Care Teams Curriculum Developer Relationship Specialty Start Date End Date Jackson Rosa MD [address] [place] [phone] PCP - General 07/05/09 documented as of this encounter
--- OUTSIDE RECORDS SUMMARY | 2024-08-27 09:19 | XMS_ITS | Encounter Summary ---
Author Organization [facility] Address [address] [place] [address] Care Team Providers Care Wood Shop Teacher Name Role Phone Jackson Rosa MD Primary Care Provider + Encounter Details Date Type Department Care Team (Latest Contact Info) Description 03/04/2007 Outpatient Historical HIS [facility] Cabezas, Cyndee Crespo MD NO ADDRESS ON FILE Screening Mammogram for High-Risk Patient (Primary Dx) Social History Tobacco Use Types Packs/Day Years Used Date Smoking Tobacco: Never Assessed Comments Unknown Sex and Gender Information Value Date Recorded Sex Assigned at Not on file Legal Sex Female 3:45 AM UNDERGROUND TRUCK OPERATOR Gender Identity Not on file Sexual Orientation Not on file documented as of this encounter Plan of Treatment Not on file documented as of this encounter Visit Diagnoses Diagnosis Screening mammogram for high-risk patient- Primary documented in this encounter Care Teams Wood Shop Teacher Relationship Specialty Start Date End Date Jackson Rosa MD [address] [place] [address] PCP - General 07/05/09 documented as of this encounter
--- OUTSIDE RECORDS SUMMARY | 2024-08-27 09:19 | XMS_ITS | Clinical Summary ---
Author Organization [facility] Address [address] [place] [address] Care Team Providers Care Roller Inspector Name Role Phone Jackson Rosa MD Primary Care Provider + [phone] Allergies Active Allergy Reactions Criticality Noted Date [...] 07/04/2021 Assessment & Plan (07/04/2021 11:03 AM LANDCARE OFFICER): I explained to the patient how subclinical [...] on file Legal Sex Female 12:56 AM LANDCARE OFFICER Gender Identity Female 10/06/2019 1:08 PM CDT [...] lb 3.2 oz) 05/15/2023 3:06 P M LANDCARE OFFICER Height 157.5 cm (5' 2 ) 05/15/2023 3:06 PM LANDCARE OFFICER Body Mass Index 27.11 05/15/2023 3:06 PM LANDCARE OFFICER Plan of Treatment Health Maintenance Due Date [...] Screening Discontinued Medical Devices Implanted Type Area Railroad Wheels And Axles Inspector Device Identifier Shelf Expiration Date Model / [...] Female Attending MD: Dwayne Chan MD Room: [facility] ENDOSCOPY ROOM 2 Note Status: Finalized [...] passed under direct vision.The Pediatric Colonoscope PCF-H190L [id number] was introduced through the anus and advanced [...] perforation orabscess without bleeding CPT copyright 2017 [employer]. All rights reserved. The codes documented in this report are preliminary and upon forest manager reviewmay be revised to meet current compliance requirements. Recognized by the [employer] for promoting quality in endoscopy Dwayne Chan MD ENDOSCOPY PROCEDURES Final Result from Last 3 Months or Most Recently Relevant to Health Maintenance Insurance MEDICARE [place] [address] [place] [address] MEDICARE FOR LIFE Advance Directives For more information, please contact: [phone] * Full Code (Latest Code Status on File) Date Activated Date Inactivated Comments 12/04/2017 11:05 AM 12/04/2017 3:39 PM Care Teams Roller Inspector Relationship Specialty Start Date End Date Jackson Rosa MD [address] [place] [address] PCP - General 07/04/16
--- OUTSIDE RECORDS SUMMARY | 2024-08-27 09:19 | XMS_ITS | Encounter Summary ---
Author Organization [facility] Address [address] [place] [address] Care Team Providers Care Screen Tender Name Role Phone Jackson Rosa MD Primary Care Provider + Encounter Details Date Type Department Care Team (Latest Contact Info) Description 01/29/2006 Outpatient Historical HIS [facility] Cabezas, Cyndee Crespo MD NO ADDRESS ON FILE Other Follow-Up Examination (Primary Dx) Social History Tobacco Use Types Packs/Day Years Used Date Smoking Tobacco: Never Assessed Comments Unknown Sex and Gender Information Value Date Recorded Sex Assigned at Not on file Legal Sex Female 3:45 AM MILK HANDLER Gender Identity Not on file Sexual Orientation Not on file documented as of this encounter Plan of Treatment Not on file documented as of this encounter Visit Diagnoses Diagnosis Other follow-up examination(V67.59)- Primary Other follow-up examination documented in this encounter Care Teams Screen Tender Relationship Specialty Start Date End Date Jackson Rosa MD [address] [place] [address] PCP - General 07/05/09 documented as of this encounter
--- OUTSIDE RECORDS SUMMARY | 2024-08-27 09:19 | XMS_ITS | Encounter Summary ---
Author Organization [facility] Address [address] [place] [address] Care Team Providers Care Construction Recruiter Name Role Phone Jackson Rosa MD Primary Care Provider + Encounter Details Date Type Department Care Team (Latest Contact Info) Description 08/12/2002 Outpatient Historical HIS [facility] Cabezas, Cyndee Crespo MD NO ADDRESS ON FILE SCREENING MAMM-MAILG NEOPL-OTHER (Primary Dx) Social History Tobacco Use Types Packs/Day Years Used Date Smoking Tobacco: Never Assessed Comments Unknown Sex and Gender Information Value Date Recorded Sex Assigned at Not on file Legal Sex Female 3:45 AM NUB CARD TENDER Gender Identity Not on file Sexual Orientation Not on file documented as of this encounter Plan of Treatment Not on file documented as of this encounter Visit Diagnoses Diagnosis Other screening mammogram- Primary documented in this encounter Care Teams Construction Recruiter Relationship Specialty Start Date End Date Jackson Rosa MD [address] [place] [phone] PCP - General 07/05/09 documented as of this encounter
== END 2024-08-27 09:00 | disposition home or self-care (01) ==
LOC: CHSIMG 09:02
PROVIDERS: PCP Internal Medicine; Visit Provider Internal Medicine
DX: R92.8 Other abnormal and inconclusive findings on diagnostic imaging of breast (principal)
CPT/HCPCS: 76642; 77061; 77065; G0279

== ENCOUNTER 2024-08-28 13:48 | Outpatient (CLI) | payer MEDICARE, OTHER, SELFPAY ==
--- NOTE | ~2024-08-28 | US_ITS ---
US axilla RT 08/28/2024 14:08 Indication: Painful cyst right axilla Procedure: High-resolution Limited ultrasound of the right axilla Comparison: No prior studies for comparison. Findings: In the area of palpable concern in the right axilla there is a 5 mm cyst. No suspicious mas ses to suggest malignancy. No lymphadenopathy. Impression: 1: Benign 5 mm cyst of the right axilla in the area of palpable concern. BI-RADS CATEGORY 2 - BENIGN FINDINGS Reviewed, dictated and finalized at location A. Impression: 1: Benign 5 mm cyst of the right axilla in the area of palpable concern. BI-RADS CATEGORY 2 - BENIGN FINDINGS
--- OUTSIDE RECORDS SUMMARY | 2024-08-29 14:10 | XMS_ITS | Encounter Summary ---
Author Organization [facility] Address [address] [place] [address] Care Team Providers Care Lab Clerk Name Role Phone Jackson Rosa MD Primary Care Provider + Encounter Details Date Type Department Care Team (Latest Contact Info) Description 08/12/2002 Outpatient Historical HIS [facility] Cabezas, Cyndee Crespo MD NO ADDRESS ON FILE SCREENING MAMM-MAILG NEOPL-OTHER (Primary Dx) Social History Tobacco Use Types Packs/Day Years Used Date Smoking Tobacco: Never Assessed Comments Unknown Sex and Gender Information Value Date Recorded Sex Assigned at Not on file Legal Sex Female 3:45 AM DISTANCE EDUCATION TEACHER Gender Identity Not on file Sexual Orientation Not on file documented as of this encounter Plan of Treatment Not on file documented as of this encounter Visit Diagnoses Diagnosis Other screening mammogram- Primary documented in this encounter Care Teams Lab Clerk Relationship Specialty Start Date End Date Jackson Rosa MD [address] [place] [address] PCP - General 07/05/09 documented as of this encounter
--- OUTSIDE RECORDS SUMMARY | 2024-08-29 14:10 | XMS_ITS | Clinical Summary ---
Author Organization [facility] Address [address] [place] [address] Care Team Providers Care Nurse Transition Name Role Phone Jackson Rosa MD Primary [...] BI-FLEX ORAL) Take by mouth. Active Coenzyme P28-Gavrtbc E (COQ10 SG 100) 100-100 mg-unit Oral [...] on file Legal Sex Female 3:45 AM ELEMENTARY EDUCATOR Gender Identity Not on file Sexual Orientation Not on file Last Filed Vital Signs Vital Sign Reading Time Taken Comments Blood Pressure 122/58 04/18/2016 9:52 AM ELEMENTARY EDUCATOR Pulse 61 04/18/2016 9:52 AM ELEMENTARY EDUCATOR Temperature - - Respiratory Rate - - Oxygen Saturation - - Inhaled Oxygen Concentration - - Weight 68.9 kg (152 lb) 04/18/2016 9:52 AM ELEMENTARY EDUCATOR Height 157.5 cm (5' 2 ) 04/18/2016 9:52 AM ELEMENTARY EDUCATOR Body Mass Index 27.8 04/18/2016 9:52 AM ELEMENTARY EDUCATOR Plan of Treatment Health Maintenance Due Date [...] Maintenance Insurance [facility]IC[facility] [place] [address] Care Teams Nurse Transition Relationship Specialty Start Date End Date Jackson Rosa MD [address] [place] [phone] PCP - General 07/05/09
--- OUTSIDE RECORDS SUMMARY | 2024-08-29 14:10 | XMS_ITS | Encounter Summary ---
Author Organization [facility] Address [address] [place] [address] Care Team Providers Care Circle Saw Operator Name Role Phone Jackson Rosa MD Primary Care Provider + Encounter Details Date Type Department Care Team (Latest Contact Info) Description 07/12/2004 Outpatient Historical HIS [facility] Cabezas, Cyndee Crespo MD NO ADDRESS ON FILE SCREENING MAMM-MALIG NEOPL-HI RISK (Primary Dx) Social History Tobacco Use Types Packs/Day Years Used Date Smoking Tobacco: Never Assessed Comments Unknown Sex and Gender Information Value Date Recorded Sex Assigned at Not on file Legal Sex Female 3:45 AM AUDIT MANAGER Gender Identity Not on file Sexual Orientation Not on file documented as of this encounter Plan of Treatment Not on file documented as of this encounter Visit Diagnoses Diagnosis Screening mammogram for high-risk patient- Primary documented in this encounter Care Teams Circle Saw Operator Relationship Specialty Start Date End Date Jackson Rosa MD [address] [place] [address] PCP - General 07/05/09 documented as of this encounter
--- OUTSIDE RECORDS SUMMARY | 2024-08-29 14:10 | XMS_ITS | Encounter Summary ---
Author Organization [facility] Address [address] [place] [address] Care Team Providers Care Copier Technician Name Role Phone Jackson Rosa MD Primary Care Provider + Encounter Details Date Type Department Care Team (Latest Contact Info) Description 09/05/1999 Outpatient Historical HIS [facility] Cabezas, Cyndee Crespo MD NO ADDRESS ON FILE Personal history of malignant neoplasm of breast (Primary Dx) Social History Tobacco Use Types Packs/Day Years Used Date Smoking Tobacco: Never Assessed Comments Unknown Sex and Gender Information Value Date Recorded Sex Assigned at Not on file Legal Sex Female 3:45 AM ACCREDITED FARM MANAGER Gender Identity Not on file Sexual Orientation Not on file documented as of this encounter Plan of Treatment Not on file documented as of this encounter Visit Diagnoses Diagnosis Personal history of malignant neoplasm of breast- Primary documented in this encounter Care Teams Copier Technician Relationship Specialty Start Date End Date Jackson Rosa MD [address] [place] [phone] PCP - General 07/05/09 documented as of this encounter
--- OUTSIDE RECORDS SUMMARY | 2024-08-29 14:10 | XMS_ITS | Encounter Summary ---
Author Organization [facility] Address [address] [place] [address] Care Team Providers Care S3B Multi Sensor Operator Name Role Phone Jackson Rosa MD Primary Care Provider + Encounter Details Date Type Department Care Team (Latest Contact Info) Description 09/09/2001 Outpatient Historical HIS [facility] Cabezas, Cyndee Crespo MD NO ADDRESS ON FILE PERS HX OF BREAST MALIGNANCY (Primary Dx) Social History Tobacco Use Types Packs/Day Years Used Date Smoking Tobacco: Never Assessed Comments Unknown Sex and Gender Information Value Date Recorded Sex Assigned at Not on file Legal Sex Female 3:45 AM PAPER GOODS MACHINE SET UP 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
--- OUTSIDE RECORDS SUMMARY | 2024-08-29 14:10 | XMS_ITS | CONTINUITY OF CARE DOCUMENT ---
Author Name tobin rudd Address Unknown Organization [facility] Address [address] [place] [address] [address] [place] [address] Phone [phone] Care Team Providers Care Psychiatric Attendant Name Role Phone Gabe Wright MD Unavailable [phone] Gabe Wright MD Unavailable [phone] INSURANCE PROVIDERS Payer name Policy type / Coverage type Jodie red constitution party ID FOR LIFE [id number] [place] MEDICARE Medicare [id number]
--- OUTSIDE RECORDS SUMMARY | 2024-08-29 14:10 | XMS_ITS | Encounter Summary ---
Author Organization [facility] Address [address] [place] [address] Care Team Providers Care Oil Analyst Name Role Phone Jackson Rosa MD Primary Care Provider + Encounter Details Date Type Department Care Team (Latest Contact Info) Description 01/29/2006 Outpatient Historical HIS [facility] Cabezas, Cyndee Crespo MD NO ADDRESS ON FILE Other Follow-Up Examination (Primary Dx) Social History Tobacco Use Types Packs/Day Years Used Date Smoking Tobacco: Never Assessed Comments Unknown Sex and Gender Information Value Date Recorded Sex Assigned at Not on file Legal Sex Female 3:45 AM IRON SETTER Gender Identity Not on file Sexual Orientation Not on file documented as of this encounter Plan of Treatment Not on file documented as of this encounter Visit Diagnoses Diagnosis Other follow-up examination(V67.59)- Primary Other follow-up examination documented in this encounter Care Teams Oil Analyst Relationship Specialty Start Date End Date Jackson Rosa MD [address] [place] [address] PCP - General 07/05/09 documented as of this encounter
--- OUTSIDE RECORDS SUMMARY | 2024-08-29 14:10 | XMS_ITS | Referral Summary ---
Author Organization [facility] Address [address] [place] [address] Care Team Providers Care Managed Services Consultant Name Role Phone Jackson Rosa MD Primary Care Provider + [phone] Allergies Active Allergy Reactions Criticality Noted Date [...] 07/04/2021 Assessment & Plan (07/04/2021 11:03 AM MAINTENANCE JOB TITLES): I explained to the patient how subclinical [...] on file Legal Sex Female 12:56 AM MAINTENANCE JOB TITLES Gender Identity Female 10/06/2019 1:08 PM CDT [...] lb 3.2 oz) 05/15/2023 3:06 P M MAINTENANCE JOB TITLES Height 157.5 cm (5' 2 ) 05/15/2023 3:06 PM MAINTENANCE JOB TITLES Body Mass Index 27.11 05/15/2023 3:06 PM MAINTENANCE JOB TITLES Plan of Treatment Not on file Medical Devices Implanted Type Area Fulfillment Mail Clerk Device Identifier Shelf Expiration Date Model / Serial / Lot Knee Replacement Right: Knee Procedures Procedure Name Priority Date/Time Associated Diagnosis Comments COLONOSCOPY 12/04/2017 11:53 AM CDT from Last 3 Months or Most Recently Relevant to Health Maintenance Results * COLONOSCOPY (12/04/2017 11:53 AM CDT) Anatomical Region Laterality Modality Other Narrative Procedure Note Dwayne Chan MD - 12/04/2017 11:53 AM CDT [facility] Patient Name: Zulma Carnes Procedure Date: 12/04/2017 11:53 AM Date of : 1945 Admit Type: Outpatient Age: 72 Gender: Female Attending MD: Dwayne Chan MD Room: [facility] ENDOSCOPY ROOM 2 Note Status: [...] passed under direct vision.The Pediatric Colonoscope PCF-H190L [id number] was introduced through the anus and advanced [...] perforation orabscess without bleeding CPT copyright 2017 [employer]. All rights reserved. The codes documented in this report are preliminary and upon label coder reviewmay be revised to meet current compliance requirements. Recognized by the [employer] for promoting quality in endoscopy Dwayne Chan MD ENDOSCOPY PROCEDURES Final Result from Last 3 Months or Most Recently Relevant to Health Maintenance Insurance MEDICARE [employer] MEDICARE MEDICARE FOR LIFE Advance Directives For more information, please contact: [phone] * Full Code (Latest Code Status on File) Date Activated Date Inactivated Comments 12/04/2017 11:05 AM 12/04/2017 3:39 PM Care Teams Managed Services Consultant Relationship Specialty Start Date End Date Jackson Rosa MD [address] [place] [address] PCP - General 07/04/16
--- OUTSIDE RECORDS SUMMARY | 2024-08-29 14:10 | XMS_ITS | Clinical Summary ---
Author Organization [facility] Address [address] [place] [address] Care Team Providers Care Development Architect Name Role Phone Jackson Rosa MD Primary Care Provider [phone] Irma Willams MD Unavailable Efrem Alves MD Unavailable Allergies [...] GERD (gastroesophageal reflux disease) Cataract Breast cancer ([facility]/HCC HHS/HCC) Bleeding Overview (09/05/2018): : History of bleeding, 1yr ago lower GI bleed colonoscopy negative, 5-6 yrs stomach ulcer tamoxifen side effect. Anemia Encounters Date Type Department Care Team Description 06/22/2024 TruQC Message Enc [facility] [address] [place] [address] [facility] Provider Echo results 06/16/2024 12:55 PM MORPHOLOGY TEACHER - 06/16/2024 11:59 PM MORPHOLOGY TEACHER Hospital Encounter [facility] [address] [place] [address] Irma Willams MD Discharge Disposition: Home or Self Care (Routine Discharge) 06/16/2024 Travel 06/03/2024 1:00 PM MORPHOLOGY TEACHER Office Visit [facility] [address] [place] [address] Efrem Alves MD Follow Up (4 month follow up - improved.) 06/03/2024 Travel from Last 3 Months Family History Medical [...] Sex Assigned at Female 05/25/2024 1:26 PM MORPHOLOGY TEACHER Legal Sex Female 9:00 PM CDT Gender Identity Not on file Sexual Orientation Not on file Occupation Industry Job Start Date Job End Date Retired Not on file Not on file Not on file Last Filed Vital Signs Vital Sign Reading Time Taken Comments Blood Pressure 138/72 06/03/2024 12:50 PM MORPHOLOGY TEACHER Pulse 69 06/03/2024 12:50 PM MORPHOLOGY TEACHER Temperature 36.1 C (97 F) 11/03/2019 12:30 PM CDT Respiratory Rate 16 06/03/2024 12:5 0 PM MORPHOLOGY TEACHER Oxygen Saturation 94% 06/03/2024 12: 50 PM MORPHOLOGY TEACHER Inhaled Oxygen Concentration - - Weight 63.4 kg (139 lb 12.8 oz) 025 12:50 PM MORPHOLOGY TEACHER Height 156.2 cm (5' 1.5 ) 06/03/2024 12 :50 PM MORPHOLOGY TEACHER Body Mass Index 25.99 06/03/2024 12:50 PM MORPHOLOGY TEACHER Plan of Treatment Upcoming Encounters Date Type Department Care Team (Late st Contact Info) Description 05/10/2025 8:30 AM MORPHOLOGY TEACHER Office Visit [facility] [place] [address] Irma Willams MD [address] [place] [address] Health Maintenance Due Date Last Done Comments ASCVD Statin 1945 Hepatitis C 1963 Zoster Vaccines (1 of 2) 1996 DTaP, Tdap and Td Vaccines (1 - Tdap) 12/02/1999 12/01/1999 Annual Medicare Wellness Visit 09/14/2011 ASCVD LDL 06/27/2014 06/27/2013 Pneumococcal Vaccine: 50+ Years (2 of 2 - PPSV23) 11/02/2020 09/07/2020 RSV Immunization or 60+ Years [...] this topic Medical Devices Implanted Type Area Pca Assisted Living Device Identifier Shelf Expiration Date Model / Serial / Lot Knee Components Knee Components Description:Right knee Knee Components Knee Components Description:Rt knee Iol Augustus [id number] - [id number] Implanted:Qty: 1 on 10/13/2019 by Stephane Samson MD at [facility] Lens Left: Eye [employer] 01/27/2024 [id number] / [id number] / N/A Description:Implant verified by MD Iol Baus[employer] Li61ao - [id number] Implanted:Qty: 1 on 11/03/2019 by Stephane Samson MD at [facility] Lens Right: Eye [employer] 08/27/2023 [id number] / [id number] Description:Lens verified pe r surgeon and chart Procedures Procedure Name Priority Date/Time Associated Diagnosis Comments USE ECHOCARDIOGRAM Routine 06/16/2024 1: 39 PM MORPHOLOGY TEACHER Murmur LIPID PANEL Routine 06/27/2013 12:00 AM MORPHOLOGY TEACHER from Last 3 Months or Most Recently Relevant to Health Maintenance Results * USE ECHOCARDIOGRAM (06/16/2024 1:39 PM MORPHOLOGY TEACHER) Anatomical Region Laterality Modality Cardiac Ultrasound 06/16/2024 1:03 PM MORPHOLOGY TEACHER Narrative 06/21/2024 1:31 PM MORPHOLOGY TEACHER Echocardiography Report Pat.Name: Zulma Carnes Pat.ID: [id number] .Date: 06/16/2024 Refer.MD: Ellen, [facility] Exam Time: 1:03:00 PM Study Type:ELLEN Height: 61 in Weight: 139 lb BSA: 1.62 m2 Age: 5 1945,78Y Sex: F Sonogrphr: Am Pat. Stat.:Outpatient Reason for Study:Murmur Procedures: Study performed at [place], [place] and interpreted by [facility]. 2D, M-mode, Doppler, Color Flow [...] regurgitation. <Electronic Signature> 06/21/2024 01:31 PM Irma Willams M.D. Procedure Note Irma Willams MD - 06/21/2024 Echocardiography Report Pat.Name: Zulma Carnes Pat.ID: [id number] .Date: 06/16/2024 [facility]00 PM Study Type:[facility] Height: 61 in Weight: 139 lb BSA: 1.62 m2 Age: 6 1945,78Y Sex: F Sonogrphr: Am Pat. Stat.:Outpatient Reason for Study:Murmur Procedures: Study performed at [place], [place] and interpreted by [facility]. 2D, M-mode, Doppler, Color Flow [...] regurgitation. <Electronic Signature> 06/21/2024 01:31 PM Irma Willams M.D. us Irma Willams MD ECHO Final Result * LIPID PANEL (06/27/2013 12:00 AM MORPHOLOGY TEACHER) TRIGLYCERIDES 78 0 - 150 mg/dl MEDINFORMATIX [...] Recently Relevant to Health Maintenance Insurance MEDICARE MEDICARE [facility] Care Teams Development Architect Relationship Specialty Start Date End Date Jackson Rosa MD [address] [place] [address] PCP - General INTERNAL MEDICINE 04/02/16 Irma Willams MD [address] [place] [address] Consulting Physician CARDIOVASCULAR DISEASE 11/03/23 Efrem Alves MD [address] [place] [address] Vascular/Global Risk Management Director INTERNAL MEDICINE 12/17/23
--- OUTSIDE RECORDS SUMMARY | 2024-08-29 14:10 | XMS_ITS | Encounter Summary ---
Author Organization [facility] Address [address] [place] [address] Care Team Providers Care Cushion Gum Applicator Name Role Phone Jackson Rosa MD Primary [...] on file Legal Sex Female 3:45 AM SERVICE SECRETARY Gender Identity Not on file Sexual Orientation Not on file documented as of this encounter Plan of Treatment Not on file documented as of this encounter Visit Diagnoses Diagnosis Follow-up examination, following other surgery- Primary documented in this encounter Care Teams Cushion Gum Applicator Relationship Specialty Start Date End Date Jackson Rosa MD [address] [place] [address] PCP - General 07/05/09 documented as of this encounter
--- OUTSIDE RECORDS SUMMARY | 2024-08-29 14:10 | XMS_ITS | Clinical Summary ---
Author Organization [facility] Address [address] [place] [address] Care Team Providers Care Resident Programs Assistant Name Role Phone Jackson Rosa MD Primary Care Provider [phone] Sammie Fox RN Unavailable [phone] Deyanira Daigle PROTECTIVE SERVICES OFFICER Unavailable Luis Carlos Rivas MD Unavailable [phone] Source Comments [facility],non-owned Affiliates and Associated Physician Practices is amultiple site organization consisting of ambulatory clinics and hospital sitesin [place], [place], [place] and [place]. This disclosure is being madepursuant to the Care Everywhere program and may not contain all information available regarding this patient. Last updated 18.[facility] Allergies Active Allergy Reactions Criticality Noted Date [...] problems Immunizations Immunization Administration Dates Next Due Cava Grill primary monoval ent 12+ yr 0.3mL Purple [...] Sex Assigned at Female 05/03/2021 6:03 PM RACE ENGINE BUILDER Legal Sex Female 9:20 AM RACE ENGINE BUILDER Gender Identity Female 05/03/2021 6:03 PM RACE ENGINE BUILDER Sexual Orientation Straight 05/03/2021 6: 03 PM RACE ENGINE BUILDER Last Filed Vital Signs Vital Sign Reading Time Taken Comments Blood Pressure 132/78 06/21/2016 8:16 AM RACE ENGINE BUILDER Pulse 55 06/21/2016 8:16 AM RACE ENGINE BUILDER Temperature 36.7 C (98.1 F) 08/13/2014 11:27 [...] this topic Medical Devices Implanted Type Area Wood Science Professor Device Identifier Shelf Expiration Date Model / Serial / Lot Nexgen Complete Knee Solution Cruciate Retaining Trabecular Metal Monoblock Tibial Component Tibial Size 3, Femoral Size C-H, 10mm Height Implanted:Qty: 1 on 08/10/2014 by Angel Luis Villegas MD at [facility] Right: Knee [employer] 01/27/2019 [id number] Nexgen Complete Knee Solution Cruciate Retaining Cr-Flex Femoral Component Porous Size D, Right Implanted:Qty: 1 on 08/10/2014 by Angel Luis Villegas MD at [facility] Right: Knee [employer] 11/28/2023 / / [id number] Bill Only Basic Derrick Excludes Agc Kn Implanted:Qty: 1 on 08/10/2014 by Angel Luis Villegas MD at [facility] [employer] BILL ONLY BASIC DERRICK EXCLUDES AGC KN ZIMM / / Bill Only Tb Upchrg Implanted:Qty: 1 on 08/10/2014 by Angel Luis Villegas MD at [facility] [employer] UPCHRG MELY BILL ONLY TB / / Insurance MEDICARE Member Subscriber Plan / Payer (Ef fective 2011-Present) Name:Zulma Carnes Member ID:[id number] Relation to Subscriber:Self Name:Zulma Carnes Subscriber ID:[id number] Payer ID:Not on file Group ID:Not on file Type:Medicare Address: [place] [id number] MEDICARE Member Subscriber Plan / Payer (Ef fective for All Dates) Name:Zulma Carnes Member ID:[id number] Relation to Subscriber:Self Name:Zulma Carnes Subscriber ID:[id number] Payer ID:Not on file Group ID:Not on file Type:Medicare Address: [place] [phone] MEDICARE Care Teams Resident Programs Assistant Relationship Specialty Start Date End Date Jackson Rosa MD PCP - General Internal Medicine 05/18/14 Sammie Fox, KAROLINE Ink Blender 08/10/14 Deyanira Daigle, [facility] Stockbroker 08/12/14 [place] [address] [id number] Orthopedic Surgery 09/03/16
--- OUTSIDE RECORDS SUMMARY | 2024-08-29 14:10 | XMS_ITS | Encounter Summary ---
Author Organization [facility] Address [address] [place] [address] Care Team Providers Care Senior Radiation Protection Technician Name Role Phone Jackson Rosa MD Primary Care Provider + Encounter Details Date Type Department Care Team (Latest Contact Info) Description 03/31/2008 Outpatient Historical HIS [facility] Cabezas, Ezequiel Crespo MD NO ADDRESS ON FILE Other Screening Mammogram Social History Tobacco Use Types Packs/Day Years Used Date Smoking Tobacco: Never Assessed Comments Unknown Sex and Gender Information Value Date Recorded Sex Assigned at Not on file Legal Sex Female 3:45 AM FINANCIAL ACCOUNTING MANAGER Gender Identity Not on file Sexual Orientation Not on file documented as of this encounter Plan of Treatment Not on file documented as of this encounter Procedures Procedure Name Priority Date/Time Associated Diagnosis Comments MAMMO SCREEN BILAT W OR WO CAD Routine 03/31/2008 8:30 AM FINANCIAL ACCOUNTING MANAGER documented in this encounter Results * MAMMO DIGITAL SCREEN BILAT (03/31/2008 8:30 AM FINANCIAL ACCOUNTING MANAGER) Anatomical Region Laterality Modality Breast Bilateral Other 03/31/2008 8:30 AM FINANCIAL ACCOUNTING MANAGER Narrative 03/31/2008 12:03 PM FINANCIAL ACCOUNTING MANAGER [address] [address] Admit Date: 03/31/2008 ZULMA CARNES Sex: F Admit Prov: EZEQUIEL CABEZAS Date: 1945 Primary Care Prov: CMRN: [id number] Room: KIRT SSN: [id number] IMAGING SERVICES Ordering Prov: EZEQUIEL CABEZAS Accession Number: [id number] Interpretation EXAM: BILATERAL SCREENING FULL FIELD DIGITAL [...] AMK Procedure Note Elena Lou - 03/31/2008 [facility] [address] [place], [place] [address] Admit Date: 03/31/2008 ZULMA CARNES Sex: F Admit Prov: EZEQUIEL CABEZAS Date: 1945 Primary Care Prov: CMRN: [id number] Room: MASONAshleigh SSN: [id number] IMAGING SERVICES Ordering Prov: EZEQUIEL CABEZAS Interpretation [...] mammogram documented in this encounter Care Teams Senior Radiation Protection Technician Relationship Specialty Start Date End Date Jackson Rosa MD [address] [place] [address] PCP - General 07/05/09 documented as of this encounter
--- OUTSIDE RECORDS SUMMARY | 2024-08-29 14:10 | XMS_ITS | Encounter Summary ---
Author Organization [facility] Address [address] [place] [address] Care Team Providers Care Hot Car Operator Name Role Phone Jackson Rosa MD Primary Care Provider + Encounter Details Date Type Department Care Team (Latest Contact Info) Description 09/07/1998 Outpatient Historical HIS [facility] Cabezas, Cyndee Crespo MD NO ADDRESS ON FILE Personal history of malignant neoplasm of breast (Primary Dx) Social History Tobacco Use Types Packs/Day Years Used Date Smoking Tobacco: Never Assessed Comments Unknown Sex and Gender Information Value Date Recorded Sex Assigned at Not on file Legal Sex Female 3:45 AM CUSTOMER MANAGER Gender Identity Not on file Sexual Orientation Not on file documented as of this encounter Plan of Treatment Not on file documented as of this encounter Visit Diagnoses Diagnosis Personal history of malignant neoplasm of breast- Primary documented in this encounter Care Teams Hot Car Operator Relationship Specialty Start Date End Date Jackson Rosa MD [address] [place] [address] PCP - General 07/05/09 documented as of this encounter
--- OUTSIDE RECORDS SUMMARY | 2024-08-29 14:10 | XMS_ITS | Encounter Summary ---
Author Organization [facility] Address [address] [place] [address] Care Team Providers Care Hearse Driver Name Role Phone Jackson Rosa MD Primary Care Provider + Encounter Details Date Type Department Care Team (Latest Contact Info) Description 01/24/1999 Outpatient Historical HIS [facility] Cabezas, Cyndee Crespo MD NO ADDRESS ON FILE Other screening mammogram (Primary Dx) Social History Tobacco Use Types Packs/Day Years Used Date Smoking Tobacco: Never Assessed Comments Unknown Sex and Gender Information Value Date Recorded Sex Assigned at Not on file Legal Sex Female 3:45 AM PLAN MANAGER Gender Identity Not on file Sexual Orientation Not on file documented as of this encounter Plan of Treatment Not on file documented as of this encounter Visit Diagnoses Diagnosis Other screening mammogram- Primary documented in this encounter Care Teams Hearse Driver Relationship Specialty Start Date End Date Jackson Rosa MD [address] [place] [address] PCP - General 07/05/09 documented as of this encounter
--- OUTSIDE RECORDS SUMMARY | 2024-08-29 14:10 | XMS_ITS ---
Author Organization [facility] Address [address] [place] [address] Care Team Providers Care Well Drill Operator Cable Tool Name Role Phone Jackson Rosa MD Primary Care Provider [phone] Active Problems Problem Noted Date Diagnosed Date [...] 07/04/2021 Assessment & Plan (07/04/2021 11:03 AM POLICY ANALYST): I explained to the patient how [...]
--- OUTSIDE RECORDS SUMMARY | 2024-08-29 14:10 | XMS_ITS | Encounter Summary ---
Author Organization [facility] Address [address] [place] [address] Care Team Providers Care Corrosion Prevention Metal Sprayer Name Role Phone Jackson Rosa MD Primary Care Provider [phone] Irma Willams MD Unavailable Efrem Alves MD Unavailable Encounter Details Date Type Department Care Team (Late Contact Info) Description 06/22/2024 [employer] Message Enc [facility] [address] [place] [address] [facility] Provider Echo results Social History Tobacco Use Types Packs/Day Years Used Date Smoking Tobacco: Never Passive Smoke Exposure: Never Smokeless Tobacco: Never Alcohol Use Standard Drinks/Week Comments Yes 0 (1 standard drink = 0.6 oz pur e alcohol) very rare wine usage Comments Unknown Sex and Gender Information Value Date Recorded Sex Assigned at Female 05/25/2024 1:26 PM PRECISION LENS GRINDER APPRENTICE Legal Sex Female 9:00 PM CDT Gender Identity Not on file Sexual Orientation Not on file Occupation Industry Job Start Date Job End Date Retired Not on file Not on file Not on file documented as of this encounter Plan of Treatment Upcoming Encounters Date Type Department Care Team (Late Contact Info) Description 05/10/2025 8:30 AM PRECISION LENS GRINDER APPRENTICE Office Visit [facility] [address] [place] [address] Irma Willams MD [address] [place] [address] documented as of this encounter Visit Diagnoses Not on filedocumented in this encounter Care Teams Corrosion Prevention Metal Sprayer Relationship Specialty Start Date End Date Jackson Rosa MD [address] [place] [address] PCP - General INTERNAL MEDICINE 04/02/16 Irma Willams MD [address] [place] [address] Consulting Physician CARDIOVASCULAR DISEASE 11/03/23 Efrem Alves MD [address] [place] [address] Vascular/Oil Pipeline Dispatcher INTERNAL MEDICINE 12/17/23 documented as of this encounter
--- OUTSIDE RECORDS SUMMARY | 2024-08-29 14:10 | XMS_ITS | Encounter Summary ---
Author Organization [facility] Address [facility] [place] [address] Care Team Providers Care Aerospace Technician Name Role Phone Jackson Rosa MD Primary Care Provider [phone] Gaurang Gonzalez MD Unavailable Unavailab Jeremiah Crowder MD Unavailable [phone] Whit Perez APRN HELPER COORDINATOR-C Unavailable Irma Willams MD Unavailable Efrem Alves MD Unavailable Encounter Details Date Type Department Care Team (Late Contact Info) Description 12/01/2014 [facility] AT [address] [address] Gaurang Gonzalez MD Social History Tobacco Use Types Packs/Day Years Used Date Smoking Tobacco: Never Alcohol Use Standard Drinks/Week Comments Yes 0 (1 standard drink = 0.6 oz pur e alcohol) Occasionally, Wine. Comments Unknown Sex and Gender Information Value Date Recorded Sex Assigned at Female 05/25/2024 1:26 PM NON LICENSED NUCLEAR EQUIPMENT OPERATOR Legal Sex Female 9:00 PM CDT Gender Identity Not on file Sexual Orientation Not on file Occupation Industry Job Start Date Job End Date Retired Not on file Not on file Not on file documented as of this encounter Plan of Treatment Upcoming Encounters Date Type Department Care Team (Late st Contact Info) Description 05/10/2025 8:30 AM NON LICENSED NUCLEAR EQUIPMENT OPERATOR Office Visit [facility] [place] [phone] Irma Willams MD [address] [place] [address] documented as of this encounter Visit Diagnoses Not on filedocumented in this encounter Additional Health Concerns Infection Onset Date Last Indicated Resolved Time COVID-19 Rule Out 10/10/2019 10/10/2019 10/11/2019 1:50 PM CDT COVID-19 Rule Out 10/31/2019 10/31/2019 11/01/2019 10:23 PM CDT documented as of this encounter Care Teams Aerospace Technician Relationship Specialty Start Date End Date aJckson Rosa MD [address] [place] [phone] PCP - General INTERNAL MEDICINE 04/02/16 Gaurang Gonzalez MD [address] [place] [address] CARDIOVASCULAR DISEASE 04/02/16 05/20/18 Jeremiah Rolon MD [address] [place] [address] [place] Supervisor [employer] CARDIOVASCULAR DISEASE 07/28/18 11/02/23 Whit Perez APRN, HELPER COORDINATOR-C [address] [facility] [address] [place] [address] NURSE PRACTITIONER 02/17/19 12/05/23 Irma Willams MD [address] [place] [address] Consulting Physician CARDIOVASCULAR DISEASE 11/03/23 Efrem Alves MD [address] [place] [address] Vascular/Supervisor [employer] INTERNAL MEDICINE 12/17/23 documented as of this encounter
--- OUTSIDE RECORDS SUMMARY | 2024-08-29 14:10 | XMS_ITS | Encounter Summary ---
Author Organization [facility] Address [address] [place] [address] Care Team Providers Care Paper Rewinder Operator Name Role Phone Jackson Rosa MD Primary Care Provider + Encounter Details Date Type Department Care Team (Latest Contact Info) Description 10/13/2003 Outpatient Historical HIS [facility] Cabezas, Cyndee Crespo MD NO ADDRESS ON FILE SCREENING MAMM-MAILG NEOPL-OTHER (Primary Dx) Social History Tobacco Use Types Packs/Day Years Used Date Smoking Tobacco: Never Assessed Comments Unknown Sex and Gender Information Value Date Recorded Sex Assigned at Not on file Legal Sex Female 3:45 AM CYBER FORENSIC SPECIALIST Gender Identity Not on file Sexual Orientation Not on file documented as of this encounter Plan of Treatment Not on file documented as of this encounter Visit Diagnoses Diagnosis Other screening mammogram- Primary documented in this encounter Care Teams Paper Rewinder Operator Relationship Specialty Start Date End Date Jackson Rosa MD [address] [place] [address] PCP - General 07/05/09 documented as of this encounter
--- OUTSIDE RECORDS SUMMARY | 2024-08-29 14:10 | XMS_ITS | Encounter Summary ---
Author Organization [facility] Address [address] [place] [address] Care Team Providers Care Hand Printed Circuit Board Assembler Name Role Phone Jackson Rosa MD Primary Care Provider + Encounter Details Date Type Department Care Team (Latest Contact Info) Description 03/04/2007 Outpatient Historical HIS [facility] Cabezas, Cyndee Crespo MD NO ADDRESS ON FILE Screening Mammogram for High-Risk Patient (Primary Dx) Social History Tobacco Use Types Packs/Day Years Used Date Smoking Tobacco: Never Assessed Comments Unknown Sex and Gender Information Value Date Recorded Sex Assigned at Not on file Legal Sex Female 3:45 AM MOTORBOAT MECHANIC Gender Identity Not on file Sexual Orientation Not on file documented as of this encounter Plan of Treatment Not on file documented as of this encounter Visit Diagnoses Diagnosis Screening mammogram for high-risk patient- Primary documented in this encounter Care Teams Hand Printed Circuit Board Assembler Relationship Specialty Start Date End Date Jackson Rosa MD [address] [place] [address] PCP - General 07/05/09 documented as of this encounter
--- OUTSIDE RECORDS SUMMARY | 2024-08-29 14:10 | XMS_ITS | Encounter Summary ---
Author Organization [facility] Address [address] [place] [address] Care Team Providers Care Refractory Repairer Name Role Phone Jackson Rosa MD Primary Care Provider + Encounter Details Date Type Department Care Team (Latest Contact Info) Description 09/03/2000 Outpatient Historical HIS [facility] Cabezas, Cyndee Crespo MD NO ADDRESS ON FILE Personal history of malignant neoplasm of breast (Primary Dx) Social History Tobacco Use Types Packs/Day Years Used Date Smoking Tobacco: Never Assessed Comments Unknown Sex and Gender Information Value Date Recorded Sex Assigned at Not on file Legal Sex Female 3:45 AM PIPE FITTER GAS PIPE Gender Identity Not on file Sexual Orientation Not on file documented as of this encounter Plan of Treatment Not on file documented as of this encounter Visit Diagnoses Diagnosis Personal history of malignant neoplasm of breast- Primary documented in this encounter Care Teams Refractory Repairer Relationship Specialty Start Date End Date Jackson Rosa MD [address] [place] [address] PCP - General 07/05/09 documented as of this encounter
--- OUTSIDE RECORDS SUMMARY | 2024-08-29 14:10 | XMS_ITS | Clinical Summary ---
Author Organization [facility] Address [address] [place] [address] Care Team Providers Care Marketing Finance Specialist Name Role Phone Jackson Rosa MD Primary Care Provider + [phone] Allergies Active Allergy Reactions Criticality Noted Date [...] 07/04/2021 Assessment & Plan (07/04/2021 11:03 AM MAPPING ANALYST): I explained to the patient how [...] on file Legal Sex Female 12:56 AM MAPPING ANALYST Gender Identity Female 10/06/2019 1:08 PM [...] lb 3.2 oz) 05/15/2023 3:06 P M MAPPING ANALYST Height 157.5 cm (5' 2 ) 05/15/2023 3:06 PM MAPPING ANALYST Body Mass Index 27.11 05/15/2023 3:06 PM MAPPING ANALYST Plan of Treatment Health Maintenance Due Date [...] Screening Discontinued Medical Devices Implanted Type Area Embossing Toolsetter Device Identifier Shelf Expiration Date Model / [...] Chan MD Room: [facility] ENDOSCOPY ROOM 2 Note Status: Finalized Patient [...] passed under direct vision.The Pediatric Colonoscope PCF-H190L [id number] was introduced through the anus and advanced [...] perforation orabscess without bleeding CPT copyright 2017 [employer]. All rights reserved. The codes documented in this report are preliminary and upon cpc coder reviewmay be revised to meet current compliance requirements. Recognized by the [place] [employer] for promoting quality in endoscopy Dwayne Chan MD ENDOSCOPY PROCEDURES Final Result from Last 3 Months or Most Recently Relevant to Health Maintenance Insurance MEDICARE [facility] Address: [address] [address] [place] [address] [place] [address] MEDICARE FOR LIFE Advance Directives For more information, please contact: [phone] * Full Code (Latest Code Status on File) Date Activated Date Inactivated Comments 12/04/2017 11:05 AM 12/04/2017 3:39 PM Care Teams Marketing Finance Specialist Relationship Specialty Start Date End Date Jackson Rosa MD [address] [place] [address] PCP - General 07/04/16
== END 2024-08-28 13:49 | disposition home or self-care (01) ==
PROVIDERS: PCP Internal Medicine; Visit Provider Internal Medicine
DX: R22.31 Localized swelling, mass and lump, right upper limb (principal)
CPT/HCPCS: 76882

== ENCOUNTER 2024-10-07 14:34 | Outpatient (CLI) | payer MEDICARE, OTHER, SELFPAY ==
--- NOTE | ~2024-10-07 | CT_ITS ---
CT abdomen pelvis w con Ordering provider: Billie Burns, RELOCATION COMMISSIONER History: 79 years Female with . diarrhea/RUQ abdominal pain . Comparison: May 27, 2024 Technique: CT abdomen and pelvis with IV and without oral contrast. Automated exposure control and it erative reconstruction technique were employed. The dose-length product was 328.64 mGy-cm. 100 mL Omn ipaque 350 was given IV. Findings: VISUALIZED LOWER CHEST: Normal. UPPER ABDOMINAL ORGANS: Liver: Normal. Gallbladder: Normal. Spleen: Normal. Stomach/duodenum: Small sliding hiatus hernia. Pancreas: Atrophic pancreas. Adrenals: Normal. Kidneys: Minimal fullness of the right renal pelvis. Tiny cyst in the right kidney midpole. PELVIC ORGANS: The bladder shows slightly thickened wall anteriorly. Clinical correlation and further evaluation advised. BOWEL AND MESENTERY: Colon: No evidence of diverticulitis. The appendix is not demonstrated. Small Bowel: Normal. No obstruction. Peritoneum/mesentery: No free air or free fluid. No mesenteric lymphadenopathy. RETROPERITONEUM: Mild atheromatous disease of the abdominal aorta. No retroperitoneal lymphadenopat hy. MUSCULOSKELETAL: Superficial soft tissues: The superficial soft tissues are normal. Bones: Levoscoliosis. Age appropriate degenerative changes of the spine. 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 IMPRESSION: 1. No evidence of appendicitis, diverticulitis or intestinal obstruction. 2. Slightly thickened in the anterior wall of the urinary bladder. Further evaluation advised. 3. Atrophic pancreas. 4. Slight fullness of the right renal pelvis. 5. Small sliding hiatus hernia. Reviewed, dictated and finalized at location A. IMPRESSION: 1. No evidence of appendicitis, diverticulitis or intestinal obstruction. 2. Slightly thickened in the anterior wall of the urinary bladder. Further leonardo luation advised. 3. Atrophic pancreas. 4. Slight fullness of the right renal pelvis. 5. Small sliding hiatus hernia.
[2024-10-07 15:05] LABS: Hemoglobin 12.4 g/dL (11.7-13.8); Mean Corpuscular HGB Conc 32.6 g/dL (32-36); Mean Corpuscular Hemoglobin 31.2 pg (27.0-31.0); Mean Corpuscular Volume 95.5 fL (78.0-102.0); Mean Platelet Volume 10.7 fl (9.2-11.8); Platelet Count Result 203 K/mm3 (150-420); Red Blood Count 3.98 M/mm3 (4.20-5.40); White Blood Count 6.9 K/mm3 (4.8-10.8)
[2024-10-07 15:10] LABS: Add Urine Microscopic? NO; Appearance Urine Clear (Clear); Bilirubin Urine Negative (Negative); Blood Urine Negative (Negative); Color Urine Light Yellow (Yellow); Glucose Urine UA Negative (Negative); Ketones Urine Negative (Negative); Leukocyte Esterase Ur Negative (Negative); Nitrate Urine Negative (Negative); Protein Urine Negative (Negative); Urobilinogen Urine 0.2 mg/dL (0.2-1.0); pH Urine 5.5 (5.0-8.0)
[2024-10-07 16:01] LABS: Alanine Aminotransferase 22 U/L (6-35); Albumin Level 3.8 g/dL (3.5-5.1); Alkaline Phosphatase 73 U/L (38-126); Amylase 49 U/L (30-110); Anion Gap 4 mmol/L (4-12); Aspartate Amino Transferase 29 U/L (14-36); Bilirubin,Total 0.4 mg/dL (0.2-1.3); Blood Urea Nitrogen 15 mg/dL (7-17); Calcium 8.5 mg/dL (8.4-10.2); Carbon Dioxide 27 mmol/L (22-30); Chloride 109 mmol/L (98-107); Estimated Glomerular Filt Rate > 60; Glucose 93 mg/dL (65-110); Lipase 22 U/L (23-300); Osmolality Calculated 290 mOsm/kg (285-295); Potassium 3.7 mmol/L (3.4-5.0); Sodium 140 mmol/L (137-145); Total Protein 6.3 g/dL (6.3-8.2)
--- OUTSIDE RECORDS SUMMARY | 2024-10-07 17:17 | XMS_ITS | Encounter Summary ---
Author Organization [facility] Address [address] [place] [address] Care Team Providers Care Company Tanker Truck Driver Name Role Phone Jackson Rosa MD Primary Care Provider + Encounter Details Date Type Department Care Team (Latest Contact Info) Description 08/12/2002 Outpatient Historical HIS [facility] Cabezas, Cyndee Crespo MD NO ADDRESS ON FILE SCREENING MAMM-MAILG NEOPL-OTHER (Primary Dx) Social History Tobacco Use Types Packs/Day Years Used Date Smoking Tobacco: Never Assessed Comments Unknown Sex and Gender Information Value Date Recorded Sex Assigned at Not on file Legal Sex Female 3:45 AM RESTAURANT HOSPITALITY MANAGER Gender Identity Not on file Sexual Orientation Not on file documented as of this encounter Plan of Treatment Not on file documented as of this encounter Visit Diagnoses Diagnosis Other screening mammogram- Primary documented in this encounter Care Teams Company Tanker Truck Driver Relationship Specialty Start Date End Date Jackson Rosa MD [address] [place] [address] PCP - General 07/05/09 documented as of this encounter
--- OUTSIDE RECORDS SUMMARY | 2024-10-07 17:17 | XMS_ITS | Encounter Summary ---
Author Organization [facility] Address [address] [place] [address] Care Team Providers Care Levee Superintendent Name Role Phone Jackson Rosa MD Primary Care Provider + Encounter Details Date Type Department Care Team (Latest Contact Info) Description 01/29/2006 Outpatient Historical HIS [facility] GEOFF Cabezas, Cyndee Crespo MD NO ADDRESS ON FILE Other Follow-Up Examination (Primary Dx) Social History Tobacco Use Types Packs/Day Years Used Date Smoking Tobacco: Never Assessed Comments Unknown Sex and Gender Information Value Date Recorded Sex Assigned at Not on file Legal Sex Female 3:45 AM SUPERVISOR TELEPHONE ANSWERING SERVICE Gender Identity Not on file Sexual Orientation Not on file documented as of this encounter Plan of Treatment Not on file documented as of this encounter Visit Diagnoses Diagnosis Other follow-up examination(V67.59)- Primary Other follow-up examination documented in this encounter Care Teams Levee Superintendent Relationship Specialty Start Date End Date Jackson Rosa MD [address] [place] [address] PCP - General 07/05/09 documented as of this encounter
--- OUTSIDE RECORDS SUMMARY | 2024-10-07 17:17 | XMS_ITS | Encounter Summary ---
Author Organization [facility] Address [address] [place] [address] Care Team Providers Care Cigar Sorter Name Role Phone Jackson Rosa MD Primary Care Provider + Encounter Details Date Type Department Care Team (Latest Contact Info) Description 09/03/2000 Outpatient Historical HIS [facility] GEOFF Cabezas, Cyndee Crespo MD NO ADDRESS ON FILE Personal history of malignant neoplasm of breast (Primary Dx) Social History Tobacco Use Types Packs/Day Years Used Date Smoking Tobacco: Never Assessed Comments Unknown Sex and Gender Information Value Date Recorded Sex Assigned at Not on file Legal Sex Female 3:45 AM GOLD NIB GRINDER Gender Identity Not on file Sexual Orientation Not on file documented as of this encounter Plan of Treatment Not on file documented as of this encounter Visit Diagnoses Diagnosis Personal history of malignant neoplasm of breast- Primary documented in this encounter Care Teams Cigar Sorter Relationship Specialty Start Date End Date Jackson Rosa MD [address] [place] [address] PCP - General 07/05/09 documented as of this encounter
--- OUTSIDE RECORDS SUMMARY | 2024-10-07 17:17 | XMS_ITS | Referral Summary ---
Author Organization [facility] Address [address] [place] [address] Care Team Providers Care Director Product Safety Name Role Phone Jackson Rosa MD Primary Care Provider + [phone] Allergies Active Allergy Reactions Criticality Noted Date [...] 07/04/2021 Assessment & Plan (07/04/2021 11:03 AM JOB DEVELOPER FOR DEAF ADULTS): I explained to the patient how subclinical [...] on file Legal Sex Female 12:56 AM JOB DEVELOPER FOR DEAF ADULTS Gender Identity Female 10/06/2019 1:08 PM CDT [...] lb 3.2 oz) 05/15/2023 3:06 P M JOB DEVELOPER FOR DEAF ADULTS Height 157.5 cm (5' 2) 05/15/2023 3:06 PM JOB DEVELOPER FOR DEAF ADULTS Body Mass Index 27.11 05/15/2023 3:06 PM JOB DEVELOPER FOR DEAF ADULTS Plan of Treatment Not on file Medical Devices Implanted Type Area Railroad Operating Engineer Device Identifier Shelf Expiration Date Model / Serial / Lot Knee Replacement Right: Knee Procedures Procedure Name Priority Date/Time Associated Diagnosis Comments COLONOSCOPY 12/04/2017 11:53 AM CDT from Last 3 Months or Most Recently Relevant to Health Maintenance Results * COLONOSCOPY (12/04/2017 11:53 AM CDT) Anatomical Region Laterality Modality Other Narrative Procedure Note Dwayne Chan MD - 12/04/2017 11:53 AM CDT [facility] Patient Name: Zulma Carnes Procedure Date: 12/04/2017 11:53 AM Date of : 1945 Admit Type: Outpatient Age: 72 Gender: Female Attending MD: Dwayne Chan MD Room: [facility] ENDOSCOPY ROOM 2 Note Status: [...] passed under direct vision.The Pediatric Colonoscope PCF-H190L [id number] was introduced through the anus and advanced [...] perforation orabscess without bleeding CPT copyright 2017 [employer] [employer]. All rights reserved. The codes documented in this report are preliminary and upon java lead reviewmay be revised to meet current compliance requirements. Recognized by the [place] [employer] for Gastrointestinal [employer] for promoting quality in endoscopy Dwayne Chan MD ENDOSCOPY PROCEDURES Final Result from Last 3 Months or Most Recently Relevant to Health Maintenance Insurance MEDICARE [employer] MEDICARE MEDICARE FOR LIFE Advance Directives For more information, please contact: [phone] * Full Code (Latest Code Status on File) Date Activated Date Inactivated Comments 12/04/2017 11:05 AM 12/04/2017 3:39 PM Care Teams Director Product Safety Relationship Specialty Start Date End Date Jackson Rosa MD [address] [place] [address] PCP - General 07/04/16
--- OUTSIDE RECORDS SUMMARY | 2024-10-07 17:17 | XMS_ITS | Encounter Summary ---
Author Organization [facility] Address [address] [place] [address] Care Team Providers Care Roll Dough Divider Name Role Phone Jackson Rosa MD Primary Care Provider + Encounter Details Date Type Department Care Team (Latest Contact Info) Description 07/12/2004 Outpatient Historical HIS [facility] GEOFF Caebzas, Cyndee Crespo MD NO ADDRESS ON FILE SCREENING MAMM-MALIG NEOPL-HI RISK (Primary Dx) Social History Tobacco Use Types Packs/Day Years Used Date Smoking Tobacco: Never Assessed Comments Unknown Sex and Gender Information Value Date Recorded Sex Assigned at Not on file Legal Sex Female 3:45 AM OYSTER FISHERMAN Gender Identity Not on file Sexual Orientation Not on file documented as of this encounter Plan of Treatment Not on file documented as of this encounter Visit Diagnoses Diagnosis Screening mammogram for high-risk patient- Primary documented in this encounter Care Teams Roll Dough Divider Relationship Specialty Start Date End Date Jackson Rosa MD [address] [place] [address] PCP - General 07/05/09 documented as of this encounter
--- OUTSIDE RECORDS SUMMARY | 2024-10-07 17:17 | XMS_ITS | Clinical Summary ---
Author Organization [facility] Address [address] [place] [address] Care Team Providers Care Engine Room Helper Name Role Phone Jackson Rosa MD Primary Care Provider + [phone] Allergies Active Allergy Reactions Criticality Noted Date [...] 07/04/2021 Assessment & Plan (07/04/2021 11:03 AM INSULATION APPLICATOR): I explained to the patient how subclinical [...] on file Legal Sex Female 12:56 AM INSULATION APPLICATOR Gender Identity Female 10/06/2019 1:08 PM CDT [...] lb 3.2 oz) 05/15/2023 3:06 P M INSULATION APPLICATOR Height 157.5 cm (5' 2) 05/15/2023 3:06 PM INSULATION APPLICATOR Body Mass Index 27.11 05/15/2023 3:06 PM INSULATION APPLICATOR Plan of Treatment Health Maintenance Due Date Last Done Comments Hepatitis C Screening 1945 Hepatitis B Screening 1963 Zoster Vaccine (1 of 2) 1996 DTaP/Tdap/Td Vaccine (1 - Tdap) 12/02/1999 0 Well Visit 65+ 09/14/2011 Osteoporosis Screening-Bone Density Scan 01/17/2018 01/18/2016 Pneumococcal vaccine 65+ (2 of 2 - PPSV23) 09/07/2021 09/07/2020 Depression Screening 07/04/2022 07/04/2021 Fall Risk Assessment 12/22/2023 12/21/2022 Covid-19 Vaccine ( - 2023-2 5 season) 2023 01/31/2022, 05/03/2021, 08/30/2020 Influenza Vaccine (Season Ended) 2024 03/12/2019, 01/28/2018, 01/04/2017, Additional history exists Breast Cancer Screening-Mammogram Discontinued 012 Colon Cancer Screening-CT Colonography Discontinued 12/04/2017 Colon Cancer Screening-Colonoscopy Discontinued 12/04/2017 Colon Cancer Screening-DNA Stool Discontinued 12/05/19 18 Colon Cancer Screening-FIT Discontinued 12/04/2017 Colon Cancer Screening-FOBT Discontinued 12/04/2017 Colon Cancer Screening-Sigmoidoscopy Discontinued 12/04/2017 Colorectal Cancer Screening Discontinued Medical Devices Implanted Type Area Various Exceptionalities Teacher Device Identifier Shelf Expiration Date Model / [...] Female Attending MD: Dwayne Chan MD Room: [facility] ENDOSCOPY ROOM 2 Note Status: [...] passed under direct vision.The Pediatric Colonoscope PCF-H190L [id number] was introduced through the anus and advanced [...] perforation orabscess without bleeding CPT copyright 2017 [employer]. All rights reserved. The codes documented in this report are preliminary and upon physician coder reviewmay be revised to meet current compliance requirements. Recognized by the [place] [employer] Gastro[employer] for promoting quality in endoscopy Dwayne Chan MD ENDOSCOPY PROCEDURES Final Result from Last 3 Months or Most Recently Relevant to Health Maintenance Insurance MEDICARE [employer] [address] MEDICARE MEDICARE FOR LIFE Advance Directives For more information, please contact: [phone] * Full Code (Latest Code Status on File) Date Activated Date Inactivated Comments 12/04/2017 11:05 AM 12/04/2017 3:39 PM Care Teams Engine Room Helper Relationship Specialty Start Date End Date Jackson Rosa MD [address] [place] [address] PCP - General 07/04/16
--- OUTSIDE RECORDS SUMMARY | 2024-10-07 17:17 | XMS_ITS | Clinical Summary ---
Author Organization [facility] Address [address] [place] [address] Care Team Providers Care Pool Coordinator Name Role Phone Jackson Rosa MD Primary Care Provider [phone] Sammie Fox RN Unavailable [phone] Deyanira Daigle CORE ANALYSIS OPERATOR Unavailable Luis Carlos Rivas MD Unavailable [phone] Source Comments [facility],non-owned Affiliates and Associated Physician Practices is amultiple site organization consisting of ambulatory clinics and hospital sitesin [place], [place], [place]. This disclosure is being madepursuant to the Care Everywhere program and may not contain all information available regarding this patient. Last updated 18.[facility] Allergies Active Allergy Reactions Criticality [...] problems Immunizations Immunization Administration Dates Next Due Sounder primary monoval ent 12+ yr 0.3mL Purple [...] Sex Assigned at Female 05/03/2021 6:03 PM STEEL POURER Legal Sex Female 9:20 AM STEEL POURER Gender Identity Female 05/03/2021 6:03 PM STEEL POURER Sexual Orientation Straight 05/03/2021 6: 03 PM STEEL POURER Last Filed Vital Signs Vital Sign Reading Time Taken Comments Blood Pressure 132/78 06/21/2016 8:16 AM STEEL POURER Pulse 55 06/21/2016 8:16 AM STEEL POURER Temperature 36.7 C (98.1 F) 08/13/2014 11:27 AM CDT Respiratory Rate 18 08/13/2014 11:27 AM CDT Oxygen Saturation 100% 08/13/2014 11:27 AM CDT Inhaled Oxygen Concentration - - Weight 70.3 kg (155 lb) 09/03/2016 3:25 PM CDT Height 157.5 cm (5' 2) 09/03/2016 3:25 PM CDT Body Mass Index [...] this topic Medical Devices Implanted Type Area City Administrator Device Identifier Shelf Expiration Date Model / Serial / Lot Nexgen Complete Knee Solution Cruciate Retaining Trabecular Metal Monoblock Tibial Component Tibial Size 3, Femoral Size C-H, 10mm Height Implanted:Qty: 1 on 08/10/2014 by Angel Luis Villegas MD at [facility] Right: Knee [employer] 01/27/2019 [id number] Nexgen Complete Knee Solution Cruciate Retaining Cr-Flex Femoral Component Porous Size D, Right Implanted:Qty: 1 on 08/10/2014 by Angel Luis Villegas MD at [facility] Right: Knee [employer] 11/28/2023 / / [id number] Bill Only Basic Derrick Excludes Agc Kn Implanted:Qty: 1 on 08/10/2014 by Angel Luis Villegas MD at [facility] [employer] BILL ONLY BASIC DERRICK EXCLUDES AGC KN ZIMM / / Bill Only Tb Upchrg Implanted:Qty: 1 on 08/10/2014 by Angel Luis Villegas MD at [facility] [employer] UPCHRG MELY BILL ONLY TB / / Insurance MEDICARE Member Subscriber Plan / Payer (Ef fective 2011-Present) Name:Zulma Carnes Member ID:[id number] Relation to Subscriber:Self Name:Zulma Carnes Subscriber ID:[id number] Payer ID:Not on file Group ID:Not on file Type:Medicare Address: [place] [address] MEDICARE Member Subscriber Plan / Payer (Ef fective for All Dates) Name:Zulma Carnes Member ID:[id number] Relation to Subscriber:Self Name:Zulma Carnes Subscriber ID:[id number] Payer ID:Not on file Group ID:Not on file Type:Medicare Address: [place] [phone] MEDICARE Care Teams Pool Coordinator Relationship Specialty Start Date End Date Jackson Rosa MD PCP - General Internal Medicine 05/18/14 Sammie Fox, KAROLINE Store Mgr 08/10/14 Deyanira Daigle, [facility] Coronary Clinical Specialist 08/12/14 [place] [address] [id number] Orthopedic Surgery 09/03/16
--- OUTSIDE RECORDS SUMMARY | 2024-10-07 17:17 | XMS_ITS | CONTINUITY OF CARE DOCUMENT ---
Author Name tobin rudd Address Unknown Organization [facility] Address [address] [place] [address] [address] [place] [address] Phone [phone] Care Team Providers Care Material Liaison Name Role Phone Gabe Wright MD Unavailable [phone] Gabe Wright MD Unavailable [phone] INSURANCE PROVIDERS Payer name Policy type / Coverage type Jodie red libertarian ID FOR LIFE [id number] [place] MEDICARE Medicare [id number]
--- OUTSIDE RECORDS SUMMARY | 2024-10-07 17:17 | XMS_ITS | Encounter Summary ---
Author Organization [facility] Address [address] [place] [address] Care Team Providers Care Chair Post Machine Operator Name Role Phone Jackson Rosa MD Primary Care Provider + Encounter Details Date Type Department Care Team (Latest Contact Info) Description 01/24/1999 Outpatient Historical HIS [facility] GEOFF Cabezas, Cyndee Crespo MD NO ADDRESS ON FILE Other screening mammogram (Primary Dx) Social History Tobacco Use Types Packs/Day Years Used Date Smoking Tobacco: Never Assessed Comments Unknown Sex and Gender Information Value Date Recorded Sex Assigned at Not on file Legal Sex Female 3:45 AM BIOPHARMACEUTICAL REP Gender Identity Not on file Sexual Orientation Not on file documented as of this encounter Plan of Treatment Not on file documented as of this encounter Visit Diagnoses Diagnosis Other screening mammogram- Primary documented in this encounter Care Teams Chair Post Machine Operator Relationship Specialty Start Date End Date Jackson Rosa MD [address] [place] [address] PCP - General 07/05/09 documented as of this encounter
--- OUTSIDE RECORDS SUMMARY | 2024-10-07 17:17 | XMS_ITS | Encounter Summary ---
Author Organization [facility] Address [address] [place] [address] Care Team Providers Care Manager Continuous Improvement Name Role Phone Jackson Rosa MD Primary Care Provider + Encounter Details Date Type Department Care Team (Latest Contact Info) Description 03/04/2007 Outpatient Historical HIS [facility] GEOFF Cabezas, Cyndee Crespo MD NO ADDRESS ON FILE Screening Mammogram for High-Risk Patient (Primary Dx) Social History Tobacco Use Types Packs/Day Years Used Date Smoking Tobacco: Never Assessed Comments Unknown Sex and Gender Information Value Date Recorded Sex Assigned at Not on file Legal Sex Female 3:45 AM HAIRPIECE STYLIST Gender Identity Not on file Sexual Orientation Not on file documented as of this encounter Plan of Treatment Not on file documented as of this encounter Visit Diagnoses Diagnosis Screening mammogram for high-risk patient- Primary documented in this encounter Care Teams Manager Continuous Improvement Relationship Specialty Start Date End Date Jackson Rosa MD [address] [place] [address] PCP - General 07/05/09 documented as of this encounter
--- OUTSIDE RECORDS SUMMARY | 2024-10-07 17:17 | XMS_ITS | Encounter Summary ---
Author Organization [facility] Address [address] [place] [address] Care Team Providers Care Investigations Manager Name Role Phone Jackson Rosa MD Primary Care Provider + Encounter Details Date Type Department Care Team (Latest Contact Info) Description 03/31/2008 Outpatient Historical HIS [facility] GEOFF Cabezas, Ezequiel Crespo MD NO ADDRESS ON FILE Other Screening Mammogram Social History Tobacco Use Types Packs/Day Years Used Date Smoking Tobacco: Never Assessed Comments Unknown Sex and Gender Information Value Date Recorded Sex Assigned at Not on file Legal Sex Female 3:45 AM TRAILER DRIVER Gender Identity Not on file Sexual Orientation Not on file documented as of this encounter Plan of Treatment Not on file documented as of this encounter Procedures Procedure Name Priority Date/Time Associated Diagnosis Comments MAMMO SCREEN BILAT W OR WO CAD Routine 03/31/2008 8:30 AM TRAILER DRIVER documented in this encounter Results * MAMMO DIGITAL SCREEN BILAT (03/31/2008 8:30 AM TRAILER DRIVER) Anatomical Region Laterality Modality Breast Bilateral Other 03/31/2008 8:30 AM TRAILER DRIVER Narrative 03/31/2008 12:03 PM TRAILER DRIVER [address] [address] Admit Date: 03/31/2008 ZULMA CARNES Sex: F Admit Prov: EZEQUIEL CABEZAS Date: 1945 Primary Care Prov: CMRN: [id number] Room: KIRT SSN: [id number] IMAGING SERVICES Ordering Prov: EZEQUIEL CABEZAS Accession Number: [id number] Interpretation EXAM: BILATERAL SCREENING FULL FIELD DIGITAL [...] AMK Procedure Note Elena Lou - 03/31/2008 [facility] [address] [place], [place] [address] Admit Date: 03/31/2008 ZULMA CARNES Sex: F Admit Prov: EZEQUIEL CABEZAS Date: 1945 Primary Care Prov: CMRN: [id number] Room: MASONAshleigh SSN: [id number] IMAGING SERVICES Ordering Prov: EZEQUIEL CABEZAS Interpretation [...] mammogram documented in this encounter Care Teams Investigations Manager Relationship Specialty Start Date End Date Jackson Rosa MD [address] [place] [address] PCP - General 07/05/09 documented as of this encounter
--- OUTSIDE RECORDS SUMMARY | 2024-10-07 17:17 | XMS_ITS | Encounter Summary ---
Author Organization [facility] Address [address] [place] [address] Care Team Providers Care Story Analyst Name Role Phone Jackson Rosa MD Primary Care Provider + Encounter Details Date Type Department Care Team (Latest Contact Info) Description 10/13/2003 Outpatient Historical HIS [facility] GEOFF Cabezas, Cyndee Crespo MD NO ADDRESS ON FILE SCREENING MAMM-MAILG NEOPL-OTHER (Primary Dx) Social History Tobacco Use Types Packs/Day Years Used Date Smoking Tobacco: Never Assessed Comments Unknown Sex and Gender Information Value Date Recorded Sex Assigned at Not on file Legal Sex Female 3:45 AM VERIFICATION ENGINEER Gender Identity Not on file Sexual Orientation Not on file documented as of this encounter Plan of Treatment Not on file documented as of this encounter Visit Diagnoses Diagnosis Other screening mammogram- Primary documented in this encounter Care Teams Story Analyst Relationship Specialty Start Date End Date Jackson Rosa MD [address] [place] [phone] PCP - General 07/05/09 documented as of this encounter
--- OUTSIDE RECORDS SUMMARY | 2024-10-07 17:17 | XMS_ITS | Encounter Summary ---
Author Organization [facility] Address [address] [place] [address] Care Team Providers Care Sweet Goods Machine Operator Name Role Phone Jackson Rosa [...] on file Legal Sex Female 3:45 AM COUNTERINTELLIGENCE ANALYST Gender Identity Not on file Sexual Orientation Not on file documented as of this encounter Plan of Treatment Not on file documented as of this encounter Visit Diagnoses Diagnosis Follow-up examination, following other surgery- Primary documented in this encounter Care Teams Sweet Goods Machine Operator Relationship Specialty Start Date End Date Jackson Rosa MD [address] [place] [address] PCP - General 07/05/09 documented as of this encounter
--- OUTSIDE RECORDS SUMMARY | 2024-10-07 17:17 | XMS_ITS | Encounter Summary ---
Author Organization [facility] Address [address] [place] [address] Care Team Providers Care Hot Molder Name Role Phone Jackson Rosa MD Primary Care Provider + Encounter Details Date Type Department Care Team (Latest Contact Info) Description 09/07/1998 Outpatient Historical HIS [facility] Cabezas, Cyndee Crespo MD NO ADDRESS ON FILE Personal history of malignant neoplasm of breast (Primary Dx) Social History Tobacco Use Types Packs/Day Years Used Date Smoking Tobacco: Never Assessed Comments Unknown Sex and Gender Information Value Date Recorded Sex Assigned at Not on file Legal Sex Female 3:45 AM ADULT SERVICES LIBRARIAN Gender Identity Not on file Sexual Orientation Not on file documented as of this encounter Plan of Treatment Not on file documented as of this encounter Visit Diagnoses Diagnosis Personal history of malignant neoplasm of breast- Primary documented in this encounter Care Teams Hot Molder Relationship Specialty Start Date End Date Jackson Rosa MD [address] [place] [phone] PCP - General 07/05/09 documented as of this encounter
--- OUTSIDE RECORDS SUMMARY | 2024-10-07 17:17 | XMS_ITS ---
Author Organization [facility] Address [address] [place] [address] Care Team Providers Care Clinical Appeals Rn Name Role Phone Jackson Rosa MD Primary Care Provider + [phone] Active Problems Problem Noted Date Diagnosed Date [...] 07/04/2021 Assessment & Plan (07/04/2021 11:03 AM FLYING SQUAD WORKER): I explained to the patient how subclinical [...]
--- OUTSIDE RECORDS SUMMARY | 2024-10-07 17:17 | XMS_ITS | Encounter Summary ---
Author Organization [facility] Address [address] [place] [address] Care Team Providers Care Earth Science Laboratory Technician Name Role Phone Jackson Rosa MD Primary Care Provider + Encounter Details Date Type Department Care Team (Latest Contact Info) Description 09/09/2001 Outpatient Historical HIS [facility] Cabezas, Cyndee Crespo MD NO ADDRESS ON FILE PERS HX OF BREAST MALIGNANCY (Primary Dx) Social History Tobacco Use Types Packs/Day Years Used Date Smoking Tobacco: Never Assessed Comments Unknown Sex and Gender Information Value Date Recorded Sex Assigned at Not on file Legal Sex Female 3:45 AM BOND ANALYST Gender Identity Not on file Sexual Orientation Not on file documented as of this encounter Plan of Treatment Not on file documented as of this encounter Visit Diagnoses Diagnosis Personal history of malignant neoplasm of breast- Primary documented in this encounter Care Teams Earth Science Laboratory Technician Relationship Specialty Start Date End Date Jackson Rosa MD [address] [place] [phone] PCP - General 07/05/09 documented as of this encounter
--- OUTSIDE RECORDS SUMMARY | 2024-10-07 17:17 | XMS_ITS | Clinical Summary ---
Author Organization [facility] Offices Address [address] [place] [address] Care Team Providers Care Apartment Leasing Agent Name Role Phone Jackson Rosa MD Primary [...] BI-FLEX ORAL) Take by mouth. Active Coenzyme J03-Tcenvyo E (COQ10 SG 100) 100-100 mg-unit Oral [...] on file Legal Sex Female 3:45 AM POSTAL SUPERVISOR Gender Identity Not on file Sexual Orientation Not on file Last Filed Vital Signs Vital Sign Reading Time Taken Comments Blood Pressure 122/58 04/18/2016 9:52 AM POSTAL SUPERVISOR Pulse 61 04/18/2016 9:52 AM POSTAL SUPERVISOR Temperature - - Respiratory Rate - - Oxygen Saturation - - Inhaled Oxygen Concentration - - Weight 68.9 kg (152 lb) 04/18/2016 9:52 AM POSTAL SUPERVISOR Height 157.5 cm (5' 2) 04/18/2016 9:52 AM POSTAL SUPERVISOR Body Mass Index 27.8 04/18/2016 9:52 AM POSTAL SUPERVISOR Plan of Treatment Health Maintenance Due Date [...] Maintenance Insurance [facility]IC[facility] [address] Care Teams Apartment Leasing Agent Relationship Specialty Start Date End Date Jackson Rosa MD [address] [place] [phone] PCP - General 07/05/09
--- OUTSIDE RECORDS SUMMARY | 2024-10-07 17:17 | XMS_ITS | Continuity of Care Document ---
Author Organization [facility] Address [address] [place] [address] Phone Care Team Providers Care Digital Media Specialist Name Role Phone Elaine KLEIN, Cinthya Unavailable Unavailable Advance Directives Directive Yes / No Effective Date File Name No Information Encounters Encounter Description Practice Location Reason(s) For Visit Diagnoses Date Provider Providers Copied on Encounter [facility], [address], [place], [place], [id number], [place] tel:[phone] [facility] No Information Elaine Mendes. [address] [facility], [facility] [place], [id number] , [place]. tel:[phone] [facility], [address], [place], [place], [address], [place] tel:[phone] [facility] Dilation of biliary tract Azra Hung. [address], [address], [place], [address], [place]. tel:[phone] Family History Family Member Type Diagnosis Age [...]
--- OUTSIDE RECORDS SUMMARY | 2024-10-07 17:17 | XMS_ITS | Encounter Summary ---
Author Organization [facility] Address [address] [place] [address] Care Team Providers Care Photograph Inspector Name Role Phone Jackson Rosa MD Primary Care Provider + Encounter Details Date Type Department Care Team (Latest Contact Info) Description 09/05/1999 Outpatient Historical HIS [facility] Cabezas, Cyndee Crespo MD NO ADDRESS ON FILE Personal history of malignant neoplasm of breast (Primary Dx) Social History Tobacco Use Types Packs/Day Years Used Date Smoking Tobacco: Never Assessed Comments Unknown Sex and Gender Information Value Date Recorded Sex Assigned at Not on file Legal Sex Female 3:45 AM MANAGER FINANCIAL PLANNING Gender Identity Not on file Sexual Orientation Not on file documented as of this encounter Plan of Treatment Not on file documented as of this encounter Visit Diagnoses Diagnosis Personal history of malignant neoplasm of breast- Primary documented in this encounter Care Teams Photograph Inspector Relationship Specialty Start Date End Date Jackson Rosa MD [address] [place] [phone] PCP - General 07/05/09 documented as of this encounter
== END 2024-10-07 14:35 | disposition home or self-care (01) ==
LOC: CHSLAB 14:36
PROVIDERS: PCP Internal Medicine; Visit Provider Nurse Practitioner Family
DX: R19.7 Diarrhea, unspecified (principal); R10.11 Right upper quadrant pain
CPT/HCPCS: 36415; 74177; 80053; 81003; 82150; 83690; 85027; 87086; Q9967

== ENCOUNTER 2024-10-08 19:27 | Outpatient (CLI) | payer MEDICARE, SELFPAY ==
--- OUTSIDE RECORDS SUMMARY | 2024-10-08 19:29 | XMS_ITS | Encounter Summary ---
Author Organization [facility] Address [address] [place] [address] Care Team Providers Care Client Advocate Name Role Phone Jackson Rosa MD Primary Care Provider + Encounter Details Date Type Department Care Team (Latest Contact Info) Description 10/13/2003 Outpatient Historical HIS [facility] Cabezas, Cyndee Crespo MD NO ADDRESS ON FILE SCREENING MAMM-MAILG NEOPL-OTHER (Primary Dx) Social History Tobacco Use Types Packs/Day Years Used Date Smoking Tobacco: Never Assessed Comments Unknown Sex and Gender Information Value Date Recorded Sex Assigned at Not on file Legal Sex Female 3:45 AM ROSTER CLERK Gender Identity Not on file Sexual Orientation Not on file documented as of this encounter Plan of Treatment Not on file documented as of this encounter Visit Diagnoses Diagnosis Other screening mammogram- Primary documented in this encounter Care Teams Client Advocate Relationship Specialty Start Date End Date Jackson Rosa MD [address] [place] [phone] PCP - General 07/05/09 documented as of this encounter
--- OUTSIDE RECORDS SUMMARY | 2024-10-08 19:29 | XMS_ITS | Clinical Summary ---
Author Organization [facility] Administrative Offices Address [address] [place] [address] Care Team Providers Care Offshore Wind Turbine Technician Name Role Phone Jackson Rosa MD [...] BI-FLEX ORAL) Take by mouth. Active Coenzyme C08-Jvojrno E (COQ10 SG 100) 100-100 mg-unit Oral [...] on file Legal Sex Female 3:45 AM CLIENT SERVICE REPRESENTATIVE Gender Identity Not on file Sexual Orientation Not on file Last Filed Vital Signs Vital Sign Reading Time Taken Comments Blood Pressure 122/58 04/18/2016 9:52 AM CLIENT SERVICE REPRESENTATIVE Pulse 61 04/18/2016 9:52 AM CLIENT SERVICE REPRESENTATIVE Temperature - - Respiratory Rate - - Oxygen Saturation - - Inhaled Oxygen Concentration - - Weight 68.9 kg (152 lb) 04/18/2016 9:52 AM CLIENT SERVICE REPRESENTATIVE Height 157.5 cm (5' 2) 04/18/2016 9:52 AM CLIENT SERVICE REPRESENTATIVE Body Mass Index 27.8 04/18/2016 9:52 AM CLIENT SERVICE REPRESENTATIVE Plan of Treatment Health Maintenance Due Date [...] Maintenance Insurance MEDICARE PART A [facility] [place] [address] Care Teams Offshore Wind Turbine Technician Relationship Specialty Start Date End Date Jackson Rosa MD [address] [place] [phone] PCP - General 07/05/09
--- OUTSIDE RECORDS SUMMARY | 2024-10-08 19:29 | XMS_ITS ---
Author Organization [facility] Address [address] [place] [address] Care Team Providers Care Facility Technician Name Role Phone Jackson Rosa MD Primary Care Provider + [phone] Active Problems Problem Noted Date Diagnosed Date [...] 07/04/2021 Assessment & Plan (07/04/2021 11:03 AM FARM LOAN INSPECTOR): I explained to the patient how subclinical [...]
--- OUTSIDE RECORDS SUMMARY | 2024-10-08 19:29 | XMS_ITS | Encounter Summary ---
Author Organization [facility] Address [address] [place] [address] Care Team Providers Care Carpet Finishing Supervisor Name Role Phone Jackson Rosa MD Primary Care Provider + Encounter Details Date Type Department Care Team (Latest Contact Info) Description 08/12/2002 Outpatient Historical HIS [facility] Cabezas, Cyndee Crespo MD NO ADDRESS ON FILE SCREENING MAMM-MAILG NEOPL-OTHER (Primary Dx) Social History Tobacco Use Types Packs/Day Years Used Date Smoking Tobacco: Never Assessed Comments Unknown Sex and Gender Information Value Date Recorded Sex Assigned at Not on file Legal Sex Female 3:45 AM PARTS WASHER Gender Identity Not on file Sexual Orientation Not on file documented as of this encounter Plan of Treatment Not on file documented as of this encounter Visit Diagnoses Diagnosis Other screening mammogram- Primary documented in this encounter Care Teams Carpet Finishing Supervisor Relationship Specialty Start Date End Date Jackson Rosa MD [address] [place] [phone] PCP - General 07/05/09 documented as of this encounter
--- OUTSIDE RECORDS SUMMARY | 2024-10-08 19:29 | XMS_ITS | Encounter Summary ---
Author Organization [facility] Address [address] [place] [address] Care Team Providers Care Environmental Director Name Role Phone Jcakson Rosa MD Primary Care Provider + Encounter Details Date Type Department Care Team (Latest Contact Info) Description 07/12/2004 Outpatient Historical HIS [facility] Cabezas, Cyndee Crespo MD NO ADDRESS ON FILE SCREENING MAMM-MALIG NEOPL-HI RISK (Primary Dx) Social History Tobacco Use Types Packs/Day Years Used Date Smoking Tobacco: Never Assessed Comments Unknown Sex and Gender Information Value Date Recorded Sex Assigned at Not on file Legal Sex Female 3:45 AM RIVER RAT Gender Identity Not on file Sexual Orientation Not on file documented as of this encounter Plan of Treatment Not on file documented as of this encounter Visit Diagnoses Diagnosis Screening mammogram for high-risk patient- Primary documented in this encounter Care Teams Environmental Director Relationship Specialty Start Date End Date Jackson Rosa MD [address] [place] [address] PCP - General 07/05/09 documented as of this encounter
--- OUTSIDE RECORDS SUMMARY | 2024-10-08 19:29 | XMS_ITS | Encounter Summary ---
Author Organization [facility] Address [address] [place] [address] Care Team Providers Care Diesel Truck Crane Operator Name Role Phone Jackson Rosa MD Primary Care Provider + Encounter Details Date Type Department Care Team (Latest Contact Info) Description 03/31/2008 Outpatient Historical HIS [facility] Cabezas, Ezequiel Crespo MD NO ADDRESS ON FILE Other Screening Mammogram Social History Tobacco Use Types Packs/Day Years Used Date Smoking Tobacco: Never Assessed Comments Unknown Sex and Gender Information Value Date Recorded Sex Assigned at Not on file Legal Sex Female 3:45 AM THERMOFORMING MACHINE OPERATOR Gender Identity Not on file Sexual Orientation Not on file documented as of this encounter Plan of Treatment Not on file documented as of this encounter Procedures Procedure Name Priority Date/Time Associated Diagnosis Comments MAMMO SCREEN BILAT W OR WO CAD Routine 03/31/2008 8:30 AM THERMOFORMING MACHINE OPERATOR documented in this encounter Results * MAMMO DIGITAL SCREEN BILAT (03/31/2008 8:30 AM THERMOFORMING MACHINE OPERATOR) Anatomical Region Laterality Modality Breast Bilateral Other 03/31/2008 8:30 AM THERMOFORMING MACHINE OPERATOR Narrative 03/31/2008 12:03 PM THERMOFORMING MACHINE OPERATOR [address] [address] Admit Date: 03/31/2008 ZULMA CARNES Sex: F Admit Prov: EZEQUIEL CABEZAS Date: 1945 Primary Care Prov: CMRN: [id number] Room: KIRT SSN: [id number] IMAGING SERVICES Ordering Prov: EZEQUIEL CABEZAS Accession Number: [id number] Interpretation EXAM: BILATERAL SCREENING FULL FIELD DIGITAL [...] AMK Procedure Note Elena Lou - 03/31/2008 [facility] [address] [place], [place] [address] Admit Date: 03/31/2008 ZULMA CARNES Sex: F Admit Prov: EZEQUIEL CABEZAS Date: 1945 Primary Care Prov: CMRN: [id number] Room: MASONAshleigh SSN: [id number] IMAGING SERVICES Ordering Prov: EZEQUIEL CABEZAS Interpretation [...] mammogram documented in this encounter Care Teams Diesel Truck Crane Operator Relationship Specialty Start Date End Date Jackson Rosa MD [address] [place] [phone] PCP - General 07/05/09 documented as of this encounter
--- OUTSIDE RECORDS SUMMARY | 2024-10-08 19:29 | XMS_ITS | Encounter Summary ---
Author Organization [facility] Address [address] [place] [address] Care Team Providers Care Exchange Specialist Name Role Phone Jackson Rosa MD [...] on file Legal Sex Female 3:45 AM EARTHMOVING PLANT OPERATOR Gender Identity Not on file Sexual Orientation Not on file documented as of this encounter Plan of Treatment Not on file documented as of this encounter Visit Diagnoses Diagnosis Follow-up examination, following other surgery- Primary documented in this encounter Care Teams Exchange Specialist Relationship Specialty Start Date End Date Jackson Rosa MD [address] [place] [phone] PCP - General 07/05/09 documented as of this encounter
--- OUTSIDE RECORDS SUMMARY | 2024-10-08 19:29 | XMS_ITS | Encounter Summary ---
Author Organization [facility] Address [address] [place] [address] Care Team Providers Care Housing And Residence Life Director Name Role Phone Jackson Rosa MD Primary Care Provider + Encounter Details Date Type Department Care Team (Latest Contact Info) Description 01/29/2006 Outpatient Historical HIS [facility] Cabezas, Cyndee Crespo MD NO ADDRESS ON FILE Other Follow-Up Examination (Primary Dx) Social History Tobacco Use Types Packs/Day Years Used Date Smoking Tobacco: Never Assessed Comments Unknown Sex and Gender Information Value Date Recorded Sex Assigned at Not on file Legal Sex Female 3:45 AM MANAGER LIFE Gender Identity Not on file Sexual Orientation Not on file documented as of this encounter Plan of Treatment Not on file documented as of this encounter Visit Diagnoses Diagnosis Other follow-up examination(V67.59)- Primary Other follow-up examination documented in this encounter Care Teams Housing And Residence Life Director Relationship Specialty Start Date End Date Jackson Rosa MD [address] [place] [address] PCP - General 07/05/09 documented as of this encounter
--- OUTSIDE RECORDS SUMMARY | 2024-10-08 19:30 | XMS_ITS | Encounter Summary ---
Author Organization [facility] Address [address] [place] [address] Care Team Providers Care Stars Specialist Name Role Phone Jackson Rosa MD Primary Care Provider + Encounter Details Date Type Department Care Team (Latest Contact Info) Description 09/07/[address] [facility] GE[facility] Cabezas, Cyndee Crespo MD NO ADDRESS ON FILE Personal history of malignant neoplasm of breast (Primary Dx) Social History Tobacco Use Types Packs/Day Years Used Date Smoking Tobacco: Never Assessed Comments Unknown Sex and Gender Information Value Date Recorded Sex Assigned at Not on file Legal Sex Female 3:45 AM FLAT HAMMERER Gender Identity Not on file Sexual Orientation Not on file documented as of this encounter Plan of Treatment Not on file documented as of this encounter Visit Diagnoses Diagnosis Personal history of malignant neoplasm of breast- Primary documented in this encounter Care Teams Stars Specialist Relationship Specialty Start Date End Date Jackson Rosa MD [address] [place] [phone] PCP - General 07/05/09 documented as of this encounter
--- OUTSIDE RECORDS SUMMARY | 2024-10-08 19:30 | XMS_ITS | Clinical Summary ---
Author Organization [facility] Address [address] [place] [address] Care Team Providers Care Writer Editor Name Role Phone Jackson Rosa MD Primary Care Provider [phone] Sammie Fox RN Unavailable [phone] Deyanira Daigle ESTATE PLANNING DIRECTOR Unavailable [phone] Luis Carlos Rivas MD Unavailable Source Comments [facility],non-owned Affiliates and Associated Physician Practices is amultiple site organization consisting of ambulatory clinics and hospital sitesin [place], [place], [place] and [place]. This disclosure is being madepursuant to the Care Everywhere program and may not contain all information available regarding this patient. Last updated 18.[facility] Allergies Active Allergy Reactions [...] problems Immunizations Immunization Administration Dates Next Due Red Clay primary monoval ent 12+ yr 0.3mL Purple [...] Sex Assigned at Female 05/03/2021 6:03 PM SYSTEM DEVELOPMENT MANAGER Legal Sex Female 9:20 AM SYSTEM DEVELOPMENT MANAGER Gender Identity Female 05/03/2021 6:03 PM SYSTEM DEVELOPMENT MANAGER Sexual Orientation Straight 05/03/2021 6: 03 PM SYSTEM DEVELOPMENT MANAGER Last Filed Vital Signs Vital Sign Reading Time Taken Comments Blood Pressure 132/78 06/21/2016 8:16 AM SYSTEM DEVELOPMENT MANAGER Pulse 55 06/21/2016 8:16 AM SYSTEM DEVELOPMENT MANAGER Temperature 36.7 C (98.1 F) 08/13/2014 11:27 [...] PNEUMOCOCCAL VACCINE 50+ (2 of 2 - PCV20 or PCV21) 09/07/2021 09/07/2020 Respiratory Syncytial Virus (RSV) Vaccine [...] this topic Medical Devices Implanted Type Area Performance Improvement Specialist Device Identifier Shelf Expiration Date Model / Serial / Lot Nexgen Complete Knee Solution Cruciate Retaining Trabecular Metal Monoblock Tibial Component Tibial Size 3, Femoral Size C-H, 10mm Height Implanted:Qty: 1 on 08/10/2014 by Angel Luis Villegas MD at [facility] Right: Knee [employer] 01/27/2019 [id number] Nexgen Complete Knee Solution Cruciate Retaining Cr-Flex Femoral Component Porous Size D, Right Implanted:Qty: 1 on 08/10/2014 by Angel Luis Villegas MD at [facility] Right: Knee [employer] 11/28/2023 / / [id number] Bill Only Basic Derrick Excludes Agc Kn Implanted:Qty: 1 on 08/10/2014 by Angel Luis Villegas MD at [facility] [employer] BILL ONLY BASIC DERRICK EXCLUDES AGC KN ZIMM / / Bill Only Tb Upchrg Implanted:Qty: 1 on 08/10/2014 by Angel Luis Villegas MD at [facility] [employer] UPCHRG MELY BILL ONLY TB / / Insurance MEDICARE MEDICARE Member Subscriber Plan / Payer (Ef fective for All Dates) Name:Zulma Carnes Member ID:[id number] Relation to Subscriber:Self Name:Zulma Carnes Subscriber ID:[id number] Payer ID:Not on file Group ID:Not on file Type:Medicare Address: [place] [id number] MEDICARE Care Teams Writer Editor Relationship Specialty Start Date End Date Jackson Rosa MD PCP - General Internal Medicine 05/18/14 Sammie Fox, RN Manager Inpatient 08/10/14 Deyanira Daigle, [facility] Camp Manager 08/12/14 [place] [address] [place] [address] Orthopedic Surgery 09/03/16
--- OUTSIDE RECORDS SUMMARY | 2024-10-08 19:30 | XMS_ITS | Encounter Summary ---
Author Organization [facility] Address [address] [place] [address] Care Team Providers Care Radiotelegraph Operator Servicer Name Role Phone Jackson Rosa MD Primary Care Provider + Encounter Details Date Type Department Care Team (Latest Contact Info) Description 01/24/1999 Outpatient Historical HIS [facility] Cabezas, Cyndee Crespo MD NO ADDRESS ON FILE Other screening mammogram (Primary Dx) Social History Tobacco Use Types Packs/Day Years Used Date Smoking Tobacco: Never Assessed Comments Unknown Sex and Gender Information Value Date Recorded Sex Assigned at Not on file Legal Sex Female 3:45 AM CONGRESSIONAL AIDE Gender Identity Not on file Sexual Orientation Not on file documented as of this encounter Plan of Treatment Not on file documented as of this encounter Visit Diagnoses Diagnosis Other screening mammogram- Primary documented in this encounter Care Teams Radiotelegraph Operator Servicer Relationship Specialty Start Date End Date Jackson Rosa MD [address] [place] [phone] PCP - General 07/05/09 documented as of this encounter
--- OUTSIDE RECORDS SUMMARY | 2024-10-08 19:30 | XMS_ITS | Referral Summary ---
Author Organization [facility] Address [address] [place] [address] Care Team Providers Care Field Support Engineer Name Role Phone Jackson Rosa MD Primary Care Provider + [phone] Allergies Active Allergy Reactions Criticality Noted Date [...] 07/04/2021 Assessment & Plan (07/04/2021 11:03 AM ADMIRALTY LAWYER): I explained to the patient how subclinical [...] on file Legal Sex Female 12:56 AM ADMIRALTY LAWYER Gender Identity Female 10/06/2019 1:08 PM CDT [...] lb 3.2 oz) 05/15/2023 3:06 P M ADMIRALTY LAWYER Height 157.5 cm (5' 2) 05/15/2023 3:06 PM ADMIRALTY LAWYER Body Mass Index 27.11 05/15/2023 3:06 PM ADMIRALTY LAWYER Plan of Treatment Not on file Medical Devices Implanted Type Area Skin Diving Teacher Device Identifier Shelf Expiration Date Model / Serial / Lot Knee Replacement Right: Knee Procedures Procedure Name Priority Date/Time Associated Diagnosis Comments COLONOSCOPY 12/04/2017 11:53 AM CDT from Last 3 Months or Most Recently Relevant to Health Maintenance Results * COLONOSCOPY (12/04/2017 11:53 AM CDT) Anatomical Region Laterality Modality Other Narrative Procedure Note Dwayne Chan MD - 12/04/2017 11:53 AM CDT Center Patient Name: Zulma Carnes Procedure Date: 12/04/2017 11:53 AM Date of : 1945 Admit Type: Outpatient Age: 72 Gender: Female Attending MD: Dwayne Chan MD Room: [facility] ENDOSCOPY ROOM 2 Note Status: [...] passed under direct vision.The Pediatric Colonoscope PCF-H190L [id number] was introduced through the anus and advanced [...] perforation orabscess without bleeding CPT copyright 2017 [employer]. All rights reserved. The codes documented in this report are preliminary and upon medical billing coder reviewmay be revised to meet current compliance requirements. Recognized by the [employer] for promoting quality in endoscopy Dwayne Chan MD ENDOSCOPY PROCEDURES Final Result from Last 3 Months or Most Recently Relevant to Health Maintenance Insurance MEDICARE [employer] MEDICARE MEDICARE FOR LIFE Advance Directives For more information, please contact: [phone] * Full Code (Latest Code Status on File) Date Activated Date Inactivated Comments 12/04/2017 11:05 AM 12/04/2017 3:39 PM Care Teams Field Support Engineer Relationship Specialty Start Date End Date Jackson Rosa MD [address] [place] [address] PCP - General 07/04/16
--- OUTSIDE RECORDS SUMMARY | 2024-10-08 19:30 | XMS_ITS | Encounter Summary ---
Author Organization [facility] Address [address] [place] [address] Care Team Providers Care Braiding Machine Tender Name Role Phone Jackson Rosa MD Primary Care Provider + Encounter Details Date Type Department Care Team (Latest Contact Info) Description 09/09/2001 Outpatient Historical HIS [facility] Cabezas, Cyndee Crespo MD NO ADDRESS ON FILE PERS HX OF BREAST MALIGNANCY (Primary Dx) Social History Tobacco Use Types Packs/Day Years Used Date Smoking Tobacco: Never Assessed Comments Unknown Sex and Gender Information Value Date Recorded Sex Assigned at Not on file Legal Sex Female 3:45 AM LUMBER CHECKER Gender Identity Not on file Sexual Orientation Not on file documented as of this encounter Plan of Treatment Not on file documented as of this encounter Visit Diagnoses Diagnosis Personal history of malignant neoplasm of breast- Primary documented in this encounter Care Teams Braiding Machine Tender Relationship Specialty Start Date End Date Jackson Rosa MD [address] [place] [address] PCP - General 07/05/09 documented as of this encounter
--- OUTSIDE RECORDS SUMMARY | 2024-10-08 19:30 | XMS_ITS | Encounter Summary ---
Author Organization [facility] Address [address] [place] [address] Care Team Providers Care Food Beverage Attendant Name Role Phone Jackson Rosa MD Primary Care Provider + Encounter Details Date Type Department Care Team (Latest Contact Info) Description 09/03/2000 Outpatient Historical HIS [facility] Cabezas, Cyndee Crespo MD NO ADDRESS ON FILE Personal history of malignant neoplasm of breast (Primary Dx) Social History Tobacco Use Types Packs/Day Years Used Date Smoking Tobacco: Never Assessed Comments Unknown Sex and Gender Information Value Date Recorded Sex Assigned at Not on file Legal Sex Female 3:45 AM CROWN POUNCER Gender Identity Not on file Sexual Orientation Not on file documented as of this encounter Plan of Treatment Not on file documented as of this encounter Visit Diagnoses Diagnosis Personal history of malignant neoplasm of breast- Primary documented in this encounter Care Teams Food Beverage Attendant Relationship Specialty Start Date End Date Jackson Rosa MD [address] [place] [address] PCP - General 07/05/09 documented as of this encounter
--- OUTSIDE RECORDS SUMMARY | 2024-10-08 19:30 | XMS_ITS | Clinical Summary ---
Author Organization [facility] Address [address] [place] [address] Care Team Providers Care Atmospheric Chemist Name Role Phone Jackson Rosa MD Primary Care Provider + [phone] Allergies Active Allergy Reactions Criticality Noted Date [...] 07/04/2021 Assessment & Plan (07/04/2021 11:03 AM PHARMACEUTICAL SALES REPRESENTATIVE): I explained to the patient how [...] on file Legal Sex Female 12:56 AM PHARMACEUTICAL SALES REPRESENTATIVE Gender Identity Female 10/06/2019 1:08 PM [...] lb 3.2 oz) 05/15/2023 3:06 P M PHARMACEUTICAL SALES REPRESENTATIVE Height 157.5 cm (5' 2) 05/15/2023 3:06 PM PHARMACEUTICAL SALES REPRESENTATIVE Body Mass Index 27.11 05/15/2023 3:06 PM PHARMACEUTICAL SALES REPRESENTATIVE Plan of Treatment Health Maintenance Due [...] Screening Discontinued Medical Devices Implanted Type Area Rat Exterminator Device Identifier Shelf Expiration Date Model / [...] Attending MD: Dwayne Chan MD Room: [facility] ENDOSCOPY ROOM 2 Note Status: [...] passed under direct vision.The Pediatric Colonoscope PCF-H190L [id number] was introduced through the anus and advanced [...] perforation orabscess without bleeding CPT copyright 2017 [employer]. All rights reserved. The codes documented in this report are preliminary and upon forestry engineer reviewmay be revised to meet current compliance requirements. Recognized by the [employer] for promoting quality in endoscopy Dwayne Chan MD ENDOSCOPY PROCEDURES Final Result from Last 3 Months or Most Recently Relevant to Health Maintenance Insurance MEDICARE [facility] Address: [address] [address] [place] [address] [place] [address] MEDICARE MEDICARE FOR LIFE Advance Directives For more information, please contact: [phone] * Full Code (Latest Code Status on File) Date Activated Date Inactivated Comments 12/04/2017 11:05 AM 12/04/2017 3:39 PM Care Teams Atmospheric Chemist Relationship Specialty Start Date End Date Jackson Rosa MD [address] [place] [address] PCP - General 07/04/16
--- OUTSIDE RECORDS SUMMARY | 2024-10-08 19:30 | XMS_ITS | Encounter Summary ---
Author Organization [facility] Address [address] [place] [address] Care Team Providers Care Staff Genetic Counselor Name Role Phone Jackson Rosa MD Primary Care Provider + Encounter Details Date Type Department Care Team (Latest Contact Info) Description 09/05/1999 Outpatient Historical HIS [facility] Cabezas, Cyndee Crespo MD NO ADDRESS ON FILE Personal history of malignant neoplasm of breast (Primary Dx) Social History Tobacco Use Types Packs/Day Years Used Date Smoking Tobacco: Never Assessed Comments Unknown Sex and Gender Information Value Date Recorded Sex Assigned at Not on file Legal Sex Female 3:45 AM STORE CLERK CASHIER Gender Identity Not on file Sexual Orientation Not on file documented as of this encounter Plan of Treatment Not on file documented as of this encounter Visit Diagnoses Diagnosis Personal history of malignant neoplasm of breast- Primary documented in this encounter Care Teams Staff Genetic Counselor Relationship Specialty Start Date End Date Jackson Rosa MD [address] [place] [address] PCP - General 07/05/09 documented as of this encounter
--- OUTSIDE RECORDS SUMMARY | 2024-10-08 19:30 | XMS_ITS | Continuity of Care Document ---
Author Organization [facility] Address [address] [place] [address] Phone Care Team Providers Care Certified Anesthesiologist Assistant Name Role Phone Elaine KLEIN, Cinthya Unavailable Unavailable Advance Directives Directive Yes / No Effective Date File Name No Information Encounters Encounter Description Practice Location Reason(s) For Visit Diagnoses Date Provider Providers Copied on Encounter [facility], [address], [place], [place], [id number], [place] tel:[phone] [facility] No Information Elaine Mendes. [address] [facility], [facility] [place], [place], [id number] , [place]. tel:[phone] [facility], [address], [place], [place], [address], [place] tel:[phone] [facility] Dilation of biliary tract Azra Hung. [address], [address], [place], [address], [place]. tel:[phone] Family History Family Member Type Diagnosis Age [...]
--- OUTSIDE RECORDS SUMMARY | 2024-10-08 19:30 | XMS_ITS | Encounter Summary ---
Author Organization [facility] Address [address] [place] [address] Care Team Providers Care Staffing Program Manager Name Role Phone Jackson Rosa MD Primary Care Provider + Encounter Details Date Type Department Care Team (Latest Contact Info) Description 03/04/2007 Outpatient Historical HIS [facility] Cabezas, Cyndee Crespo MD NO ADDRESS ON FILE Screening Mammogram for High-Risk Patient (Primary Dx) Social History Tobacco Use Types Packs/Day Years Used Date Smoking Tobacco: Never Assessed Comments Unknown Sex and Gender Information Value Date Recorded Sex Assigned at Not on file Legal Sex Female 3:45 AM TECHNICAL WRITER AND EDITOR Gender Identity Not on file Sexual Orientation Not on file documented as of this encounter Plan of Treatment Not on file documented as of this encounter Visit Diagnoses Diagnosis Screening mammogram for high-risk patient- Primary documented in this encounter Care Teams Staffing Program Manager Relationship Specialty Start Date End Date Jackson Rosa MD [address] [place] [address] PCP - General 07/05/09 documented as of this encounter
[2024-10-08 20:14] LABS: Occult Blood Negative (Negative)
[2024-10-08 20:54] LABS: Toxigenic C. Diff NEGATIVE (NEGATIVE)
== END 2024-10-08 19:28 | disposition home or self-care (01) ==
LOC: CHSLAB 19:28
PROVIDERS: PCP Internal Medicine; Visit Provider Nurse Practitioner Family
DX: R19.7 Diarrhea, unspecified (principal); R10.11 Right upper quadrant pain
CPT/HCPCS: 82272; 87045; 87427; 87449; 87493

== ENCOUNTER 2024-11-09 11:49 | Outpatient (CLI) | payer MEDICARE, OTHER, SELFPAY ==
--- OUTSIDE RECORDS SUMMARY | 2024-11-09 11:57 | XMS_ITS | Clinical Summary ---
Author Organization [facility] Address [address] [place] [address] Care Team Providers Care Master Of Ceremonies Name Role Phone Jackson Rosa MD Primary Care Provider [phone] Irma Willams MD Unavailable Efrem Alves MD [...] GERD (gastroesophageal reflux disease) Cataract Breast cancer ([facility]/HCC HHS/HCC) Bleeding Overview (09/05/2018): : History of bleeding, 1yr ago lower GI bleed colonoscopy negative, 5-6 yrs stomach ulcer tamoxifen side effect. Anemia Family History Medical History Relation Comments CABG [...] Sex Assigned at Female 05/25/2024 1:26 PM MACHINED PARTS QUALITY INSPECTOR Legal Sex Female 9:00 PM CDT Gender Identity Not on file Sexual Orientation Not on file Occupation Industry Job Start Date Job End Date Retired Not on file Not on file Not on file Last Filed Vital Signs Vital Sign Reading Time Taken Comments Blood Pressure 138/72 06/03/2024 12:50 PM MACHINED PARTS QUALITY INSPECTOR Pulse 69 06/03/2024 12:50 PM MACHINED PARTS QUALITY INSPECTOR Temperature 36.1 C (97 F) 11/03/2019 12:30 PM CDT Respiratory Rate 16 06/03/2024 12:5 0 PM MACHINED PARTS QUALITY INSPECTOR Oxygen Saturation 94% 06/03/2024 12: 50 PM MACHINED PARTS QUALITY INSPECTOR Inhaled Oxygen Concentration - - Weight 63.4 kg (139 lb 12.8 oz) 025 12:50 PM MACHINED PARTS QUALITY INSPECTOR Height 156.2 cm (5' 1.5) 06/03/2024 12 :50 PM MACHINED PARTS QUALITY INSPECTOR Body Mass Index 25.99 06/03/2024 12:50 PM MACHINED PARTS QUALITY INSPECTOR Plan of Treatment Upcoming Encounters Date Type Department Care Team (Late st Contact Info) Description 05/10/2025 8:30 AM MACHINED PARTS QUALITY INSPECTOR Office Visit [facility] [place] [address] Irma Willams MD [address] [place] [address] Health Maintenance Due Date Last Done Comments [...] this topic Medical Devices Implanted Type Area Attractions Associate Device Identifier Shelf Expiration Date Model / Serial / Lot Knee Components Knee Components Description:Right knee Knee Components Knee Components Description:Rt knee Iol Augustus [id number] - [id number] Implanted:Qty: 1 on 10/13/2019 by Stephane Samson MD at [facility] Lens Left: Eye [employer] 01/27/2024 [id number] / [id number] / N/A Description:Implant verified by Iol [employer] Li61ao - [id number] Implanted:Qty: 1 on 11/03/2019 by Stephane Samson MD at [facility] Lens Right: Eye [employer] 08/27/2023 [id number] / [id number] Description:Lens verified pe r surgeon and chart Procedures Procedure Name Priority Date/Time Associated Diagnosis Comments LIPID PANEL Routine 06/27/2013 12:00 AM MACHINED PARTS QUALITY INSPECTOR from Last 3 Months or Most Recently Relevant to Health Maintenance Results * LIPID PANEL (06/27/2013 12:00 AM MACHINED PARTS QUALITY INSPECTOR) TRIGLYCERIDES 78 0 - 150 mg/dl MEDINFORMATIX [...] Most Recently Relevant to Health Maintenance Insurance [facility] MEDICARE MEDICARE Care Teams Master Of Ceremonies Relationship Specialty Start Date End Date Jackson Rosa MD [address] [place] [address] PCP - General INTERNAL MEDICINE 04/02/16 Irma Willams MD [address] [place] [address] Consulting Physician CARDIOVASCULAR DISEASE 11/03/23 Efrem Alves MD [address] [place] [address] Vascular/Lead Pony Rider INTERNAL MEDICINE 12/17/23
--- OUTSIDE RECORDS SUMMARY | 2024-11-09 11:57 | XMS_ITS | Encounter Summary ---
Author Organization [facility] Address [address] [place] [address] Care Team Providers Care Crushed Stone Grader Name Role Phone Jackson Rosa MD Primary Care Provider + Encounter Details Date Type Department Care Team (Latest Contact Info) Description 09/07/1998 Outpatient Historical HIS [facility] Cabezas, Cyndee Crespo MD NO ADDRESS ON FILE Personal history of malignant neoplasm of breast (Primary Dx) Social History Tobacco Use Types Packs/Day Years Used Date Smoking Tobacco: Never Assessed Comments Unknown Sex and Gender Information Value Date Recorded Sex Assigned at Not on file Legal Sex Female 3:45 AM TECHNICAL OPERATIONS SPECIALIST Gender Identity Not on file Sexual Orientation Not on file documented as of this encounter Plan of Treatment Not on file documented as of this encounter Visit Diagnoses Diagnosis Personal history of malignant neoplasm of breast- Primary documented in this encounter Care Teams Crushed Stone Grader Relationship Specialty Start Date End Date Jackson Rosa MD [address] [place] [address] PCP - General 07/05/09 documented as of this encounter
--- OUTSIDE RECORDS SUMMARY | 2024-11-09 11:57 | XMS_ITS | Encounter Summary ---
Author Organization [facility] Address [address] [place] [address] Care Team Providers Care Loom Fixer Helper Name Role Phone Jackson Rosa MD Primary Care Provider + Encounter Details Date Type Department Care Team (Latest Contact Info) Description 01/29/2006 Outpatient Historical HIS [facility] Cabezas, Cyndee Crespo MD NO ADDRESS ON FILE Other Follow-Up Examination (Primary Dx) Social History Tobacco Use Types Packs/Day Years Used Date Smoking Tobacco: Never Assessed Comments Unknown Sex and Gender Information Value Date Recorded Sex Assigned at Not on file Legal Sex Female 3:45 AM CLAIM ADMINISTRATOR Gender Identity Not on file Sexual Orientation Not on file documented as of this encounter Plan of Treatment Not on file documented as of this encounter Visit Diagnoses Diagnosis Other follow-up examination(V67.59)- Primary Other follow-up examination documented in this encounter Care Teams Loom Fixer Helper Relationship Specialty Start Date End Date Jackson Rosa MD [address] [place] [address] PCP - General 07/05/09 documented as of this encounter
--- OUTSIDE RECORDS SUMMARY | 2024-11-09 11:57 | XMS_ITS | Encounter Summary ---
Author Organization [facility] Address [address] [place] [address] Care Team Providers Care Boiler Operator Helper Name Role Phone Jackson Rosa MD [...] on file Legal Sex Female 3:45 AM CAUSTIC CRESYLATE SHIFT SUPERINTENDENT Gender Identity Not on file Sexual Orientation Not on file documented as of this encounter Plan of Treatment Not on file documented as of this encounter Visit Diagnoses Diagnosis Follow-up examination, following other surgery- Primary documented in this encounter Care Teams Boiler Operator Helper Relationship Specialty Start Date End Date Jackson Rosa MD [address] [place] [address] PCP - General 07/05/09 documented as of this encounter
--- OUTSIDE RECORDS SUMMARY | 2024-11-09 11:57 | XMS_ITS ---
Author Organization [facility] Address [address] [place] [address] Care Team Providers Care Rubber Calender Helper Name Role Phone Jackson Rosa MD Primary Care Provider [phone] Active Problems Problem Noted Date Diagnosed Date [...] 07/04/2021 Assessment & Plan (07/04/2021 11:03 AM ACCOUNT ADMINISTRATOR): I explained to the patient how subclinical [...]
--- OUTSIDE RECORDS SUMMARY | 2024-11-09 11:57 | XMS_ITS | Encounter Summary ---
Author Organization [facility] Address [address] [place] [address] Care Team Providers Care Product Development Director Name Role Phone Jackson Rosa MD Primary Care Provider [phone] Irma Willams MD Unavailable Efrem Alves MD Unavailable Encounter Details Date Type Department Care Team (Late Contact Info) Description 06/22/2024 BleepBleeps Message Enc [facility] [address] [place] [address] [facility] Provider Echo results Social History Tobacco Use Types Packs/Day Years Used Date Smoking Tobacco: Never Passive Smoke Exposure: Never Smokeless Tobacco: Never Alcohol Use Standard Drinks/Week Comments Yes 0 (1 standard drink = 0.6 oz pur e alcohol) very rare wine usage Comments Unknown Sex and Gender Information Value Date Recorded Sex Assigned at Female 05/25/2024 1:26 PM ASSISTANT BOYS TRACK COACH Legal Sex Female 9:00 PM CDT Gender Identity Not on file Sexual Orientation Not on file Occupation Industry Job Start Date Job End Date Retired Not on file Not on file Not on file documented as of this encounter Plan of Treatment Upcoming Encounters Date Type Department Care Team (Late Contact Info) Description 05/10/2025 8:30 AM ASSISTANT BOYS TRACK COACH Office Visit [facility] [address] [place] [address] Irma Willams MD [address] [place] [address] documented as of this encounter Visit Diagnoses Not on filedocumented in this encounter Care Teams Product Development Director Relationship Specialty Start Date End Date Jackson Rosa MD [address] [place] [address] PCP - General INTERNAL MEDICINE 04/02/16 Irma Willams MD [address] [place] [address] Consulting Physician CARDIOVASCULAR DISEASE 11/03/23 Efrem Alves MD [address] [place] [address] Vascular/Manager Property INTERNAL MEDICINE 12/17/23 documented as of this encounter
--- OUTSIDE RECORDS SUMMARY | 2024-11-09 11:57 | XMS_ITS | Encounter Summary ---
Author Organization [facility] Address [address] [place] [address] Care Team Providers Care Auditor In Charge Name Role Phone Jackson Rosa MD Primary Care Provider + Encounter Details Date Type Department Care Team (Latest Contact Info) Description 09/09/2001 Outpatient Historical HIS [facility] Cabezas, Cyndee Crespo MD NO ADDRESS ON FILE PERS HX OF BREAST MALIGNANCY (Primary Dx) Social History Tobacco Use Types Packs/Day Years Used Date Smoking Tobacco: Never Assessed Comments Unknown Sex and Gender Information Value Date Recorded Sex Assigned at Not on file Legal Sex Female 3:45 AM ROUTE SERVICE MANAGER Gender Identity Not on file Sexual Orientation Not on file documented as of this encounter Plan of Treatment Not on file documented as of this encounter Visit Diagnoses Diagnosis Personal history of malignant neoplasm of breast- Primary documented in this encounter Care Teams Auditor In Charge Relationship Specialty Start Date End Date Jackson Rosa MD [address] [place] [address] PCP - General 07/05/09 documented as of this encounter
--- OUTSIDE RECORDS SUMMARY | 2024-11-09 11:57 | XMS_ITS | Encounter Summary ---
Author Organization [facility] Address [facility] [place] [address] Care Team Providers Care Platform Architect Name Role Phone Jackson Rosa MD Primary Care Provider [phone] Gaurang Gonzalez MD Unavailable Unavailab Jeremiah Crowder MD Unavailable [phone] Whit Perez APRN CHEMIST WATER PURIFICATION-C Unavailable Irma Willams MD Unavailable Efrem Alves MD Unavailable Encounter Details Date Type Department Care Team (Late Contact Info) Description 12/01/2014 Abstract [facility] AT [address] [address] Gaurang Gonzalez MD Social History Tobacco Use Types Packs/Day Years Used Date Smoking Tobacco: Never Alcohol Use Standard Drinks/Week Comments Yes 0 (1 standard drink = 0.6 oz pur e alcohol) Occasionally, Wine. Comments Unknown Sex and Gender Information Value Date Recorded Sex Assigned at Female 05/25/2024 1:26 PM POWERHOUSE TENDER Legal Sex Female 9:00 PM CDT Gender Identity Not on file Sexual Orientation Not on file Occupation Industry Job Start Date Job End Date Retired Not on file Not on file Not on file documented as of this encounter Plan of Treatment Upcoming Encounters Date Type Department Care Team (Late st Contact Info) Description 05/10/2025 8:30 AM POWERHOUSE TENDER Office Visit [facility] [place] [address] Irma Willams MD [address] [place] [address] documented as of this encounter Visit Diagnoses Not on filedocumented in this encounter Additional Health Concerns Infection Onset Date Last Indicated Resolved Time COVID-19 Rule Out 10/10/2019 10/10/2019 10/11/2019 1:50 PM CDT COVID-19 Rule Out 10/31/2019 10/31/2019 11/01/2019 10:23 PM CDT documented as of this encounter Care Teams Platform Architect Relationship Specialty Start Date End Date Jackson Rosa MD [address] [place] [address] PCP - General INTERNAL MEDICINE 04/02/16 Gaurang Gonzalez MD [address] [place] [address] CARDIOVASCULAR DISEASE 04/02/16 05/20/18 Jeremiah Rolon MD [address] [place] [address] [place] Carbide Operator CARDIOVASCULAR DISEASE 07/28/18 11/02/23 Whit Perez APRN, CHEMIST WATER PURIFICATION-C [address] [facility] [address] [place] [address] NURSE PRACTITIONER 02/17/19 12/05/23 Irma Willams MD [address] [place] [address] Consulting Physician CARDIOVASCULAR DISEASE 11/03/23 Efrem Alves MD [address] [place] [address] Vascular/Carbide Operator INTERNAL MEDICINE 12/17/23 documented as of this encounter
--- OUTSIDE RECORDS SUMMARY | 2024-11-09 11:57 | XMS_ITS | Encounter Summary ---
Author Organization [facility] Address [address] [place] [address] Care Team Providers Care Guest Relations Manager Name Role Phone Jackson Rosa MD Primary Care Provider + Encounter Details Date Type Department Care Team (Latest Contact Info) Description 10/13/2003 Outpatient Historical HIS [facility] Cabezas, Cyndee Crespo MD NO ADDRESS ON FILE SCREENING MAMM-MAILG NEOPL-OTHER (Primary Dx) Social History Tobacco Use Types Packs/Day Years Used Date Smoking Tobacco: Never Assessed Comments Unknown Sex and Gender Information Value Date Recorded Sex Assigned at Not on file Legal Sex Female 3:45 AM INSURANCE SALES AGENT Gender Identity Not on file Sexual Orientation Not on file documented as of this encounter Plan of Treatment Not on file documented as of this encounter Visit Diagnoses Diagnosis Other screening mammogram- Primary documented in this encounter Care Teams Guest Relations Manager Relationship Specialty Start Date End Date Jackson Rosa MD [address] [place] [phone] PCP - General 07/05/09 documented as of this encounter
--- OUTSIDE RECORDS SUMMARY | 2024-11-09 11:57 | XMS_ITS | Encounter Summary ---
Author Organization [facility] Address [address] [place] [address] Care Team Providers Care Test Operator Name Role Phone Jackson Rosa MD Primary Care Provider + Encounter Details Date Type Department Care Team (Latest Contact Info) Description 01/24/1999 Outpatient Historical HIS [facility] Cabezas, Cyndee Crespo MD NO ADDRESS ON FILE Other screening mammogram (Primary Dx) Social History Tobacco Use Types Packs/Day Years Used Date Smoking Tobacco: Never Assessed Comments Unknown Sex and Gender Information Value Date Recorded Sex Assigned at Not on file Legal Sex Female 3:45 AM ASBESTOS SHINGLE INSPECTOR Gender Identity Not on file Sexual Orientation Not on file documented as of this encounter Plan of Treatment Not on file documented as of this encounter Visit Diagnoses Diagnosis Other screening mammogram- Primary documented in this encounter Care Teams Test Operator Relationship Specialty Start Date End Date Jackson Rosa MD [address] [place] [phone] PCP - General 07/05/09 documented as of this encounter
--- OUTSIDE RECORDS SUMMARY | 2024-11-09 11:57 | XMS_ITS | Clinical Summary ---
Author Organization [facility] Address [address] [place] [address] Care Team Providers Care Local Area Network Systems Adminstrator Name Role Phone Jackson Rosa MD Primary Care Provider [phone] Allergies Active Allergy Reactions Criticality Noted Date [...] 07/04/2021 Assessment & Plan (07/04/2021 11:03 AM TELEPHONE COLLECTOR): I explained to the patient how subclinical [...] Depression Osteopenia Osteoporosis History of radiation therapy 1995 Family History Medical History Relation Name Comments [...] on file Legal Sex Female 12:56 AM TELEPHONE COLLECTOR Gender Identity Female 10/06/2019 1:08 PM CDT [...] lb 3.2 oz) 05/15/2023 3:06 P M TELEPHONE COLLECTOR Height 157.5 cm (5' 2) 05/15/2023 3:06 PM TELEPHONE COLLECTOR Body Mass Index 27.11 05/15/2023 3:06 PM TELEPHONE COLLECTOR Plan of Treatment Health Maintenance Due Date [...] Assessment 12/22/2023 12/21/2022 Covid-19 Vaccine ( - 2023- 5 season) 2023 01/31/2022, 05/03/2021, 08/30/2020 Influenza Vaccine (#1) 2024 9, 01/28/2018, 01/04/2017, Additional history exists Breast Cancer Screening-Mammogram Discontinued 012 Colon Cancer Screening-CT Colonography Discontinued 12/04/2017 Colon Cancer Screening-Colonoscopy Discontinued 12/04/2017 Colon Cancer Screening-DNA Stool Discontinued 12/05/19 18 Colon Cancer Screening-FIT Discontinued 12/04/2017 Colon Cancer Screening-FOBT Discontinued 12/04/2017 Colon Cancer Screening-Sigmoidoscopy Discontinued 12/04/2017 Colorectal Cancer Screening Discontinued Medical Devices Implanted Type Area Equipment Maintenance Supervisor Device Identifier Shelf Expiration Date Model / Serial / Lot Knee Replacement Right: Knee Procedures Procedure Name Priority Date/Time Associated Diagnosis Comments COLONOSCOPY 12/04/2017 11:53 AM CDT from Last 3 Months or Most Recently Relevant to Health Maintenance Results * COLONOSCOPY (12/04/2017 11:53 AM CDT) Anatomical Region Laterality Modality Other Narrative Procedure Note Dwayne Chan MD - 12/04/2017 11:53 AM CDT [facility] Patient Name: Zulma Carnes Procedure Date: 12/04/2017 11:53 AM Date of : 1945 Admit Type: Outpatient Age: 72 Gender: Female Attending MD: Dwayne hCan MD Room: [facility] ENDOSCOPY ROOM 2 Note Status: [...] passed under direct vision.The Pediatric Colonoscope PCF-H190L [id number] was introduced through the anus and advanced [...] perforation orabscess without bleeding CPT copyright 2017 [employer]. All rights reserved. The codes documented in this report are preliminary and upon adhesive bonding machine operator reviewmay be revised to meet current compliance requirements. Recognized by the [employer] for promoting quality in endoscopy Dwayne Chan MD ENDOSCOPY PROCEDURES Final Result from Last 3 Months or Most Recently Relevant to Health Maintenance Insurance MEDICARE [employer] Payments [facility]IC[place] MEDICARE [facility] [place] Advance Directives For more information, please contact: [phone] * Full Code (Latest Code Status on File) Date Activated Date Inactivated Comments 12/04/2017 11:05 AM 12/04/2017 3:39 PM Care Teams Local Area Network Systems Adminstrator Relationship Specialty Start Date End Date Jackson Rosa MD [address] [place] [address] PCP - General 07/04/16
--- OUTSIDE RECORDS SUMMARY | 2024-11-09 11:57 | XMS_ITS | Clinical Summary ---
Author Organization [facility] Address [address] [place] [address] Care Team Providers Care Hauling Contractor Name Role Phone Jackson Rosa MD Primary [...] BI-FLEX ORAL) Take by mouth. Active Coenzyme B75-Fobepws E (COQ10 SG 100) 100-100 mg-unit Oral [...] on file Legal Sex Female 3:45 AM METER SHOP SUPERINTENDENT Gender Identity Not on file Sexual Orientation Not on file Last Filed Vital Signs Vital Sign Reading Time Taken Comments Blood Pressure 122/58 04/18/2016 9:52 AM METER SHOP SUPERINTENDENT Pulse 61 04/18/2016 9:52 AM METER SHOP SUPERINTENDENT Temperature - - Respiratory Rate - - Oxygen Saturation - - Inhaled Oxygen Concentration - - Weight 68.9 kg (152 lb) 04/18/2016 9:52 AM METER SHOP SUPERINTENDENT Height 157.5 cm (5' 2) 04/18/2016 9:52 AM METER SHOP SUPERINTENDENT Body Mass Index 27.8 04/18/2016 9:52 AM METER SHOP SUPERINTENDENT Plan of Treatment Health Maintenance Due Date Last Done Comments DTAP/TDAP/TD VACCINES (1 - Tdap) 1965 PNEUMOCOCCAL VACCINE 50+ YEARS (1 of 2 - PCV) 09/13/18 66 ZOSTER VACCINE (1 of 2) 1996 OSTEOPOROSIS SCREENING 01/17/2021 01/18/2016 RSV VACCINE (60+ or ) (1 - 1-dose 75+ series) 2021 INFLUENZA VACCINE (#1) 2024 Procedures Procedure Name Priority Date/Time Associated Diagnosis [...] Maintenance Insurance MEDIC[facility] [place] [address] Care Teams Hauling Contractor Relationship Specialty Start Date End Date Jackson Rosa MD [address] [place] [phone] PCP - General 07/05/09
--- OUTSIDE RECORDS SUMMARY | 2024-11-09 11:57 | XMS_ITS | Encounter Summary ---
Author Organization [facility] Address [address] [place] [address] Care Team Providers Care Graphic Designer Name Role Phone Jackson Rosa MD Primary Care Provider + Encounter Details Date Type Department Care Team (Latest Contact Info) Description 08/12/2002 Outpatient Historical HIS [facility] Cabezas, Cyndee Crespo MD NO ADDRESS ON FILE SCREENING MAMM-MAILG NEOPL-OTHER (Primary Dx) Social History Tobacco Use Types Packs/Day Years Used Date Smoking Tobacco: Never Assessed Comments Unknown Sex and Gender Information Value Date Recorded Sex Assigned at Not on file Legal Sex Female 3:45 AM EMBEDDED SOFTWARE DESIGN ENGINEER Gender Identity Not on file Sexual Orientation Not on file documented as of this encounter Plan of Treatment Not on file documented as of this encounter Visit Diagnoses Diagnosis Other screening mammogram- Primary documented in this encounter Care Teams Graphic Designer Relationship Specialty Start Date End Date Jackson Rosa MD [address] [place] [phone] PCP - General 07/05/09 documented as of this encounter
--- OUTSIDE RECORDS SUMMARY | 2024-11-09 11:57 | XMS_ITS | Encounter Summary ---
Author Organization [facility] Address [address] [place] [address] Care Team Providers Care Per Diem Name Role Phone Jackson Rosa MD Primary Care Provider + Encounter Details Date Type Department Care Team (Latest Contact Info) Description 09/03/2000 Outpatient Historical HIS [facility] Cabezas, Cyndee Crespo MD NO ADDRESS ON FILE Personal history of malignant neoplasm of breast (Primary Dx) Social History Tobacco Use Types Packs/Day Years Used Date Smoking Tobacco: Never Assessed Comments Unknown Sex and Gender Information Value Date Recorded Sex Assigned at Not on file Legal Sex Female 3:45 AM SPECIAL DELIVERY MESSENGER Gender Identity Not on file Sexual Orientation Not on file documented as of this encounter Plan of Treatment Not on file documented as of this encounter Visit Diagnoses Diagnosis Personal history of malignant neoplasm of breast- Primary documented in this encounter Care Teams Per Diem Relationship Specialty Start Date End Date Jackson Rosa MD [address] [place] [phone] PCP - General 07/05/09 documented as of this encounter
--- OUTSIDE RECORDS SUMMARY | 2024-11-09 11:57 | XMS_ITS | Encounter Summary ---
Author Organization [facility] Address [address] [place] [address] Care Team Providers Care Painter Decorator Name Role Phone Jackson Rosa MD Primary Care Provider + Encounter Details Date Type Department Care Team (Latest Contact Info) Description 03/31/2008 Outpatient Historical HIS [facility] Cabezas, Ezequiel Crespo MD NO ADDRESS ON FILE Other Screening Mammogram Social History Tobacco Use Types Packs/Day Years Used Date Smoking Tobacco: Never Assessed Comments Unknown Sex and Gender Information Value Date Recorded Sex Assigned at Not on file Legal Sex Female 3:45 AM LICENSED CUSTOMS BROKER Gender Identity Not on file Sexual Orientation Not on file documented as of this encounter Plan of Treatment Not on file documented as of this encounter Procedures Procedure Name Priority Date/Time Associated Diagnosis Comments MAMMO SCREEN BILAT W OR WO CAD Routine 03/31/2008 8:30 AM LICENSED CUSTOMS BROKER documented in this encounter Results * MAMMO DIGITAL SCREEN BILAT (03/31/2008 8:30 AM LICENSED CUSTOMS BROKER) Anatomical Region Laterality Modality Breast Bilateral Other 03/31/2008 8:30 AM LICENSED CUSTOMS BROKER Narrative 03/31/2008 12:03 PM LICENSED CUSTOMS BROKER [address] [address] Admit Date: 03/31/2008 ZULMA CARNES Sex: F Admit Prov: EZEQUIEL CABEZAS Date: 1945 Primary Care Prov: CMRN: [id number] Room: KIRT SSN: [id number] IMAGING SERVICES Ordering Prov: EZEQUIEL CABEZAS Accession Number: [id number] Interpretation EXAM: BILATERAL SCREENING FULL FIELD DIGITAL [...] Procedure Note Elena Lou - 03/31/2008 [facility] [address], [place] [address] Admit Date: 03/31/2008 ZULMA CARNES Sex: F Admit Prov: EZEQUIEL CABEZAS Date: 1945 Primary Care Prov: CMRN: [id number] Room: MASON[place]leigh SSN: [id number] IMAGING SERVICES Ordering Prov: EZEQUIEL CABEZAS Interpretation [...] mammogram documented in this encounter Care Teams Painter Decorator Relationship Specialty Start Date End Date Jackson Rosa MD [address] [place] [phone] PCP - General 07/05/09 documented as of this encounter
--- OUTSIDE RECORDS SUMMARY | 2024-11-09 11:57 | XMS_ITS | Encounter Summary ---
Author Organization [facility] Address [address] [place] [address] Care Team Providers Care Spanish Professor Name Role Phone Jackson Rosa MD Primary [...] on file Legal Sex Female 3:45 AM DIAGNOSTIC SALES SPECIALIST Gender Identity Not on file Sexual Orientation Not on file documented as of this encounter Plan of Treatment Not on file documented as of this encounter Visit Diagnoses Diagnosis Screening mammogram for high-risk patient- Primary documented in this encounter Care Teams Spanish Professor Relationship Specialty Start Date End Date Jackson Rosa MD [address] [place] [address] PCP - General 07/05/09 documented as of this encounter
--- OUTSIDE RECORDS SUMMARY | 2024-11-09 11:57 | XMS_ITS | Encounter Summary ---
Author Organization [facility] Address [address] [place] [address] Care Team Providers Care Citrus Peeler Name Role Phone Jackson Rosa MD Primary Care Provider + Encounter Details Date Type Department Care Team (Latest Contact Info) Description 09/05/1999 Outpatient Historical HIS [facility] Cabezas, Cyndee Crespo MD NO ADDRESS ON FILE Personal history of malignant neoplasm of breast (Primary Dx) Social History Tobacco Use Types Packs/Day Years Used Date Smoking Tobacco: Never Assessed Comments Unknown Sex and Gender Information Value Date Recorded Sex Assigned at Not on file Legal Sex Female 3:45 AM DISPATCHER RELAY Gender Identity Not on file Sexual Orientation Not on file documented as of this encounter Plan of Treatment Not on file documented as of this encounter Visit Diagnoses Diagnosis Personal history of malignant neoplasm of breast- Primary documented in this encounter Care Teams Citrus Peeler Relationship Specialty Start Date End Date Jackson Rosa MD [address] [place] [phone] PCP - General 07/05/09 documented as of this encounter
--- OUTSIDE RECORDS SUMMARY | 2024-11-09 11:57 | XMS_ITS | Encounter Summary ---
Author Organization [facility] Address [address] [place] [address] Care Team Providers Care Psychology Fellow Name Role Phone Jackson Rosa MD Primary Care Provider + Encounter Details Date Type Department Care Team (Latest Contact Info) Description 03/04/2007 Outpatient Historical HIS [facility] Cabezas, Cyndee Crespo MD NO ADDRESS ON FILE Screening Mammogram for High-Risk Patient (Primary Dx) Social History Tobacco Use Types Packs/Day Years Used Date Smoking Tobacco: Never Assessed Comments Unknown Sex and Gender Information Value Date Recorded Sex Assigned at Not on file Legal Sex Female 3:45 AM PULP PLANT SUPERVISOR Gender Identity Not on file Sexual Orientation Not on file documented as of this encounter Plan of Treatment Not on file documented as of this encounter Visit Diagnoses Diagnosis Screening mammogram for high-risk patient- Primary documented in this encounter Care Teams Psychology Fellow Relationship Specialty Start Date End Date Jackson Rosa MD [address] [place] [address] PCP - General 07/05/09 documented as of this encounter
--- OUTSIDE RECORDS SUMMARY | 2024-11-09 11:58 | XMS_ITS | Referral Summary ---
Author Organization [facility] Address [address] [place] [address] Care Team Providers Care Squeegee Finisher Name Role Phone Jackson Rosa MD Primary Care Provider [phone] Allergies Active Allergy Reactions Criticality Noted Date [...] 07/04/2021 Assessment & Plan (07/04/2021 11:03 AM FIELD STAFF MANAGER): I explained to the patient how subclinical [...] on file Legal Sex Female 12:56 AM FIELD STAFF MANAGER Gender Identity Female 10/06/2019 1:08 PM CDT [...] lb 3.2 oz) 05/15/2023 3:06 P M FIELD STAFF MANAGER Height 157.5 cm (5' 2) 05/15/2023 3:06 PM FIELD STAFF MANAGER Body Mass Index 27.11 05/15/2023 3:06 PM FIELD STAFF MANAGER Plan of Treatment Not on file Medical Devices Implanted Type Area Psychiatric Rn Device Identifier Shelf Expiration Date Model / Serial / Lot Knee Replacement Right: Knee Procedures Procedure Name Priority Date/Time Associated Diagnosis Comments COLONOSCOPY 12/04/2017 11:53 AM CDT from Last 3 Months or Most Recently Relevant to Health Maintenance Results * COLONOSCOPY (12/04/2017 11:53 AM CDT) Anatomical Region Laterality Modality Other Narrative Procedure Note Dwayne Chan MD - 12/04/2017 11:53 AM CDT [facility] Patient Name: Zulma Carnes Procedure Date: 12/04/2017 11:53 AM Date of : 1945 Admit Type: Outpatient Age: 72 Gender: Female Attending MD: Dwayne Chan MD Room: [facility] ENDOSCOPY ROOM 2 Note Status: Finalized Patient [...] passed under direct vision.The Pediatric Colonoscope PCF-H190L [id number] was introduced through the anus and advanced [...] perforation orabscess without bleeding CPT copyright 2017 [employer]. All rights reserved. The codes documented in this report are preliminary and upon restorer lace and textiles reviewmay be revised to meet current compliance requirements. Recognized by the [employer] for promoting quality in endoscopy Dwayne Chan MD ENDOSCOPY PROCEDURES Final Result from Last 3 Months or Most Recently Relevant to Health Maintenance Insurance MEDICARE [facility] [employer] MEDICARE MEDICARE [facility] Advance Directives For more information, please contact: [phone] * Full Code (Latest Code Status on File) Date Activated Date Inactivated Comments 12/04/2017 11:05 AM 12/04/2017 3:39 PM Care Teams Squeegee Finisher Relationship Specialty Start Date End Date Jackson Rosa MD [address] [place] [address] PCP - General 07/04/16"
--- OUTSIDE RECORDS SUMMARY | 2024-11-09 11:58 | XMS_ITS | Clinical Summary ---
Author Organization [facility] Address [address] [facility] [place] [address] Care Team Providers Care Reeling Machine Setup Operator Name Role Phone Jackson Rosa MD Primary Care Provider [phone] Sammie Fox RN Unavailable [phone] Deyanira Daigle FOREPART ROUNDER Unavailable Luis Carlos Rivas MD Unavailable [phone] Source Comments [facility],non-owned Affiliates and Associated Physician Practices is amultiple site organization consisting of ambulatory clinics and hospital sitesin [place], [place]. This disclosure is being madepursuant to the Care Everywhere program and may not contain all information available regarding this patient. Last updated 18.[facility] Allergies Active Allergy Reactions Criticality Noted Date [...] problems Immunizations Immunization Administration Dates Next Due Smarty Ants primary monoval ent 12+ yr 0.3mL Purple [...] Sex Assigned at Female 05/03/2021 6:03 PM PIPER HELPER Legal Sex Female 9:20 AM PIPER HELPER Gender Identity Female 05/03/2021 6:03 PM PIPER HELPER Sexual Orientation Straight 05/03/2021 6: 03 PM PIPER HELPER Last Filed Vital Signs Vital Sign Reading Time Taken Comments Blood Pressure 132/78 06/21/2016 8:16 AM PIPER HELPER Pulse 55 06/21/2016 8:16 AM PIPER HELPER Temperature 36.7 C (98.1 F) 08/13/2014 11:27 [...] (4 - season) 2023 05/03/2021, 08/30/2020, 08/02/2020 DEPRESSION SCREENING 04/29/2024 INFLUENZA VACCINE (#1) 2024 , 03/12/2019, 01/28/2018, Additional history exists HEPATITIS B [...] this topic Medical Devices Implanted Type Area Highway Landscape Architect Device Identifier Shelf Expiration Date Model / Serial / Lot Nexgen Complete Knee Solution Cruciate Retaining Trabecular Metal Monoblock Tibial Component Tibial Size 3, Femoral Size C-H, 10mm Height Implanted:Qty: 1 on 08/10/2014 by Angel Luis Villegas MD at [facility][note 3] Right: Knee [employer] 01/27/2019 [id number] Nexgen Complete Knee Solution Cruciate Retaining Cr-Flex Femoral Component Porous Size D, Right Implanted:Qty: 1 on 08/10/2014 by Angel Luis Villegas MD at [facility][note 3] Right: Knee [employer] 11/28/2023 / / [id number] Bill Only Basic Derrick Excludes Agc Kn Implanted:Qty: 1 on 08/10/2014 by Angel Luis Villegas MD at [facility][note 3] [employer] BILL ONLY BASIC DERRICK EXCLUDES AGC KN ZIMM / / Bill Only Tb Upchrg Implanted:Qty: 1 on 08/10/2014 by Angel Luis Villegas MD at [facility][note 3] [employer] UPCHRG MELY BILL ONLY TB / / Insurance MEDICARE MEDICARE Member Subscriber Plan / Payer (Ef fective for All Dates) Name:Zulma Carnes Member ID:[id number] Relation to Subscriber:Self Name:Zulma Carnes Subscriber ID:[id number] Payer ID:Not on file Group ID:Not on file Type:Medicare Address: [place] [phone] MEDICARE Care Teams Reeling Machine Setup Operator Relationship Specialty Start Date End Date Jackson Rosa MD PCP - General Internal Medicine 05/18/14 Sammie Fox, RN Electroplater Automatic 08/10/14 Deyanira Daigle, [facility] Blade Filer 08/12/14 [place] [address] [place] [address] Orthopedic Surgery 09/03/16
[2024-11-09 12:15] LABS: Hematocrit 40.2 % (35.0-42.0); Hemoglobin 12.9 g/dL (11.7-13.8); Mean Corpuscular HGB Conc 32.1 g/dL (32-36); Mean Corpuscular Hemoglobin 31.2 pg (27.0-31.0); Mean Corpuscular Volume 97.1 fL (78.0-102.0); Platelet Count Result 206 K/mm3 (150-420); Red Blood Count 4.14 M/mm3 (4.20-5.40); White Blood Count 6.1 K/mm3 (4.8-10.8)
[2024-11-09 12:16] LABS: Add Urine Microscopic? YES; Appearance Urine Clear (Clear); Glucose Urine UA Negative (Negative); Leukocyte Esterase Ur Trace (Negative); Nitrate Urine Negative (Negative); Specific Grav Ur 1.020 (1.010-1.020)
[2024-11-09 12:42] LABS: Alanine Aminotransferase 21 U/L (6-35); Albumin Level 3.9 g/dL (3.5-5.1); Alkaline Phosphatase 58 U/L (38-126); Anion Gap 2 mmol/L (4-12); Aspartate Amino Transferase 31 U/L (14-36); Bilirubin,Total 1.0 mg/dL (0.2-1.3); Blood Urea Nitrogen 20 mg/dL (7-17); Calcium 8.7 mg/dL (8.4-10.2); Carbon Dioxide 28 mmol/L (22-30); Chloride 108 mmol/L (98-107); Cholesterol 205 mg/dL (0-200); Creatine Kinase 81 U/L (30-135); Estimated Glomerular Filt Rate > 60; Glucose 94 mg/dL (65-110); HDL Direct 65 mg/dL; Osmolality Calculated 288 mOsm/kg (285-295); Potassium 4.3 mmol/L (3.4-5.0); Sodium 138 mmol/L (137-145); Total Protein 6.3 g/dL (6.3-8.2); Triglycerides 92 mg/dL (<150)
[2024-11-09 12:51] LABS: NT Pro B Type Natriuretic Pept 399 pg/mL (19.9-100)
[2024-11-09 12:59] LABS: Free T4 Free Thyroxine 1.08 ng/dL (0.78-2.19)
[2024-11-09 13:12] LABS: Thyroid Stimulating Hormone 1.040 uIU/mL (0.465-4.680)
== END 2024-11-09 11:50 | disposition home or self-care (01) ==
LOC: CHSLAB 11:52
PROVIDERS: PCP Internal Medicine; Visit Provider Internal Medicine
DX: I50.22 Chronic systolic (congestive) heart failure (principal); R53.82 Chronic fatigue, unspecified; E78.2 Mixed hyperlipidemia; E05.90 Thyrotoxicosis, unspecified without thyrotoxic crisis or storm
CPT/HCPCS: 36415; 80053; 80061; 81001; 82550; 83880; 84439; 84443; 85027

== ENCOUNTER 2025-01-08 15:36 | Outpatient (CLI) | payer MEDICARE, SELFPAY ==
--- OUTSIDE RECORDS SUMMARY | 2021-11-22 13:13 | XMS_ITS | Continuity of Care Document ---
Author Organization [facility] Address [address] [place] [address] Phone Care Team Providers Care Integrity Analyst Name Role Phone Elaine KLEIN, Cinthya Unavailable Unavailable Advance Directives Directive Yes / No Effective Date File Name No Information Encounters Encounter Description Practice Location Reason(s) For Visit Diagnoses Date Provider Providers Copied on Encounter [facility], [address], [place], [place], [address], [place] tel:[phone] [facility] No Information Elaine Mendes. [address] [facility], [facility] [place], [place], [address] , [place]. tel:[phone] [facility], [address], [place], [place], [address], [place] tel:[phone] [facility] Dilation of biliary tract Azra Hung. [address], [address], [place], [address], [place]. tel:[phone] Family History Family Member Type Diagnosis Age [...]
--- NOTE | ~2025-01-08 | XR_ITS ---
EXAMINATION: XR chest 2V 01/08/2025 16:02 INDICATION: Shortness of breath. Congestion for 2 weeks TECHNIQUE:Frontal and lateral images of the chest were obtained. COMPARISON: 06/04/2022 FINDINGS: Heart is not enlarged. No pneumothorax. No pleural effusion. No free air under the diaphragm. No focal pulmonary consolidation. Left shoulder arthroplasty similar to the prior study. IMPRESSION: 1: NO ACUTE CARDIOPULMONARY DISEASE. Reviewed, dictated and finalized at location Q.
[2025-01-08 15:52] LABS: Hematocrit 40.0 % (35.0-42.0); Hemoglobin 13.0 g/dL (11.7-13.8); Mean Corpuscular HGB Conc 32.5 g/dL (32-36); Mean Corpuscular Hemoglobin 31.3 pg (27.0-31.0); Mean Corpuscular Volume 96.2 fL (78.0-102.0); Platelet Count Result 243 K/mm3 (150-420); Red Blood Count 4.16 M/mm3 (4.20-5.40); White Blood Count 9.2 K/mm3 (4.8-10.8)
[2025-01-08 15:57] LABS: Add Urine Microscopic? NO; Appearance Urine Clear (Clear); Glucose Urine UA Negative (Negative); Leukocyte Esterase Ur Negative (Negative); Nitrate Urine Negative (Negative); Specific Grav Ur <= 1.005 (1.010-1.020)
--- OUTSIDE RECORDS SUMMARY | 2025-01-08 16:05 | XMS_ITS | Clinical Summary ---
Author Organization [facility] Address [address] [place] [address] Care Team Providers Care Packing And Final Assembly Supervisor Name Role Phone Jackson Rosa MD Primary Care Provider [phone] Irma Willams MD Unavailable Efrem Alves MD [...] GERD (gastroesophageal reflux disease) Cataract Breast cancer ([facility]/HCC HHS/HCC) Bleeding Overview (09/05/2018): : History of [...] Sex Assigned at Female 05/25/2024 1:26 PM VICE PRESIDENT OF HUMAN RESOURCES Legal Sex Female 9:00 PM CDT Gender Identity Not on file Sexual Orientation Not on file Occupation Industry Job Start Date Job End Date Retired Not on file Not on file Not on file Last Filed Vital Signs Vital Sign Reading Time Taken Comments Blood Pressure 138/72 06/03/2024 12:50 PM VICE PRESIDENT OF HUMAN RESOURCES Pulse 69 06/03/2024 12:50 PM VICE PRESIDENT OF HUMAN RESOURCES Temperature 36.1 C (97 F) 11/03/2019 12:30 PM CDT Respiratory Rate 16 06/03/2024 12:5 0 PM VICE PRESIDENT OF HUMAN RESOURCES Oxygen Saturation 94% 06/03/2024 12: 50 PM VICE PRESIDENT OF HUMAN RESOURCES Inhaled Oxygen Concentration - - Weight 63.4 kg (139 lb 12.8 oz) 025 12:50 PM VICE PRESIDENT OF HUMAN RESOURCES Height 156.2 cm (5' 1.5) 06/03/2024 12 :50 PM VICE PRESIDENT OF HUMAN RESOURCES Body Mass Index 25.99 06/03/2024 12:50 PM VICE PRESIDENT OF HUMAN RESOURCES Plan of Treatment Upcoming Encounters Date Type Department Care Team (Late st Contact Info) Description 05/10/2025 8:30 AM VICE PRESIDENT OF HUMAN RESOURCES Office Visit [facility] [place] [address] Irma Willams MD [address] [place] [address] Health Maintenance Due Date Last Done Comments [...] 75+ series) 2021 COVID-19 Vaccine ( season) 2024 01/31/2022, 05/03/2021, 08/30/2020, Additional history exists Dexa [...] this topic Medical Devices Implanted Type Area Governor Assembler Device Identifier Shelf Expiration Date Model / Serial / Lot Knee Components Knee Components Description:Right knee Knee Components Knee Components Description:Rt knee Iol Augustus [id number] - [id number] Implanted:Qty: 1 on 10/13/2019 by Stephane Smason MD at [facility] Lens Left: Eye [employer] 01/27/2024 [id number] / [id number] / N/A Description:Implant verified by Iol [employer] Precision Li61ao - [id number] Implanted:Qty: 1 on 11/03/2019 by Stephane Samson MD at [facility] Lens Right: Eye [employer] 08/27/2023 [id number] / [id number] Description:Lens verified pe r surgeon and chart Procedures Procedure Name Priority Date/Time Associated Diagnosis Comments LIPID PANEL Routine 06/27/2013 12:00 AM VICE PRESIDENT OF HUMAN RESOURCES from Last 3 Months or Most Recently Relevant to Health Maintenance Results * LIPID PANEL (06/27/2013 12:00 AM VICE PRESIDENT OF HUMAN RESOURCES) TRIGLYCERIDES 78 0 - 150 mg/dl MEDINFORMATIX [...] Most Recently Relevant to Health Maintenance Insurance [facility] MEDICARE MEDICARE Care Teams Packing And Final Assembly Supervisor Relationship Specialty Start Date End Date Jackson Rosa MD [address] [place] [address] PCP - General INTERNAL MEDICINE 04/02/16 Irma Willams MD [address] [place] [address] Consulting Physician CARDIOVASCULAR DISEASE 11/03/23 Efrem Alves MD [address] [place] [address] Vascular/Lone Lead Lineman INTERNAL MEDICINE 12/17/23
--- OUTSIDE RECORDS SUMMARY | 2025-01-08 16:05 | XMS_ITS | Encounter Summary ---
Author Organization [facility] Address [address] [place] [address] Care Team Providers Care Hvac Project Engineer Name Role Phone Jackson Rosa MD Primary Care Provider [phone] Irma Willams MD Unavailable Efrem Alves MD Unavailable Encounter Details Date Type Department Care Team (Late Contact Info) Description 06/22/2024 Tarena Message Enc [facility] ield [address] [place] [address] [facility], [facility] Provider Echo results Social History Tobacco Use Types Packs/Day Years Used Date Smoking Tobacco: Never Passive Smoke Exposure: Never Smokeless Tobacco: Never Alcohol Use Standard Drinks/Week Comments Yes 0 (1 standard drink = 0.6 oz pur e alcohol) very rare wine usage Comments Unknown Sex and Gender Information Value Date Recorded Sex Assigned at Female 05/25/2024 1:26 PM EXIT BOOTH AGENT Legal Sex Female 9:00 PM CDT Gender Identity Not on file Sexual Orientation Not on file Occupation Industry Job Start Date Job End Date Retired Not on file Not on file Not on file documented as of this encounter Plan of Treatment Upcoming Encounters Date Type Department Care Team (Late Contact Info) Description 05/10/2025 8:30 AM EXIT BOOTH AGENT Office Visit [facility] [address] [place] [address] Irma Willams MD [address] [place] [address] documented as of this encounter Visit Diagnoses Not on filedocumented in this encounter Care Teams Hvac Project Engineer Relationship Specialty Start Date End Date Jackson Rosa MD [address] [place] [address] PCP - General INTERNAL MEDICINE 04/02/16 Irma Willams MD [address] [place] [address] Consulting Physician CARDIOVASCULAR DISEASE 11/03/23 Efrem Alves MD [address] [place] [address] Vascular/Fish Cleaner INTERNAL MEDICINE 12/17/23 documented as of this encounter
--- OUTSIDE RECORDS SUMMARY | 2025-01-08 16:05 | XMS_ITS | Patient Health Record ---
Author Organization [facility] Address [address] [place] [address] Care Team Providers Care Wet Pour Supervisor Name Role Phone Juanito Reagan Unavailable [phone] Reason For Referral No Information Medications Medication SIG (Take, Route, Frequency, Duration) Notes Start Date End Date Status valACYclovir HCl 500 MG Tablet Oral 02/14/2023 Active Fluticasone Propionate Diskus 50 MCG/ACT Aerosol Powder Breath Activated Inhalation *Reorder from [email or web address] for eRx and Interaction Alerts* 02/14/2023 Active HYDROcodone-Acetamino phen 5-325 MG Tablet Oral 02/14/2023 Active Folic Acid 1 MG Tablet Oral 02/14/2023 Active Cetirizine HCl 10 MG Tablet Oral 02/14/2023 Active Pravastatin Sodium 10 MG Tablet Oral 02/14/2023 Active Mupirocin 2% Ointment External 02/14/2023 Active ALPRAZolam 0.25 MG Tablet Oral 02/14/2023 Active Lexapro 10 MG Tablet Oral 02/14/2023 Active Fluconazole 150 MG Tablet Oral 02/14/2023 Active Losartan Potassium 25 MG Tablet Oral 02/14/2023 Active Amoxicillin 875 MG Tablet Oral 02/14/2023 Active Ofloxacin 0.30% Solution Otic 02/14/2023 Active Furosemide 20 MG Tablet Oral 02/14/2023 Active Nystatin 582153 UNIT/ML Suspension Mouth/Throat 02/14/2023 Active Escitalopram Oxalate 10 MG Tablet Oral 02/14/2023 Active Paxlovid (300/100) 20 x 150 MG & 10 x 100MG Tablet Therapy Pack Oral *Reorder from [email or web address] for eRx and Interaction Alerts* 02/14/2023 Active Omeprazole 20 MG Capsule Delayed Release Oral 02/14/2023 Active Social History Social History Additional Details Category Social Info Options Details Migrated Social History Migrated Social History Alcohol Intake: Occasional 08/22/2022,Tobacco Years: Never smoker 08/22/2022 Plan Of Treatment No Information Insurance Providers Payer Name Payer Address Payer Phone Subscriber Number Group Number Insured Name Patient Relationship to Insured Coverage Start Date Coverage End Date [place] [address] [place] [phone] [id number] SIDNEY ANDERSON Self - patient is the insured [place] [employer] [place] Medicare Supplement [address] [employer] [place] [phone] [id number] SIDNEY ANDERSON Self - patient is the insured
--- OUTSIDE RECORDS SUMMARY | 2025-01-08 16:05 | XMS_ITS | Encounter Summary ---
Author Organization [facility] Address [address] [place] [address] Care Team Providers Care Precision Aircraft Systems Assembler Name Role Phone Jackson Rosa MD Primary Care Provider + Encounter Details Date Type Department Care Team (Latest Contact Info) Description 03/31/2008 Outpatient Historical HIS [facility] Cabezas, Ezequiel Crespo MD NO ADDRESS ON FILE Other Screening Mammogram Social History Tobacco Use Types Packs/Day Years Used Date Smoking Tobacco: Never Assessed Comments Unknown Sex and Gender Information Value Date Recorded Sex Assigned at Not on file Legal Sex Female 3:45 AM FOOD TECHNOLOGY TEACHER Gender Identity Not on file Sexual Orientation Not on file documented as of this encounter Plan of Treatment Not on file documented as of this encounter Procedures Procedure Name Priority Date/Time Associated Diagnosis Comments MAMMO SCREEN BILAT W OR WO CAD Routine 03/31/2008 8:30 AM FOOD TECHNOLOGY TEACHER documented in this encounter Results * MAMMO DIGITAL SCREEN BILAT (03/31/2008 8:30 AM FOOD TECHNOLOGY TEACHER) Anatomical Region Laterality Modality Breast Bilateral Other 03/31/2008 8:30 AM FOOD TECHNOLOGY TEACHER Narrative 03/31/2008 12:03 PM FOOD TECHNOLOGY TEACHER [address] [address] Admit Date: 03/31/2008 ZULMA CARNES Sex: F Admit Prov: EZEQUIEL CABEZAS Date: 1945 Primary Care Prov: CMRN: [id number] Room: KIRT SSN: [id number] IMAGING SERVICES Ordering Prov: EZEQUIEL CABEZAS Accession Number: [id number] Interpretation EXAM: BILATERAL SCREENING FULL FIELD DIGITAL [...] AMK Procedure Note Elena Lou - 03/31/2008 [facility] [address] [place], [place] [address] Admit Date: 03/31/2008 ZULMA CARNES Sex: F Admit Prov: EZEQUIEL CABEZAS Date: 1945 Primary Care Prov: CMRN: [id number] Room: MASONAshleigh SSN: [id number] IMAGING SERVICES Ordering Prov: EZEQUIEL CABEZAS Interpretation [...] mammogram documented in this encounter Care Teams Precision Aircraft Systems Assembler Relationship Specialty Start Date End Date Jackson Rosa MD [address] [place] [address] PCP - General 07/05/09 documented as of this encounter
--- OUTSIDE RECORDS SUMMARY | 2025-01-08 16:05 | XMS_ITS | Clinical Summary ---
Author Organization [facility] Address [address] [place] [address] Care Team Providers Care Terrazzo Polisher Name Role Phone Jackson Rosa MD Primary [...] BI-FLEX ORAL) Take by mouth. Active Coenzyme I42-Kptrkkb E (COQ10 SG 100) 100-100 mg-unit Oral [...] on file Legal Sex Female 3:45 AM RESIDENTIAL CONCIERGE Gender Identity Not on file Sexual Orientation Not on file Last Filed Vital Signs Vital Sign Reading Time Taken Comments Blood Pressure 122/58 04/18/2016 9:52 AM RESIDENTIAL CONCIERGE Pulse 61 04/18/2016 9:52 AM RESIDENTIAL CONCIERGE Temperature - - Respiratory Rate - - Oxygen Saturation - - Inhaled Oxygen Concentration - - Weight 68.9 kg (152 lb) 04/18/2016 9:52 AM RESIDENTIAL CONCIERGE Height 157.5 cm (5' 2) 04/18/2016 9:52 AM RESIDENTIAL CONCIERGE Body Mass Index 27.8 04/18/2016 9:52 AM RESIDENTIAL CONCIERGE Plan of Treatment Health Maintenance Due Date [...] Maintenance Insurance MEDICARE PART A AND B [facility] [place] [address] Care Teams Terrazzo Polisher Relationship Specialty Start Date End Date Jackson Rosa MD [address] [place] [address] PCP - General 07/05/09
--- OUTSIDE RECORDS SUMMARY | 2025-01-08 16:05 | XMS_ITS | Encounter Summary ---
Author Organization [facility] Address [address] [place] [address] Care Team Providers Care Supercharge Repair Supervisor Name Role Phone Jackson Rosa MD Primary Care Provider + Encounter Details Date Type Department Care Team (Latest Contact Info) Description 01/29/2006 Outpatient Historical HIS [facility] GEOFF Cabezas, Cyndee Crespo MD NO ADDRESS ON FILE Other Follow-Up Examination (Primary Dx) Social History Tobacco Use Types Packs/Day Years Used Date Smoking Tobacco: Never Assessed Comments Unknown Sex and Gender Information Value Date Recorded Sex Assigned at Not on file Legal Sex Female 3:45 AM SAW OPERATOR Gender Identity Not on file Sexual Orientation Not on file documented as of this encounter Plan of Treatment Not on file documented as of this encounter Visit Diagnoses Diagnosis Other follow-up examination(V67.59)- Primary Other follow-up examination documented in this encounter Care Teams Supercharge Repair Supervisor Relationship Specialty Start Date End Date Jackson Rosa MD [address] [place] [address] PCP - General 07/05/09 documented as of this encounter
--- OUTSIDE RECORDS SUMMARY | 2025-01-08 16:05 | XMS_ITS | Clinical Summary ---
Author Organization [facility] Address [address] [facility] [place] [address] Care Team Providers Care Glue Bone Drier Name Role Phone Jackson Rosa MD Primary Care Provider [phone] Sammie Fox RN Unavailable Deyanira Daigle TALENT ACQUISITION DIRECTOR Unavailable Luis Carlos Rivas MD Unavailable Source Comments [facility],non-owned Affiliates and Associated Physician Practices is amultiple site organization consisting of ambulatory clinics and hospital sitesin [place], [place], [place] and [place]. This disclosure is being madepursuant to the Care Everywhere program and may not contain all information available regarding this patient. Last updated 18.[facility] Allergies Active Allergy Reactions Criticality Noted Date [...] problems Immunizations Immunization Administration Dates Next Due Krux primary monoval ent 12+ yr 0.3mL Purple [...] Sex Assigned at Female 05/03/2021 6:03 PM CONNECTION WORKER Legal Sex Female 9:20 AM CONNECTION WORKER Gender Identity Female 05/03/2021 6:03 PM CONNECTION WORKER Sexual Orientation Straight 05/03/2021 6: 03 PM CONNECTION WORKER Last Filed Vital Signs Vital Sign Reading Time Taken Comments Blood Pressure 132/78 06/21/2016 8:16 AM CONNECTION WORKER Pulse 55 06/21/2016 8:16 AM CONNECTION WORKER Temperature 36.7 C (98.1 F) 08/13/2014 [...] yrs (1 - 1-dose 75+ series) 2021 DEPRESSION SCREENING 04/29/2024 COVID-19 VACCINE ( - 2024- season) 2024 05/03/2021, 08/30/2020, 08/02/2020 INFLUENZA VACCINE (#1) 2024 , 03/12/2019, 01/28/2018, [...] this topic Medical Devices Implanted Type Area School Child Care Attendant Device Identifier Shelf Expiration Date Model / Serial / Lot Nexgen Complete Knee Solution Cruciate Retaining Trabecular Metal Monoblock Tibial Component Tibial Size 3, Femoral Size C-H, 10mm Height Implanted:Qty: 1 on 08/10/2014 by Angel Luis Villegas MD at [facility] Right: Knee [employer] 01/27/2019 [id number] Nexgen Complete Knee Solution Cruciate Retaining Cr-Flex Femoral Component Porous Size D, Right Implanted:Qty: 1 on 08/10/2014 by Angel Luis Villegas MD at [facility] Right: Knee [employer] 11/28/2023 / / [id number] Bill Only Basic Derrick Excludes Agc Kn Implanted:Qty: 1 on 08/10/2014 by Angel Luis Villegas MD at [facility] [employer] BILL ONLY BASIC DERRICK EXCLUDES AGC KN ZIMM / / Bill Only Tb Upchrg Implanted:Qty: 1 on 08/10/2014 by Angel Luis Villegas MD at [facility] [employer] UPCHRG MELY BILL ONLY TB / / Insurance MEDICARE MEDICARE Member Subscriber Plan / Payer (Ef fective for All Dates) Name:Zulma Carnes Member ID:[id number] Relation to Subscriber:Self Name:Zulma Carnes Subscriber ID:[id number] Payer ID:Not on file Group ID:Not on file Type:Medicare Address: [place] [phone] MEDICARE Care Teams Glue Bone Drier Relationship Specialty Start Date End Date Jackson Rosa MD PCP - General Internal Medicine 05/18/14 Sammie Fox, RN Hash Slinger 08/10/14 Deyanira Daigle, [facility] Bakelite Molder 08/12/14 [place] [address] [place] [address] Orthopedic Surgery 09/03/16
--- OUTSIDE RECORDS SUMMARY | 2025-01-08 16:05 | XMS_ITS ---
Author Organization [facility] Address [address] [place] [address] Care Team Providers Care Catia Designer Name Role Phone Jackson Rosa MD Primary Care Provider [phone] Active Problems Problem Noted Date Diagnosed Date [...] Assessment & Plan (07/04/2021 11:03 AM PATIENT PLACEMENT COORDINATOR): I explained to the patient how subclinical [...]
--- OUTSIDE RECORDS SUMMARY | 2025-01-08 16:06 | XMS_ITS | Encounter Summary ---
Author Organization [facility] Address [address] [place] [address] Care Team Providers Care Green Chain Worker Name Role Phone Jackson Rosa MD Primary [...] on file Legal Sex Female 3:45 AM PROGRAM/MUSIC DIRECTOR Gender Identity Not on file Sexual Orientation Not on file documented as of this encounter Plan of Treatment Not on file documented as of this encounter Visit Diagnoses Diagnosis Follow-up examination, following other surgery- Primary documented in this encounter Care Teams Green Chain Worker Relationship Specialty Start Date End Date Jackson Rosa MD [address] [place] [address] PCP - General 07/05/09 documented as of this encounter
--- OUTSIDE RECORDS SUMMARY | 2025-01-08 16:06 | XMS_ITS | Encounter Summary ---
Author Organization [facility] Address [address] [place] [address] Care Team Providers Care Production Line Solderer Name Role Phone Jackson Rosa MD Primary Care Provider + Encounter Details Date Type Department Care Team (Latest Contact Info) Description 08/12/2002 Outpatient Historical HIS [facility] Cabezas, Cyndee Crespo MD NO ADDRESS ON FILE SCREENING MAMM-MAILG NEOPL-OTHER (Primary Dx) Social History Tobacco Use Types Packs/Day Years Used Date Smoking Tobacco: Never Assessed Comments Unknown Sex and Gender Information Value Date Recorded Sex Assigned at Not on file Legal Sex Female 3:45 AM LABEL MAKER Gender Identity Not on file Sexual Orientation Not on file documented as of this encounter Plan of Treatment Not on file documented as of this encounter Visit Diagnoses Diagnosis Other screening mammogram- Primary documented in this encounter Care Teams Production Line Solderer Relationship Specialty Start Date End Date Jackson Rosa MD [address] [place] [address] PCP - General 07/05/09 documented as of this encounter
--- OUTSIDE RECORDS SUMMARY | 2025-01-08 16:06 | XMS_ITS | Encounter Summary ---
Author Organization [facility] Address [facility] [place] [address] Care Team Providers Care Epitaxial Reactor Technician Name Role Phone Jackson Rosa MD Primary Care Provider [phone] Gaurang Gonzalez MD Unavailable Unavailab Jeremiah Crowder MD Unavailable [phone] Whit Perez APRN MEDICAL CODING AUDITOR-C Unavailable Irma Willams MD Unavailable Efrem Alves MD Unavailable Encounter Details Date Type Department Care Team (Late Contact Info) Description 12/01/2014 Abstract [facility] AT [address] [address] Gaurang Gonzalez MD Social History Tobacco Use Types Packs/Day Years Used Date Smoking Tobacco: Never Alcohol Use Standard Drinks/Week Comments Yes 0 (1 standard drink = 0.6 oz pur e alcohol) Occasionally, Wine. Comments Unknown Sex and Gender Information Value Date Recorded Sex Assigned at Female 05/25/2024 1:26 PM CORPORATE VP ADVERTISING & ONLINE Legal Sex Female 9:00 PM CDT Gender Identity Not on file Sexual Orientation Not on file Occupation Industry Job Start Date Job End Date Retired Not on file Not on file Not on file documented as of this encounter Plan of Treatment Upcoming Encounters Date Type Department Care Team (Late st Contact Info) Description 05/10/2025 8:30 AM CORPORATE VP ADVERTISING & ONLINE Office Visit [facility] [place] [address] Irma Willams MD [address] [place] [address] documented as of this encounter Visit Diagnoses Not on filedocumented in this encounter Additional Health Concerns Infection Onset Date Last Indicated Resolved Time COVID-19 Rule Out 10/10/2019 10/10/2019 10/11/2019 1:50 PM CDT COVID-19 Rule Out 10/31/2019 10/31/2019 11/01/2019 10:23 PM CDT documented as of this encounter Care Teams Epitaxial Reactor Technician Relationship Specialty Start Date End Date Jackson Rosa MD [address] [place] [address] PCP - General INTERNAL MEDICINE 04/02/16 Gaurang Gonzalez MD [address] [place] [address] CARDIOVASCULAR DISEASE 04/02/16 05/20/18 Jeremiah Rolon MD [address] [place] [address] Lowry Coal Yard Supervisor CARDIOVASCULAR DISEASE 07/28/18 11/02/23 Whit Perez APRN, MEDICAL CODING AUDITOR-C [address] [facility] [address] [place] [address] NURSE PRACTITIONER 02/17/19 12/05/23 Irma Willams MD [address] [place] [address] Consulting Physician CARDIOVASCULAR DISEASE 11/03/23 Efrem Alves MD [address] [place] [address] Vascular/Coal Yard Supervisor INTERNAL MEDICINE 12/17/23 documented as of this encounter
--- OUTSIDE RECORDS SUMMARY | 2025-01-08 16:06 | XMS_ITS | Encounter Summary ---
Author Organization [facility] Address [address] [place] [address] Care Team Providers Care Glass Crusher Name Role Phone Jackson Rosa MD Primary Care Provider + Encounter Details Date Type Department Care Team (Latest Contact Info) Description 09/07/1998 Outpatient Historical HIS [facility] Cabezas, Cyndee Crespo MD NO ADDRESS ON FILE Personal history of malignant neoplasm of breast (Primary Dx) Social History Tobacco Use Types Packs/Day Years Used Date Smoking Tobacco: Never Assessed Comments Unknown Sex and Gender Information Value Date Recorded Sex Assigned at Not on file Legal Sex Female 3:45 AM YARN WEIGHT AND STRENGTH TESTER Gender Identity Not on file Sexual Orientation Not on file documented as of this encounter Plan of Treatment Not on file documented as of this encounter Visit Diagnoses Diagnosis Personal history of malignant neoplasm of breast- Primary documented in this encounter Care Teams Glass Crusher Relationship Specialty Start Date End Date Jackson Rosa MD [address] [place] [phone] PCP - General 07/05/09 documented as of this encounter
--- OUTSIDE RECORDS SUMMARY | 2025-01-08 16:06 | XMS_ITS | Encounter Summary ---
Author Organization [facility] Address [address] [place] [address] Care Team Providers Care Ripsaw Matcher Name Role Phone Jackson Rosa MD Primary Care Provider + Encounter Details Date Type Department Care Team (Latest Contact Info) Description 10/13/2003 Outpatient Historical HIS [facility] GEOFF Cabezas, Cyndee Crespo MD NO ADDRESS ON FILE SCREENING MAMM-MAILG NEOPL-OTHER (Primary Dx) Social History Tobacco Use Types Packs/Day Years Used Date Smoking Tobacco: Never Assessed Comments Unknown Sex and Gender Information Value Date Recorded Sex Assigned at Not on file Legal Sex Female 3:45 AM CUSTOMER SUPPORT COORDINATOR Gender Identity Not on file Sexual Orientation Not on file documented as of this encounter Plan of Treatment Not on file documented as of this encounter Visit Diagnoses Diagnosis Other screening mammogram- Primary documented in this encounter Care Teams Ripsaw Matcher Relationship Specialty Start Date End Date Jackson Rosa MD [address] [place] [address] PCP - General 07/05/09 documented as of this encounter
--- OUTSIDE RECORDS SUMMARY | 2025-01-08 16:06 | XMS_ITS | Encounter Summary ---
Author Organization [facility] Address [address] [place] [address] Care Team Providers Care Option Trader Name Role Phone Jackson Rosa MD Primary Care Provider + Encounter Details Date Type Department Care Team (Latest Contact Info) Description 09/03/2000 Outpatient Historical HIS [facility] GEOFF Cabezas, Cyndee Crespo MD NO ADDRESS ON FILE Personal history of malignant neoplasm of breast (Primary Dx) Social History Tobacco Use Types Packs/Day Years Used Date Smoking Tobacco: Never Assessed Comments Unknown Sex and Gender Information Value Date Recorded Sex Assigned at Not on file Legal Sex Female 3:45 AM PARACHUTE MARKER Gender Identity Not on file Sexual Orientation Not on file documented as of this encounter Plan of Treatment Not on file documented as of this encounter Visit Diagnoses Diagnosis Personal history of malignant neoplasm of breast- Primary documented in this encounter Care Teams Option Trader Relationship Specialty Start Date End Date Jackson Rosa MD [address] [place] [address] PCP - General 07/05/09 documented as of this encounter
--- OUTSIDE RECORDS SUMMARY | 2025-01-08 16:06 | XMS_ITS | Encounter Summary ---
Author Organization [facility] Address [address] [place] [address] Care Team Providers Care High School Business Teacher Name Role Phone Jackson Rosa MD Primary Care Provider + Encounter Details Date Type Department Care Team (Latest Contact Info) Description 07/12/2004 Outpatient Historical HIS [facility] GEOFF Cabezas, Cyndee Crespo MD NO ADDRESS ON FILE SCREENING MAMM-MALIG NEOPL-HI RISK (Primary Dx) Social History Tobacco Use Types Packs/Day Years Used Date Smoking Tobacco: Never Assessed Comments Unknown Sex and Gender Information Value Date Recorded Sex Assigned at Not on file Legal Sex Female 3:45 AM HORSE BUYER Gender Identity Not on file Sexual Orientation Not on file documented as of this encounter Plan of Treatment Not on file documented as of this encounter Visit Diagnoses Diagnosis Screening mammogram for high-risk patient- Primary documented in this encounter Care Teams High School Business Teacher Relationship Specialty Start Date End Date Jackson Rosa MD [address] [place] [address] PCP - General 07/05/09 documented as of this encounter
--- OUTSIDE RECORDS SUMMARY | 2025-01-08 16:06 | XMS_ITS | Encounter Summary ---
Author Organization [facility] Address [address] [place] [address] Care Team Providers Care Corporate Consultant Name Role Phone Jackson Rosa MD Primary Care Provider + Encounter Details Date Type Department Care Team (Latest Contact Info) Description 01/24/1999 Outpatient Historical HIS [facility] GE[facility] Cabezas, Cyndee Crespo MD NO ADDRESS ON FILE Other screening mammogram (Primary Dx) Social History Tobacco Use Types Packs/Day Years Used Date Smoking Tobacco: Never Assessed Comments Unknown Sex and Gender Information Value Date Recorded Sex Assigned at Not on file Legal Sex Female 3:45 AM CURING ROOM WORKER Gender Identity Not on file Sexual Orientation Not on file documented as of this encounter Plan of Treatment Not on file documented as of this encounter Visit Diagnoses Diagnosis Other screening mammogram- Primary documented in this encounter Care Teams Corporate Consultant Relationship Specialty Start Date End Date Jackson Rosa MD [address] [place] [phone] PCP - General 07/05/09 documented as of this encounter
--- OUTSIDE RECORDS SUMMARY | 2025-01-08 16:06 | XMS_ITS | Encounter Summary ---
Author Organization [facility] Address [address] [place] [address] Care Team Providers Care Drop Board Worker Name Role Phone Jackson Rosa MD Primary Care Provider + Encounter Details Date Type Department Care Team (Latest Contact Info) Description 09/05/1999 Outpatient Historical HIS [facility] GEOFF Cabezas, Cyndee Crespo MD NO ADDRESS ON FILE Personal history of malignant neoplasm of breast (Primary Dx) Social History Tobacco Use Types Packs/Day Years Used Date Smoking Tobacco: Never Assessed Comments Unknown Sex and Gender Information Value Date Recorded Sex Assigned at Not on file Legal Sex Female 3:45 AM SCHOOL LUNCH MONITOR Gender Identity Not on file Sexual Orientation Not on file documented as of this encounter Plan of Treatment Not on file documented as of this encounter Visit Diagnoses Diagnosis Personal history of malignant neoplasm of breast- Primary documented in this encounter Care Teams Drop Board Worker Relationship Specialty Start Date End Date Jackson Rosa MD [address] [place] [phone] PCP - General 07/05/09 documented as of this encounter
--- OUTSIDE RECORDS SUMMARY | 2025-01-08 16:06 | XMS_ITS | Encounter Summary ---
Author Organization [facility] Address [address] [place] [address] Care Team Providers Care Administrative Assistant Coordinator Name Role Phone Jackson Rosa MD Primary Care Provider + Encounter Details Date Type Department Care Team (Latest Contact Info) Description 03/04/2007 Outpatient Historical HIS [facility] GEOFF Cabezas, Cyndee Crespo MD NO ADDRESS ON FILE Screening Mammogram for High-Risk Patient (Primary Dx) Social History Tobacco Use Types Packs/Day Years Used Date Smoking Tobacco: Never Assessed Comments Unknown Sex and Gender Information Value Date Recorded Sex Assigned at Not on file Legal Sex Female 3:45 AM VIRTUAL RECRUITER Gender Identity Not on file Sexual Orientation Not on file documented as of this encounter Plan of Treatment Not on file documented as of this encounter Visit Diagnoses Diagnosis Screening mammogram for high-risk patient- Primary documented in this encounter Care Teams Administrative Assistant Coordinator Relationship Specialty Start Date End Date Jackson Rosa MD [address] [place] [address] PCP - General 07/05/09 documented as of this encounter
--- OUTSIDE RECORDS SUMMARY | 2025-01-08 16:06 | XMS_ITS | Encounter Summary ---
Author Organization [facility] Address [address] [place] [address] Care Team Providers Care Porter Used Car Lot Name Role Phone Jackson Rosa MD Primary Care Provider + Encounter Details Date Type Department Care Team (Latest Contact Info) Description 09/09/[address] [facility] GEOFF Cabezas, Cyndee Crespo MD NO ADDRESS ON FILE PERS HX OF BREAST MALIGNANCY (Primary Dx) Social History Tobacco Use Types Packs/Day Years Used Date Smoking Tobacco: Never Assessed Comments Unknown Sex and Gender Information Value Date Recorded Sex Assigned at Not on file Legal Sex Female 3:45 AM METAL BUILDING ASSEMBLER Gender Identity Not on file Sexual Orientation Not on file documented as of this encounter Plan of Treatment Not on file documented as of this encounter Visit Diagnoses Diagnosis Personal history of malignant neoplasm of breast- Primary documented in this encounter Care Teams Porter Used Car Lot Relationship Specialty Start Date End Date Jackson Rosa MD [address] [place] [phone] PCP - General 07/05/09 documented as of this encounter
--- OUTSIDE RECORDS SUMMARY | 2025-01-08 16:06 | XMS_ITS | Clinical Summary ---
Author Organization [facility] Address [address] [place] [address] Care Team Providers Care Communications Media Professor Name Role Phone Jackson Rosa MD Primary Care Provider [phone] Allergies Active Allergy Reactions Criticality Noted Date [...] 07/04/2021 Assessment & Plan (07/04/2021 11:03 AM WATER QUALITY CONTROL ENGINEER): I explained to the patient how subclinical [...] on file Legal Sex Female 12:56 AM WATER QUALITY CONTROL ENGINEER Gender Identity Female 10/06/2019 1:08 PM CDT [...] lb 3.2 oz) 05/15/2023 3:06 P M WATER QUALITY CONTROL ENGINEER Height 157.5 cm (5' 2) 05/15/2023 3:06 PM WATER QUALITY CONTROL ENGINEER Body Mass Index 27.11 05/15/2023 3:06 PM WATER QUALITY CONTROL ENGINEER Plan of Treatment Health Maintenance Due Date Last Done Comments Hepatitis C Screening 1945 Hepatitis B Screening 1963 Zoster Vaccine (1 of 2) 1996 DTaP/Tdap/Td Vaccine (1 - Tdap) 12/02/1999 0 Well Visit 65+ 09/14/2011 Osteoporosis Screening-Bone Density Scan 01/17/2018 01/18/2016 Pneumococcal vaccine 65+ (2 of 2 - PCV20 or PCV21) 09/07/2021 09/07/2020 Depression Screening 07/04/2022 07/04/2021 Fall Risk Assessment 12/22/2023 12/21/2022 Covid-19 Vaccine (2024- 6 season) 2024 01/31/2022, 05/03/2021, 08/30/2020 Influenza Vaccine (#1) 2024 9, 01/28/2018, 01/04/2017, Additional history exists Breast Cancer Screening-Mammogram Discontinued 012 Colon Cancer Screening-CT Colonography Discontinued 12/04/2017 Colon Cancer Screening-Colonoscopy Discontinued 12/04/2017 Colon Cancer Screening-DNA Stool Discontinued 12/05/19 18 Colon Cancer Screening-FIT Discontinued 12/04/2017 Colon Cancer Screening-FOBT Discontinued 12/04/2017 Colon Cancer Screening-Sigmoidoscopy Discontinued 12/04/2017 Colorectal Cancer Screening Discontinued Medical Devices Implanted Type Area Home Security Alarm Installer Device Identifier Shelf Expiration Date Model / Serial / Lot Knee Replacement Right: Knee Procedures Procedure Name Priority Date/Time Associated Diagnosis Comments COLONOSCOPY 12/04/2017 11:53 AM CDT from Last 3 Months or Most Recently Relevant to Health Maintenance Results * COLONOSCOPY (12/04/2017 11:53 AM CDT) Anatomical Region Laterality Modality Other Narrative Procedure Note Dwayne Chan MD - 12/04/2017 11:53 AM CDT [facility] Patient Name: Zulma Carnes Procedure Date: 12/04/2017 11:53 AM Date of : 1945 Admit Type: Outpatient Age: 72 Gender: Female Attending MD: Dwayne Chan MD Room: [facility] ENDOSCOPY ROOM 2 Note Status: Finalized [...] passed under direct vision.The Pediatric Colonoscope PCF-[id number] was introduced through the anus and advanced [...] perforation orabscess without bleeding CPT copyright 2017 [employer]. All rights reserved. The codes documented in this report are preliminary and upon baker chef reviewmay be revised to meet current compliance requirements. Recognized by the [employer] for promoting quality in endoscopy Dwayne Chan MD ENDOSCOPY PROCEDURES Final Result from Last 3 Months or Most Recently Relevant to Health Maintenance Insurance MEDICARE Inf[employer] [facility] MEDICARE MEDICARE [facility] Advance Directives For more information, please contact: [phone] * Full Code (Latest Code Status on File) Date Activated Date Inactivated Comments 12/04/2017 11:05 AM 12/04/2017 3:39 PM Care Teams Communications Media Professor Relationship Specialty Start Date End Date Jackson Rosa MD [address] [place] [address] PCP - General 07/04/16
[2025-01-08 16:11] LABS: Alanine Aminotransferase 19 U/L (6-35); Albumin Level 4.5 g/dL (3.5-5.1); Alkaline Phosphatase 58 U/L (38-126); Anion Gap 11 mmol/L (4-12); Aspartate Amino Transferase 26 U/L (14-36); Bilirubin,Total 0.6 mg/dL (0.2-1.3); Blood Urea Nitrogen 19 mg/dL (7-17); Calcium 10.1 mg/dL (8.4-10.2); Carbon Dioxide 28 mmol/L (22-30); Chloride 101 mmol/L (98-107); Estimated Glomerular Filt Rate > 60; Glucose 89 mg/dL (65-110); Osmolality Calculated 291 mOsm/kg (285-295); Potassium 4.7 mmol/L (3.4-5.0); Sodium 140 mmol/L (137-145); Total Protein 6.8 g/dL (6.3-8.2)
== END 2025-01-08 15:37 | disposition home or self-care (01) ==
PROVIDERS: PCP Internal Medicine; Visit Provider Nurse Practitioner Family
DX: J06.9 Acute upper respiratory infection, unspecified (principal); R06.02 Shortness of breath; N39.0 Urinary tract infection, site not specified
CPT/HCPCS: 36415; 71046; 80053; 81003; 85027; 87086

== ENCOUNTER 2025-02-11 12:52 | Outpatient (CLI) | payer MEDICARE, SELFPAY ==
--- OUTSIDE RECORDS SUMMARY | 2021-11-22 13:13 | XMS_ITS | Continuity of Care Document ---
Author Organization [facility] Address [address] [place] [address] Phone Care Team Providers Care Sql Ssis Developer Name Role Phone Elaine KLEIN, Cinthya Unavailable Unavailable Advance Directives Directive Yes / No Effective Date File Name No Information Encounters Encounter Description Practice Location Reason(s) For Visit Diagnoses Date Provider Providers Copied on Encounter [facility], [address], [place], [place], [address], [place] tel:[phone] [facility] No Information Elaine Mendes. [address] [facility], [facility] [place], [address] , [place]. tel:[phone] [facility], [address], [place], [place], [address], [place] tel:[phone] [facility] Dilation of biliary tract Azra Hung. [address], [address], [place], [address], [place]. tel:[phone] Family History Family Member Type Diagnosis Age At Onset No Information Payers Payer name Insurance type Covered libertarian ID Authoriza tion(s) No Information Social History [...]
--- NOTE | ~2025-02-11 | DEXA_ITS ---
Bone Density Report Name: SIDNEY ANDERSON Age: 79 Sex: Female Ethnicity: White Date of : 1945 Indication: postmenopausal; screening for osteoporosis; height loss; inflammatory bowel disease; cancer; hysterectomy; Referring Provider: Jackson Rosa Study: Bone densitometry was performed. Exam Date: February 11, 2025 Accession number: [id number] Bone Density: Region BMD T-score Z-score Classification AP Spine(L1-L4) 0.918 -1.2 1.4 Osteopenia Femoral Neck (Left) 0.560 -2.6 -0.4 Osteoporosis Total Hip (Left) 0.823 -1.0 1.0 Normal Femoral Neck (Right) 0.593 -2.3 -0.1 Osteopenia Total Hip (Right) 0.850 -0.8 1.2 Normal Femoral Neck Mean 0.577 -2.5 -0.2 Osteoporosis Total Hip Mean 0.837 -0.9 1.1 Normal World Health Organization criteria for BMD impression classify patients as: Normal (T-score at or above -1.0), Osteopenia (T-score between -1.0 and -2.5), or Osteoporosis (T-score at or below -2.5). 10-year Fracture Risk: FRAX not reported because: Some T-score for Spine Total or Hip Total or Femoral Neck at or below -2.5 Treated for osteoporosis Clinical Information Provided by Patient: Is being treated for osteoporosis Has used the following medications: Actonel (i.e. risedronate), Boniva (i.e. ibandronate), Reclast (i.e. zoledronate), Prolia (i.e. denosumab) Has the following medical conditions: Cancer, Inflammatory bowel diseases, Hysterectomy Patient maximum height was 64 Menopause Age: 30 No regular weight bearing exercise Drinks caffeinated beverages Onset of menses at age 15 Number of children 3 Impression: The patient has osteoporosis, based on the Left Femoral Neck T-score. Discussion: It is important to ask patients whether they are taking their medications and to encourage continued and appropriate compliance with their osteoporosis therapies to reduce fracture risk. It is also important to review their risk factors and encourage appropriate calcium and vitamin D intakes, exercise, fall prevention and other lifestyle measures. Follow-Up: Consider a repeat BMD and Vertebral Fracture Assessment (VFA) exam in 2 years or sooner if medically necessary, to reassess this patient's status. Reported by: SUSHIL on 02/11/2025 1:20:00 PM. Reviewed, dictated and finalized at location A.
--- OUTSIDE RECORDS SUMMARY | 2025-02-11 14:32 | XMS_ITS | Clinical Summary ---
Author Organization [facility] Address [address] [place] [address] Care Team Providers Care Data Collection Technician Name Role Phone Jackson Rosa MD Primary Care Provider [phone] Sammie Fox RN Unavailable Deyanira Daigle WHEEL CLEANER Unavailable Luis Carlos Rivas MD Unavailable [phone] Source Comments [facility],non-owned Affiliates and Associated Physician Practices is amultiple site organization consisting of ambulatory clinics and hospital sitesin [place], [place], [place] and [place]. This disclosure is being madepursuant to the Care Everywhere program and may not contain all information available regarding this patient. Last updated 18.[facility] Allergies Active Allergy Reactions Criticality [...] problems Immunizations Immunization Administration Dates Next Due [employer] primary monoval ent 12+ yr 0.3mL Purple [...] Assigned at Female 05/03/2021 6:03 PM MANAGER CREDIT Legal Sex Female 9:20 AM MANAGER CREDIT Gender Identity Female 05/03/2021 6:03 PM MANAGER CREDIT Sexual Orientation Straight 05/03/2021 6: 03 PM MANAGER CREDIT Last Filed Vital Signs Vital Sign Reading Time Taken Comments Blood Pressure 132/78 06/21/2016 8:16 AM MANAGER CREDIT Pulse 55 06/21/2016 8:16 AM MANAGER CREDIT Temperature 36.7 C (98.1 F) 08/13/2014 11:27 [...] this topic Medical Devices Implanted Type Area Bag Machine Adjuster Device Identifier Shelf Expiration Date Model / Serial / Lot Nexgen Complete Knee Solution Cruciate Retaining Trabecular Metal Monoblock Tibial Component Tibial Size 3, Femoral Size C-H, 10mm Height Implanted:Qty: 1 on 08/10/2014 by Angel Luis Villegas MD at [facility] Right: Knee [employer] 01/27/2019 [id number] Nexgen Complete Knee Solution Cruciate Retaining Cr-Flex Femoral Component Porous Size D, Right Implanted:Qty: 1 on 08/10/2014 by Angel Luis Villegas MD at [facility] Right: Knee [employer] 11/28/2023 / / [id number] Bill Only Basic Derrick Excludes Agc Kn Implanted:Qty: 1 on 08/10/2014 by Angel Luis Villegas MD at [facility] [employer] BILL ONLY BASIC DERRICK EXCLUDES AGC KN ZIMM / / Bill Only Tb Upchrg Implanted:Qty: 1 on 08/10/2014 by Angel Luis Villegas MD at [facility] [employer] UPCHRG MELY BILL ONLY TB / / Insurance MEDICARE MEDICARE Member Subscriber Plan / Payer (Ef fective for All Dates) Name:Zulma Carnes Member ID:[id number] Relation to Subscriber:Self Name:Zulma Carnes Subscriber ID:[id number] Payer ID:Not on file Group ID:Not on file Type:Medicare Address: [place] [phone] MEDICARE Care Teams Data Collection Technician Relationship Specialty Start Date End Date Jackson Rosa MD PCP - General Internal Medicine 05/18/14 Sammie Fox, RN Job Compositor 08/10/14 Deyanira Daigle, [facility] Balloon Design Printer 08/12/14 [place] [address] [place] [id number] Orthopedic Surgery 09/03/16
--- OUTSIDE RECORDS SUMMARY | 2025-02-11 14:32 | XMS_ITS | Clinical Summary ---
Author Organization [facility] Address [address] [place] [address] Care Team Providers Care Travograph Operator Name Role Phone Jackson Rosa MD Primary Care Provider [phone] Irma Willams MD Unavailable Efrem Alves MD [...] GERD (gastroesophageal reflux disease) Cataract Breast cancer Bleeding Overview (09/05/2018): : History of bleeding, [...] Sex Assigned at Female 05/25/2024 1:26 PM INLAYER SILVER Legal Sex Female 9:00 PM CDT Gender Identity Not on file Sexual Orientation Not on file Occupation Industry Job Start Date Job End Date Retired Not on file Not on file Not on file Last Filed Vital Signs Vital Sign Reading Time Taken Comments Blood Pressure 138/72 06/03/2024 12:50 PM INLAYER SILVER Pulse 69 06/03/2024 12:50 PM INLAYER SILVER Temperature 36.1 C (97 F) 11/03/2019 12:30 PM CDT Respiratory Rate 16 06/03/2024 12:5 0 PM INLAYER SILVER Oxygen Saturation 94% 06/03/2024 12: 50 PM INLAYER SILVER Inhaled Oxygen Concentration - - Weight 63.4 kg (139 lb 12.8 oz) 025 12:50 PM INLAYER SILVER Height 156.2 cm (5' 1.5) 06/03/2024 12 :50 PM INLAYER SILVER Body Mass Index 25.99 06/03/2024 12:50 PM INLAYER SILVER Plan of Treatment Upcoming Encounters Date Type Department Care Team (Late st Contact Info) Description 05/10/2025 8:30 AM INLAYER SILVER Office Visit [facility] [place] [address] Irma Willams MD [address] [place] [address] Health Maintenance Due Date Last Done Comments ASCVD Statin 1945 Hepatitis C 1963 Zoster Vaccines (1 of 2) 1996 DTaP, Tdap and Td Vaccines (1 - Tdap) 12/02/1999 12/01/1999 Annual Medicare Wellness Visit 09/14/2011 ASCVD LDL 06/27/2014 06/27/2013 Pneumococcal Vaccine: 50+ Years (2 of 2 - PPSV23, PCV20, or PCV21) 11/02/2020 09/07/2020 RSV Immunization or 60+ Years (1 - 1-dose 75+ series) 2021 COVID-19 Vaccine ( season) 2024 01/31/2022, 05/03/2021, 08/30/2020, Additional history exists Influenza Adult (#1) 2025 03/12/2019, 01/28/2018, 01/04/2017, Additional history exists Dexa Scan (General) Completed 01/18/2016 Hepatitis A Vaccines Aged Out No long er eligible based on patient's age to complete this topic Meningococcal B Vaccine Aged Out No l onger eligible based on patient's age to complete this topic Meningococcal Vaccine Aged Out No sally kleber eligible based on patient's age to complete this topic RSV Immunizations Under 20 Months Aged Out No longer eligible based on patient's age to complete this topic Medical Devices Implanted Type Area Sheet Rock Taper Helper Device Identifier Shelf Expiration Date Model / Serial / Lot Knee Components Knee Components Description:Right knee Knee Components Knee Components Description:Rt knee Iol Augustus [id number] - [id number] Implanted:Qty: 1 on 10/13/2019 by Stephane Samson MD at [facility] Lens Left: Eye [employer] 01/27/2024 [id number] / [id number] / N/A Description:Implant verified by Iol [employer] Li61ao - [id number] Implanted:Qty: 1 on 11/03/2019 by Stephane Samson MD at [facility] Lens Right: Eye [employer] 08/27/2023 [id number] / [id number] Description:Lens verified pe r surgeon and chart Procedures Procedure Name Priority Date/Time Associated Diagnosis Comments LIPID PANEL Routine 06/27/2013 12:00 AM INLAYER SILVER from Last 3 Months or Most Recently Relevant to Health Maintenance Results * LIPID PANEL (06/27/2013 12:00 AM INLAYER SILVER) TRIGLYCERIDES 78 0 - 150 mg/dl MEDINFORMATIX [...] Relevant to Health Maintenance Insurance MEDICARE MEDICARE Care Teams Travograph Operator Relationship Specialty Start Date End Date Jackson Rosa MD [address] [place] [address] PCP - General INTERNAL MEDICINE 04/02/16 Irma Willams MD [address] [place] [address] Consulting Physician CARDIOVASCULAR DISEASE 11/03/23 Efrem Alves MD [address] [place] [address] Vascular/Digital Color Press Operator INTERNAL MEDICINE 12/17/23
--- OUTSIDE RECORDS SUMMARY | 2025-02-11 14:32 | XMS_ITS | Encounter Summary ---
Author Organization [facility] Address [address] [place] [address] Care Team Providers Care Permastone Mechanic Name Role Phone Jackson Rosa MD Primary Care Provider [phone] Irma Willams MD Unavailable Efrem Alves MD Unavailable Encounter Details Date Type Department Care Team (Late Contact Info) Description 06/22/2024 c3 creations Message Enc [facility] ield [address] [place] [address] [facility] Provider Echo results Social History Tobacco Use Types Packs/Day Years Used Date Smoking Tobacco: Never Passive Smoke Exposure: Never Smokeless Tobacco: Never Alcohol Use Standard Drinks/Week Comments Yes 0 (1 standard drink = 0.6 oz pur e alcohol) very rare wine usage Comments Unknown Sex and Gender Information Value Date Recorded Sex Assigned at Female 05/25/2024 1:26 PM CLOTH COLORER Legal Sex Female 9:00 PM CDT Gender Identity Not on file Sexual Orientation Not on file Occupation Industry Job Start Date Job End Date Retired Not on file Not on file Not on file documented as of this encounter Plan of Treatment Upcoming Encounters Date Type Department Care Team (Late Contact Info) Description 05/10/2025 8:30 AM CLOTH COLORER Office Visit [facility] [address] [place] [address] Irma Willams MD [address] [place] [address] documented as of this encounter Visit Diagnoses Not on filedocumented in this encounter Care Teams Permastone Mechanic Relationship Specialty Start Date End Date Jackson Rosa MD [address] [place] [address] PCP - General INTERNAL MEDICINE 04/02/16 Irma Willams MD [address] [place] [address] Consulting Physician CARDIOVASCULAR DISEASE 11/03/23 Efrem Alves MD [address] [place] [address] Vascular/Shingle Inspector INTERNAL MEDICINE 12/17/23 documented as of this encounter
--- OUTSIDE RECORDS SUMMARY | 2025-02-11 14:32 | XMS_ITS | Clinical Summary ---
Author Organization [facility] Address [address] [place] [address] Care Team Providers Care Turret Punch Press Operator Name Role Phone Jackson Rosa MD [...] BI-FLEX ORAL) Take by mouth. Active Coenzyme L58-Mrsnwhb E (COQ10 SG 100) 100-100 mg-unit Oral [...] on file Legal Sex Female 3:45 AM CUSTODIAN BLOOD BANK Gender Identity Not on file Sexual Orientation Not on file Last Filed Vital Signs Vital Sign Reading Time Taken Comments Blood Pressure 122/58 04/18/2016 9:52 AM CUSTODIAN BLOOD BANK Pulse 61 04/18/2016 9:52 AM CUSTODIAN BLOOD BANK Temperature - - Respiratory Rate - - Oxygen Saturation - - Inhaled Oxygen Concentration - - Weight 68.9 kg (152 lb) 04/18/2016 9:52 AM CUSTODIAN BLOOD BANK Height 157.5 cm (5' 2) 04/18/2016 9:52 AM CUSTODIAN BLOOD BANK Body Mass Index 27.8 04/18/2016 9:52 AM CUSTODIAN BLOOD BANK Plan of Treatment Health Maintenance Due Date [...] Insurance MEDICARE PART A [facility] [place] [address] Care Teams Turret Punch Press Operator Relationship Specialty Start Date End Date Jackson Rosa MD [address] [place] [phone] PCP - General 07/05/09
--- OUTSIDE RECORDS SUMMARY | 2025-02-11 14:32 | XMS_ITS ---
Author Organization [facility] Address [address] [place] [address] Care Team Providers Care Metal Reclamation Kettle Tender Name Role Phone Jackson Rosa MD Primary Care Provider [phone] Active Problems Problem Noted Date Diagnosed Date [...] 07/04/2021 Assessment & Plan (07/04/2021 11:03 AM DISPLAY FABRICATOR): I explained to the patient how subclinical [...]
--- OUTSIDE RECORDS SUMMARY | 2025-02-11 14:33 | XMS_ITS | Encounter Summary ---
Author Organization [facility] Address [facility] [place] [address] Care Team Providers Care Electric Motor Controls Assembler Name Role Phone Jackson Rosa MD Primary Care Provider [phone] Gaurang Gonzalez MD Unavailable Unavailab Jeremiah Crowder MD Unavailable [phone] Whit Perez APRN [employer] OFFICER-C Unavailable Irma Willams MD Unavailable Efrem Alves MD Unavailable Encounter Details Date Type Department Care Team (Late Contact Info) Description 12/01/2014 Abstract [facility] AT [address] [address] Gaurang Gonzalez MD Social History Tobacco Use Types Packs/Day Years Used Date Smoking Tobacco: Never Alcohol Use Standard Drinks/Week Comments Yes 0 (1 standard drink = 0.6 oz pur e alcohol) Occasionally, Wine. Comments Unknown Sex and Gender Information Value Date Recorded Sex Assigned at Female 05/25/2024 1:26 PM REFRIGERATION OPERATOR Legal Sex Female 9:00 PM CDT Gender Identity Not on file Sexual Orientation Not on file Occupation Industry Job Start Date Job End Date Retired Not on file Not on file Not on file documented as of this encounter Plan of Treatment Upcoming Encounters Date Type Department Care Team (Late st Contact Info) Description 05/10/2025 8:30 AM REFRIGERATION OPERATOR Office Visit [facility] [place] [phone] Irma Willams MD [address] [place] [address] documented as of this encounter Visit Diagnoses Not on filedocumented in this encounter Additional Health Concerns Infection Onset Date Last Indicated Resolved Time COVID-19 Rule Out 10/10/2019 10/10/2019 10/11/2019 1:50 PM CDT COVID-19 Rule Out 10/31/2019 10/31/2019 11/01/2019 10:23 PM CDT documented as of this encounter Care Teams Electric Motor Controls Assembler Relationship Specialty Start Date End Date Jackson Rosa MD [address] [place] [phone] PCP - General INTERNAL MEDICINE 04/02/16 Gaurang Gonzalez MD [address] [place] [address] CARDIOVASCULAR DISEASE 04/02/16 05/20/18 Jeremiah Rolon MD [address] [place] [address] [employer] Sharepoint Specialist CARDIOVASCULAR DISEASE 07/28/18 11/02/23 Whit Perez APRN, [employer] OFFICER-C [address] [facility] [address] [place] [address] NURSE PRACTITIONER 02/17/19 12/05/23 Irma Willams MD [address] [place] [address] Consulting Physician CARDIOVASCULAR DISEASE 11/03/23 Efrem Alves MD [address] [place] [address] Vascular/Sharepoint Specialist INTERNAL MEDICINE 12/17/23 documented as of this encounter
--- OUTSIDE RECORDS SUMMARY | 2025-02-11 14:33 | XMS_ITS | Encounter Summary ---
Author Organization [facility] Address [address] [place] [address] Care Team Providers Care Core Maker Helper Name Role Phone Jackson Rosa MD Primary Care Provider + Encounter Details Date Type Department Care Team (Latest Contact Info) Description 10/13/2003 Outpatient Historical HIS [facility] Cabezas, Cyndee Crespo MD NO ADDRESS ON FILE SCREENING MAMM-MAILG NEOPL-OTHER (Primary Dx) Social History Tobacco Use Types Packs/Day Years Used Date Smoking Tobacco: Never Assessed Comments Unknown Sex and Gender Information Value Date Recorded Sex Assigned at Not on file Legal Sex Female 3:45 AM SUPERVISOR CARTON AND CAN SUPPLY Gender Identity Not on file Sexual Orientation Not on file documented as of this encounter Plan of Treatment Not on file documented as of this encounter Visit Diagnoses Diagnosis Other screening mammogram- Primary documented in this encounter Care Teams Core Maker Helper Relationship Specialty Start Date End Date Jackson Rosa MD [address] [place] [address] PCP - General 07/05/09 documented as of this encounter
--- OUTSIDE RECORDS SUMMARY | 2025-02-11 14:33 | XMS_ITS | Encounter Summary ---
Author Organization [facility] Address [address] [place] [address] Care Team Providers Care Account Installer Name Role Phone Jackson Rosa MD Primary Care Provider + Encounter Details Date Type Department Care Team (Latest Contact Info) Description 07/12/2004 Outpatient Historical HIS [facility] Cabezas, Cyndee Crespo MD NO ADDRESS ON FILE SCREENING MAMM-MALIG NEOPL-HI RISK (Primary Dx) Social History Tobacco Use Types Packs/Day Years Used Date Smoking Tobacco: Never Assessed Comments Unknown Sex and Gender Information Value Date Recorded Sex Assigned at Not on file Legal Sex Female 3:45 AM CLOUD SYSTEMS ADMINISTRATOR Gender Identity Not on file Sexual Orientation Not on file documented as of this encounter Plan of Treatment Not on file documented as of this encounter Visit Diagnoses Diagnosis Screening mammogram for high-risk patient- Primary documented in this encounter Care Teams Account Installer Relationship Specialty Start Date End Date Jackson Rosa MD [address] [place] [address] PCP - General 07/05/09 documented as of this encounter
--- OUTSIDE RECORDS SUMMARY | 2025-02-11 14:33 | XMS_ITS | Patient Health Record ---
Author Organization [facility] Address [address] [place] [address] Care Team Providers Care Card Placer Name Role Phone Juanito Reagan Unavailable [phone] Reason For Referral No Information Medications Medication SIG (Take, Route, Frequency, Duration) Notes Start Date End Date Status valACYclovir HCl 500 MG Tablet Oral 02/14/2023 Active Fluticasone Propionate Diskus 50 MCG/ACT Aerosol Powder Breath Activated Inhalation *Reorder from [employer] for eRx and Interaction Alerts* 02/14/2023 Active [...] 20 MG Tablet Oral 02/14/2023 Active Nystatin 947620 UNIT/ML Suspension Mouth/Throat 02/14/2023 Active Escitalopram Oxalate 10 MG Tablet Oral 02/14/2023 Active Paxlovid (300/100) 20 x 150 MG & 10 x 100MG Tablet Therapy Pack Oral *Reorder from [employer] for eRx and Interaction Alerts* 02/14/2023 Active [...] Medicare [address] [place] [address] [id number] SIDNEY ANDERSON Self - patient is the insured [place] Medicare Supplement [address] [employer] [place] [id number] SIDNEY ANDERSON Self - patient is the insured
--- OUTSIDE RECORDS SUMMARY | 2025-02-11 14:33 | XMS_ITS | Encounter Summary ---
Author Organization [facility] Address [address] [place] [address] Care Team Providers Care Groundsman Name Role Phone Jackson Rosa MD Primary Care Provider + Encounter Details Date Type Department Care Team (Latest Contact Info) Description 03/31/2008 Outpatient Historical HIS [facility] Cabezas, Ezequiel Crespo MD NO ADDRESS ON FILE Other Screening Mammogram Social History Tobacco Use Types Packs/Day Years Used Date Smoking Tobacco: Never Assessed Comments Unknown Sex and Gender Information Value Date Recorded Sex Assigned at Not on file Legal Sex Female 3:45 AM EMBOSSING MACHINE OPERATOR Gender Identity Not on file Sexual Orientation Not on file documented as of this encounter Plan of Treatment Not on file documented as of this encounter Procedures Procedure Name Priority Date/Time Associated Diagnosis Comments MAMMO SCREEN BILAT W OR WO CAD Routine 03/31/2008 8:30 AM EMBOSSING MACHINE OPERATOR documented in this encounter Results * MAMMO DIGITAL SCREEN BILAT (03/31/2008 8:30 AM EMBOSSING MACHINE OPERATOR) Anatomical Region Laterality Modality Breast Bilateral Other 03/31/2008 8:30 AM EMBOSSING MACHINE OPERATOR Narrative 03/31/2008 12:03 PM EMBOSSING MACHINE OPERATOR [address] [address] Admit Date: 03/31/2008 ZULMA CARNES Sex: F Admit Prov: EZEQUIEL CABEZAS Date: 1945 Primary Care Prov: CMRN: [id number] Room: KIRT SSN: [id number] IMAGING SERVICES Ordering Prov: EZEQUIEL CABEZAS Accession Number: [id number] Interpretation EXAM: BILATERAL SCREENING FULL FIELD DIGITAL [...] AMK Procedure Note Elena Lou - 03/31/2008 [facility] [address] [place], [place] [address] Admit Date: 03/31/2008 ZULMA CARNES Sex: F Admit Prov: EZEQUIEL CABEZAS Date: 1945 Primary Care Prov: CMRN: [id number] Room: MASONAshleigh SSN: [id number] IMAGING SERVICES Ordering Prov: EZEQUIEL CABEZAS Interpretation [...] mammogram documented in this encounter Care Teams Groundsman Relationship Specialty Start Date End Date Jackson Rosa MD [address] [place] [phone] PCP - General 07/05/09 documented as of this encounter
--- OUTSIDE RECORDS SUMMARY | 2025-02-11 14:33 | XMS_ITS | Encounter Summary ---
Author Organization [facility] Address [address] [place] [address] Care Team Providers Care Electrical Line Worker Name Role Phone Jackson Rosa MD Primary Care Provider + Encounter Details Date Type Department Care Team (Latest Contact Info) Description 08/12/[address] [facility] Cabezas, Cyndee Crespo MD NO ADDRESS ON FILE SCREENING MAMM-MAILG NEOPL-OTHER (Primary Dx) Social History Tobacco Use Types Packs/Day Years Used Date Smoking Tobacco: Never Assessed Comments Unknown Sex and Gender Information Value Date Recorded Sex Assigned at Not on file Legal Sex Female 3:45 AM FIBER HEEL PIECE SHAPER Gender Identity Not on file Sexual Orientation Not on file documented as of this encounter Plan of Treatment Not on file documented as of this encounter Visit Diagnoses Diagnosis Other screening mammogram- Primary documented in this encounter Care Teams Electrical Line Worker Relationship Specialty Start Date End Date Jackson Rosa MD [address] [place] [address] PCP - General 07/05/09 documented as of this encounter
--- OUTSIDE RECORDS SUMMARY | 2025-02-11 14:33 | XMS_ITS | Encounter Summary ---
Author Organization [facility] Address [address] [place] [address] Care Team Providers Care Manager Home Name Role Phone Jackson Rosa MD Primary Care Provider + Encounter Details Date Type Department Care Team (Latest Contact Info) Description 09/03/2000 Outpatient Historical HIS [facility] Cabezas, Cyndee Crespo MD NO ADDRESS ON FILE Personal history of malignant neoplasm of breast (Primary Dx) Social History Tobacco Use Types Packs/Day Years Used Date Smoking Tobacco: Never Assessed Comments Unknown Sex and Gender Information Value Date Recorded Sex Assigned at Not on file Legal Sex Female 3:45 AM EXPERIENCE DESIGN DIRECTOR Gender Identity Not on file Sexual Orientation Not on file documented as of this encounter Plan of Treatment Not on file documented as of this encounter Visit Diagnoses Diagnosis Personal history of malignant neoplasm of breast- Primary documented in this encounter Care Teams Manager Home Relationship Specialty Start Date End Date Jackson Rosa MD [address] [place] [phone] PCP - General 07/05/09 documented as of this encounter
--- OUTSIDE RECORDS SUMMARY | 2025-02-11 14:33 | XMS_ITS | Encounter Summary ---
Author Organization [facility] Address [address] [place] [address] Care Team Providers Care Steeple Jack Name Role Phone Jackson Rosa MD Primary Care Provider + Encounter Details Date Type Department Care Team (Latest Contact Info) Description 01/24/1999 Outpatient Historical HIS [facility] Cabezas, Cyndee Crespo MD NO ADDRESS ON FILE Other screening mammogram (Primary Dx) Social History Tobacco Use Types Packs/Day Years Used Date Smoking Tobacco: Never Assessed Comments Unknown Sex and Gender Information Value Date Recorded Sex Assigned at Not on file Legal Sex Female 3:45 AM GASOLINE PUMP INSTALLER Gender Identity Not on file Sexual Orientation Not on file documented as of this encounter Plan of Treatment Not on file documented as of this encounter Visit Diagnoses Diagnosis Other screening mammogram- Primary documented in this encounter Care Teams Steeple Jack Relationship Specialty Start Date End Date Jackson Rosa MD [address] [place] [address] PCP - General 07/05/09 documented as of this encounter
--- OUTSIDE RECORDS SUMMARY | 2025-02-11 14:33 | XMS_ITS | Encounter Summary ---
Author Organization [facility] Address [address] [place] [address] Care Team Providers Care Extension Service Supervisor Name Role Phone Jackson Rosa MD [...] on file Legal Sex Female 3:45 AM POMOLOGIST Gender Identity Not on file Sexual Orientation Not on file documented as of this encounter Plan of Treatment Not on file documented as of this encounter Visit Diagnoses Diagnosis Follow-up examination, following other surgery- Primary documented in this encounter Care Teams Extension Service Supervisor Relationship Specialty Start Date End Date Jackson Rosa MD [address] [place] [address] PCP - General 07/05/09 documented as of this encounter
--- OUTSIDE RECORDS SUMMARY | 2025-02-11 14:33 | XMS_ITS | Encounter Summary ---
Author Organization [facility] Address [address] [place] [address] Care Team Providers Care Human Resources Benefits Manager Name Role Phone Jackson Rosa MD Primary Care Provider + Encounter Details Date Type Department Care Team (Latest Contact Info) Description 01/29/2006 Outpatient Historical HIS [facility] [facility] Cabezas, Cyndee Crespo MD NO ADDRESS ON FILE Other Follow-Up Examination (Primary Dx) Social History Tobacco Use Types Packs/Day Years Used Date Smoking Tobacco: Never Assessed Comments Unknown Sex and Gender Information Value Date Recorded Sex Assigned at Not on file Legal Sex Female 3:45 AM CLIENT SERVER DEVELOPER Gender Identity Not on file Sexual Orientation Not on file documented as of this encounter Plan of Treatment Not on file documented as of this encounter Visit Diagnoses Diagnosis Other follow-up examination(V67.59)- Primary Other follow-up examination documented in this encounter Care Teams Human Resources Benefits Manager Relationship Specialty Start Date End Date Jackson Rsoa MD [address] [place] [address] PCP - General 07/05/09 documented as of this encounter
--- OUTSIDE RECORDS SUMMARY | 2025-02-11 14:33 | XMS_ITS | Encounter Summary ---
Author Organization [facility] Address [address] [place] [address] Care Team Providers Care Binder Fixer Name Role Phone Jackson Rosa MD Primary Care Provider + Encounter Details Date Type Department Care Team (Latest Contact Info) Description 03/04/2007 Outpatient Historical HIS [facility] Cabezas, Cyndee Crespo MD NO ADDRESS ON FILE Screening Mammogram for High-Risk Patient (Primary Dx) Social History Tobacco Use Types Packs/Day Years Used Date Smoking Tobacco: Never Assessed Comments Unknown Sex and Gender Information Value Date Recorded Sex Assigned at Not on file Legal Sex Female 3:45 AM POLE INSPECTOR Gender Identity Not on file Sexual Orientation Not on file documented as of this encounter Plan of Treatment Not on file documented as of this encounter Visit Diagnoses Diagnosis Screening mammogram for high-risk patient- Primary documented in this encounter Care Teams Binder Fixer Relationship Specialty Start Date End Date Jackson Rosa MD [address] [place] [address] PCP - General 07/05/09 documented as of this encounter
--- OUTSIDE RECORDS SUMMARY | 2025-02-11 14:33 | XMS_ITS | Encounter Summary ---
Author Organization [facility] Address [address] [place] [address] Care Team Providers Care Assembler Steam And Gas Turbine Name Role Phone Jackson Rosa MD Primary Care Provider + Encounter Details Date Type Department Care Team (Latest Contact Info) Description 09/07/1998 Outpatient Historical HIS [facility] Cabezas, Cyndee Crespo MD NO ADDRESS ON FILE Personal history of malignant neoplasm of breast (Primary Dx) Social History Tobacco Use Types Packs/Day Years Used Date Smoking Tobacco: Never Assessed Comments Unknown Sex and Gender Information Value Date Recorded Sex Assigned at Not on file Legal Sex Female 3:45 AM CERTIFIED REGISTERED NURSE PRACTITIONER Gender Identity Not on file Sexual Orientation Not on file documented as of this encounter Plan of Treatment Not on file documented as of this encounter Visit Diagnoses Diagnosis Personal history of malignant neoplasm of breast- Primary documented in this encounter Care Teams Assembler Steam And Gas Turbine Relationship Specialty Start Date End Date Jackson Rosa MD [address] [place] [address] PCP - General 07/05/09 documented as of this encounter
--- OUTSIDE RECORDS SUMMARY | 2025-02-11 14:33 | XMS_ITS | Encounter Summary ---
Author Organization [facility] Address [address] [place] [address] Care Team Providers Care Ratings Analyst Name Role Phone Jackson Rosa MD Primary Care Provider + Encounter Details Date Type Department Care Team (Latest Contact Info) Description 09/05/1999 Outpatient Historical HIS [facility] Cabezas, Cyndee Crespo MD NO ADDRESS ON FILE Personal history of malignant neoplasm of breast (Primary Dx) Social History Tobacco Use Types Packs/Day Years Used Date Smoking Tobacco: Never Assessed Comments Unknown Sex and Gender Information Value Date Recorded Sex Assigned at Not on file Legal Sex Female 3:45 AM LITHOGRAPH DESIGNER Gender Identity Not on file Sexual Orientation Not on file documented as of this encounter Plan of Treatment Not on file documented as of this encounter Visit Diagnoses Diagnosis Personal history of malignant neoplasm of breast- Primary documented in this encounter Care Teams Ratings Analyst Relationship Specialty Start Date End Date Jackson Rosa MD [address] [place] [address] PCP - General 07/05/09 documented as of this encounter
--- OUTSIDE RECORDS SUMMARY | 2025-02-11 14:33 | XMS_ITS | Clinical Summary ---
Author Organization [facility] Address [address] [place] [address] Care Team Providers Care Drawing Box Tender Name Role Phone Jackson Rosa MD Primary Care Provider [phone] Allergies Active Allergy Reactions Criticality Noted Date [...] Assessment & Plan (07/04/2021 11:03 AM ACCOUNT MANAGER): I explained to the patient how [...] on file Legal Sex Female 12:56 AM ACCOUNT MANAGER Gender Identity Female 10/06/2019 1:08 PM [...] lb 3.2 oz) 05/15/2023 3:06 P M ACCOUNT MANAGER Height 157.5 cm (5' 2) 05/15/2023 3:06 PM ACCOUNT MANAGER Body Mass Index 27.11 05/15/2023 3:06 PM ACCOUNT MANAGER Plan of Treatment Health Maintenance Due Date [...] Screening Discontinued Medical Devices Implanted Type Area Wax Machine Operator Device Identifier Shelf Expiration Date [...] MD - 12/04/2017 11:53 AM CDT [facility] Patient Name: Zulma Carnes Procedure Date: 12/04/2017 11:53 AM Date of : 1945 Admit Type: Outpatient Age: 72 Gender: Female Attending MD: Dwayne Chan MD Room: [facility] ENDOSCOPY ROOM 2 Note Status: Finalized [...] passed under direct vision.The Pediatric Colonoscope PCF-[id number] was introduced through the anus and advanced [...] perforation orabscess without bleeding CPT copyright 2017 [employer]. All rights reserved. The codes documented in this report are preliminary and upon electric power line examiner reviewmay be revised to meet current compliance requirements. Recognized by the [employer] for promoting quality in endoscopy Dwayne Chan MD ENDOSCOPY PROCEDURES Final Result from Last 3 Months or Most Recently Relevant to Health Maintenance Insurance MEDICARE [facility] MEDICARE MEDICARE [facility] Advance Directives For more information, please contact: [phone] * Full Code (Latest Code Status on File) Date Activated Date Inactivated Comments 12/04/2017 11:05 AM 12/04/2017 3:39 PM Care Teams Drawing Box Tender Relationship Specialty Start Date End Date Jackson Rosa MD [address] [place] [address] PCP - General 07/04/16
--- OUTSIDE RECORDS SUMMARY | 2025-02-11 14:33 | XMS_ITS | Encounter Summary ---
Author Organization [facility] Address [address] [place] [address] Care Team Providers Care Curing Oven Tender Name Role Phone Jackson Rosa MD Primary Care Provider + Encounter Details Date Type Department Care Team (Latest Contact Info) Description 09/09/2001 Outpatient Historical HIS [place] Cabezas, Cyndee rCespo MD NO ADDRESS ON FILE PERS HX OF BREAST MALIGNANCY (Primary Dx) Social History Tobacco Use Types Packs/Day Years Used Date Smoking Tobacco: Never Assessed Comments Unknown Sex and Gender Information Value Date Recorded Sex Assigned at Not on file Legal Sex Female 3:45 AM SENIOR GENETIC COUNSELOR Gender Identity Not on file Sexual Orientation Not on file documented as of this encounter Plan of Treatment Not on file documented as of this encounter Visit Diagnoses Diagnosis Personal history of malignant neoplasm of breast- Primary documented in this encounter Care Teams Curing Oven Tender Relationship Specialty Start Date End Date Jackson Rosa MD [address] [place] [address] PCP - General 07/05/09 documented as of this encounter
== END 2025-02-11 12:53 | disposition home or self-care (01) ==
LOC: CHSIMG 12:53
PROVIDERS: PCP Internal Medicine; Visit Provider Internal Medicine
DX: Z78.0 Asymptomatic menopausal state (principal); M85.89 Other specified disorders of bone density and structure, multiple sites; M81.0 Age-related osteoporosis without current pathological fracture
CPT/HCPCS: 77080

== ENCOUNTER 2025-03-03 15:10 | Outpatient (CLI) | payer MEDICARE, SELFPAY ==
[2025-03-03 15:26] LABS: Hematocrit 40.1 % (35.0-42.0); Hemoglobin 12.9 g/dL (11.7-13.8); Mean Corpuscular HGB Conc 32.2 g/dL (32-36); Mean Corpuscular Hemoglobin 31.0 pg (27.0-31.0); Mean Corpuscular Volume 96.4 fL (78.0-102.0); Platelet Count Result 238 K/mm3 (150-420); Red Blood Count 4.16 M/mm3 (4.20-5.40); White Blood Count 8.1 K/mm3 (4.8-10.8)
[2025-03-03 16:04] LABS: Alanine Aminotransferase 19 U/L (6-35); Albumin Level 4.4 g/dL (3.5-5.1); Alkaline Phosphatase 65 U/L (38-126); Anion Gap 6 mmol/L (4-12); Aspartate Amino Transferase 27 U/L (14-36); Bilirubin,Total 1.6 mg/dL (0.2-1.3); Blood Urea Nitrogen 23 mg/dL (7-17); Calcium 9.9 mg/dL (8.4-10.2); Carbon Dioxide 31 mmol/L (22-30); Chloride 104 mmol/L (98-107); Estimated Glomerular Filt Rate > 60; Glucose 105 mg/dL (65-110); Osmolality Calculated 295 mOsm/kg (285-295); Potassium 4.3 mmol/L (3.4-5.0); Sodium 141 mmol/L (137-145); Total Protein 6.4 g/dL (6.3-8.2)
--- OUTSIDE RECORDS SUMMARY | 2025-03-04 14:47 | XMS_ITS | Clinical Summary ---
Author Organization [facility] Address [address] [place] [address] Care Team Providers Care Subway Guard Name Role Phone Jackson Rosa MD Primary Care Provider [phone] Sammie Fox RN Unavailable Deyanira Daigle MEDICAL TECHNOLOGIST BLOOD BANK Unavailable Luis Carlos Rivas MD Unavailable [phone] Source Comments [facility],non-owned Affiliates and Associated Physician Practices is amultiple site organization consisting of ambulatory clinics and hospital sitesin [place], [place], [place] and [place]. This disclosure is being madepursuant to the Care Everywhere program and may not contain all information available regarding this patient. Last updated 18.[facility] Allergies Active Allergy Reactions Criticality Noted Date [...] problems Immunizations Immunization Administration Dates Next Due Global Registry of Biorepositories primary monoval ent 12+ yr 0.3mL Purple [...] Sex Assigned at Female 05/03/2021 6:03 PM SPEEDER WORKER Legal Sex Female 9:20 AM SPEEDER WORKER Gender Identity Female 05/03/2021 6:03 PM SPEEDER WORKER Sexual Orientation Straight 05/03/2021 6: 03 PM SPEEDER WORKER Last Filed Vital Signs Vital Sign Reading Time Taken Comments Blood Pressure 132/78 06/21/2016 8:16 AM SPEEDER WORKER Pulse 55 06/21/2016 8:16 AM SPEEDER WORKER Temperature 36.7 C (98.1 F) 08/13/2014 [...] this topic Medical Devices Implanted Type Area Rigging Foreman Device Identifier Shelf Expiration Date Model / Serial / Lot Nexgen Complete Knee Solution Cruciate Retaining Trabecular Metal Monoblock Tibial Component Tibial Size 3, Femoral Size C-H, 10mm Height Implanted:Qty: 1 on 08/10/2014 by Angel Luis Villegas MD at [facility] Right: Knee [employer] 01/27/2019 [id number] Nexgen Complete Knee Solution Cruciate Retaining Cr-Flex Femoral Component Porous Size D, Right Implanted:Qty: 1 on 08/10/2014 by Angel Luis Villegas MD at [facility] Right: Knee [employer] 11/28/2023 / / [id number] Bill Only Basic Derrick Excludes Agc Kn Implanted:Qty: 1 on 08/10/2014 by Angel Luis Villegas MD at [facility] [employer] BILL ONLY BASIC DERRICK EXCLUDES AGC KN ZIMM / / Bill Only Tb Upchrg Implanted:Qty: 1 on 08/10/2014 by Angel Luis Villegas MD at [facility] [employer] UPCHRG MELY BILL ONLY TB / / Insurance MEDICARE MEDICARE Member Subscriber Plan / Payer (Ef fective for All Dates) Name:Zulma Carnes Member ID:[id number] Relation to Subscriber:Self Name:Zulma Carnes Subscriber ID:[id number] Payer ID:Not on file Group ID:Not on file Type:Medicare Address: [place] [phone] MEDICARE Care Teams Subway Guard Relationship Specialty Start Date End Date Jackson Rosa MD PCP - General Internal Medicine 05/18/14 Sammie Fox, RN Lead Burner Supervisor 08/10/14 Deyanira Daigle, [facility] Lighter 08/12/14 [place] [address] [place] [address] Orthopedic Surgery 09/03/16
--- OUTSIDE RECORDS SUMMARY | 2025-03-04 14:47 | XMS_ITS | Encounter Summary ---
Author Organization [facility] Address [address] [place] [address] Care Team Providers Care Options Advisor Name Role Phone Jackson Rosa MD Primary Care Provider [phone] Irma Willams MD Unavailable Efrem Alves MD Unavailable Encounter Details Date Type Department Care Team (Late Contact Info) Description 06/22/2024 SpeakingPal Message Enc [facility] ield [address] [place] [address] [facility], [facility] Provider Echo results Social History Tobacco Use Types Packs/Day Years Used Date Smoking Tobacco: Never Passive Smoke Exposure: Never Smokeless Tobacco: Never Alcohol Use Standard Drinks/Week Comments Yes 0 (1 standard drink = 0.6 oz pur e alcohol) very rare wine usage Comments Unknown Sex and Gender Information Value Date Recorded Sex Assigned at Female 05/25/2024 1:26 PM UTILIZATION COORDINATOR Legal Sex Female 9:00 PM CDT Gender Identity Not on file Sexual Orientation Not on file Occupation Industry Job Start Date Job End Date Retired Not on file Not on file Not on file documented as of this encounter Plan of Treatment Upcoming Encounters Date Type Department Care Team (Late Contact Info) Description 05/10/2025 8:30 AM UTILIZATION COORDINATOR Office Visit [facility] [address] [place] [address] Irma Willams MD [address] [place] [address] documented as of this encounter Visit Diagnoses Not on filedocumented in this encounter Care Teams Options Advisor Relationship Specialty Start Date End Date Jackson Rosa MD [address] [place] [address] PCP - General INTERNAL MEDICINE 04/02/16 Irma Willams MD [address] [place] [address] Consulting Physician CARDIOVASCULAR DISEASE 11/03/23 Efrem Alves MD [address] [place] [address] Vascular/Contact Center Specialist INTERNAL MEDICINE 12/17/23 documented as of this encounter
--- OUTSIDE RECORDS SUMMARY | 2025-03-04 14:47 | XMS_ITS | Clinical Summary ---
Author Organization [facility] Address [address] [place] [address] Care Team Providers Care Return Agent Airport Name Role Phone Jackson Rosa MD Primary Care Provider Irma Willams MD Unavailable Efrem Alves MD [...] Sex Assigned at Female 05/25/2024 1:26 PM SOFTWARE COMPUTER SPECIALIST Legal Sex Female 9:00 PM CDT Gender Identity Not on file Sexual Orientation Not on file Occupation Industry Job Start Date Job End Date Retired Not on file Not on file Not on file Last Filed Vital Signs Vital Sign Reading Time Taken Comments Blood Pressure 138/72 06/03/2024 12:50 PM SOFTWARE COMPUTER SPECIALIST Pulse 69 06/03/2024 12:50 PM SOFTWARE COMPUTER SPECIALIST Temperature 36.1 C (97 F) 11/03/2019 12:30 PM CDT Respiratory Rate 16 06/03/2024 12:5 0 PM SOFTWARE COMPUTER SPECIALIST Oxygen Saturation 94% 06/03/2024 12: 50 PM SOFTWARE COMPUTER SPECIALIST Inhaled Oxygen Concentration - - Weight 63.4 kg (139 lb 12.8 oz) 025 12:50 PM SOFTWARE COMPUTER SPECIALIST Height 156.2 cm (5' 1.5) 06/03/2024 12 :50 PM SOFTWARE COMPUTER SPECIALIST Body Mass Index 25.99 06/03/2024 12:50 PM SOFTWARE COMPUTER SPECIALIST Plan of Treatment Upcoming Encounters Date Type Department Care Team (Late st Contact Info) Description 05/10/2025 8:30 AM SOFTWARE COMPUTER SPECIALIST Office Visit [facility] [place] [address] Irma Willams MD [address] [place] [address] Health Maintenance Due Date Last Done Comments [...] this topic Medical Devices Implanted Type Area Care Manager Device Identifier Shelf Expiration Date Model / Serial / Lot Knee Components Knee Components Description:Right knee Knee Components Knee Components Description:Rt knee Iol Augustus [id number] - [id number] Implanted:Qty: 1 on 10/13/2019 by Stephane Samson MD at [facility] Lens Left: Eye [employer] 01/27/2024 [id number] / [id number] / N/A Description:Implant verified by Iol [employer] Li61ao - [id number] Implanted:Qty: 1 on 11/03/2019 by Stephane Samson MD at [facility] Lens Right: Eye [employer] 08/27/2023 [id number] / [id number] Description:Lens verified pe r surgeon and chart Procedures Procedure Name Priority Date/Time Associated Diagnosis Comments LIPID PANEL Routine 06/27/2013 12:00 AM SOFTWARE COMPUTER SPECIALIST from Last 3 Months or Most Recently Relevant to Health Maintenance Results * LIPID PANEL (06/27/2013 12:00 AM SOFTWARE COMPUTER SPECIALIST) TRIGLYCERIDES 78 0 - 150 mg/dl MEDINFORMATIX [...] Health Maintenance Insurance MEDICARE MEDICARE Care Teams Return Agent Airport Relationship Specialty Start Date End Date Jackson Rosa MD [address] [place] [address] PCP - General INTERNAL MEDICINE 04/02/16 Irma Willams MD [address] [place] [address] Consulting Physician CARDIOVASCULAR DISEASE 11/03/23 Efrem Alves MD [address] [place] [address] Vascular/Slipper Maker INTERNAL MEDICINE 12/17/23
--- OUTSIDE RECORDS SUMMARY | 2025-03-04 14:47 | XMS_ITS | Encounter Summary ---
Author Organization [facility] Address [address] [place] [address] Care Team Providers Care Elevator Starter Name Role Phone Jackson Rosa MD Primary Care Provider + Encounter Details Date Type Department Care Team (Latest Contact Info) Description 03/04/2007 Outpatient Historical HIS [facility] Cabezas, Cyndee Crespo MD NO ADDRESS ON FILE Screening Mammogram for High-Risk Patient (Primary Dx) Social History Tobacco Use Types Packs/Day Years Used Date Smoking Tobacco: Never Assessed Comments Unknown Sex and Gender Information Value Date Recorded Sex Assigned at Not on file Legal Sex Female 3:45 AM CHARACTER IMPERSONATOR Gender Identity Not on file Sexual Orientation Not on file documented as of this encounter Plan of Treatment Not on file documented as of this encounter Visit Diagnoses Diagnosis Screening mammogram for high-risk patient- Primary documented in this encounter Care Teams Elevator Starter Relationship Specialty Start Date End Date Jackson Rosa MD [address] [place] [address] PCP - General 07/05/09 documented as of this encounter
--- OUTSIDE RECORDS SUMMARY | 2025-03-04 14:47 | XMS_ITS | Encounter Summary ---
Author Organization [facility] Address [facility] [place] [address] Care Team Providers Care Accounts Payable Technician Name Role Phone Jackson Rosa MD Primary Care Provider [phone] Gaurang Gonzalez MD Unavailable Unavailab Jeremiah Crowder MD Unavailable [phone] Whit Perez APRN ANTIQUE CLOCK REPAIRER-C Unavailable Irma Willams MD Unavailable Efrem Alves MD Unavailable Encounter Details Date Type Department Care Team (Late Contact Info) Description 12/01/2014 Abstract [facility] AT [address] [address] Gaurang Gonzalez MD Social History Tobacco Use Types Packs/Day Years Used Date Smoking Tobacco: Never Alcohol Use Standard Drinks/Week Comments Yes 0 (1 standard drink = 0.6 oz pur e alcohol) Occasionally, Wine. Comments Unknown Sex and Gender Information Value Date Recorded Sex Assigned at Female 05/25/2024 1:26 PM CERTIFIED OPHTHALMIC MEDICAL TECHNICIAN Legal Sex Female 9:00 PM CDT Gender Identity Not on file Sexual Orientation Not on file Occupation Industry Job Start Date Job End Date Retired Not on file Not on file Not on file documented as of this encounter Plan of Treatment Upcoming Encounters Date Type Department Care Team (Late st Contact Info) Description 05/10/2025 8:30 AM CERTIFIED OPHTHALMIC MEDICAL TECHNICIAN Office Visit [facility] [place] [address] Irma Willams MD [address] [place] [address] documented as of this encounter Visit Diagnoses Not on filedocumented in this encounter Additional Health Concerns Infection Onset Date Last Indicated Resolved Time COVID-19 Rule Out 10/10/2019 10/10/2019 10/11/2019 1:50 PM CDT COVID-19 Rule Out 10/31/2019 10/31/2019 11/01/2019 10:23 PM CDT documented as of this encounter Care Teams Accounts Payable Technician Relationship Specialty Start Date End Date Jackson Rosa MD [address] [place] [address] PCP - General INTERNAL MEDICINE 04/02/16 Gaurang Gonzalez MD [address] [place] [address] CARDIOVASCULAR DISEASE 04/02/16 05/20/18 Jeremiah Rolon MD [address] [place] [address] [place] Management Engineer CARDIOVASCULAR DISEASE 07/28/18 11/02/23 Whit Perez APRN, ANTIQUE CLOCK REPAIRER-C [address] [facility] [address] [place] [address] NURSE PRACTITIONER 02/17/19 12/05/23 Irma Willams MD [address] [place] [address] Consulting Physician CARDIOVASCULAR DISEASE 11/03/23 Efrem Alves MD [address] [place] [address] Vascular/Management Engineer INTERNAL MEDICINE 12/17/23 documented as of this encounter
--- OUTSIDE RECORDS SUMMARY | 2025-03-04 14:47 | XMS_ITS | Encounter Summary ---
Author Organization [facility] Address [address] [place] [address] Care Team Providers Care Manager Of Finance Name Role Phone Jackson Rosa MD Primary Care Provider + Encounter Details Date Type Department Care Team (Latest Contact Info) Description 09/09/2001 Outpatient Historical HIS [facility] GE[facility] Cabezas, Cyndee Crespo MD NO ADDRESS ON FILE PERS HX OF BREAST MALIGNANCY (Primary Dx) Social History Tobacco Use Types Packs/Day Years Used Date Smoking Tobacco: Never Assessed Comments Unknown Sex and Gender Information Value Date Recorded Sex Assigned at Not on file Legal Sex Female 3:45 AM TRENCHING MACHINE OPERATOR Gender Identity Not on file Sexual Orientation Not on file documented as of this encounter Plan of Treatment Not on file documented as of this encounter Visit Diagnoses Diagnosis Personal history of malignant neoplasm of breast- Primary documented in this encounter Care Teams Manager Of Finance Relationship Specialty Start Date End Date Jackson Rosa MD [address] [place] [address] PCP - General 07/05/09 documented as of this encounter
--- OUTSIDE RECORDS SUMMARY | 2025-03-04 14:47 | XMS_ITS | Encounter Summary ---
Author Organization [facility] Address [address] [place] [address] Care Team Providers Care Timber Sizer Name Role Phone Jackson Rosa MD Primary Care Provider + Encounter Details Date Type Department Care Team (Latest Contact Info) Description 03/31/2008 Outpatient Historical HIS [facility] Cabezas, Ezequiel Crespo MD NO ADDRESS ON FILE Other Screening Mammogram Social History Tobacco Use Types Packs/Day Years Used Date Smoking Tobacco: Never Assessed Comments Unknown Sex and Gender Information Value Date Recorded Sex Assigned at Not on file Legal Sex Female 3:45 AM HEALTH SERVICES ADMINISTRATOR Gender Identity Not on file Sexual Orientation Not on file documented as of this encounter Plan of Treatment Not on file documented as of this encounter Procedures Procedure Name Priority Date/Time Associated Diagnosis Comments MAMMO SCREEN BILAT W OR WO CAD Routine 03/31/2008 8:30 AM HEALTH SERVICES ADMINISTRATOR documented in this encounter Results * MAMMO DIGITAL SCREEN BILAT (03/31/2008 8:30 AM HEALTH SERVICES ADMINISTRATOR) Anatomical Region Laterality Modality Breast Bilateral Other 03/31/2008 8:30 AM HEALTH SERVICES ADMINISTRATOR Narrative 03/31/2008 12:03 PM HEALTH SERVICES ADMINISTRATOR [address] [address] Admit Date: 03/31/2008 ZULMA CARNES Sex: F Admit Prov: EZEQUIEL CABEZAS Date: 1945 Primary Care Prov: CMRN: [id number] Room: KIRT SSN: [id number] IMAGING SERVICES Ordering Prov: EZEQUIEL CABEZAS Accession Number: [id number] Interpretation EXAM: BILATERAL SCREENING FULL FIELD DIGITAL [...] 03/31/2008 [facility] [address] [place], [place] [address] Admit Date: 03/31/2008 ZULMA CARNES Sex: F Admit Prov: EZEQUIEL CABEZAS Date: 1945 Primary Care Prov: CMRN: [id number] Room: MASONAshleigh SSN: [id number] IMAGING SERVICES Ordering Prov: EZEQUIEL CABEZAS Interpretation [...] mammogram documented in this encounter Care Teams Timber Sizer Relationship Specialty Start Date End Date Jackson Rosa MD [address] [place] [address] PCP - General 07/05/09 documented as of this encounter
--- OUTSIDE RECORDS SUMMARY | 2025-03-04 14:47 | XMS_ITS ---
Author Organization [facility] Address [address] [place] [address] Care Team Providers Care City Surveyor Name Role Phone Jackson Rosa MD Primary Care Provider Active Problems Problem Noted Date Diagnosed Date [...] 07/04/2021 Assessment & Plan (07/04/2021 11:03 AM CNC WOOD LATHE OPERATOR): I explained to the patient how subclinical [...]
--- OUTSIDE RECORDS SUMMARY | 2025-03-04 14:47 | XMS_ITS | Encounter Summary ---
Author Organization [facility] Address [address] [place] [address] Care Team Providers Care Payroll Technician Name Role Phone Jackson Rosa MD Primary Care Provider + Encounter Details Date Type Department Care Team (Latest Contact Info) Description 10/13/2003 Outpatient Historical HIS [facility] GEOFF Cabezas, Cyndee Crespo MD NO ADDRESS ON FILE SCREENING MAMM-MAILG NEOPL-OTHER (Primary Dx) Social History Tobacco Use Types Packs/Day Years Used Date Smoking Tobacco: Never Assessed Comments Unknown Sex and Gender Information Value Date Recorded Sex Assigned at Not on file Legal Sex Female 3:45 AM SKIP LOADER Gender Identity Not on file Sexual Orientation Not on file documented as of this encounter Plan of Treatment Not on file documented as of this encounter Visit Diagnoses Diagnosis Other screening mammogram- Primary documented in this encounter Care Teams Payroll Technician Relationship Specialty Start Date End Date Jackson Rosa MD [address] [place] [address] PCP - General 07/05/09 documented as of this encounter
--- OUTSIDE RECORDS SUMMARY | 2025-03-04 14:47 | XMS_ITS | Encounter Summary ---
Author Organization [facility] Address [address] [place] [address] Care Team Providers Care Carton Gluing Machine Operator Name Role Phone Jackson Rosa MD Primary Care Provider + Encounter Details Date Type Department Care Team (Latest Contact Info) Description 08/12/2002 Outpatient Historical HIS [facility] GEOFF Cabezas, Cyndee Crespo MD NO ADDRESS ON FILE SCREENING MAMM-MAILG NEOPL-OTHER (Primary Dx) Social History Tobacco Use Types Packs/Day Years Used Date Smoking Tobacco: Never Assessed Comments Unknown Sex and Gender Information Value Date Recorded Sex Assigned at Not on file Legal Sex Female 3:45 AM CLOTH REELER Gender Identity Not on file Sexual Orientation Not on file documented as of this encounter Plan of Treatment Not on file documented as of this encounter Visit Diagnoses Diagnosis Other screening mammogram- Primary documented in this encounter Care Teams Carton Gluing Machine Operator Relationship Specialty Start Date End Date Jackson Rosa MD [address] [place] [address] PCP - General 07/05/09 documented as of this encounter
--- OUTSIDE RECORDS SUMMARY | 2025-03-04 14:47 | XMS_ITS | Encounter Summary ---
Author Organization [facility] Address [address] [place] [address] Care Team Providers Care Company Accountant Name Role Phone Jackson Rosa MD Primary Care Provider + Encounter Details Date Type Department Care Team (Latest Contact Info) Description 09/03/2000 Outpatient Historical HIS [facility] GEOFF Cabezas, Cyndee Crespo MD NO ADDRESS ON FILE Personal history of malignant neoplasm of breast (Primary Dx) Social History Tobacco Use Types Packs/Day Years Used Date Smoking Tobacco: Never Assessed Comments Unknown Sex and Gender Information Value Date Recorded Sex Assigned at Not on file Legal Sex Female 3:45 AM BELT WEAVER Gender Identity Not on file Sexual Orientation Not on file documented as of this encounter Plan of Treatment Not on file documented as of this encounter Visit Diagnoses Diagnosis Personal history of malignant neoplasm of breast- Primary documented in this encounter Care Teams Company Accountant Relationship Specialty Start Date End Date Jackson Rosa MD [address] [place] [address] PCP - General 07/05/09 documented as of this encounter
--- OUTSIDE RECORDS SUMMARY | 2025-03-04 14:47 | XMS_ITS | Patient Health Record ---
Author Organization [facility] [employer] Address [address] [place] [address] Care Team Providers Care Equity Holder Name Role Phone Juanito Reagan Unavailable [phone] Reason For Referral No Information Medications Medication SIG (Take, Route, Frequency, Duration) Notes Start Date End Date Status valACYclovir HCl 500 MG Tablet Oral 02/14/2023 Active Fluticasone Propionate Diskus 50 MCG/ACT Aerosol Powder Breath Activated Inhalation *Reorder from Uni2 for eRx and Interaction Alerts* 02/14/2023 Active [...] 20 MG Tablet Oral 02/14/2023 Active Nystatin 073573 UNIT/ML Suspension Mouth/Throat 02/14/2023 Active Escitalopram Oxalate 10 MG Tablet Oral 02/14/2023 Active Paxlovid (300/100) 20 x 150 MG & 10 x 100MG Tablet Therapy Pack Oral *Reorder from Uni2 for eRx and Interaction Alerts* 02/14/2023 Active [...] Medicare [address] [place] [address] [id number] SIDNEY ANDERSON Self - patient is the insured [place] [employer] [place] Medicare Supplement [address] [employer] [id number] SIDNEY ANDERSON Self - patient is the insured
--- OUTSIDE RECORDS SUMMARY | 2025-03-04 14:47 | XMS_ITS | Clinical Summary ---
Author Organization [facility] Address [address] [place] [address] Care Team Providers Care Aviation Technician Aircraft Name Role Phone Jackson Rosa MD Primary Care Provider [phone] Allergies Active Allergy Reactions Criticality Noted Date [...] 07/04/2021 Assessment & Plan (07/04/2021 11:03 AM CAR DISPATCHER): I explained to the patient how subclinical [...] on file Legal Sex Female 12:56 AM CAR DISPATCHER Gender Identity Female 10/06/2019 1:08 PM CDT [...] lb 3.2 oz) 05/15/2023 3:06 P M CAR DISPATCHER Height 157.5 cm (5' 2) 05/15/2023 3:06 PM CAR DISPATCHER Body Mass Index 27.11 05/15/2023 3:06 PM CAR DISPATCHER Plan of Treatment Health Maintenance Due Date Last Done Comments Hepatitis C Screening 1945 Hepatitis B Screening 1963 Zoster Vaccine (1 of 2) 1996 DTaP/Tdap/Td Vaccine (1 - Tdap) 12/02/1999 0 Well Visit 65+ 09/14/2011 Osteoporosis Screening-Bone Density Scan 01/17/2018 01/18/2016 Pneumococcal vaccine 65+ (2 of 2 - PPSV23, PCV20, or PCV21) 11/02/2020 09/07/2020 Depression Screening 07/04/2022 07/04/2021 Fall Risk Assessment 12/22/2023 12/21/2022 Covid-19 Vaccine (2024-05 6 season) 2024 01/31/2022, 05/03/2021, 08/30/2020 Influenza Vaccine (#1) 2024 9, 01/28/2018, 01/04/2017, Additional history exists Breast Cancer Screening-Mammogram Discontinued 012 Colon Cancer Screening-CT Colonography Discontinued 12/04/2017 Colon Cancer Screening-Colonoscopy Discontinued 12/04/2017 Colon Cancer Screening-DNA Stool Discontinued 12/05/19 18 Colon Cancer Screening-FIT Discontinued 12/04/2017 Colon Cancer Screening-FOBT Discontinued 12/04/2017 Colon Cancer Screening-Sigmoidoscopy Discontinued 12/04/2017 Colorectal Cancer Screening Discontinued Medical Devices Implanted Type Area General Merchandise Manager Device Identifier Shelf Expiration Date Model [...] MD: Dwayne Chan MD Room: [facility] ENDOSCOPY ROOM 2 Note Status: [...] passed under direct vision.The Pediatric Colonoscope [id number]-[id number] was introduced through the anus and advanced [...] perforation orabscess without bleeding CPT copyright 2017 [employer]. All rights reserved. The codes documented in this report are preliminary and upon manufacturing engineering director reviewmay be revised to meet current compliance requirements. Recognized by the [employer] for promoting quality in endoscopy Dwayne Chan MD ENDOSCOPY PROCEDURES Final Result from Last 3 Months or Most Recently Relevant to Health Maintenance Insurance MEDICARE [facility] Address: [address] [address] [place] [address] [employer] [facility] MEDICARE MEDICARE [facility] Advance Directives For more information, please contact: [phone] * Full Code (Latest Code Status on File) Date Activated Date Inactivated Comments 12/04/2017 11:05 AM 12/04/2017 3:39 PM Care Teams Aviation Technician Aircraft Relationship Specialty Start Date End Date Jackson Rosa MD [address] [place] [address] PCP - General 07/04/16
--- OUTSIDE RECORDS SUMMARY | 2025-03-04 14:47 | XMS_ITS | Encounter Summary ---
Author Organization [facility] Address [address] [place] [address] Care Team Providers Care Willow Analyst Name Role Phone Jackson Rosa MD Primary Care Provider + Encounter Details Date Type Department Care Team (Latest Contact Info) Description 09/05/1999 Outpatient Historical HIS [facility] Cabezas, Cyndee Crespo MD NO ADDRESS ON FILE Personal history of malignant neoplasm of breast (Primary Dx) Social History Tobacco Use Types Packs/Day Years Used Date Smoking Tobacco: Never Assessed Comments Unknown Sex and Gender Information Value Date Recorded Sex Assigned at Not on file Legal Sex Female 3:45 AM SAW OFFBEARER Gender Identity Not on file Sexual Orientation Not on file documented as of this encounter Plan of Treatment Not on file documented as of this encounter Visit Diagnoses Diagnosis Personal history of malignant neoplasm of breast- Primary documented in this encounter Care Teams Willow Analyst Relationship Specialty Start Date End Date Jackson Rosa MD [address] [place] [id number] PCP - General 07/05/09 documented as of this encounter
--- OUTSIDE RECORDS SUMMARY | 2025-03-04 14:47 | XMS_ITS | Data Portability ---
Author Organization [place] [facility] [employer], Main Office Address [address] [place] [address] Care Team Providers Care Materials Planning Manager Name Role Phone TAMMY BALL Primary Care Provider TAMMY BALL Referring Provider [phone] Assessment Encounter Date Assessment Date Assessment LastModified by Organization Details LastModified Time 02/20/2023 02/20/2023 77-year-old patient presents today for 1 year follow-up after left reverse total shoulder arthroplasty ion 02/15/[address] Byrd. she states she is doing very well overall. She is able to do daily tasks without pain or issue. She does feel some soreness on days where she uses the arm a lot. For discomfort she takes Tylenol or ibuprofen. She also has been working on therapy exercises at home on her own. Imaging: X-rays reviewed of the left shoulder showed no acute bony abnormality or fracture. Hardware intact and in place. No signs of loosening. Physical exam: Range of motion intact without issue. Some stiffness with reaching behind back. Sensation intact throughout. No pain with palpitation around the shoulder. she is doing well overall 1 year postop. At this time we can see her back as needed if any issues arise of the left shoulder. She would like to be worked up for the right shoulder so she will make another appointment for that. [email or web address] Not available 02/20/2023 14:56:29 02/27/2023 02/27/2023 77-year-old female with a history of left total shoulder arthroplasty by Dr. Byrd, presents for evaluation of a new problem. She reports pain in her right shoulder which has been going on for a while but getting worse in the past 2 months. She currently rates her pain as 7 to 8/10. It is worse with overhead activities and lifting. It is sore after she uses it more, then improves if she rests. She denies any acute injury. Her left shoulder reverse arthroplasty is doing well. She has no focal tenderness palpation around the shoulder. Range of motion 150/30/lower lumbar, 5/5 rotator cuff strength. She does have some crepitus with range of motion. Neurovascular intact throughout. X-rays of the shoulder were reviewed, demonstrating [id number] arthritis of the glenohumeral joint with some glenoid retroversion and inferior osteophyte on the humerus She does have shoulder arthritis, but overall still has good function and good strength. We will send her to physical therapy for her right shoulder and also prescribe her some meloxicam. We discussed that we do not treat the x-rays but rather her status and if she is doing well, she does not need surgery even though she does have severe arthritis. We also discussed a cortisone injection, and she wanted to proceed with that. She tolerated the injection well and had some immediate improvement. No see her back on a as needed basis. Not available 02/27/2023 11:10:50 09/11/2023 09/11/2023 77-year-old female presents for follow-up of her right shoulder. She has osteoarthritis that is getting progressively worse. She has pulling, catching, and pain, currently rated as 7/10. She has been doing physical therapy which has helped a little bit. She is also taking meloxicam. Previously, she got a cortisone injection which helped for about a month. She does have a history of a left side areverse total shoulder arthroplasty. She is looking to discuss surgery to be done for her Right side. she has pain throughout the right shoulder. range of motion 130/20/back pocket with crepitus. She is good rotator cuff strength. Neurovascular intact. She has right-sided shoulder arthritis. She is looking for definitive treatment with arthroplasty. We discussed treatment options, and since she has reverse on the other side we will plan to do a the same thing on the right. She does have good rotator cuff strength though, and would be a potential candidate for a total shoulder arthroplasty if she wanted that. We discussed the weight restrictions that would be permanent with a reverse total shoulder arthroplasty. She wants to get this done at the end of the year or beginning of next year. She may call when she has found the time that she wants to get this done, and we will see her about a month beforehand to do the preop visit. She is in agreement with the plan. Not available 09/12/2023 13:07:40 Plan of Treatment Reminders Order Date Submit Date Provider Last Modified By Organization Details Last Modified Time Details Appointments None recorded. Lab None recorded. Referral physical therapist referral - EVAL AND TREAT 2022 023 [facility] [place] [facility], [address], [place], [address], 4 15:44:32 Procedures None recorded. Surgeries None recorded. Imaging XR, shoulder, 2 or more view 2022 023 [email or web address] [facility] [place], [address], [place], [address], 3 23:47:09 XR, shoulder 2022 023 [email or web address] [facility] [place], [address], [place], [address], 3 15:18:09 XR, shoulder, 2 or more view 2022 023 [email or web address] [facility] [place], [address], [place], [address], 3 10:25:54 Medication Orders Mobic 15 mg tablet 2022 023 [email or web address] [id number], [address], [place], [place], [id number], 3 23:47:09 Patient TargetsNo targets recorded. Patient InstructionsNo instructions recorded. Reason for Referral Physical Therapist Referral for Pain of right shoulder joint EVAL AND TREAT Referring Physician: Keenan Qureshi, Orthopedic Surgery, Encounter Date: 02/27/2023 Results Created Date Observation Date Name Description Value Unit Range Abnormal Flag Note LastModifiedBy Organization Detail LastModifiedTime 05/15/19 XR, shoul maricarmen, 2 or more view No observ ation record ed. [id number] [facility] [place] [address], [place], [address], 06/27/2022 13:13:43 07/18/19 23 XR, shoul maricarmen, 2 or more view No observ ation record ed. [email or web address] [facility] [place] [address], [place], [address], 07/17/2022 10:25:53 02/21/20 XR, shoul maricarmen No observ ation record ed. [email or web address] [facility] [place] [address] [facility] [address], [place], [address], 02/20/2023 14:29:10 02/28/20 XR, shoul maricarmen, 2 or more view No observ ation record ed. [email or web address] [facility] [place] [address], [place], [address], 02/27/2023 09:55:56 Result Notes None recorded. Problems Name Problem SNOMED Code Status Onset Date Resolution Date Notes Provider Name and Address Organization Details Recorded Time Pain of left shoulder joint 4475248659600 9109 Active 2021 Not Available [facility] 13:11:53 Pain of shoulder region 30780256 Active 2021 Not Available [facility] 13:11:53 Localized, primary osteoarthr itis of the shoulder region 667639057 Active 2021 Not Available [facility] 13:11:53 Pain of right shoulder joint 7154491874944 9100 Active 2022 KAJAL Mistry, [place] [facility] 09:55:36 Problem Notes None recorded. Procedures Surgical History Date Name Laterality Status Provider Name and Address Organization Details Recorded Time 02/28/20 Ortho - Cortisone Injection completed Keenan Qureshi MD [address] [facility] [facility] [address], [place], [address], [facility] 02/27/2023 11:11:04 appendectomy completed Not Available [facility] 06/27/2022 13:11:24 Breast Surgery completed Not Available [facility] 06/27/2022 13:11:24 Hysterectomy completed Not Available [facility] 06/27/2022 13:11:24 Imaging Results None recorded. Procedure Notes None recorded. Medical Equipment None Reported. Allergies Allergen ID Allergen Name Allergen Category Reaction Reaction Severity Criticality Documentation Date Start Date Code Code System Note Provider Name and Address Organization Details Recorded Time 21238 Substance with sulfonami de structure and antibacte rial mechanism of action (substanc e) medicatio n Not available Not available Not available 06/27/2022 29360 8003 SNOMED Not Available [facility] 13:13:41 Medications Name Sig Start Date Stop Date Status Note LastModified by Organization Details LastModified Time nystatin 100,000 unit/mL oral suspension TAKE 5 ML BY MOUTH FOUR TIMES DAILY UNTIL SYMPTOMS RESOLVE AND THEN AN ADDITIONA L 2 DAYS active Not Available Not Available No t Available prednisone 10 mg tablet 07/17 completed Not Available Not Available Not Available ipratropium 0.5 mg-albutero l 3 mg (2.5 mg base)/3 mL nebulizatio n soln 09/03 completed Not Available Not Available Not Available cetirizine 10 mg tablet TAKE 1 TABLET BY MOUTH EVERY DAY active Not Available Not Available No t Available azithromyci n 250 mg tablet TAKE BY MOUTH DIRECTED 09/03 completed Not Available Not Available Not Available fluconazole 150 mg tablet active Not Available Not Available Not Available hydrocodone 5 mg-acetamin ophen 325 mg tablet TAKE 1 TABLET BY MOUTH EVERY 6 HOURS NEEDED FOR PAIN active Not Available Not Available No t Available meloxicam 15 mg tablet TAKE 1 TABLET BY MOUTH EVERY DAY active Not Available Not Available No t Available bupivacaine HCl 0.5 % (5 mg/mL) injection solution Take 8 mg by injection route. 07/17 completed Not Available Not Available Not Available valacyclovi r 500 mg tablet TAKE 1 TABLET BY MOUTH DAILY active Not Available Not Available No t Available aspirin 81 mg tablet,debra yed release 09/03 completed Not Available Not Available Not Available amoxicillin 500 mg tablet active Not Available Not Available Not Available carvedilol 3.125 mg tablet 07/17 completed Not Available Not Available Not Available ofloxacin 0.3 % ear drops INSTILL 4 DROPS TO LEFT EAR TWICE DAILY active Not Available Not Available No t Available amoxicillin 875 mg tablet 09/03 completed Not Available Not Available Not Available alprazolam 0.25 mg tablet active Not Available Not Available Not Available pravastatin 10 mg tablet TAKE 1 TABLET BY MOUTH DAILY active Not Available Not Available No t Available Kenalog 10 mg/mL suspension for injection In office injection administe red by the provider 09/03 completed [facility]: 0003- [id number]- 20 Not Available Not Available Not Available doxycycline monohydrate 100 mg capsule active Not Available Not Available Not Available hydrocodone 7.5 mg-acetamin ophen 325 mg tablet TAKE 1 TABLET BY MOUTH EVERY 6 HOURS NEEDED FOR PAIN active Not Available Not Available No t Available oseltamivir 75 mg capsule active Not Available Not Available Not Available losartan 25 mg tablet active Not Available Not Available No t Available omeprazole 20 mg capsule,del ayed release active Not Available Not Available Not Available folic acid 1 mg tablet active Not Available Not Available Not Available mupirocin 2 % topical ointment APPLY SMALL AMOUNT TOPICALLY TO THE AFFECTED AREA THREE TIMES DAILY active Not Available Not Available No t Available furosemide 20 mg tablet TAKE 1 TABLET BY MOUTH DAILY active Not Available Not Available No t Available triamcinolo ne acetonide 0.1 % lotion APPLY THIN LAYER TOPICALLY TO THE AFFECTED AREA TWICE DAILY 09/03 completed Not Available Not Available Not Available levofloxaci n 500 mg tablet 09/03 completed Not Available Not Available Not Available methylpredn isolone 4 mg tablets in a dose pack FOLLOW PACKAGE DIRECTION S 09/03 completed Not Available Not Available Not Available cefdinir 300 mg capsule 09/03 completed Not Available Not Available Not Available fluticasone propionate 50 mcg/actuati on nasal spray,suspe nsion active Not Available Not Available Not Available lisinopril 2.5 mg tablet 09/03 completed Not Available Not Available Not Available doxycycline hyclate 100 mg tablet active Not Available Not Available No t Available amoxicillin 875 mg-potassiu m clavulanate 125 mg tablet TAKE 1 TABLET BY MOUTH EVERY 12 HOURS 09/03 completed Not Available Not Available Not Available escitalopra m 10 mg tablet active Not Available Not Available Not Available cyclobenzap rine 5 mg tablet active Not Available Not Available Not Available escitalopra m 5 mg tablet 09/03 completed Not Available Not Available Not Available duloxetine 30 mg capsule,del ayed release TAKE 1 CAPSULE BY MOUTH EVERY DAY active Not Available Not Available No t Available Flovent HFA 220 mcg/actuati on aerosol inhaler 09/03 completed Not Available Not Available Not Available folic acid 09/03 completed Not Available Not Available Not Available Prilosec 10 mg oral suspension, delayed release Take 2 packets every day by oral route. 2021 active Not Available Not Available Not Avai lable magnesium 400 mg (as magnesium oxide) capsule Take by oral route. 2021 active Not Available Not Available Not Avai lable Paxlovid 300 mg (150 mg x 2)-100 mg tablets in a dose pack FOLLOW PACKAGE DIRECTION S active Not Available Not Available No t Available Vitals Date Recorded Body mass index (BMI) Body height Body weight Provider Name and Address Organization Details Last Updated DateTime 05/15/2022 27.8 kg/m2 154.94 cm 95104.08 g Not Available [facility] 06/27/2022 13:11:27 Date Recorded Body height Body mass index (BMI) Body weight Provider Name and Address Organization Details Last Updated DateTime 07/17/2022 154.94 cm 28.5 kg/m2 29083.45 g KAJAL Mistry [facility] 07/17/2022 09:29:36 Date Recorded Body height Body mass index (BMI) Body weight Pain severity - 0-10 verbal numeric rating [Score] - Reported Provider Name and Address Organization Details Last Updated DateTime 09/11/2023 157.48 cm 25.8 kg/m2 76006.52 g 7 KAJAL Mistry [facility] 09/11/2023 14:55:43 Date Recorded Body height Body mass index (BMI) Body weight Provider Name and Address Organization Details Last Updated DateTime 02/20/2023 157.48 cm 26.7 kg/m2 78529.49 g Ciera JinLORENZA lentz [facility] 02/20/2023 14:28:32 Date Recorded Body height Body mass index (BMI) Body weight Pain severity - 0-10 verbal numeric rating [Score] - Reported Provider Name and Address Organization Details Last Updated DateTime 02/27/2023 157.48 cm 26.3 kg/m2 91759.3 g 7 Lyric Salcido, [facility] 02/27/2023 09:55:09 Social History Question Answer Notes LastModified by [employer] Details LastModified Time Tobacco Smoking Status Never Smoker Not Available [facility] 06/27/2022 13:11:21 What Was The Date Of Your Most Recent Tobacco Screening? 07/17/2022 [email or web address] Information not available 07/17/2022 Sex: Unknown Functional Status Question Answer Note LastModified by [employer] Details LastModified Time What is your level of alcohol consumption? Occasional [id number] Information not available 06/27/2022 Mental Status None recorded. Family History Relationship Description Onset Age of this Age Resolved Age Notes LastModified by Organization Details LastModified Time Father Heart disease [id number] Not available 06/27/2022 13:11:24 Father Family history of stroke [id number] Not available 06/27/2022 13:11:24 Father Family history of malignant neoplasm [id number] Not available 06/27/2022 13:11:24 Father Hypertensive disorder [id number] Not available 06/27/2022 13:11:24 Mother Family history of malignant neoplasm [id number] Not available 06/27/2022 13:11:24 Unspecified Relation Pulmonary embolism [id number] Not available 06/27/2022 13:11:24 Medical History Condition Response BLINDNESS N KIDNEY STONES N MRSA N CARPAL TUNNEL SYNDROME N LUNG DISEASE/DISORDER N HISTORY OF DRUG ABUSE N RADIATION / CHEMOTHERAPY N COPD N SPORTS INJURY N ANKLE PAIN N BLOOD DISEASES N SCHIZOPHRENIA N SHINGLES N BOWEL PROBLEMS N SHOULDER PAIN N DEPRESSION (INCLUDING POST ) N STROKE/TIA N KNEE PAIN N ULCERS Y BENIGN PROSTATIC HYPERPLASIA N OBESITY N GERD/NAUSEA N ANEURYSM N URINARY/BLADDER/KIDNEY PROBLEMS N CORONARY ARTERY DISEASE (CAD) N ADDICTION CONCERNS N USE OF BLOOD THINNERS N SKIN PROBLEMS N EMPHYSEMA N MUSCLE,JOINT OR BONE PROBLEMS N DVT N STOMACH ULCERS N BLOOD CLOTS N USE OF NSAIDS N CONCUSSION OR SPINAL TRAUMA N NEUROPATHY N AIDS/HIV N FRACTURES N ELBOW PAIN N HYPERTENSION Y TOURETTE'S N ANXIETY DISORDER N Metal allergy N BLOOD TRANSFUSION N ANEMIA/BLOOD DISORDER Y BIPOLAR DISORDER N BRONCHITIS N OSTEOARTHRITIS N TUBERCULOSIS N FOOT PROBLEM N HEART VALVE DISORDERS N ALLERGIES/HAYFEVER N SOFT TISSUE INJURY N INFECTIOUS DISEASE N HEART ARRHYTHMIA N INSOMNIA N RHEUMATOID ARTHRITIS N HIGH CHOLESTEROL / HYPERLIPIDEMIA N EDEMA N CHRONIC PAIN SYNDROME N CAROTID BLOCKAGE N BACK / NECK PROBLEMS N HAVE YOU BEEN HOSPITALIZED OR SEEN IN [facility] ER IN THE PAST YEAR ? N BURSITIS N HERNIATED DISC N DIALYSIS N FIBROMYALGIA N OSTEOPOROSIS N ARTHRITIS Y NO SIGNIFICANT PAST MEDICAL HISTORY N PERIPHERAL NEUROPATHY N DIABETES, TYPE N HEARTBURN / REFLUX N HEPATITIS / LIVER DISEASE N GOUT N SLEEP DISORDER N ALZHEIMER'S DISEASE N HERPES N SEIZURES/EPILEPSY N HEADACHES/MIGRAINES N VASCULAR DISEASE N HIP PAIN N Blood Disorder N DIZZINESS N HEAD TRAUMA OR INJURY N HEART DISEASE/HEART PROBLEMS Y MULTIPLE SCLEROSIS N CARDIAC ARRHYTHMIA N CANCER: SPECIFY Y ANESTHESIA COMPLICATIONS N ATRIAL FIBRILLATION N AUTOIMMUNE DISEASE N Gynecological HistoryNo gynecological history recorded. Obstetrics History GPAL:G 0 P 0 0 0 0 Past Encounters Encounter ID Performer Location Encounter Start Date Encounter Closed Date Diagnosis/Indication Diagnosis SNOMED-CT Code Diagnosis ICD10 Code Diagnosis IMO Codes Diagnosis Note [id number] Gautam Barrios MD [facility] [place] [address] [facility] [address] [facility] [place] [address] 07/17/2021 00:00:00 07/17/2021 15:58:41 [id number] Jeremiah Byrd MD [facility] [place] [address] [facility] [place] [address] 08/22/2021 00:00:00 08/22/2021 12:48:51 [id number] Jeremiah Byrd MD [facility] [place] [address] [facility] [place] [address] 12/05/2021 00:00:00 12/05/2021 12:57:46 [id number] Jeremiah Byrd MD [facility] [place] [address] [place] [address] 02/13/2022 00:00:00 02/13/2022 12:12:56 [id number] Jeremiah Byrd MD [facility] [place] [address] [place] [address] 02/20/2022 00:00:00 02/20/2022 09:19:41 [id number] Jeremiah Byrd MD [facility] [place] [address] [place] [address] 02/27/2022 00:00:00 02/27/2022 09:48:50 [id number] Jeremiah Byrd MD [facility] [place] [address] [place] [address] 03/27/2022 00:00:00 03/27/2022 13:25:23 [id number] Jeremiah Byrd MD [facility] [place] [address] [place] [address] 05/15/2022 00:00:00 05/15/2022 11:14:28 [id number] Jeremiah Byrd MD [facility] [place] [address] [place] [address] 07/17/2022 09:03:39 07/17/2022 09:58:44 Pain of left shoulder joint 7308767807 1779228 M25.512 LEFT Localized, primary osteoarthritis of the shoulder region 221813960 M19.019 patient is doing quite well at this point continue with her stretching especially for internal rotation and her strengthen ing exercises at we went over with her again today we will see her back again in 6 months for follow-up AP Y lateral and axillary x-ray view [id number] Keenan Qureshi MD [facility] [place] [address] [place] [address] 02/20/2023 14:22:41 02/20/2023 14:45:46 Pain of left shoulder joint 7784848007 [id number] M25.093 [id number] Keenan Qureshi MD [facility] [place] [address] [place] [address] 02/27/2023 09:45:36 02/27/2023 10:19:12 Pain of right shoulder joint 6891914089 [id number] M25.113 [id number] Keenan Qureshi MD [facility] [place] [address] [place] [address] 09/11/2023 14:51:45 09/11/2023 15:39:48 Pain of right shoulder joint 9125336469 2143986 M25.511 Health Concerns Section Related Observation LastModified by Organization Detai ls LastModified Time None Recorded Concern Status LastModified by Organization Details LastModified Time None Recorded Advance Directives Directive None Recorded Payers Insurance Date Sequence Insurance Name Policy Number Policy Augustin Covered Member ID Augustin Member ID Guarantor Name 09/11/2023 1 [place] Zulma A Archibee [id number] Zulma A Archibee 02/20/2023 2 FOR LIFE ( - MEDICARE SUPPLEMENT) Joby A Archibee [id number] Zulma A Archibee 09/17/2023 2 [employer] [place] (MEDICARE SUPPLEMENT) Zulma A Archibee [id number] Zulma A Arch[employer] Notes Date Note Type Note Provider Name and Address Organization Details Recorded Time 07/17/2022 text/html patient underwent a left reverse total shoulder arthroplasty 02/15/2022 doing very well at this point comes in today for follow-up Jeremiah Byrd MD [address] [place] [address], [address] [address], [place], [address], [place] [facility] 07/17/2022 10:26:39 OBGyn Episode No OBEpisode recorded.
--- OUTSIDE RECORDS SUMMARY | 2025-03-04 14:47 | XMS_ITS | Encounter Summary ---
Author Organization [facility] Address 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
--- OUTSIDE RECORDS SUMMARY | 2025-03-04 14:47 | XMS_ITS | Clinical Summary ---
Author Organization [facility] Administrative Offices Address [address] [place] [address] Care Team Providers Care Boating Safety Officer Name Role Phone Jackson Rosa MD [...] BI-FLEX ORAL) Take by mouth. 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 Gender Identity Not on file Sexual Orientation Not on file Last Filed Vital Signs Vital Sign Reading Time Taken Comments Blood Pressure 122/58 04/18/2016 9:52 AM LACING STRING CUTTER Pulse 61 04/18/2016 9:52 AM LACING STRING CUTTER Temperature - - Respiratory Rate - - Oxygen Saturation - - Inhaled Oxygen Concentration - - Weight 68.9 kg (152 lb) 04/18/2016 9:52 AM LACING STRING CUTTER Height 157.5 cm (5' 2) 04/18/2016 9:52 AM LACING STRING CUTTER Body Mass Index 27.8 04/18/2016 9:52 AM LACING STRING CUTTER Plan of Treatment Health Maintenance Due Date [...] Maintenance Insurance MEDIC[facility] [place] [address] Care Teams Boating Safety Officer Relationship Specialty Start Date End Date Jackson Rosa MD [address] [place] [address] PCP - General 07/05/09
--- OUTSIDE RECORDS SUMMARY | 2025-03-04 14:47 | XMS_ITS | Encounter Summary ---
Author Organization [facility] Address 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
--- OUTSIDE RECORDS SUMMARY | 2025-03-04 14:47 | XMS_ITS | Encounter Summary ---
Author Organization [facility] Address [address] [place] [address] Care Team Providers Care Paid Search Manager Name Role Phone Jackson Rosa MD Primary Care Provider + Encounter Details Date Type Department Care Team (Latest Contact Info) Description 01/24/1999 Outpatient Historical HIS [facility] GEOFF Cabezas, Cyndee Crespo MD NO ADDRESS ON FILE Other screening mammogram (Primary Dx) Social History Tobacco Use Types Packs/Day Years Used Date Smoking Tobacco: Never Assessed Comments Unknown Sex and Gender Information Value Date Recorded Sex Assigned at Not on file Legal Sex Female 3:45 AM ANESTHESIA ASSISTANT Gender Identity Not on file Sexual Orientation Not on file documented as of this encounter Plan of Treatment Not on file documented as of this encounter Visit Diagnoses Diagnosis Other screening mammogram- Primary documented in this encounter Care Teams Paid Search Manager Relationship Specialty Start Date End Date Jackson Rosa MD [address] [place] [phone] PCP - General 07/05/09 documented as of this encounter
--- OUTSIDE RECORDS SUMMARY | 2025-03-04 14:47 | XMS_ITS | Encounter Summary ---
Author Organization [facility] Address [address] [place] [address] Care Team Providers Care Primary Clinician Name Role Phone Jackson Rosa MD Primary Care Provider + Encounter Details Date Type Department Care Team (Latest Contact Info) Description 09/07/1998 Outpatient Historical HIS [facility] GE[facility] Cabezas, Cyndee Crespo MD NO ADDRESS ON FILE Personal history of malignant neoplasm of breast (Primary Dx) Social History Tobacco Use Types Packs/Day Years Used Date Smoking Tobacco: Never Assessed Comments Unknown Sex and Gender Information Value Date Recorded Sex Assigned at Not on file Legal Sex Female 3:45 AM MATERIAL PROCESSOR Gender Identity Not on file Sexual Orientation Not on file documented as of this encounter Plan of Treatment Not on file documented as of this encounter Visit Diagnoses Diagnosis Personal history of malignant neoplasm of breast- Primary documented in this encounter Care Teams Primary Clinician Relationship Specialty Start Date End Date Jackson Rosa MD [address] [place] [phone] PCP - General 07/05/09 documented as of this encounter
--- OUTSIDE RECORDS SUMMARY | 2025-03-04 14:47 | XMS_ITS | Encounter Summary ---
Author Organization [facility] Address [address] [place] [address] Care Team Providers Care Personnel Generalist Manager Name Role Phone Jackson Rosa MD Primary Care Provider + Encounter Details Date Type Department Care Team (Latest Contact Info) Description 07/12/2004 Outpatient Historical HIS [facility] Cabezas, Cyndee Crespo MD NO ADDRESS ON FILE SCREENING MAMM-MALIG NEOPL-HI RISK (Primary Dx) Social History Tobacco Use Types Packs/Day Years Used Date Smoking Tobacco: Never Assessed Comments Unknown Sex and Gender Information Value Date Recorded Sex Assigned at Not on file Legal Sex Female 3:45 AM CONTAINER COORDINATOR Gender Identity Not on file Sexual Orientation Not on file documented as of this encounter Plan of Treatment Not on file documented as of this encounter Visit Diagnoses Diagnosis Screening mammogram for high-risk patient- Primary documented in this encounter Care Teams Personnel Generalist Manager Relationship Specialty Start Date End Date Jackson Rosa MD [address] [place] [address] PCP - General 07/05/09 documented as of this encounter
== END 2025-03-03 15:11 | disposition home or self-care (01) ==
PROVIDERS: PCP Internal Medicine; Visit Provider Internal Medicine
DX: R19.7 Diarrhea, unspecified (principal)
CPT/HCPCS: 36415; 80053; 85027

== ENCOUNTER 2025-03-05 14:51 | Outpatient (CLI) | payer MEDICARE, SELFPAY ==
--- OUTSIDE RECORDS SUMMARY | 2025-03-05 14:54 | XMS_ITS | Encounter Summary ---
Author Organization [facility] Address [address] [place] [address] Care Team Providers Care Business Controller Name Role Phone Jackson Rosa MD Primary Care Provider [phone] Irma Willams MD Unavailable Efrem Alves MD Unavailable Encounter Details Date Type Department Care Team (Late Contact Info) Description 06/22/2024 [employer] Message Enc [facility] ield [address] [place] [address] [facility] Provider Echo results Social History Tobacco Use Types Packs/Day Years Used Date Smoking Tobacco: Never Passive Smoke Exposure: Never Smokeless Tobacco: Never Alcohol Use Standard Drinks/Week Comments Yes 0 (1 standard drink = 0.6 oz pur e alcohol) very rare wine usage Comments Unknown Sex and Gender Information Value Date Recorded Sex Assigned at Female 05/25/2024 1:26 PM GARBAGE WORKER Legal Sex Female 9:00 PM CDT Gender Identity Not on file Sexual Orientation Not on file Occupation Industry Job Start Date Job End Date Retired Not on file Not on file Not on file documented as of this encounter Plan of Treatment Upcoming Encounters Date Type Department Care Team (Late Contact Info) Description 05/10/2025 8:30 AM GARBAGE WORKER Office Visit [facility] [address] [place] [address] Irma Willams MD [address] [place] [address] documented as of this encounter Visit Diagnoses Not on filedocumented in this encounter Care Teams Business Controller Relationship Specialty Start Date End Date Jackson Rosa MD [address] [place] [address] PCP - General INTERNAL MEDICINE 04/02/16 Irma Willams MD [address] [place] [address] Consulting Physician CARDIOVASCULAR DISEASE 11/03/23 Efrem Alves MD [address] [place] [address] Vascular/Certified Forklift Operator INTERNAL MEDICINE 12/17/23 documented as of this encounter
--- OUTSIDE RECORDS SUMMARY | 2025-03-05 14:54 | XMS_ITS | Clinical Summary ---
Author Organization [facility] Address [address] [place] [address] Care Team Providers Care Mold Filler Name Role Phone Jackson Rosa MD Primary Care Provider [phone] Irma Willams MD Unavailable Efrem Alves MD [...] Sex Assigned at Female 05/25/2024 1:26 PM BLENDER / COOK Legal Sex Female 9:00 PM CDT Gender Identity Not on file Sexual Orientation Not on file Occupation Industry Job Start Date Job End Date Retired Not on file Not on file Not on file Last Filed Vital Signs Vital Sign Reading Time Taken Comments Blood Pressure 138/72 06/03/2024 12:50 PM BLENDER / COOK Pulse 69 06/03/2024 12:50 PM BLENDER / COOK Temperature 36.1 C (97 F) 11/03/2019 12:30 PM CDT Respiratory Rate 16 06/03/2024 12:5 0 PM BLENDER / COOK Oxygen Saturation 94% 06/03/2024 12: 50 PM BLENDER / COOK Inhaled Oxygen Concentration - - Weight 63.4 kg (139 lb 12.8 oz) 025 12:50 PM BLENDER / COOK Height 156.2 cm (5' 1.5) 06/03/2024 12 :50 PM BLENDER / COOK Body Mass Index 25.99 06/03/2024 12:50 PM BLENDER / COOK Plan of Treatment Upcoming Encounters Date Type Department Care Team (Late st Contact Info) Description 05/10/2025 8:30 AM BLENDER / COOK Office Visit [facility] [place] [address] Irma Willams MD [address] [place] [address] Health Maintenance Due Date Last Done Comments [...] this topic Medical Devices Implanted Type Area Lion Tamer Device Identifier Shelf Expiration Date Model / Serial / Lot Knee Components Knee Components Description:Right knee Knee Components Knee Components Description:Rt knee Iol Augustus [id number] - [id number] Implanted:Qty: 1 on 10/13/2019 by Stephane Samson MD at [facility] Lens Left: Eye [employer] 01/27/2024 [id number] / [id number] / N/A Description:Implant verified by Iol [employer] Li61ao - [id number] Implanted:Qty: 1 on 11/03/2019 by Stephane Samson MD at [facility] Lens Right: Eye [employer] 08/27/2023 [id number] / [id number] Description:Lens verified pe r surgeon and chart Procedures Procedure Name Priority Date/Time Associated Diagnosis Comments LIPID PANEL Routine 06/27/2013 12:00 AM BLENDER / COOK from Last 3 Months or Most Recently Relevant to Health Maintenance Results * LIPID PANEL (06/27/2013 12:00 AM BLENDER / COOK) TRIGLYCERIDES 78 0 - 150 mg/dl MEDINFORMATIX [...] Health Maintenance Insurance MEDICARE MEDICARE Care Teams Mold Filler Relationship Specialty Start Date End Date Jackson Rosa MD [address] [place] [address] PCP - General INTERNAL MEDICINE 04/02/16 Irma Willams MD [address] [place] [address] Consulting Physician CARDIOVASCULAR DISEASE 11/03/23 Efrem Alves MD [address] [place] [address] Vascular/Esl Instructor INTERNAL MEDICINE 12/17/23
--- OUTSIDE RECORDS SUMMARY | 2025-03-05 14:55 | XMS_ITS | Encounter Summary ---
Author Organization [facility] Address [address] [place] [address] Care Team Providers Care Hospital Educator Name Role Phone Jackson Rosa MD Primary Care Provider + Encounter Details Date Type Department Care Team (Latest Contact Info) Description 09/05/1999 Outpatient Historical HIS [facility] GE[facility] Cabezas, Cyndee Crespo MD NO ADDRESS ON FILE Personal history of malignant neoplasm of breast (Primary Dx) Social History Tobacco Use Types Packs/Day Years Used Date Smoking Tobacco: Never Assessed Comments Unknown Sex and Gender Information Value Date Recorded Sex Assigned at Not on file Legal Sex Female 3:45 AM LOCOMOTIVE REPAIRER DIESEL Gender Identity Not on file Sexual Orientation Not on file documented as of this encounter Plan of Treatment Not on file documented as of this encounter Visit Diagnoses Diagnosis Personal history of malignant neoplasm of breast- Primary documented in this encounter Care Teams Hospital Educator Relationship Specialty Start Date End Date aJckson Rosa MD [address] [place] [address] PCP - General 07/05/09 documented as of this encounter
--- OUTSIDE RECORDS SUMMARY | 2025-03-05 14:55 | XMS_ITS | Encounter Summary ---
Author Organization [facility] Address [facility] [place] [address] Care Team Providers Care Seniour Insight Manager Name Role Phone Jackson Rosa MD Primary Care Provider [phone] Gaurang Gonzalez MD Unavailable Unavailab Jeremiah Crowder MD Unavailable [phone] Whit Perez APRN AUTOMOTIVE VEHICLE INSPECTOR-C Unavailable Irma Willams MD Unavailable Efrem Alves MD Unavailable Encounter Details Date Type Department Care Team (Late Contact Info) Description 12/01/2014 Abstract [facility] AT [address] [address] Gaurang Gonzalez MD Social History Tobacco Use Types Packs/Day Years Used Date Smoking Tobacco: Never Alcohol Use Standard Drinks/Week Comments Yes 0 (1 standard drink = 0.6 oz pur e alcohol) Occasionally, Wine. Comments Unknown Sex and Gender Information Value Date Recorded Sex Assigned at Female 05/25/2024 1:26 PM NOODLE CATALYST MAKER Legal Sex Female 9:00 PM CDT Gender Identity Not on file Sexual Orientation Not on file Occupation Industry Job Start Date Job End Date Retired Not on file Not on file Not on file documented as of this encounter Plan of Treatment Upcoming Encounters Date Type Department Care Team (Late st Contact Info) Description 05/10/2025 8:30 AM NOODLE CATALYST MAKER Office Visit [facility] [place] [address] Irma iWllams MD [address] [place] [address] documented as of this encounter Visit Diagnoses Not on filedocumented in this encounter Additional Health Concerns Infection Onset Date Last Indicated Resolved Time COVID-19 Rule Out 10/10/2019 10/10/2019 10/11/2019 1:50 PM CDT COVID-19 Rule Out 10/31/2019 10/31/2019 11/01/2019 10:23 PM CDT documented as of this encounter Care Teams Seniour Insight Manager Relationship Specialty Start Date End Date Jackson Rosa MD [address] [place] [address] PCP - General INTERNAL MEDICINE 04/02/16 Gaurang Gonzalez MD [address] [place] [address] CARDIOVASCULAR DISEASE 04/02/16 05/20/18 Jeremiah Rolon MD [address] [place] [address] [place] Application Developer CARDIOVASCULAR DISEASE 07/28/18 11/02/23 Whit Perez APRN, AUTOMOTIVE VEHICLE INSPECTOR-C [address] [facility] [address] [place] [address] NURSE PRACTITIONER 02/17/19 12/05/23 Irma Willams MD [address] [place] [address] Consulting Physician CARDIOVASCULAR DISEASE 11/03/23 Efrem Alves MD [address] [place] [address] Vascular/Application Developer INTERNAL MEDICINE 12/17/23 documented as of this encounter
--- OUTSIDE RECORDS SUMMARY | 2025-03-05 14:55 | XMS_ITS | Patient Health Record ---
Author Organization [facility] Address [address] [place] [address] Care Team Providers Care Technical Instructor Name Role Phone Juanito Reagan Unavailable [phone] Reason For Referral No Information Medications Medication SIG (Take, Route, Frequency, Duration) Notes Start Date End Date Status valACYclovir HCl 500 MG Tablet Oral 02/14/2023 Active Fluticasone Propionate Diskus 50 MCG/ACT Aerosol Powder Breath Activated Inhalation *Reorder from [employer] for eRx and Interaction Alerts* 02/14/2023 Active [...] 20 MG Tablet Oral 02/14/2023 Active Nystatin 430435 UNIT/ML Suspension Mouth/Throat 02/14/2023 Active Escitalopram Oxalate 10 MG Tablet Oral 02/14/2023 Active Paxlovid (300/100) 20 x 150 MG & 10 x 100MG Tablet Therapy Pack Oral *Reorder from [employer] for eRx and Interaction Alerts* 02/14/2023 Active [...] Medicare [address] [place] [address] [id number] SIDNEY ANDERSON Self - patient is the insured [place] Medicare Supplement [address] [employer] [id number] SIDNEY ANDERSON Self - patient is the insured
--- OUTSIDE RECORDS SUMMARY | 2025-03-05 14:55 | XMS_ITS | Encounter Summary ---
Author Organization [facility] Address [address] [place] [address] Care Team Providers Care World Language Teacher Name Role Phone Jackson Rosa MD Primary Care Provider + Encounter Details Date Type Department Care Team (Latest Contact Info) Description 09/07/1998 Outpatient Historical HIS [facility] GEOFF Cabezas, Cyndee Crespo MD NO ADDRESS ON FILE Personal history of malignant neoplasm of breast (Primary Dx) Social History Tobacco Use Types Packs/Day Years Used Date Smoking Tobacco: Never Assessed Comments Unknown Sex and Gender Information Value Date Recorded Sex Assigned at Not on file Legal Sex Female 3:45 AM GRAPHITE DISK ASSEMBLER Gender Identity Not on file Sexual Orientation Not on file documented as of this encounter Plan of Treatment Not on file documented as of this encounter Visit Diagnoses Diagnosis Personal history of malignant neoplasm of breast- Primary documented in this encounter Care Teams World Language Teacher Relationship Specialty Start Date End Date Jackson Rosa MD [address] [place] [address] PCP - General 07/05/09 documented as of this encounter
--- OUTSIDE RECORDS SUMMARY | 2025-03-05 14:55 | XMS_ITS | Encounter Summary ---
Author Organization [facility] Address [address] [place] [address] Care Team Providers Care English Professor Name Role Phone Jackson Rosa MD Primary Care Provider + Encounter Details Date Type Department Care Team (Latest Contact Info) Description 03/31/2008 Outpatient Historical HIS [facility] Cbaezas, Ezequiel Crespo MD NO ADDRESS ON FILE Other Screening Mammogram Social History Tobacco Use Types Packs/Day Years Used Date Smoking Tobacco: Never Assessed Comments Unknown Sex and Gender Information Value Date Recorded Sex Assigned at Not on file Legal Sex Female 3:45 AM DIVISION OPERATIONS MANAGER Gender Identity Not on file Sexual Orientation Not on file documented as of this encounter Plan of Treatment Not on file documented as of this encounter Procedures Procedure Name Priority Date/Time Associated Diagnosis Comments MAMMO SCREEN BILAT W OR WO CAD Routine 03/31/2008 8:30 AM DIVISION OPERATIONS MANAGER documented in this encounter Results * MAMMO DIGITAL SCREEN BILAT (03/31/2008 8:30 AM DIVISION OPERATIONS MANAGER) Anatomical Region Laterality Modality Breast Bilateral Other 03/31/2008 8:30 AM DIVISION OPERATIONS MANAGER Narrative 03/31/2008 12:03 PM DIVISION OPERATIONS MANAGER [address] [address] Admit Date: 03/31/2008 ZULMA CARNES Sex: F Admit Prov: EZEQUIEL CABEZAS Date: 1945 Primary Care Prov: CMRN: [id number] Room: KIRT SSN: [id number] IMAGING SERVICES Ordering Prov: EZEQUIEL CABEZAS Accession Number: [id number] Interpretation EXAM: BILATERAL SCREENING FULL FIELD DIGITAL [...] Note Elena Lou - [facility]/31/[facility] [address] [place], [place] [address] Admit Date: 03/31/2008 ZULMA CARNES Sex: F Admit Prov: EZEQUIEL CABEZAS Date: 1945 Primary Care Prov: CMRN: [id number] Room: MASONAshleigh SSN: [id number] IMAGING SERVICES Ordering Prov: EZEQUIEL CABEZAS Interpretation [...] mammogram documented in this encounter Care Teams English Professor Relationship Specialty Start Date End Date Jakcson Rosa MD [address] [place] [phone] PCP - General 07/05/09 documented as of this encounter
--- OUTSIDE RECORDS SUMMARY | 2025-03-05 14:55 | XMS_ITS ---
Author Organization [facility] Address [address] [place] [address] Care Team Providers Care Tool And Die Maker Name Role Phone Jackson Rosa MD [...] Assessment & Plan (07/04/2021 11:03 AM ENVIRONMENTAL MONITORING TECHNICIAN): I explained to the patient how [...]
--- OUTSIDE RECORDS SUMMARY | 2025-03-05 14:55 | XMS_ITS | Encounter Summary ---
Author Organization [facility] Address [address] [place] [address] Care Team Providers Care Satellite Dish Installer Name Role Phone Jackson Rosa MD Primary Care Provider + Encounter Details Date Type Department Care Team (Latest Contact Info) Description 10/13/[address] [facility] GEOFF Cabezas, Cyndee Crespo MD NO ADDRESS ON FILE SCREENING MAMM-MAILG NEOPL-OTHER (Primary Dx) Social History Tobacco Use Types Packs/Day Years Used Date Smoking Tobacco: Never Assessed Comments Unknown Sex and Gender Information Value Date Recorded Sex Assigned at Not on file Legal Sex Female 3:45 AM ENTERTAINMENT DIRECTOR Gender Identity Not on file Sexual Orientation Not on file documented as of this encounter Plan of Treatment Not on file documented as of this encounter Visit Diagnoses Diagnosis Other screening mammogram- Primary documented in this encounter Care Teams Satellite Dish Installer Relationship Specialty Start Date End Date Jackson Rosa MD [address] [place] [address] PCP - General 07/05/09 documented as of this encounter
--- OUTSIDE RECORDS SUMMARY | 2025-03-05 14:55 | XMS_ITS | Encounter Summary ---
Author Organization [facility] Address [address] [place] [address] Care Team Providers Care Tractor Trailer Moving Van Driver Name Role Phone Jackson Rosa MD Primary Care Provider + Encounter Details Date Type Department Care Team (Latest Contact Info) Description 09/09/2001 Outpatient Historical HIS [facility] GEOFF Cabezas, Cyndee Crespo MD NO ADDRESS ON FILE PERS HX OF BREAST MALIGNANCY (Primary Dx) Social History Tobacco Use Types Packs/Day Years Used Date Smoking Tobacco: Never Assessed Comments Unknown Sex and Gender Information Value Date Recorded Sex Assigned at Not on file Legal Sex Female 3:45 AM SALES REPRESENTATIVE FACILITY SERVICES Gender Identity Not on file Sexual Orientation Not on file documented as of this encounter Plan of Treatment Not on file documented as of this encounter Visit Diagnoses Diagnosis Personal history of malignant neoplasm of breast- Primary documented in this encounter Care Teams Tractor Trailer Moving Van Driver Relationship Specialty Start Date End Date Jackson Rosa MD [address] [place] [phone] PCP - General 07/05/09 documented as of this encounter
--- OUTSIDE RECORDS SUMMARY | 2025-03-05 14:55 | XMS_ITS | Encounter Summary ---
Author Organization [facility] Address [address] [place] [address] Care Team Providers Care Supervisor Glycerin Name Role Phone Jackson Rosa MD Primary [...] on file Legal Sex Female 3:45 AM SEED ANALYST Gender Identity Not on file Sexual Orientation Not on file documented as of this encounter Plan of Treatment Not on file documented as of this encounter Visit Diagnoses Diagnosis Follow-up examination, following other surgery- Primary documented in this encounter Care Teams Supervisor Glycerin Relationship Specialty Start Date End Date Jackson Rosa MD [address] [place] [address] PCP - General 07/05/09 documented as of this encounter
--- OUTSIDE RECORDS SUMMARY | 2025-03-05 14:55 | XMS_ITS | Encounter Summary ---
Author Organization [facility] Address [address] [place] [address] Care Team Providers Care Bender Machine Operator Name Role Phone Jackson Rosa MD Primary Care Provider + Encounter Details Date Type Department Care Team (Latest Contact Info) Description 01/24/1999 Outpatient Historical HIS [facility] GEOFF Cabezas, Cyndee Crespo MD NO ADDRESS ON FILE Other screening mammogram (Primary Dx) Social History Tobacco Use Types Packs/Day Years Used Date Smoking Tobacco: Never Assessed Comments Unknown Sex and Gender Information Value Date Recorded Sex Assigned at Not on file Legal Sex Female 3:45 AM HIGH SCHOOL SCIENCE TUTOR Gender Identity Not on file Sexual Orientation Not on file documented as of this encounter Plan of Treatment Not on file documented as of this encounter Visit Diagnoses Diagnosis Other screening mammogram- Primary documented in this encounter Care Teams Bender Machine Operator Relationship Specialty Start Date End Date Jackson Rosa MD [address] [place] [address] PCP - General 07/05/09 documented as of this encounter
--- OUTSIDE RECORDS SUMMARY | 2025-03-05 14:55 | XMS_ITS | Clinical Summary ---
Author Organization [facility] Address [address] [place] [address] Care Team Providers Care Environmental Technology Professor Name Role Phone Jackson Rosa MD Primary Care Provider [phone] Allergies Active Allergy Reactions Criticality Noted Date [...] 07/04/2021 Assessment & Plan (07/04/2021 11:03 AM MOLD RUNNER): I explained to the patient how subclinical [...] on file Legal Sex Female 12:56 AM MOLD RUNNER Gender Identity Female 10/06/2019 1:08 PM CDT [...] lb 3.2 oz) 05/15/2023 3:06 P M MOLD RUNNER Height 157.5 cm (5' 2) 05/15/2023 3:06 PM MOLD RUNNER Body Mass Index 27.11 05/15/2023 3:06 PM MOLD RUNNER Plan of Treatment Health Maintenance Due Date [...] Screening Discontinued Medical Devices Implanted Type Area Engineering Illustrator Device Identifier Shelf Expiration Date Model / [...] MD: Dwayne Chan MD Room: [facility] ENDOSCOPY ROOM 2 Note Status: Finalized Patient [...] passed under direct vision.The Pediatric Colonoscope [id number] was introduced through the anus and advanced [...] perforation orabscess without bleeding CPT copyright 2017 [employer]. All rights reserved. The codes documented in this report are preliminary and upon flux core welder reviewmay be revised to meet current compliance requirements. Recognized by the [place] [employer] for promoting quality in endoscopy Dwayne Chan MD ENDOSCOPY PROCEDURES Final Result from Last 3 Months or Most Recently Relevant to Health Maintenance Insurance MEDICARE [employer] [facility] MEDICARE MEDICARE [facility] Advance Directives For more information, please contact: [phone] * Full Code (Latest Code Status on File) Date Activated Date Inactivated Comments 12/04/2017 11:05 AM 12/04/2017 3:39 PM Care Teams Environmental Technology Professor Relationship Specialty Start Date End Date Jackson Rosa MD [address] [place] [address] PCP - General 07/04/16
--- OUTSIDE RECORDS SUMMARY | 2025-03-05 14:55 | XMS_ITS | Clinical Summary ---
Author Organization [facility] Administrative Offices Address [address] [place] [address] Care Team Providers Care Mill Stenciler Name Role Phone Jackson Rosa MD Primary [...] BI-FLEX ORAL) Take by mouth. Active Coenzyme Q59-Yyvopdb E (COQ10 SG 100) 100-100 mg-unit Oral [...] on file Legal Sex Female 3:45 AM AGRICULTURAL PRODUCE PACKER Gender Identity Not on file Sexual Orientation Not on file Last Filed Vital Signs Vital Sign Reading Time Taken Comments Blood Pressure 122/58 04/18/2016 9:52 AM AGRICULTURAL PRODUCE PACKER Pulse 61 04/18/2016 9:52 AM AGRICULTURAL PRODUCE PACKER Temperature - - Respiratory Rate - - Oxygen Saturation - - Inhaled Oxygen Concentration - - Weight 68.9 kg (152 lb) 04/18/2016 9:52 AM AGRICULTURAL PRODUCE PACKER Height 157.5 cm (5' 2) 04/18/2016 9:52 AM AGRICULTURAL PRODUCE PACKER Body Mass Index 27.8 04/18/2016 9:52 AM AGRICULTURAL PRODUCE PACKER Plan of Treatment Health Maintenance Due Date [...] Maintenance Insurance [facility] [address] Care Teams Mill Stenciler Relationship Specialty Start Date End Date Jackson Rosa MD [address] [place] [address] PCP - General 07/05/09
--- OUTSIDE RECORDS SUMMARY | 2025-03-05 14:55 | XMS_ITS | Encounter Summary ---
Author Organization [facility] Address [address] [place] [address] Care Team Providers Care Undergraduate Intern Name Role Phone Jackson Rosa MD Primary Care Provider + Encounter Details Date Type Department Care Team (Latest Contact Info) Description 08/12/2002 Outpatient Historical HIS [facility] GEOFF Cabezas, Cyndee Crespo MD NO ADDRESS ON FILE SCREENING MAMM-MAILG NEOPL-OTHER (Primary Dx) Social History Tobacco Use Types Packs/Day Years Used Date Smoking Tobacco: Never Assessed Comments Unknown Sex and Gender Information Value Date Recorded Sex Assigned at Not on file Legal Sex Female 3:45 AM MANAGER OF SCHOOL Gender Identity Not on file Sexual Orientation Not on file documented as of this encounter Plan of Treatment Not on file documented as of this encounter Visit Diagnoses Diagnosis Other screening mammogram- Primary documented in this encounter Care Teams Undergraduate Intern Relationship Specialty Start Date End Date Jackson Rosa MD [address] [place] [address] PCP - General 07/05/09 documented as of this encounter
--- OUTSIDE RECORDS SUMMARY | 2025-03-05 14:55 | XMS_ITS | Encounter Summary ---
Author Organization [facility] Address [address] [place] [address] Care Team Providers Care Colorer Hides And Skins Name Role Phone Jackson Rosa MD Primary Care Provider + Encounter Details Date Type Department Care Team (Latest Contact Info) Description 09/03/2000 Outpatient Historical HIS [facility] GEOFF Cabezas, Cyndee Crespo MD NO ADDRESS ON FILE Personal history of malignant neoplasm of breast (Primary Dx) Social History Tobacco Use Types Packs/Day Years Used Date Smoking Tobacco: Never Assessed Comments Unknown Sex and Gender Information Value Date Recorded Sex Assigned at Not on file Legal Sex Female 3:45 AM NON DESTRUCTIVE EVALUATION TECHNICIAN Gender Identity Not on file Sexual Orientation Not on file documented as of this encounter Plan of Treatment Not on file documented as of this encounter Visit Diagnoses Diagnosis Personal history of malignant neoplasm of breast- Primary documented in this encounter Care Teams Colorer Hides And Skins Relationship Specialty Start Date End Date Jackson Rosa MD [address] [place] [address] PCP - General 07/05/09 documented as of this encounter
--- OUTSIDE RECORDS SUMMARY | 2025-03-05 14:55 | XMS_ITS | Clinical Summary ---
Author Organization [facility] Address [address] [place] [address] Care Team Providers Care Repairer Cylinder Heads Name Role Phone Jackson Rosa MD Primary Care Provider [phone] Sammie Fox RN Unavailable Deyanira Daigle HORSE RIDING COACH OR INSTRUCTOR Unavailable [phone] Luis Carlos Rivas MD Unavailable [phone] Source Comments [facility],non-owned Affiliates and Associated Physician Practices is amultiple site organization consisting of ambulatory clinics and hospital sitesin [place], [place], [place] and [place]. This disclosure is being madepursuant to the Care Everywhere program and may not contain all information available regarding this patient. Last updated 18.[facility] Allergies Active Allergy Reactions Criticality Noted Date [...] problems Immunizations Immunization Administration Dates Next Due Zen99 primary monoval ent 12+ yr 0.3mL Purple [...] Sex Assigned at Female 05/03/2021 6:03 PM FITNESS LEADER Legal Sex Female 9:20 AM FITNESS LEADER Gender Identity Female 05/03/2021 6:03 PM FITNESS LEADER Sexual Orientation Straight 05/03/2021 6: 03 PM FITNESS LEADER Last Filed Vital Signs Vital Sign Reading Time Taken Comments Blood Pressure 132/78 06/21/2016 8:16 AM FITNESS LEADER Pulse 55 06/21/2016 8:16 AM FITNESS LEADER Temperature 36.7 C (98.1 F) 08/13/2014 11:27 [...] this topic Medical Devices Implanted Type Area Mineral Surveying Technician Device Identifier Shelf Expiration Date Model / Serial / Lot Nexgen Complete Knee Solution Cruciate Retaining Trabecular Metal Monoblock Tibial Component Tibial Size 3, Femoral Size C-H, 10mm Height Implanted:Qty: 1 on 08/10/2014 by Angel Luis Villegas MD at [facility] Right: Knee [employer] 01/27/2019 [id number] Nexgen Complete Knee Solution Cruciate Retaining Cr-Flex Femoral Component Porous Size D, Right Implanted:Qty: 1 on 08/10/2014 by Angel Luis Villegas MD at [facility] Right: Knee [employer] 11/28/2023 / / [id number] Bill Only Basic Derrick Excludes Agc Kn Implanted:Qty: 1 on 08/10/2014 by Angel Luis Villegas MD at [facility] [employer] BILL ONLY BASIC DERRICK EXCLUDES AGC KN ZIMM / / Bill Only Tb Upchrg Implanted:Qty: 1 on 08/10/2014 by Angel Luis Villegas MD at [facility] [employer] UPCHRG MELY BILL ONLY TB / / Insurance MEDICARE MEDICARE Member Subscriber Plan / Payer (Ef fective for All Dates) Name:Zulma Carnes Member ID:[id number] Relation to Subscriber:Self Name:Zulma Carnes Subscriber ID:[id number] Payer ID:Not on file Group ID:Not on file Type:Medicare Address: [place] [id number] MEDICARE Care Teams Repairer Cylinder Heads Relationship Specialty Start Date End Date Jackson Rosa MD PCP - General Internal Medicine 05/18/14 Sammie Fox, RN Cloth Weigher 08/10/14 Deyanira Daigle, [facility] Piping Engineer 08/12/14 [place] [address] [place] [address] Orthopedic Surgery 09/03/16
--- OUTSIDE RECORDS SUMMARY | 2025-03-05 14:55 | XMS_ITS | Encounter Summary ---
Author Organization [facility] Address [address] [place] [address] Care Team Providers Care Industrial Hygienist Name Role Phone Jackson Rosa MD Primary Care Provider + Encounter Details Date Type Department Care Team (Latest Contact Info) Description 01/29/2006 Outpatient Historical HIS [facility] GEOFF Cabezas, Cyndee Crespo MD NO ADDRESS ON FILE Other Follow-Up Examination (Primary Dx) Social History Tobacco Use Types Packs/Day Years Used Date Smoking Tobacco: Never Assessed Comments Unknown Sex and Gender Information Value Date Recorded Sex Assigned at Not on file Legal Sex Female 3:45 AM PAPER MACHINE OPERATOR Gender Identity Not on file Sexual Orientation Not on file documented as of this encounter Plan of Treatment Not on file documented as of this encounter Visit Diagnoses Diagnosis Other follow-up examination(V67.59)- Primary Other follow-up examination documented in this encounter Care Teams Industrial Hygienist Relationship Specialty Start Date End Date Jackson Rosa MD [address] [place] [address] PCP - General 07/05/09 documented as of this encounter
--- OUTSIDE RECORDS SUMMARY | 2025-03-05 14:55 | XMS_ITS | Encounter Summary ---
Author Organization [facility] Address [address] [place] [address] Care Team Providers Care Senior Clerk Name Role Phone Jackson Rosa MD Primary Care Provider + Encounter Details Date Type Department Care Team (Latest Contact Info) Description 03/04/2007 Outpatient Historical HIS [facility] GEOFF Cabezas, Cyndee Crespo MD NO ADDRESS ON FILE Screening Mammogram for High-Risk Patient (Primary Dx) Social History Tobacco Use Types Packs/Day Years Used Date Smoking Tobacco: Never Assessed Comments Unknown Sex and Gender Information Value Date Recorded Sex Assigned at Not on file Legal Sex Female 3:45 AM CORRESPONDENCE CLERK Gender Identity Not on file Sexual Orientation Not on file documented as of this encounter Plan of Treatment Not on file documented as of this encounter Visit Diagnoses Diagnosis Screening mammogram for high-risk patient- Primary documented in this encounter Care Teams Senior Clerk Relationship Specialty Start Date End Date Jackson Rosa MD [address] [place] [address] PCP - General 07/05/09 documented as of this encounter
--- OUTSIDE RECORDS SUMMARY | 2025-03-05 14:55 | XMS_ITS | Encounter Summary ---
Author Organization [facility] Address [address] [place] [address] Care Team Providers Care Investigations Manager Name Role Phone Jackson Rosa MD Primary Care Provider + Encounter Details Date Type Department Care Team (Latest Contact Info) Description 07/12/2004 Outpatient Historical HIS [facility] GEOFF Cabezas, Cyndee Crespo MD NO ADDRESS ON FILE SCREENING MAMM-MALIG NEOPL-HI RISK (Primary Dx) Social History Tobacco Use Types Packs/Day Years Used Date Smoking Tobacco: Never Assessed Comments Unknown Sex and Gender Information Value Date Recorded Sex Assigned at Not on file Legal Sex Female 3:45 AM HUMAN RESOURCE ADVISER Gender Identity Not on file Sexual Orientation Not on file documented as of this encounter Plan of Treatment Not on file documented as of this encounter Visit Diagnoses Diagnosis Screening mammogram for high-risk patient- Primary documented in this encounter Care Teams Investigations Manager Relationship Specialty Start Date End Date Jackson Rosa MD [address] [place] [address] PCP - General 07/05/09 documented as of this encounter
[2025-03-05 15:41] LABS: Toxigenic C. Diff NEGATIVE (NEGATIVE)
== END 2025-03-05 14:52 | disposition home or self-care (01) ==
PROVIDERS: PCP Internal Medicine; Visit Provider Internal Medicine
DX: R19.7 Diarrhea, unspecified (principal)
CPT/HCPCS: 87493

== ENCOUNTER 2025-03-08 07:32 | Outpatient (CLI) | payer MEDICARE, SELFPAY ==
--- OUTSIDE RECORDS SUMMARY | 2025-03-08 07:37 | XMS_ITS | Clinical Summary ---
Author Organization [facility] Address [address] [place] [address] Care Team Providers Care Research Biologist Name Role Phone Jackson Rosa MD Primary Care Provider [phone] Irma Willams MD Unavailable Efrem Alves MD [...] Sex Assigned at Female 05/25/2024 1:26 PM REFINERY OPERATOR HELPER CRUDE UNIT Legal Sex Female 9:00 PM CDT Gender Identity Not on file Sexual Orientation Not on file Occupation Industry Job Start Date Job End Date Retired Not on file Not on file Not on file Last Filed Vital Signs Vital Sign Reading Time Taken Comments Blood Pressure 138/72 06/03/2024 12:50 PM REFINERY OPERATOR HELPER CRUDE UNIT Pulse 69 06/03/2024 12:50 PM REFINERY OPERATOR HELPER CRUDE UNIT Temperature 36.1 C (97 F) 11/03/2019 12:30 PM CDT Respiratory Rate 16 06/03/2024 12:5 0 PM REFINERY OPERATOR HELPER CRUDE UNIT Oxygen Saturation 94% 06/03/2024 12: 50 PM REFINERY OPERATOR HELPER CRUDE UNIT Inhaled Oxygen Concentration - - Weight 63.4 kg (139 lb 12.8 oz) 025 12:50 PM REFINERY OPERATOR HELPER CRUDE UNIT Height 156.2 cm (5' 1.5) 06/03/2024 12 :50 PM REFINERY OPERATOR HELPER CRUDE UNIT Body Mass Index 25.99 06/03/2024 12:50 PM REFINERY OPERATOR HELPER CRUDE UNIT Plan of Treatment Upcoming Encounters Date Type Department Care Team (Late st Contact Info) Description 05/10/2025 8:30 AM REFINERY OPERATOR HELPER CRUDE UNIT Office Visit [facility] [place] [address] Irma Willams MD [address] [place] [address] Health Maintenance Due Date Last Done Comments [...] this topic Medical Devices Implanted Type Area Travel Sales Consultant Device Identifier Shelf Expiration Date Model / Serial / Lot Knee Components Knee Components Description:Right knee Knee Components Knee Components Description:Rt knee Iol Augustus [id number] - [id number] Implanted:Qty: 1 on 10/13/2019 by Stephane Samson MD at [facility] Lens Left: Eye [employer] 01/27/2024 [id number] / [id number] / N/A Description:Implant verified by Iol [employer] Li61ao - [id number] Implanted:Qty: 1 on 11/03/2019 by Stephane Samson MD at [facility] Lens Right: Eye [employer] 08/27/2023 [id number] / [id number] Description:Lens verified pe r surgeon and chart Procedures Procedure Name Priority Date/Time Associated Diagnosis Comments LIPID PANEL Routine 06/27/2013 12:00 AM REFINERY OPERATOR HELPER CRUDE UNIT from Last 3 Months or Most Recently Relevant to Health Maintenance Results * LIPID PANEL (06/27/2013 12:00 AM REFINERY OPERATOR HELPER CRUDE UNIT) TRIGLYCERIDES 78 0 - 150 mg/dl MEDINFORMATIX [...] Health Maintenance Insurance MEDICARE MEDICARE Care Teams Research Biologist Relationship Specialty Start Date End Date Jackson Rosa MD [address] [place] [address] PCP - General INTERNAL MEDICINE 04/02/16 Irma Willams MD [address] [place] [address] Consulting Physician CARDIOVASCULAR DISEASE 11/03/23 Efrem Alves MD [address] [place] [address] Vascular/Disease Control Inspector INTERNAL MEDICINE 12/17/23
--- OUTSIDE RECORDS SUMMARY | 2025-03-08 07:37 | XMS_ITS | Clinical Summary ---
Author Organization [facility] Administrative Offices Address [address] [place] [address] Care Team Providers Care Agricultural Economics Teacher Name Role Phone Jackson Rosa MD [...] BI-FLEX ORAL) Take by mouth. Active Coenzyme T29-Laxbrgs E (COQ10 SG 100) 100-100 mg-unit Oral [...] on file Legal Sex Female 3:45 AM CHEMICAL PLANT OPERATOR Gender Identity Not on file Sexual Orientation Not on file Last Filed Vital Signs Vital Sign Reading Time Taken Comments Blood Pressure 122/58 04/18/2016 9:52 AM CHEMICAL PLANT OPERATOR Pulse 61 04/18/2016 9:52 AM CHEMICAL PLANT OPERATOR Temperature - - Respiratory Rate - - Oxygen Saturation - - Inhaled Oxygen Concentration - - Weight 68.9 kg (152 lb) 04/18/2016 9:52 AM CHEMICAL PLANT OPERATOR Height 157.5 cm (5' 2) 04/18/2016 9:52 AM CHEMICAL PLANT OPERATOR Body Mass Index 27.8 04/18/2016 9:52 AM CHEMICAL PLANT OPERATOR Plan of Treatment Health Maintenance Due Date [...] Maintenance Insurance MEDIC[facility] A [facility] B [facility] [place] [address] Care Teams Agricultural Economics Teacher Relationship Specialty Start Date End Date Jackson Rosa MD [address] [place] [address] PCP - General 07/05/09
--- OUTSIDE RECORDS SUMMARY | 2025-03-08 07:37 | XMS_ITS | Clinical Summary ---
Author Organization [facility] Address [address] [facility] [place] [address] Care Team Providers Care Director Of Database Marketing Name Role Phone Jackson Rosa MD Primary Care Provider [phone] Sammie Fox RN Unavailable Deyanira Daigle KNUCKLER Unavailable [phone] Luis Carlos Rivas MD Unavailable [phone] Source Comments [facility],non-owned Affiliates and Associated Physician Practices is amultiple site organization consisting of ambulatory clinics and hospital sitesin [place], [place], [place] and [place]. This disclosure is being madepursuant to the Care Everywhere program and may not contain all information available regarding this patient. Last updated 18.[facility] Allergies Active Allergy Reactions Criticality [...] problems Immunizations Immunization Administration Dates Next Due [employer] primary monoval ent 12+ yr 0.3mL Purple [...] Sex Assigned at Female 05/03/2021 6:03 PM DIRECTOR BUSINESS INTELLIGENCE Legal Sex Female 9:20 AM DIRECTOR BUSINESS INTELLIGENCE Gender Identity Female 05/03/2021 6:03 PM DIRECTOR BUSINESS INTELLIGENCE Sexual Orientation Straight 05/03/2021 6: 03 PM DIRECTOR BUSINESS INTELLIGENCE Last Filed Vital Signs Vital Sign Reading Time Taken Comments Blood Pressure 132/78 06/21/2016 8:16 AM DIRECTOR BUSINESS INTELLIGENCE Pulse 55 06/21/2016 8:16 AM DIRECTOR BUSINESS INTELLIGENCE Temperature 36.7 C (98.1 F) 08/13/2014 11:27 [...] this topic Medical Devices Implanted Type Area Product Support Consultant Device Identifier Shelf Expiration Date Model / Serial / Lot Nexgen Complete Knee Solution Cruciate Retaining Trabecular Metal Monoblock Tibial Component Tibial Size 3, Femoral Size C-H, 10mm Height Implanted:Qty: 1 on 08/10/2014 by Angel Luis Villegas MD at [facility] Right: Knee [employer] 01/27/2019 [id number] Nexgen Complete Knee Solution Cruciate Retaining Cr-Flex Femoral Component Porous Size D, Right Implanted:Qty: 1 on 08/10/2014 by Angel Luis Villegas MD at [facility] Right: Knee [employer] 11/28/2023 / / [id number] Bill Only Basic Derrick Excludes Agc Kn [...] fective for All Dates) Name:Zulma Carnes Member ID:[id number] Relation to Subscriber:Self Name:Zulma Carnes Subscriber ID:[id number] Payer ID:Not on file Group ID:Not on file Type:Medicare Address: [place] [id number] MEDICARE Care Teams Director Of Database Marketing Relationship Specialty Start Date End Date Jackson Rosa MD PCP - General Internal Medicine 05/18/14 Sammie Fox, RN Pickle Maker 08/10/14 Deyanira Daigle, [facility] Numerical Control Machine Machinist 08/12/14 [place] [address] [place] [address] Orthopedic Surgery 09/03/16
--- OUTSIDE RECORDS SUMMARY | 2025-03-08 07:37 | XMS_ITS | Encounter Summary ---
Author Organization [facility] Address [address] [place] [address] Care Team Providers Care [place] Actor Name Role Phone Jackson Rosa MD Primary Care Provider [phone] Irma Willams MD Unavailable Efrem Alves MD Unavailable Encounter Details Date Type Department Care Team (Late Contact Info) Description 06/22/2024 Technorati Message Enc [facility] ield [address] [place] [address] [facility] Provider Echo results Social History Tobacco Use Types Packs/Day Years Used Date Smoking Tobacco: Never Passive Smoke Exposure: Never Smokeless Tobacco: Never Alcohol Use Standard Drinks/Week Comments Yes 0 (1 standard drink = 0.6 oz pur e alcohol) very rare wine usage Comments Unknown Sex and Gender Information Value Date Recorded Sex Assigned at Female 05/25/2024 1:26 PM PURCHASING AND FISCAL CLERK Legal Sex Female 9:00 PM CDT Gender Identity Not on file Sexual Orientation Not on file Occupation Industry Job Start Date Job End Date Retired Not on file Not on file Not on file documented as of this encounter Plan of Treatment Upcoming Encounters Date Type Department Care Team (Late Contact Info) Description 05/10/2025 8:30 AM PURCHASING AND FISCAL CLERK Office Visit [facility] [address] [place] [address] Irma Willams MD [address] [place] [address] documented as of this encounter Visit Diagnoses Not on filedocumented in this encounter Care Teams [place] Actor Relationship Specialty Start Date End Date Jackson Rosa MD [address] [place] [address] PCP - General INTERNAL MEDICINE 04/02/16 Irma Willams MD [address] [place] [address] Consulting Physician CARDIOVASCULAR DISEASE 11/03/23 Efrem Alves MD [address] [place] [address] Vascular/Engineering Mgr INTERNAL MEDICINE 12/17/23 documented as of this encounter
--- OUTSIDE RECORDS SUMMARY | 2025-03-08 07:38 | XMS_ITS | Encounter Summary ---
Author Organization [facility] Address [address] [place] [address] Care Team Providers Care Bobbin Coil Winder Name Role Phone Jackson Rosa MD Primary Care Provider + Encounter Details Date Type Department Care Team (Latest Contact Info) Description 03/31/2008 Outpatient Historical HIS [facility]OFF Cabezas, Ezequiel Crespo MD NO ADDRESS ON FILE Other Screening Mammogram Social History Tobacco Use Types Packs/Day Years Used Date Smoking Tobacco: Never Assessed Comments Unknown Sex and Gender Information Value Date Recorded Sex Assigned at Not on file Legal Sex Female 3:45 AM TRADE SHOW COORDINATOR Gender Identity Not on file Sexual Orientation Not on file documented as of this encounter Plan of Treatment Not on file documented as of this encounter Procedures Procedure Name Priority Date/Time Associated Diagnosis Comments MAMMO SCREEN BILAT W OR WO CAD Routine 03/31/2008 8:30 AM TRADE SHOW COORDINATOR documented in this encounter Results * MAMMO DIGITAL SCREEN BILAT (03/31/2008 8:30 AM TRADE SHOW COORDINATOR) Anatomical Region Laterality Modality Breast Bilateral Other 03/31/2008 8:30 AM TRADE SHOW COORDINATOR Narrative 03/31/2008 12:03 PM TRADE SHOW COORDINATOR [address] [address] Admit Date: 03/31/2008 ZULMA CARNES Sex: F Admit Prov: EZEQUIEL CABEZAS Date: 1945 Primary Care Prov: CMRN: [id number] Room: KIRT SSN: [id number] IMAGING SERVICES Ordering Prov: EZEQUIEL CABEZAS Accession Number: [id number] Interpretation EXAM: BILATERAL SCREENING FULL FIELD DIGITAL [...] AMK Procedure Note Elena Lou - 03/31/2008 [facility] [address], [place] [address] Admit Date: 03/31/2008 ZULMA CARNES Sex: F Admit Prov: EZEQUIEL CABEZAS Date: 1945 Primary Care Prov: CMRN: [id number] Room: MASONAshleigh SSN: [id number] IMAGING SERVICES Ordering Prov: EZEQUIEL CABEZAS Interpretation [...] mammogram documented in this encounter Care Teams Bobbin Coil Winder Relationship Specialty Start Date End Date Jackson Rosa MD [address] [place] [phone] PCP - General 07/05/09 documented as of this encounter
--- OUTSIDE RECORDS SUMMARY | 2025-03-08 07:38 | XMS_ITS | Clinical Summary ---
Author Organization [facility] Address [address] [place] [address] Care Team Providers Care Industrial Specialist Name Role Phone Jackson Rosa MD Primary Care Provider [phone] Allergies Active Allergy Reactions Criticality Noted Date [...] 07/04/2021 Assessment & Plan (07/04/2021 11:03 AM FORESTRY HUNTER): I explained to the patient how subclinical [...] on file Legal Sex Female 12:56 AM FORESTRY HUNTER Gender Identity Female 10/06/2019 1:08 PM CDT [...] lb 3.2 oz) 05/15/2023 3:06 P M FORESTRY HUNTER Height 157.5 cm (5' 2) 05/15/2023 3:06 PM FORESTRY HUNTER Body Mass Index 27.11 05/15/2023 3:06 PM FORESTRY HUNTER Plan of Treatment Health Maintenance Due Date [...] Screening Discontinued Medical Devices Implanted Type Area Counseling Case Manager Device Identifier Shelf Expiration Date Model [...] Female Attending MD: Dwayne Chan MD Room: [facility] 2 Note Status: Finalized Patient [...] passed under direct vision.The Pediatric Colonoscope [id number]-[id number] was introduced through the anus and advanced [...] perforation orabscess without bleeding CPT copyright 2017 [employer]. All rights reserved. The codes documented in this report are preliminary and upon solid surface fabricator reviewmay be revised to meet current compliance requirements. Recognized by the [employer] for promoting quality in endoscopy Dwayne Chan MD ENDOSCOPY PROCEDURES Final Result from Last 3 Months or Most Recently Relevant to Health Maintenance Insurance MEDICARE [employer] [facility] MEDICARE MEDICARE [facility] Advance Directives For more information, please contact: [phone] * Full Code (Latest Code Status on File) Date Activated Date Inactivated Comments 12/04/2017 11:05 AM 12/04/2017 3:39 PM Care Teams Industrial Specialist Relationship Specialty Start Date End Date Jackson Rosa MD [address] [place] [address] PCP - General 07/04/16
--- OUTSIDE RECORDS SUMMARY | 2025-03-08 07:38 | XMS_ITS | Encounter Summary ---
Author Organization [facility] Address [address] [place] [address] Care Team Providers Care Shook Machine Operator Name Role Phone Jackson Rosa MD Primary Care Provider + Encounter Details Date Type Department Care Team (Latest Contact Info) Description 03/04/[address] [facility] GE[facility] Cabezas, Cyndee Crespo MD NO ADDRESS ON FILE Screening Mammogram for High-Risk Patient (Primary Dx) Social History Tobacco Use Types Packs/Day Years Used Date Smoking Tobacco: Never Assessed Comments Unknown Sex and Gender Information Value Date Recorded Sex Assigned at Not on file Legal Sex Female 3:45 AM MANAGER ASSET Gender Identity Not on file Sexual Orientation Not on file documented as of this encounter Plan of Treatment Not on file documented as of this encounter Visit Diagnoses Diagnosis Screening mammogram for high-risk patient- Primary documented in this encounter Care Teams Shook Machine Operator Relationship Specialty Start Date End Date Jackson Rosa MD [address] [place] [address] PCP - General 07/05/09 documented as of this encounter
--- OUTSIDE RECORDS SUMMARY | 2025-03-08 07:38 | XMS_ITS | Encounter Summary ---
Author Organization [facility] Address [address] [place] [address] Care Team Providers Care Product Marketing Intern Name Role Phone Jackson Rosa MD Primary Care Provider + Encounter Details Date Type Department Care Team (Latest Contact Info) Description 09/09/2001 Outpatient Historical HIS [facility] GEOFF Cabezas, Cyndee Crespo MD NO ADDRESS ON FILE PERS HX OF BREAST MALIGNANCY (Primary Dx) Social History Tobacco Use Types Packs/Day Years Used Date Smoking Tobacco: Never Assessed Comments Unknown Sex and Gender Information Value Date Recorded Sex Assigned at Not on file Legal Sex Female 3:45 AM DOUGH SHEETER Gender Identity Not on file Sexual Orientation Not on file documented as of this encounter Plan of Treatment Not on file documented as of this encounter Visit Diagnoses Diagnosis Personal history of malignant neoplasm of breast- Primary documented in this encounter Care Teams Product Marketing Intern Relationship Specialty Start Date End Date Jackson Rosa MD [address] [place] [phone] PCP - General 07/05/09 documented as of this encounter
--- OUTSIDE RECORDS SUMMARY | 2025-03-08 07:38 | XMS_ITS | Encounter Summary ---
Author Organization [facility] Address [address] [place] [address] Care Team Providers Care Icu Rn Name Role Phone Jackson Rosa MD [...] file Legal Sex Female 3:45 AM SENIOR BI DEVELOPER Gender Identity Not on file Sexual Orientation Not on file documented as of this encounter Plan of Treatment Not on file documented as of this encounter Visit Diagnoses Diagnosis Follow-up examination, following other surgery- Primary documented in this encounter Care Teams Icu Rn Relationship Specialty Start Date End Date Jackson Rosa MD [address] [place] [phone] PCP - General 07/05/09 documented as of this encounter
--- OUTSIDE RECORDS SUMMARY | 2025-03-08 07:38 | XMS_ITS | Encounter Summary ---
Author Organization [facility] Address [address] [place] [address] Care Team Providers Care Patient Access Director Name Role Phone Jackson Rosa MD Primary Care Provider + Encounter Details Date Type Department Care Team (Latest Contact Info) Description 09/07/1998 Outpatient Historical HIS [facility] GE[facility] Cabezas, Cyndee Crespo MD NO ADDRESS ON FILE Personal history of malignant neoplasm of breast (Primary Dx) Social History Tobacco Use Types Packs/Day Years Used Date Smoking Tobacco: Never Assessed Comments Unknown Sex and Gender Information Value Date Recorded Sex Assigned at Not on file Legal Sex Female 3:45 AM MEASUREMENT ADVISOR Gender Identity Not on file Sexual Orientation Not on file documented as of this encounter Plan of Treatment Not on file documented as of this encounter Visit Diagnoses Diagnosis Personal history of malignant neoplasm of breast- Primary documented in this encounter Care Teams Patient Access Director Relationship Specialty Start Date End Date Jackson Rosa MD [address] [place] [phone] PCP - General 07/05/09 documented as of this encounter
--- OUTSIDE RECORDS SUMMARY | 2025-03-08 07:38 | XMS_ITS ---
Author Organization [facility] Address [address] [place] [address] Care Team Providers Care Seam Sewer Name Role Phone Jackson Rosa MD Primary [...] 07/04/2021 Assessment & Plan (07/04/2021 11:03 AM MACHINERY DISMANTLER): I explained to the patient how subclinical [...]
--- OUTSIDE RECORDS SUMMARY | 2025-03-08 07:38 | XMS_ITS | Patient Health Record ---
Author Organization [facility] [employer] Address [address] [place] [address] Care Team Providers Care Head Of Physics Name Role Phone Juanito Reagan Unavailable [phone] Reason For Referral No Information Medications Medication SIG (Take, Route, Frequency, Duration) Notes Start Date End Date Status valACYclovir HCl 500 MG Tablet Oral 02/14/2023 Active Fluticasone Propionate Diskus 50 MCG/ACT Aerosol Powder Breath Activated Inhalation *Reorder from Corrupt Lace for eRx and Interaction Alerts* 02/14/2023 Active [...] 20 MG Tablet Oral 02/14/2023 Active Nystatin 812385 UNIT/ML Suspension Mouth/Throat 02/14/2023 Active Escitalopram Oxalate 10 MG Tablet Oral 02/14/2023 Active Paxlovid (300/100) 20 x 150 MG & 10 x 100MG Tablet Therapy Pack Oral *Reorder from Corrupt Lace for eRx and Interaction Alerts* 02/14/2023 Active [...] Medicare [address] [place] [phone] [id number] SIDNEY ANDERSON Self - patient is the insured [place] Medicare Supplement [address] [employer] [place] [id number] SIDNEY ANDERSON Self - patient is the insured
--- OUTSIDE RECORDS SUMMARY | 2025-03-08 07:38 | XMS_ITS | Encounter Summary ---
Author Organization [facility] Address [address] [place] [address] Care Team Providers Care Business Management Intern Name Role Phone Jackson Rosa MD Primary Care Provider + Encounter Details Date Type Department Care Team (Latest Contact Info) Description 10/13/[address] [facility] GEOFF Cabezas, Cyndee Crespo MD NO ADDRESS ON FILE SCREENING MAMM-MAILG NEOPL-OTHER (Primary Dx) Social History Tobacco Use Types Packs/Day Years Used Date Smoking Tobacco: Never Assessed Comments Unknown Sex and Gender Information Value Date Recorded Sex Assigned at Not on file Legal Sex Female 3:45 AM DOWEL PIN MAN Gender Identity Not on file Sexual Orientation Not on file documented as of this encounter Plan of Treatment Not on file documented as of this encounter Visit Diagnoses Diagnosis Other screening mammogram- Primary documented in this encounter Care Teams Business Management Intern Relationship Specialty Start Date End Date Jackson Rosa MD [address] [place] [phone] PCP - General 07/05/09 documented as of this encounter
--- OUTSIDE RECORDS SUMMARY | 2025-03-08 07:38 | XMS_ITS | Encounter Summary ---
Author Organization [facility] Address [address] [place] [address] Care Team Providers Care Retail Link Analyst Name Role Phone Jackson Rosa MD Primary Care Provider + Encounter Details Date Type Department Care Team (Latest Contact Info) Description 01/29/2006 Outpatient Historical HIS [facility] GEOFF Cabezas, Cyndee Crespo MD NO ADDRESS ON FILE Other Follow-Up Examination (Primary Dx) Social History Tobacco Use Types Packs/Day Years Used Date Smoking Tobacco: Never Assessed Comments Unknown Sex and Gender Information Value Date Recorded Sex Assigned at Not on file Legal Sex Female 3:45 AM RIPSAW GRADER Gender Identity Not on file Sexual Orientation Not on file documented as of this encounter Plan of Treatment Not on file documented as of this encounter Visit Diagnoses Diagnosis Other follow-up examination(V67.59)- Primary Other follow-up examination documented in this encounter Care Teams Retail Link Analyst Relationship Specialty Start Date End Date Jackson Rosa MD [address] [place] [address] PCP - General 07/05/09 documented as of this encounter
--- OUTSIDE RECORDS SUMMARY | 2025-03-08 07:38 | XMS_ITS | Encounter Summary ---
Author Organization [facility] Address [address] [place] [address] Care Team Providers Care Lamp Cleaner Street Light Name Role Phone Jackson Rosa MD Primary Care Provider + Encounter Details Date Type Department Care Team (Latest Contact Info) Description 08/12/2002 Outpatient Historical HIS [facility] GEOFF Cabezas, Cyndee Crespo MD NO ADDRESS ON FILE SCREENING MAMM-MAILG NEOPL-OTHER (Primary Dx) Social History Tobacco Use Types Packs/Day Years Used Date Smoking Tobacco: Never Assessed Comments Unknown Sex and Gender Information Value Date Recorded Sex Assigned at Not on file Legal Sex Female 3:45 AM PHOTOSTAT OPERATOR Gender Identity Not on file Sexual Orientation Not on file documented as of this encounter Plan of Treatment Not on file documented as of this encounter Visit Diagnoses Diagnosis Other screening mammogram- Primary documented in this encounter Care Teams Lamp Cleaner Street Light Relationship Specialty Start Date End Date Jackson Rosa MD [address] [place] [phone] PCP - General 07/05/09 documented as of this encounter
--- OUTSIDE RECORDS SUMMARY | 2025-03-08 07:38 | XMS_ITS | Encounter Summary ---
Author Organization [facility] Address [facility] [place] [address] Care Team Providers Care Superintendent Local Name Role Phone Jackson Rosa MD Primary Care Provider [phone] Gaurang Gonzalez MD Unavailable Unavailab Jeremiah Crowder MD Unavailable [phone] Whit Perez APRN WAREHOUSE PULLER-C Unavailable Irma Willams MD Unavailable Efrem Alves MD Unavailable Encounter Details Date Type Department Care Team (Late Contact Info) Description 12/01/2014 Abstract [facility] AT [address] [address] Gaurang Gonzalez MD Social History Tobacco Use Types Packs/Day Years Used Date Smoking Tobacco: Never Alcohol Use Standard Drinks/Week Comments Yes 0 (1 standard drink = 0.6 oz pur e alcohol) Occasionally, Wine. Comments Unknown Sex and Gender Information Value Date Recorded Sex Assigned at Female 05/25/2024 1:26 PM LAY OUT INSPECTOR Legal Sex Female 9:00 PM CDT Gender Identity Not on file Sexual Orientation Not on file Occupation Industry Job Start Date Job End Date Retired Not on file Not on file Not on file documented as of this encounter Plan of Treatment Upcoming Encounters Date Type Department Care Team (Late st Contact Info) Description 05/10/2025 8:30 AM LAY OUT INSPECTOR Office Visit [facility] [place] [phone] Irma Willams MD [address] [place] [address] documented as of this encounter Visit Diagnoses Not on filedocumented in this encounter Additional Health Concerns Infection Onset Date Last Indicated Resolved Time COVID-19 Rule Out 10/10/2019 10/10/2019 10/11/2019 1:50 PM CDT COVID-19 Rule Out 10/31/2019 10/31/2019 11/01/2019 10:23 PM CDT documented as of this encounter Care Teams Superintendent Local Relationship Specialty Start Date End Date Jackson Rosa MD [address] [place] [phone] PCP - General INTERNAL MEDICINE 04/02/16 Gaurang Gonzalez MD [address] [place] [address] CARDIOVASCULAR DISEASE 04/02/16 05/20/18 Jeremiah Rolon MD [address] [place] [address] [place] Jail[place] CARDIOVASCULAR DISEASE 07/28/18 11/02/23 Whit Perez APRN, WAREHOUSE PULLER-C [address] [facility] [address] [place] [address] NURSE PRACTITIONER 02/17/19 12/05/23 Irma Willams MD [address] [place] [address] Consulting Physician CARDIOVASCULAR DISEASE 11/03/23 Efrem Alves MD [address] [place] [address] Vascular/Jailer INTERNAL MEDICINE 12/17/23 documented as of this encounter
--- OUTSIDE RECORDS SUMMARY | 2025-03-08 07:38 | XMS_ITS | Encounter Summary ---
Author Organization [facility] Address [address] [place] [address] Care Team Providers Care Doctor Of Podiatric Medicine Name Role Phone Jackson Rosa MD Primary Care Provider + Encounter Details Date Type Department Care Team (Latest Contact Info) Description 09/03/2000 Outpatient Historical HIS [facility] GE[facility] Cabezas, Cyndee Crespo MD NO ADDRESS ON FILE Personal history of malignant neoplasm of breast (Primary Dx) Social History Tobacco Use Types Packs/Day Years Used Date Smoking Tobacco: Never Assessed Comments Unknown Sex and Gender Information Value Date Recorded Sex Assigned at Not on file Legal Sex Female 3:45 AM VACATION PLANNER Gender Identity Not on file Sexual Orientation Not on file documented as of this encounter Plan of Treatment Not on file documented as of this encounter Visit Diagnoses Diagnosis Personal history of malignant neoplasm of breast- Primary documented in this encounter Care Teams Doctor Of Podiatric Medicine Relationship Specialty Start Date End Date Jackson Rosa MD [address] [place] [phone] PCP - General 07/05/09 documented as of this encounter
--- OUTSIDE RECORDS SUMMARY | 2025-03-08 07:38 | XMS_ITS | Encounter Summary ---
Author Organization [facility] Address [address] [place] [address] Care Team Providers Care Information Technology Security Manager Name Role Phone Jackson Rosa MD Primary Care Provider + Encounter Details Date Type Department Care Team (Latest Contact Info) Description 01/24/1999 Outpatient Historical HIS [facility] GE[facility] Cabezas, Cyndee Crespo MD NO ADDRESS ON FILE Other screening mammogram (Primary Dx) Social History Tobacco Use Types Packs/Day Years Used Date Smoking Tobacco: Never Assessed Comments Unknown Sex and Gender Information Value Date Recorded Sex Assigned at Not on file Legal Sex Female 3:45 AM STEM ROLLER OR CRUSHER OPERATOR Gender Identity Not on file Sexual Orientation Not on file documented as of this encounter Plan of Treatment Not on file documented as of this encounter Visit Diagnoses Diagnosis Other screening mammogram- Primary documented in this encounter Care Teams Information Technology Security Manager Relationship Specialty Start Date End Date Jackson Rosa MD [address] [place] [phone] PCP - General 07/05/09 documented as of this encounter
--- OUTSIDE RECORDS SUMMARY | 2025-03-08 07:38 | XMS_ITS | Encounter Summary ---
Author Organization [facility] Address [address] [place] [address] Care Team Providers Care Wad Blanking Press Adjuster Name Role Phone Jackson Rosa MD Primary Care Provider + Encounter Details Date Type Department Care Team (Latest Contact Info) Description 09/05/1999 Outpatient Historical HIS [facility] GEOFF Cabezas, Cyndee Crespo MD NO ADDRESS ON FILE Personal history of malignant neoplasm of breast (Primary Dx) Social History Tobacco Use Types Packs/Day Years Used Date Smoking Tobacco: Never Assessed Comments Unknown Sex and Gender Information Value Date Recorded Sex Assigned at Not on file Legal Sex Female 3:45 AM LADIES' HAT TRIMMER Gender Identity Not on file Sexual Orientation Not on file documented as of this encounter Plan of Treatment Not on file documented as of this encounter Visit Diagnoses Diagnosis Personal history of malignant neoplasm of breast- Primary documented in this encounter Care Teams Wad Blanking Press Adjuster Relationship Specialty Start Date End Date Jackson Rosa MD [address] [place] [phone] PCP - General 07/05/09 documented as of this encounter
--- OUTSIDE RECORDS SUMMARY | 2025-03-08 07:38 | XMS_ITS | Encounter Summary ---
Author Organization [facility] Address [address] [place] [address] Care Team Providers Care Manager Process Excellence Name Role Phone Jackson Rosa MD Primary Care Provider + Encounter Details Date Type Department Care Team (Latest Contact Info) Description 07/12/2004 Outpatient Historical HIS [facility] GEOFF Cabezas, Cyndee Crespo MD NO ADDRESS ON FILE SCREENING MAMM-MALIG NEOPL-HI RISK (Primary Dx) Social History Tobacco Use Types Packs/Day Years Used Date Smoking Tobacco: Never Assessed Comments Unknown Sex and Gender Information Value Date Recorded Sex Assigned at Not on file Legal Sex Female 3:45 AM SHEET ROCK SANDER Gender Identity Not on file Sexual Orientation Not on file documented as of this encounter Plan of Treatment Not on file documented as of this encounter Visit Diagnoses Diagnosis Screening mammogram for high-risk patient- Primary documented in this encounter Care Teams Manager Process Excellence Relationship Specialty Start Date End Date Jackson Rosa MD [address] [place] [address] PCP - General 07/05/09 documented as of this encounter
[2025-03-08 13:05] VITALS: BP 122/78; PULSE 80; RESP 14; TEMP 36.6; O2SAT 98; BMI 25.2
[2025-03-08] MEDS: DENOSUMAB 60 MG/ML SYRINGE SUB-Q (13:09)
== END 2025-03-08 07:33 | disposition home or self-care (01) ==
PROVIDERS: PCP Internal Medicine; Visit Provider Internal Medicine
DX: M81.0 Age-related osteoporosis without current pathological fracture (principal)
CPT/HCPCS: 96372; J0897

== ENCOUNTER 2025-03-22 12:40 | Outpatient (CLI) | payer MEDICARE, SELFPAY ==
--- OUTSIDE RECORDS SUMMARY | 2025-03-22 14:28 | XMS_ITS | Clinical Summary ---
Author Organization [facility] Address [address] [place] [address] Care Team Providers Care Rockboard Lather Name Role Phone Jackson Rosa MD Primary Care Provider [phone] Sammie Fox RN Unavailable Deyanira Daigle YARDING SUPERVISOR Unavailable Luis Carlos Rivas MD Unavailable [phone] Source Comments [facility],non-owned Affiliates and Associated Physician Practices is amultiple site organization consisting of ambulatory clinics and hospital sitesin [place], [place], [place] and [place]. This disclosure is being madepursuant to the [...] problems Immunizations Immunization Administration Dates Next Due [employer] primary monoval ent 12+ yr 0.3mL [...] Sex Assigned at Female 05/03/2021 6:03 PM FOOD PREPARATION SUPERVISOR Legal Sex Female 9:20 AM FOOD PREPARATION SUPERVISOR Gender Identity Female 05/03/2021 6:03 PM FOOD PREPARATION SUPERVISOR Sexual Orientation Straight 05/03/2021 6: 03 PM FOOD PREPARATION SUPERVISOR Last Filed Vital Signs Vital Sign Reading Time Taken Comments Blood Pressure 132/78 06/21/2016 8:16 AM FOOD PREPARATION SUPERVISOR Pulse 55 06/21/2016 8:16 AM FOOD PREPARATION SUPERVISOR Temperature 36.7 C (98.1 F) 08/13/2014 11:27 [...] this topic Medical Devices Implanted Type Area Faculty Criminal Justice Device Identifier Shelf Expiration Date Model / Serial / Lot Nexgen Complete Knee Solution Cruciate Retaining Trabecular Metal Monoblock Tibial Component Tibial Size 3, Femoral Size C-H, 10mm Height Implanted:Qty: 1 on 08/10/2014 by Angel Luis Villegas MD at [facility] Right: Knee [employer] 01/27/2019 [id number] Nexgen Complete Knee Solution Cruciate Retaining Cr-Flex Femoral Component Porous Size D, Right Implanted:Qty: 1 on 08/10/2014 by Angel Luis Villegas MD at [facility] Right: Knee [employer] 11/28/2023 / / [id number] Bill Only Basic Derrick Excludes Agc Kn Implanted:Qty: 1 on 08/10/2014 by Angel Luis Villegas MD at [facility] [employer] BILL ONLY BASIC DERRICK EXCLUDES AGC KN ZIMM / / Bill Only Tb Upchrg Implanted:Qty: 1 on 08/10/2014 by Angel Luis Villegas MD at [facility] [employer] UPCHRG MELY BILL ONLY TB / / Insurance MEDICARE MEDICARE Member Subscriber Plan / Payer (Ef fective for All Dates) Name:Zulma Carnes Member ID:[id number] Relation to Subscriber:Self Name:Zulma Carnes Subscriber ID:[id number] Payer ID:Not on file Group ID:Not on file Type:Medicare Address: [place] [id number] MEDICARE Care Teams Rockboard Lather Relationship Specialty Start Date End Date Jackson Rosa MD PCP - General Internal Medicine 05/18/14 Sammie Fox, RN District Superintendent 08/10/14 Deyanira Daigle, [facility] Postal Inspector 08/12/14 [place] [address] [place] [id number] Orthopedic Surgery 09/03/16
--- OUTSIDE RECORDS SUMMARY | 2025-03-22 14:28 | XMS_ITS | Encounter Summary ---
Author Organization [facility] Address [address] [place] [address] Care Team Providers Care Behavioral Health Counselor Name Role Phone Jackson Rosa MD Primary Care Provider + Encounter Details Date Type Department Care Team (Latest Contact Info) Description 01/24/1999 Outpatient Historical HIS [facility] Cabezas, Cyndee Crespo MD NO ADDRESS ON FILE Other screening mammogram (Primary Dx) Social History Tobacco Use Types Packs/Day Years Used Date Smoking Tobacco: Never Assessed Comments Unknown Sex and Gender Information Value Date Recorded Sex Assigned at Not on file Legal Sex Female 3:45 AM SKILLED LABOR Gender Identity Not on file Sexual Orientation Not on file documented as of this encounter Plan of Treatment Not on file documented as of this encounter Visit Diagnoses Diagnosis Other screening mammogram- Primary documented in this encounter Care Teams Behavioral Health Counselor Relationship Specialty Start Date End Date Jackson Rosa MD [address] [place] [phone] PCP - General 07/05/09 documented as of this encounter
--- OUTSIDE RECORDS SUMMARY | 2025-03-22 14:28 | XMS_ITS | Encounter Summary ---
Author Organization [facility] Address [address] [place] [address] Care Team Providers Care Finisher Map And Chart Name Role Phone Jackson Rosa MD Primary Care Provider + Encounter Details Date Type Department Care Team (Latest Contact Info) Description 09/07/1998 Outpatient Historical HIS [facility] GE[facility] Cabezas, Cyndee Crespo MD NO ADDRESS ON FILE Personal history of malignant neoplasm of breast (Primary Dx) Social History Tobacco Use Types Packs/Day Years Used Date Smoking Tobacco: Never Assessed Comments Unknown Sex and Gender Information Value Date Recorded Sex Assigned at Not on file Legal Sex Female 3:45 AM CHAIN SAW OPERATOR Gender Identity Not on file Sexual Orientation Not on file documented as of this encounter Plan of Treatment Not on file documented as of this encounter Visit Diagnoses Diagnosis Personal history of malignant neoplasm of breast- Primary documented in this encounter Care Teams Finisher Map And Chart Relationship Specialty Start Date End Date Jackson Rosa MD [address] [place] [phone] PCP - General 07/05/09 documented as of this encounter
--- OUTSIDE RECORDS SUMMARY | 2025-03-22 14:28 | XMS_ITS | Encounter Summary ---
Author Organization [facility] Address [facility]ly [facility] [place] [address] Care Team Providers Care Retail Store Associate Name Role Phone Jackson Rosa MD Primary Care Provider [phone] Gaurang Gonzalez MD Unavailable Unavailab Jeremiah Crowder MD Unavailable [phone] Whit Perez APRN KEY ATTENDANT-C Unavailable Irma Willams MD Unavailable Efrem Alves MD Unavailable Encounter Details Date Type Department Care Team (Late Contact Info) Description 12/01/2014 [facility] AT [address] [address] Gaurang Gonzalez MD Social History Tobacco Use Types Packs/Day Years Used Date Smoking Tobacco: Never Alcohol Use Standard Drinks/Week Comments Yes 0 (1 standard drink = 0.6 oz pur e alcohol) Occasionally, Wine. Comments Unknown Sex and Gender Information Value Date Recorded Sex Assigned at Female 05/25/2024 1:26 PM MD SENIOR RESEARCH SCIENTIST Legal Sex Female 9:00 PM CDT Gender Identity Not on file Sexual Orientation Not on file Occupation Industry Job Start Date Job End Date Retired Not on file Not on file Not on file documented as of this encounter Plan of Treatment Upcoming Encounters Date Type Department Care Team (Late st Contact Info) Description 05/10/2025 8:30 AM MD SENIOR RESEARCH SCIENTIST Office Visit [facility] [place] [phone] Irma Willams MD [address] [place] [address] documented as of this encounter Visit Diagnoses Not on filedocumented in this encounter Additional Health Concerns Infection Onset Date Last Indicated Resolved Time COVID-19 Rule Out 10/10/2019 10/10/2019 10/11/2019 1:50 PM CDT COVID-19 Rule Out 10/31/2019 10/31/2019 11/01/2019 10:23 PM CDT documented as of this encounter Care Teams Retail Store Associate Relationship Specialty Start Date End Date Jackson Rosa MD [address] [place] [phone] PCP - General INTERNAL MEDICINE 04/02/16 Gaurang Gonzalez MD [address] [place] [address] CARDIOVASCULAR DISEASE 04/02/16 05/20/18 Jeremiah Rolon MD [address] [place] [address] [place] Table Top Tile Setter CARDIOVASCULAR DISEASE 07/28/18 11/02/23 Whit Perez APRN, KEY ATTENDANT-C [address] [facility] [address] [place] [address] NURSE PRACTITIONER 02/17/19 12/05/23 Irma Willams MD [address] [place] [address] Consulting Physician CARDIOVASCULAR DISEASE 11/03/23 Efrem Alves MD [address] [place] [address] Vascular/Table Top Tile Setter INTERNAL MEDICINE 12/17/23 documented as of this encounter
--- OUTSIDE RECORDS SUMMARY | 2025-03-22 14:28 | XMS_ITS ---
Author Organization [facility] Address [address] [place] [address] Care Team Providers Care Iron Worker Name Role Phone Jackson Rosa MD Primary Care Provider [phone] Active Problems Problem Noted Date Diagnosed Date [...] 07/04/2021 Assessment & Plan (07/04/2021 11:03 AM REGISTERED REPRESENTATIVE): I explained to the patient how [...]
--- OUTSIDE RECORDS SUMMARY | 2025-03-22 14:28 | XMS_ITS | Encounter Summary ---
Author Organization [facility] Address [address] [place] [address] Care Team Providers Care Group Practice Pediatrician Name Role Phone Jackson Rosa MD Primary Care Provider + Encounter Details Date Type Department Care Team (Latest Contact Info) Description 10/13/2003 Outpatient Historical HIS [facility] Cabezas, Cyndee Crespo MD NO ADDRESS ON FILE SCREENING MAMM-MAILG NEOPL-OTHER (Primary Dx) Social History Tobacco Use Types Packs/Day Years Used Date Smoking Tobacco: Never Assessed Comments Unknown Sex and Gender Information Value Date Recorded Sex Assigned at Not on file Legal Sex Female 3:45 AM FELT STRIP FINISHER Gender Identity Not on file Sexual Orientation Not on file documented as of this encounter Plan of Treatment Not on file documented as of this encounter Visit Diagnoses Diagnosis Other screening mammogram- Primary documented in this encounter Care Teams Group Practice Pediatrician Relationship Specialty Start Date End Date Jackson Rsoa MD [address] [place] [address] PCP - General 07/05/09 documented as of this encounter
--- OUTSIDE RECORDS SUMMARY | 2025-03-22 14:28 | XMS_ITS | Encounter Summary ---
Author Organization [facility] Address [address] [place] [address] Care Team Providers Care Last Dipper Name Role Phone Jackson Rosa MD Primary Care Provider + Encounter Details Date Type Department Care Team (Latest Contact Info) Description 03/31/2008 Outpatient Historical HIS [facility] Cabezas, Ezequiel Crespo MD NO ADDRESS ON FILE Other Screening Mammogram Social History Tobacco Use Types Packs/Day Years Used Date Smoking Tobacco: Never Assessed Comments Unknown Sex and Gender Information Value Date Recorded Sex Assigned at Not on file Legal Sex Female 3:45 AM SEMICONDUCTOR PACKAGES SEALER Gender Identity Not on file Sexual Orientation Not on file documented as of this encounter Plan of Treatment Not on file documented as of this encounter Procedures Procedure Name Priority Date/Time Associated Diagnosis Comments MAMMO SCREEN BILAT W OR WO CAD Routine 03/31/2008 8:30 AM SEMICONDUCTOR PACKAGES SEALER documented in this encounter Results * MAMMO DIGITAL SCREEN BILAT (03/31/2008 8:30 AM SEMICONDUCTOR PACKAGES SEALER) Anatomical Region Laterality Modality Breast Bilateral Other 03/31/2008 8:30 AM SEMICONDUCTOR PACKAGES SEALER Narrative 03/31/2008 12:03 PM SEMICONDUCTOR PACKAGES SEALER [address] [place], [place] [address] Admit Date: 03/31/2008 ZULMA CARNES Sex: F Admit Prov: EZEQUIEL CABEZAS Date: 1945 Primary Care Prov: CMRN: [id number] Room: KIRT SSN: [id number] IMAGING SERVICES Ordering Prov: EZEQUIEL CABEZAS Accession Number: [id number] Interpretation EXAM: BILATERAL SCREENING FULL FIELD DIGITAL [...] AMK Procedure Note Elena Lou - 03/31/2008 [facility] [address], [place] [address] Admit Date: 03/31/2008 ZULMA CARNES Sex: F Admit Prov: EZEQUIEL CABEZAS Date: 1945 Primary Care Prov: CMRN: [id number] Room: MASONAshleigh SSN: [id number] IMAGING SERVICES Ordering Prov: EZEQUIEL CABEZAS Interpretation [...] mammogram documented in this encounter Care Teams Last Dipper Relationship Specialty Start Date End Date Jackson Rosa MD [address] [place] [phone] PCP - General 07/05/09 documented as of this encounter
--- OUTSIDE RECORDS SUMMARY | 2025-03-22 14:28 | XMS_ITS | Encounter Summary ---
Author Organization [facility] Address [address] [place] [address] Care Team Providers Care Innersole Fitter Name Role Phone Jackson Rosa MD Primary Care Provider + Encounter Details Date Type Department Care Team (Latest Contact Info) Description 09/03/2000 Outpatient Historical HIS [facility] GE[facility] Cabezas, Cyndee Crespo MD NO ADDRESS ON FILE Personal history of malignant neoplasm of breast (Primary Dx) Social History Tobacco Use Types Packs/Day Years Used Date Smoking Tobacco: Never Assessed Comments Unknown Sex and Gender Information Value Date Recorded Sex Assigned at Not on file Legal Sex Female 3:45 AM GEAR NICKER Gender Identity Not on file Sexual Orientation Not on file documented as of this encounter Plan of Treatment Not on file documented as of this encounter Visit Diagnoses Diagnosis Personal history of malignant neoplasm of breast- Primary documented in this encounter Care Teams Innersole Fitter Relationship Specialty Start Date End Date Jackson Rosa MD [address] [place] [phone] PCP - General 07/05/09 documented as of this encounter
--- OUTSIDE RECORDS SUMMARY | 2025-03-22 14:28 | XMS_ITS | Encounter Summary ---
Author Organization [facility] Address [address] [place] [address] Care Team Providers Care Office Machine Embossograph Operator Name Role Phone Jackson Rosa MD Primary Care Provider + Encounter Details Date Type Department Care Team (Latest Contact Info) Description 08/12/2002 Outpatient Historical HIS [facility] Cabezas, Cyndee Crespo MD NO ADDRESS ON FILE SCREENING MAMM-MAILG NEOPL-OTHER (Primary Dx) Social History Tobacco Use Types Packs/Day Years Used Date Smoking Tobacco: Never Assessed Comments Unknown Sex and Gender Information Value Date Recorded Sex Assigned at Not on file Legal Sex Female 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
--- OUTSIDE RECORDS SUMMARY | 2025-03-22 14:28 | XMS_ITS | Encounter Summary ---
Author Organization [facility] Address 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
--- OUTSIDE RECORDS SUMMARY | 2025-03-22 14:28 | XMS_ITS | Encounter Summary ---
Author Organization [facility] Address 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
--- OUTSIDE RECORDS SUMMARY | 2025-03-22 14:28 | XMS_ITS | Data Portability ---
Author Organization [place] [employer], Main Office Address [address] [place] [address] Care Team Providers Care Ui Application Developer Name Role Phone TAMMY BALL Primary Care Provider TAMMY BALL Referring Provider Assessment Encounter Date Assessment Date Assessment LastModified [...] X-rays of the shoulder were reviewed, demonstrating [id number] arthritis of the glenohumeral joint with some [...] referral - EVAL AND TREAT 2022 023 [facility] [place] [facility], [address], [place], [address], 4 15:44:32 Procedures None recorded. Surgeries None recorded. Imaging XR, shoulder, 2 or more view 2022 023 [email or web address] [facility] [place], [address], [place], [address], 3 23:47:09 XR, shoulder 2022 023 [email or web address] [facility] [place], [address], [place], [address], 3 15:18:09 XR, shoulder, 2 or more view 2022 023 [email or web address] [facility] [place], [address], [place], [address], 3 10:25:54 Medication Orders Mobic 15 mg tablet 2022 023 [email or web address] [id number], [address], [place], [id number], 3 23:47:09 Patient TargetsNo targets recorded. Patient [...] more view No observ ation record ed. [id number] [facility] [place] [address], [place], [address], 06/27/2022 13:13:43 07/18/19 23 XR, shoul maricarmen, 2 or more view No observ ation record ed. [email or web address] [facility] [place] [address], [place], [address], 07/17/2022 10:25:53 02/21/20 XR, shoul maricarmen No observ ation record ed. [email or web address] [facility] [place] [address] [facility] [address], [place], [address], 02/20/2023 14:29:10 02/28/20 XR, shoul maricarmen, 2 or more view No observ ation record ed. [email or web address] [facility] [place] [address], [place], [address], 02/27/2023 09:55:56 Result Notes None recorded. Problems Name Problem SNOMED Code Status Onset Date Resolution Date Notes Provider Name and Address Organization Details Recorded Time Pain of left shoulder joint 9430963034877 9109 Active 2021 Not Available [facility] 13:11:53 Pain of shoulder region 14733707 Active 2021 Not Available [facility] 13:11:53 Localized, primary osteoarthr itis of the shoulder region 817394008 Active 2021 Not Available [facility] 13:11:53 Pain of right shoulder joint 4351991769619 9100 Active 2022 KAJAL Mistry, [place] [facility] 09:55:36 Problem Notes None recorded. Procedures Surgical History Date Name Laterality Status Provider Name and Address Organization Details Recorded Time 02/28/20 Ortho - Cortisone Injection completed Keenan Qureshi MD [address] [facility], [facility] [[email or web address] [address], [place], [address], [facility] 02/27/2023 11:11:04 appendectomy completed Not Available [facility] 06/27/2022 13:11:24 Breast Surgery completed Not Available [facility] 06/27/2022 13:11:24 Hysterectomy completed Not Available [facility] 06/27/2022 13:11:24 Imaging Results None recorded. Procedure Notes None recorded. Medical Equipment None Reported. Allergies Allergen ID Allergen Name Allergen Category Reaction Reaction Severity Criticality Documentation Date Start Date Code Code System Note Provider Name and Address Organization Details Recorded Time 80541 Substance with sulfonami de structure and antibacte rial mechanism of action (substanc e) medicatio n Not available Not available Not available 06/27/2022 86894 8003 SNOMED Not Available [facility] 13:13:41 Medications Name Sig Start Date [...] administe red by the provider 09/03 completed [facility]: 0003- 0494- 20 Not Available Not Available [...] Updated DateTime 05/15/2022 27.8 kg/m2 154.94 cm 55856.08 g Not Available [facility] 06/27/2022 13:11:27 Date Recorded Body height Body mass index (BMI) Body weight Provider Name and Address Organization Details Last Updated DateTime 07/17/2022 154.94 cm 28.5 kg/m2 44873.45 g KAJAL Mistry [facility] 07/17/2022 09:29:36 Date Recorded Body height Body mass index (BMI) Body weight Pain severity - 0-10 verbal numeric rating [Score] - Reported Provider Name and Address Organization Details Last Updated DateTime 09/11/2023 157.48 cm 25.8 kg/m2 52060.52 g 7 KAJAL Mistry [facility] 09/11/2023 14:55:43 Date Recorded Body height Body mass index (BMI) Body weight Provider Name and Address Organization Details Last Updated DateTime 02/20/2023 157.48 cm 26.7 kg/m2 32634.49 g Ciera JinLORENZA [facility] 02/20/2023 14:28:32 Date Recorded Body height Body mass index (BMI) Body weight Pain severity - 0-10 verbal numeric rating [Score] - Reported Provider Name and Address Organization Details Last Updated DateTime 02/27/2023 157.48 cm 26.3 kg/m2 02360.3 g 7 Lyric Salcido, [facility] 02/27/2023 09:55:09 Social History Question Answer Notes LastModified by wali Details LastModified Time Tobacco Smoking Status Never Smoker Not Available [facility] 06/27/2022 13:11:21 What Was The Date Of Your Most Recent Tobacco Screening? 07/17/2022 [email or web address] Information not available 07/17/2022 Sex: Unknown Functional Status Question Answer Note LastModified by wali Details LastModified Time What is your level of alcohol consumption? Occasional [id number] Information not available 06/27/2022 Mental Status None recorded. Family History Relationship Description Onset Age of this Age Resolved Age Notes LastModified by Organization Details LastModified Time Father Heart disease [id number] [id number] Not available 06/27/2022 13:11:24 Father Family history of stroke [id number] [id number] Not available 06/27/2022 13:11:24 Father Family history of malignant neoplasm [id number] [id number] Not available 06/27/2022 13:11:24 Father Hypertensive disorder [id number] [id number] Not available 06/27/2022 13:11:24 Mother Family history of malignant neoplasm [id number].647 [id number] Not available 06/27/2022 13:11:24 Unspecified Relation Pulmonary embolism [id number].751 [id number] Not available 06/27/2022 13:11:24 Medical History Condition Response BLINDNESS N KIDNEY STONES N MRSA N CARPAL TUNNEL SYNDROME N LUNG DISEASE/DISORDER N HISTORY OF DRUG ABUSE N RADIATION / CHEMOTHERAPY N COPD N SPORTS INJURY N ANKLE PAIN N BLOOD DISEASES N SCHIZOPHRENIA N SHINGLES N SHOULDER PAIN N DEPRESSION (INCLUDING POST ) N BOWEL PROBLEMS N STROKE/TIA N ULCERS Y KNEE PAIN N BENIGN PROSTATIC HYPERPLASIA N OBESITY N GERD/NAUSEA N ANEURYSM N URINARY/BLADDER/KIDNEY PROBLEMS N CORONARY ARTERY DISEASE (CAD) N ADDICTION CONCERNS N USE OF BLOOD THINNERS N SKIN PROBLEMS N EMPHYSEMA N MUSCLE,JOINT OR BONE PROBLEMS N DVT N STOMACH ULCERS N BLOOD CLOTS N USE OF NSAIDS N CONCUSSION OR SPINAL TRAUMA N NEUROPATHY N AIDS/HIV N FRACTURES N HYPERTENSION Y ELBOW PAIN N TOURETTE'S N Metal allergy N ANXIETY DISORDER N BLOOD TRANSFUSION N ANEMIA/BLOOD DISORDER Y BIPOLAR DISORDER N BRONCHITIS N OSTEOARTHRITIS N TUBERCULOSIS N FOOT PROBLEM N HEART VALVE DISORDERS N SOFT TISSUE INJURY N ALLERGIES/HAYFEVER N INFECTIOUS DISEASE N HEART ARRHYTHMIA N INSOMNIA N RHEUMATOID ARTHRITIS N HIGH CHOLESTEROL / HYPERLIPIDEMIA N EDEMA N CHRONIC PAIN SYNDROME N CAROTID BLOCKAGE N BACK / NECK PROBLEMS N HAVE YOU BEEN HOSPITALIZED OR SEEN IN [facility] ER IN THE PAST YEAR [...] ICD10 Code Diagnosis IMO Codes Diagnosis Note [id number] Gautam Barrios MD [facility] [place] [address] [facility] [address] [facility] [place] [address] 07/17/2021 00:00:00 07/17/2021 15:58:41 [id number] Jeremiah Byrd MD [facility] [place] [address] [facility] [place] [address] 08/22/2021 00:00:00 08/22/2021 12:48:51 [id number] Jeremiah Byrd MD [facility] [place] [address] [facility] [place] [address] 12/05/2021 00:00:00 12/05/2021 12:57:46 [id number] Jeremiah Byrd MD [facility] [place] [address] [place] [address] 02/13/2022 00:00:00 02/13/2022 12:12:56 [id number] Jeremiah Byrd MD [facility] [place] [address] [place] [address] 02/20/2022 00:00:00 02/20/2022 09:19:41 [id number] Jeremiah Byrd MD [facility] [place] [address] [place] [address] 02/27/2022 00:00:00 02/27/2022 09:48:50 [id number] Jeremiah Byrd MD [facility] [place] [address] [place] [address] 03/27/2022 00:00:00 03/27/2022 13:25:23 [id number] Jeremiah Byrd MD [facility] [place] [address] [place] [address] 05/15/2022 00:00:00 05/15/2022 11:14:28 [id number] Jeremiah Byrd MD [facility] [place] [address] [place] [address] 07/17/2022 09:03:39 07/17/2022 09:58:44 Pain of left shoulder joint 4406269804 7368405 M25.512 LEFT Localized, primary osteoarthritis of the shoulder region 067383857 M19.019 patient is doing quite well at this point continue with her stretching especially for internal rotation and her strengthen ing exercises at we went over with her again today we will see her back again in 6 months for follow-up AP Y lateral and axillary x-ray view [id number] Keenan Qureshi MD [facility] [place] [address] [place] [address] 02/20/2023 14:22:41 02/20/2023 14:45:46 Pain of left shoulder joint 0247921308 9821232 M25.159 [id number] Keenan Qureshi MD [facility] [place] [address] [place] [address] 02/27/2023 09:45:36 02/27/2023 10:19:12 Pain of right shoulder joint 5135562023 9300150 M25.441 [id number] Keenan Qureshi MD [facility] [place] [address] [place] [address] 09/11/2023 14:51:45 09/11/2023 15:39:48 Pain of right shoulder joint 3246982739 2064193 M25.511 Health Concerns Section Related Observation LastModified by Organization Detai ls LastModified Time None Recorded Concern Status LastModified by Organization Details LastModified Time None Recorded Advance Directives Directive None Recorded Payers Insurance Date Sequence Insurance Name Policy Number Policy Augustin Covered Member ID Augustin Member ID Guarantor Name 09/11/2023 1 [place] Zulma A Archibee [id number] Zulma A Archibee 02/20/2023 2 FOR LIFE ( - MEDICARE SUPPLEMENT) Joby A Archibee [id number] Zulma A Archibee 09/17/2023 2 [employer] (MEDICARE SUPPLEMENT) Zulma A Archibee [id number] Zulma A Archibee Notes Date Note Type Note Provider Name and Address Organization Details Recorded Time 07/17/2022 text/html 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
--- OUTSIDE RECORDS SUMMARY | 2025-03-22 14:28 | XMS_ITS | Encounter Summary ---
Author Organization [facility] Address [address] [place] [address] Care Team Providers Care It Security Engineer Name Role Phone Jackson Rosa MD Primary Care Provider [phone] Irma Willams MD Unavailable Efrem Alves MD Unavailable Encounter Details Date Type Department Care Team (Late Contact Info) Description 06/22/2024 Babytree Message Enc [facility] ield [address] [place] [address] [facility] Provider Echo results Social History Tobacco Use Types Packs/Day Years Used Date Smoking Tobacco: Never Passive Smoke Exposure: Never Smokeless Tobacco: Never Alcohol Use Standard Drinks/Week Comments Yes 0 (1 standard drink = 0.6 oz pur e alcohol) very rare wine usage Comments Unknown Sex and Gender Information Value Date Recorded Sex Assigned at Female 05/25/2024 1:26 PM FISH TECHNOLOGIST Legal Sex Female 9:00 PM CDT Gender Identity Not on file Sexual Orientation Not on file Occupation Industry Job Start Date Job End Date Retired Not on file Not on file Not on file documented as of this encounter Plan of Treatment Upcoming Encounters Date Type Department Care Team (Late Contact Info) Description 05/10/2025 8:30 AM FISH TECHNOLOGIST Office Visit [facility] [address] [place] [address] Irma Willams MD [address] [place] [address] documented as of this encounter Visit Diagnoses Not on filedocumented in this encounter Care Teams It Security Engineer Relationship Specialty Start Date End Date Jackson Rosa MD [address] [place] [address] PCP - General INTERNAL MEDICINE 04/02/16 Irma Willams MD [address] [place] [address] Consulting Physician CARDIOVASCULAR DISEASE 11/03/23 Efrem Alves MD [address] [place] [address] Vascular/Take Away Attendant INTERNAL MEDICINE 12/17/23 documented as of this encounter
--- OUTSIDE RECORDS SUMMARY | 2025-03-22 14:28 | XMS_ITS | Encounter Summary ---
Author Organization [facility] Address [address] [place] [address] Care Team Providers Care Watch Repair Technician Name Role Phone Jackson Rosa MD Primary Care Provider + Encounter Details Date Type Department Care Team (Latest Contact Info) Description 09/05/1999 Outpatient Historical HIS [facility] Cabezas, Cyndee Crespo MD NO ADDRESS ON FILE Personal history of malignant neoplasm of breast (Primary Dx) Social History Tobacco Use Types Packs/Day Years Used Date Smoking Tobacco: Never Assessed Comments Unknown Sex and Gender Information Value Date Recorded Sex Assigned at Not on file Legal Sex Female 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
--- OUTSIDE RECORDS SUMMARY | 2025-03-22 14:28 | XMS_ITS | Clinical Summary ---
Author Organization [facility] Administrative Offices Address [address] [place] [address] Care Team Providers Care Public Speaking Instructor Name Role Phone Jackson Rosa MD Primary [...] BI-FLEX ORAL) Take by mouth. Active Coenzyme Q88-Mstnkpx E (COQ10 SG 100) 100-100 mg-unit Oral [...] on file Legal Sex Female 3:45 AM HAND THERMAL CUTTER Gender Identity Not on file Sexual Orientation Not on file Last Filed Vital Signs Vital Sign Reading Time Taken Comments Blood Pressure 122/58 04/18/2016 9:52 AM HAND THERMAL CUTTER Pulse 61 04/18/2016 9:52 AM HAND THERMAL CUTTER Temperature - - Respiratory Rate - - Oxygen Saturation - - Inhaled Oxygen Concentration - - Weight 68.9 kg (152 lb) 04/18/2016 9:52 AM HAND THERMAL CUTTER Height 157.5 cm (5' 2) 04/18/2016 9:52 AM HAND THERMAL CUTTER Body Mass Index 27.8 04/18/2016 9:52 AM HAND THERMAL CUTTER Plan of Treatment Health Maintenance Due [...] Maintenance Insurance MEDICARE PART A AND B [place] [facility] [place] [id number] Care Teams Public Speaking Instructor Relationship Specialty Start Date End Date Jackson Rosa MD [address] [place] [address] PCP - General 07/05/09
--- OUTSIDE RECORDS SUMMARY | 2025-03-22 14:28 | XMS_ITS | Encounter Summary ---
Author Organization [facility] Address 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
--- OUTSIDE RECORDS SUMMARY | 2025-03-22 14:28 | XMS_ITS | Clinical Summary ---
Author Organization [facility] Address [address] [place] [address] Care Team Providers Care Fiber Worker Name Role Phone Jackson Rosa MD Primary Care Provider [phone] Irma Willams MD Unavailable Efrem Alves MD [...] Sex Assigned at Female 05/25/2024 1:26 PM OIL EXTRACTOR Legal Sex Female 9:00 PM CDT Gender Identity Not on file Sexual Orientation Not on file Occupation Industry Job Start Date Job End Date Retired Not on file Not on file Not on file Last Filed Vital Signs Vital Sign Reading Time Taken Comments Blood Pressure 138/72 06/03/2024 12:50 PM OIL EXTRACTOR Pulse 69 06/03/2024 12:50 PM OIL EXTRACTOR Temperature 36.1 C (97 F) 11/03/2019 12:30 PM CDT Respiratory Rate 16 06/03/2024 12:5 0 PM OIL EXTRACTOR Oxygen Saturation 94% 06/03/2024 12: 50 PM OIL EXTRACTOR Inhaled Oxygen Concentration - - Weight 63.4 kg (139 lb 12.8 oz) 025 12:50 PM OIL EXTRACTOR Height 156.2 cm (5' 1.5) 06/03/2024 12 :50 PM OIL EXTRACTOR Body Mass Index 25.99 06/03/2024 12:50 PM OIL EXTRACTOR Plan of Treatment Upcoming Encounters Date Type Department Care Team (Late st Contact Info) Description 05/10/2025 8:30 AM OIL EXTRACTOR Office Visit [facility] [place] [address] Irma Willams MD [address] [place] [address] Health Maintenance Due Date Last Done Comments [...] this topic Medical Devices Implanted Type Area Multifocal Button Grinder Device Identifier Shelf Expiration Date Model / Serial / Lot Knee Components Knee Components Description:Right knee Knee Components Knee Components Description:Rt knee Iol Augustus [id number] - [id number] Implanted:Qty: 1 on 10/13/2019 by Stephane Samson MD at [facility] Lens Left: Eye [employer] 01/27/2024 [id number] / [id number] / N/A Description:Implant verified by Iol [employer] Li61ao - [id number] Implanted:Qty: 1 on 11/03/2019 by Stephane Samson MD at [facility] Lens Right: Eye [employer] 08/27/2023 [id number] / [id number] Description:Lens verified pe r surgeon and chart Procedures Procedure Name Priority Date/Time Associated Diagnosis Comments LIPID PANEL Routine 06/27/2013 12:00 AM OIL EXTRACTOR from Last 3 Months or Most Recently Relevant to Health Maintenance Results * LIPID PANEL (06/27/2013 12:00 AM OIL EXTRACTOR) TRIGLYCERIDES 78 0 - 150 mg/dl MEDIN[employer] [...] Health Maintenance Insurance MEDICARE MEDICARE Care Teams Fiber Worker Relationship Specialty Start Date End Date Jackson Rosa MD [address] [place] [address] PCP - General INTERNAL MEDICINE 04/02/16 Irma Willams MD [address] [place] [address] Consulting Physician CARDIOVASCULAR DISEASE 11/03/23 Efrem Alves MD [address] [place] [address] Vascular/Provisioning Analyst INTERNAL MEDICINE 12/17/23
--- OUTSIDE RECORDS SUMMARY | 2025-03-22 14:28 | XMS_ITS | Encounter Summary ---
Author Organization [facility] Address [address] [place] [address] Care Team Providers Care Auditing Clerk Name Role Phone Jackson Rosa MD Primary Care Provider + Encounter Details Date Type Department Care Team (Latest Contact Info) Description 03/04/2007 Outpatient Historical HIS [facility] Cabezas, Cyndee Crespo MD NO ADDRESS ON FILE Screening Mammogram for High-Risk Patient (Primary Dx) Social History Tobacco Use Types Packs/Day Years Used Date Smoking Tobacco: Never Assessed Comments Unknown Sex and Gender Information Value Date Recorded Sex Assigned at Not on file Legal Sex Female 3:45 AM MUSIC ARRANGER Gender Identity Not on file Sexual Orientation Not on file documented as of this encounter Plan of Treatment Not on file documented as of this encounter Visit Diagnoses Diagnosis Screening mammogram for high-risk patient- Primary documented in this encounter Care Teams Auditing Clerk Relationship Specialty Start Date End Date Jackson Rosa MD [address] [place] [address] PCP - General 07/05/09 documented as of this encounter
--- OUTSIDE RECORDS SUMMARY | 2025-03-22 14:28 | XMS_ITS | Encounter Summary ---
Author Organization [facility] Address [address] [place] [address] Care Team Providers Care Sleep Lab Technician Name Role Phone Jackson Rosa MD Primary Care Provider + Encounter Details Date Type Department Care Team (Latest Contact Info) Description 07/12/2004 Outpatient Historical HIS [facility] Cabezas, Cyndee Crespo MD NO ADDRESS ON FILE SCREENING MAMM-MALIG NEOPL-HI RISK (Primary Dx) Social History Tobacco Use Types Packs/Day Years Used Date Smoking Tobacco: Never Assessed Comments Unknown Sex and Gender Information Value Date Recorded Sex Assigned at Not on file Legal Sex Female 3:45 AM DIRECTOR NURSERY SCHOOL Gender Identity Not on file Sexual Orientation Not on file documented as of this encounter Plan of Treatment Not on file documented as of this encounter Visit Diagnoses Diagnosis Screening mammogram for high-risk patient- Primary documented in this encounter Care Teams Sleep Lab Technician Relationship Specialty Start Date End Date Jackson Rosa MD [address] [place] [address] PCP - General 07/05/09 documented as of this encounter
--- OUTSIDE RECORDS SUMMARY | 2025-03-22 14:29 | XMS_ITS | Clinical Summary ---
Author Organization [facility] Address [address] [place] [address] Care Team Providers Care Category Development Manager Name Role Phone Jackson Rosa MD Primary Care Provider [phone] Allergies Active Allergy Reactions Criticality Noted Date Comments Ibandronate Palpitations Low 12/04/2017 Indomethacin Syncope High 02/17/2019 Sulfa (Sulfonamide Antibiotics) Rash Medium Febrile rash Medications pravastatin (PRAVACHOL) 10 mg tabletIndicati ons:hyperlipid emia Take 1 tablet (10 mg total) by mouth nightly Active omeprazole (PriLOSEC) 20 mg capsuleIndicat ions:gerd Take 1 capsule (20 mg total) by mouth every morning 10/23/19 18 Active furosemide (LASIX) 20 mg tabletIndicati ons:Edema,hype rtension Take 1 tablet (20 mg total) by mouth every morning 10/23/19 18 Active aspirin 81 mg tabletIndicati ons:prevention of thrombosis Take 1 tablet (81 mg total) by mouth every morning 10/23/19 18 Active coenzyme Q10 100 mg capsuleIndicat ions:supplemen t Take 1 tablet by mouth every morning Active vitamin E 400 unit capsuleIndicat ions:supplemen t Take 1 tablet by mouth 2 (two) times a week Saturday and Wednesdays05/20/19 15 Active biotin 1 mg tabletIndicati ons:supplement Take 1 tablet (1,000 mcg total) by mouth every morning Active potassium 99 mg tabletIndicati ons:hypokalemi a prevention Take 1 tablet (99 mg total) by mouth every morning Active glucosamine-ch ondroitin 250-200 mg tabletIndicati ons:supplement Take 1 tablet by mouth every morning Active vit C/E/Zn/coppr/l utein/zeaxan (PRESERVISION AREDS 2 ORAL)Indicatio ns:eye health Take 1 tablet by mouth every morning Active valACYclovir (VALTREX) 500 mg tabletIndicati ons:Skin/Soft Tissue Infection Take 1 tablet (500 mg total) by mouth every morning 01/30/20 16 Active cetirizine (ZyrTEC) 10 mg tabletIndicati ons:Seasonal Allergic Rhinitis Take 1 tablet (10 mg total) by mouth every morning 07/23/19 20 Active Bifidobacteriu m infantis (ALIGN) 4 mg capsuleIndicat ions:gut health Take 1 capsule (4 mg total) by mouth every other day In the morning Active escitalopram (LEXAPRO) 5 mg tabletIndicati ons:Anxiety with Depression Take 1 tablet (5 mg total) by mouth every morning 05/08/19 22 Active fluticasone propionate (FLONASE) 50 mcg/actuation nasal sprayIndicatio ns:Allergic Rhinitis Administer 1 spray into each nostril daily as needed for allergies or rhinitis 07/05/19 22 Active ipratropium-al buteroL (DUO-NEB) 0.5-2.5 mg/3 mL nebulizer solution Take 3 mL by nebulization as needed for wheezing or shortness of breath In winter months 09/09/19 21 Active losartan (COZAAR) 25 mg tabletIndicati ons:hypertensi on Take 1 tablet (25 mg total) by mouth daily with breakfast 09/28/19 21 Active cyclobenzaprin e (FLEXERIL) 5 mg tablet Take 1 tablet (5 mg total) by mouth nightly 10 tablet 02/01/20 22 Active folic acid 0.8 mg capsuleIndicat ions:supplemen t Take 1 tablet by mouth every morning 07/18/19 22 Active mupirocin (BACTROBAN) 2 % ointmentIndica tions:Minor Bacterial Skin Infections Apply 1 Application topically daily as needed (sore in nose) 07/28/19 23 Active nystatin 100,000 unit/mL suspensionIndi cations:oral candidiasis Take 5 mL (500,000 Units total) by mouth 4 (four) times a day as needed (mouth sores/thrush) 11/02/19 Active calcium 26-vit D3-magnesium 15 167 mg calcium- 1.67 mcg-83 mg capsuleIndicat ions:Hypocalce yoel Prevention,Pre vention of Vitamin D Deficiency Take 2 tablets by mouth every morning 12/12/19 [address] (CYMBALTA) 30 mg capsuleIndicat ions:Anxiety with Depression Take 1 capsule (30 mg total) by mouth nightly 08/25/19 23 025 Discontinued ALPRAZolam (XANAX) 0.25 mg tabletIndicati ons:anxiety Take 1 tablet (0.25 mg total) by mouth 3 (three) times a day as needed for anxiety 03/12/20 025 Discontinued HYDROcodone-ac etaminophen (NORCO) 5-325 mg per tabletIndicati ons:Pain Take 1 tablet by mouth every 6 (six) hours as needed for pain 15 tablet 12/22/19 23 025 Discontinued ofloxacin (FLOXIN) 0.3 % otic solution Administer 4 drops into the left ear 2 (two) times a day 5 mL 5 12/29/19 23 025 Discontinued doxepin (SINEquan) 10 mg capsuleIndicat ions:Insomnia 1 tablet by mouth 30 minutes before bedtime 30 capsule 5 02/19/20 23 025 Discontinued Active Problems Problem Noted Date Diagnosed Date [...] 07/04/2021 Assessment & Plan (07/04/2021 11:03 AM TERRITORY DEVELOPMENT MANAGER): I explained to the patient how [...] 09/06/2022 History of breast cancer 01/29/2012 023 Encounters Date Type Department Care Team Description 03/18/2025 3:30 PM TERRITORY DEVELOPMENT MANAGER Office Visit [facility] at [address] [place] [address] Andrew Sky NP Chronic diarrhea (Primary Dx); 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 Immunizations Immunization Administration Dates Next Due Influenza, Quadrivalent, Spl it, Preservative Free, Intramuscular 03/12/2019,01/28/2018,01/04/2017 Influenza, Trivalent, High D ose, Split, Preservative Free, Intramuscular 02/13/2013 Influenza, Trivalent, IM (MDV) 01/27/2015 Influenza, Trivalent, Preser vative Free, Intramuscular 01/27/2015 Influenza, Unspecified 01/28/2018,01/04/2017,04/2014 Pfizer SARS-CoV-2 Monovalent Vaccination (12+ Yrs) PURPLE 08/30/2020 Pfizer Sars-Cov-2 Bivalent V accination (12+ YRS) 01/31/2022 Pneumococcal Conjugate PCV 13 09/07/2020 Td, Not Adsorbed 12/01/1999 Td, adsorbed 12/01/1999 Surgical History Surgery Date [...] = 0.6 oz pur e alcohol) social PHQ-2 Answer Date Recorded PHQ-2 Total Score (If total score is 3 or more points, staff should administer the PHQ-9) 0 07/04/2021 AUDIT-C Answer Date Recorded Q1: How often do you have a drink containing alc ohol? Never 03/18/2025 Average Number of Drinks Not on file 025 Frequency of Binge Drinking Not on file 02/28 Personal Safety Answer Date Recorded Have you ever been in or are you currently in a harmful physical or emotional relationship or is someone making you feel afraid or unsafe? Denies 12/21/2022 Comments No Sex and Gender Information Value Date Recorded Sex Assigned at Not on file Legal Sex Female 12:56 AM TERRITORY DEVELOPMENT MANAGER Gender Identity Female 10/06/2019 1:08 PM CDT Sexual Orientation Not on file Last Filed Vital Signs Vital Sign Reading Time Taken Comments Blood Pressure 136/82 03/18/2025 3:24 PM TERRITORY DEVELOPMENT MANAGER Pulse 91 03/18/2025 3:24 PM TERRITORY DEVELOPMENT MANAGER Temperature 36.7 C (98.1 F) 02/18/2023 8:21 AM CDT Respiratory Rate 19 12/21/2022 3:10 PM CDT Oxygen Saturation 99% 03/18/2025 3:24 PM TERRITORY DEVELOPMENT MANAGER Inhaled Oxygen Concentration - - Weight 65.1 kg (143 lb 8 oz) 03/18/2025 3:24 PM TERRITORY DEVELOPMENT MANAGER Height 157.5 cm (5' 2) 03/18/2025 3:24 PM TERRITORY DEVELOPMENT MANAGER Body Mass Index 26.25 03/18/2025 3:24 PM TERRITORY DEVELOPMENT MANAGER Plan of Treatment Health Maintenance Due Date Last Done Comments Hepatitis C Screening 1945 Hepatitis B Screening 1963 Zoster Vaccine (1 of 2) 1996 DTaP/Tdap/Td Vaccine (1 - Tdap) 12/02/1999 0, 12/01/1999 Well Visit 65+ 09/14/2011 Osteoporosis Screening-Bone Density Scan 01/17/2018 01/18/2016 Pneumococcal vaccine 65+ (2 of 2 - PCV20 or PCV21) 09/07/2021 09/07/2020 Depression Screening 07/04/2022 07/04/2021 Fall Risk Assessment 12/22/2023 12/21/2022 Covid-19 Vaccine (4 - 2024-2 6 season) 2024 01/31/2022, 05/03/2021, 08/30/2020 Influenza Vaccine (#1) 2024 9, 01/28/2018, 01/28/2018, Additional history exists Colon Cancer Screening-CT Colonography Discontinued 12/04/2017 Colon Cancer Screening-Colonoscopy Discontinued 12/04/2017 Colon Cancer Screening-DNA Stool Discontinued 12/05/19 18 Colon Cancer Screening-FIT Discontinued 12/04/2017 Colon Cancer Screening-FOBT Discontinued 12/04/2017 Colon Cancer Screening-Sigmoidoscopy Discontinued 12/04/2017 Colorectal Cancer Screening Discontinued Medical Devices Implanted Type Area Forestry Farm Laborer Device Identifier Shelf Expiration Date Model / [...] 11:[address] [facility] Patient Name: Zulma Carnes Procedure Date: 12/04/2017 11:53 AM Date of : 1945 Admit Type: Outpatient Age: 72 Gender: Female Attending MD: Dwayne Chan MD Room: [facility] 2 Note Status: Finalized [...] passed under direct vision.The Pediatric Colonoscope [id number]-[id number] was introduced through the anus and advanced [...] perforation orabscess without bleeding CPT copyright 2017 [employer]. All rights reserved. The codes documented in this report are preliminary and upon cigarette making examiner reviewmay be revised to meet current compliance requirements. Recognized by the [place] [employer] for promoting quality in endoscopy Dwayne Chan MD ENDOSCOPY PROCEDURES Final Result from Last 3 Months or Most Recently Relevant to Health Maintenance Insurance MEDICARE InSupply [facility] MEDICARE MEDICARE AETNA SENIOR SUPPLEMENT Advance Directives For more information, please contact: [phone] * Full Code (Latest Code Status on File) Date Activated Date Inactivated Comments 12/04/2017 11:05 AM 12/04/2017 3:39 PM Care Teams Category Development Manager Relationship Specialty Start Date End Date Jackson Rosa MD [address] [place] [address] PCP - General 07/04/16
[2025-03-23 14:08] LABS: Deamidated Gliadin Abs, IgA 3 units (0-19); Deamidated Gliadin Abs, IgG 1 units (0-19); Immunoglobulin A, Qn 96 mg/dL (64-422)
== END 2025-03-22 12:41 | disposition home or self-care (01) ==
LOC: ANHLAB 12:42
PROVIDERS: PCP Internal Medicine; Visit Provider Nurse Practitioner Family
DX: K52.9 Noninfective gastroenteritis and colitis, unspecified (principal)
CPT/HCPCS: 82784; 86231; 86258

== ENCOUNTER 2025-03-23 13:07 | Outpatient (CLI) | payer MEDICARE, SELFPAY ==
--- OUTSIDE RECORDS SUMMARY | 2021-11-22 12:13 | XMS_ITS | Continuity of Care Document ---
Author Organization [facility] Address [address] [place] [address] Phone Care Team Providers Care Online Marketing Analyst Name Role Phone Elaine KLEIN, Cinthya Unavailable Unavailable Advance Directives Directive Yes / No Effective Date File Name No Information Encounters Encounter Description Practice Location Reason(s) For Visit Diagnoses Date Provider Providers Copied on Encounter [facility], [address], [place], [place], [address], [place] tel:[phone] [facility] No Information Elaine Mendes. [address], [facility] [place], [address] , [place]. tel:[phone] [facility], [address], [place], [place], [address], [place] tel:[phone] [facility] Dilation of biliary tract Azra Hung. [address], [address], [place], [address], [place]. tel:[phone] Family History Family Member Type Diagnosis Age At Onset No Information Payers Payer name Insurance type Covered alliance party ID Authoriza tion(s) No Information Social History Type Description Quantity Date Captured Comments Alcohol Use Details Unknown Caffeine Use Details Unknown Tobacco Use Status No Information Smoking Status No Information Sex Female Chief Complaint And Reason For Visit No Information Reason For Referral Reason For Referral No Information History Of Present Illness Encounter Date Complaint History Of Prese nt Illness No Information Functional Status Date Functional Assessmen t No Information Instructions Date Instruction Additional Infor mation No Information Assessments Type Assessment Date No Information Patient Care Teams Name Effective Dates (start - stop) Status Members No Information
--- OUTSIDE RECORDS SUMMARY | 2025-03-23 14:46 | XMS_ITS | Encounter Summary ---
Author Organization [facility] Address [address] [place] [address] Care Team Providers Care Automobile Rental Clerk Name Role Phone Jackson Rosa MD Primary Care Provider [phone] Irma Willams MD Unavailable Efrem lAves MD Unavailable Encounter Details Date Type Department Care Team (Late Contact Info) Description 06/22/2024 [place] Packet Message Enc [facility] ield [address] [place] [address] [facility] Provider Echo results Social History Tobacco Use Types Packs/Day Years Used Date Smoking Tobacco: Never Passive Smoke Exposure: Never Smokeless Tobacco: Never Alcohol Use Standard Drinks/Week Comments Yes 0 (1 standard drink = 0.6 oz pur e alcohol) very rare wine usage Comments Unknown Sex and Gender Information Value Date Recorded Sex Assigned at Female 05/25/2024 1:26 PM SOA INTEGRATION DEVELOPER Legal Sex Female 9:00 PM CDT Gender Identity Not on file Sexual Orientation Not on file Occupation Industry Job Start Date Job End Date Retired Not on file Not on file Not on file documented as of this encounter Plan of Treatment Upcoming Encounters Date Type Department Care Team (Late Contact Info) Description 05/10/2025 8:30 AM SOA INTEGRATION DEVELOPER Office Visit [facility] [address] [place] [address] Irma Willams MD [address] [place] [address] documented as of this encounter Visit Diagnoses Not on filedocumented in this encounter Care Teams Automobile Rental Clerk Relationship Specialty Start Date End Date Jackson Rosa MD [address] [place] [address] PCP - General INTERNAL MEDICINE 04/02/16 Irma Willams MD [address] [place] [address] Consulting Physician CARDIOVASCULAR DISEASE 11/03/23 Efrem Alves MD [address] [place] [address] Vascular/Social Media Marketer INTERNAL MEDICINE 12/17/23 documented as of this encounter
--- OUTSIDE RECORDS SUMMARY | 2025-03-23 14:46 | XMS_ITS | Clinical Summary ---
Author Organization [facility] Address [address] [place] [address] Care Team Providers Care Mold Blower Name Role Phone Jackson Rosa MD Primary [...] BI-FLEX ORAL) Take by mouth. Active Coenzyme U21-Uuqblxd E (COQ10 SG 100) 100-100 mg-unit Oral [...] on file Legal Sex Female 3:45 AM SEX THERAPIST Gender Identity Not on file Sexual Orientation Not on file Last Filed Vital Signs Vital Sign Reading Time Taken Comments Blood Pressure 122/58 04/18/2016 9:52 AM SEX THERAPIST Pulse 61 04/18/2016 9:52 AM SEX THERAPIST Temperature - - Respiratory Rate - - Oxygen Saturation - - Inhaled Oxygen Concentration - - Weight 68.9 kg (152 lb) 04/18/2016 9:52 AM SEX THERAPIST Height 157.5 cm (5' 2) 04/18/2016 9:52 AM SEX THERAPIST Body Mass Index 27.8 04/18/2016 9:52 AM SEX THERAPIST Plan of Treatment Health Maintenance Due Date [...] Maintenance Insurance MEDICARE PART A AND B [facility] [place] [address] Care Teams Mold Blower Relationship Specialty Start Date End Date Jackson Rosa MD [address] [place] [address] PCP - General 07/05/09
--- OUTSIDE RECORDS SUMMARY | 2025-03-23 14:46 | XMS_ITS | Clinical Summary ---
Author Organization [facility] Address [address] [place] [address] Care Team Providers Care Scrap Preparation Supervisor Name Role Phone Jackson Rosa MD Primary Care Provider [phone] Sammie Fox RN Unavailable Deyanira Daigle DEAN OF EDUCATION Unavailable Luis Carlos Rivas MD Unavailable Source Comments [facility],non-owned Affiliates and Associated Physician Practices is amultiple site organization consisting of ambulatory clinics and hospital sitesin [place], [place] and [place]. This disclosure is being madepursuant to the Care Everywhere program and may not contain all information available regarding this patient. Last updated 18.[facility] Allergies Active Allergy Reactions Criticality [...] problems Immunizations Immunization Administration Dates Next Due [employer] primary monoval ent 12+ yr 0.3mL Purple [...] Sex Assigned at Female 05/03/2021 6:03 PM DISPATCH CLERK Legal Sex Female 9:20 AM DISPATCH CLERK Gender Identity Female 05/03/2021 6:03 PM DISPATCH CLERK Sexual Orientation Straight 05/03/2021 6: 03 PM DISPATCH CLERK Last Filed Vital Signs Vital Sign Reading Time Taken Comments Blood Pressure 132/78 06/21/2016 8:16 AM DISPATCH CLERK Pulse 55 06/21/2016 8:16 AM DISPATCH CLERK Temperature 36.7 C (98.1 F) 08/13/2014 11:27 [...] this topic Medical Devices Implanted Type Area Air Traffic Control Supervisor Device Identifier Shelf Expiration Date Model / Serial / Lot Nexgen Complete Knee Solution Cruciate Retaining Trabecular Metal Monoblock Tibial Component Tibial Size 3, Femoral Size C-H, 10mm Height Implanted:Qty: 1 on 08/10/2014 by Angel Luis Villegas MD at [facility] Right: Knee [employer] 01/27/2019 [id number] Nexgen Complete Knee Solution Cruciate Retaining Cr-Flex Femoral Component Porous Size D, Right Implanted:Qty: 1 on 08/10/2014 by Angel Luis Villegas MD at [facility] Right: Knee [employer] 11/28/2023 / / [id number] Bill Only Basic Derrick Excludes Agc Kn Implanted:Qty: 1 on 08/10/2014 by Angel Luis Villegas MD at [facility] [employer] BILL ONLY BASIC DERRICK EXCLUDES AGC KN ZIMM / / Bill Only Tb Upchrg Implanted:Qty: 1 on 08/10/2014 by Angel Luis Villegas MD at [facility] [employer] UPCHRG MELY BILL ONLY TB / / Insurance MEDICARE MEDICARE Member Subscriber Plan / Payer (Ef fective for All Dates) Name:Zulma Carnes Member ID:[id number] Relation to Subscriber:Self Name:Zulma Carnes Subscriber ID:[id number] Payer ID:Not on file Group ID:Not on file Type:Medicare Address: [place] [id number] MEDICARE Care Teams Scrap Preparation Supervisor Relationship Specialty Start Date End Date Jackson Rosa MD PCP - General Internal Medicine 05/18/14 Sammie Fox, RN [facility] 08/10/14 Deyanira Daigle, [facility] Elevator Examiner And Adjuster 08/12/14 [place] [address] [place] [address] Orthopedic Surgery 09/03/16
--- OUTSIDE RECORDS SUMMARY | 2025-03-23 14:46 | XMS_ITS | Clinical Summary ---
Author Organization [facility] Address [address] [place] [address] Care Team Providers Care Teacher Theater Arts Name Role Phone Jackson Rosa MD Primary Care Provider [phone] Irma Willams MD Unavailable Efrem Alves MD [...] Sex Assigned at Female 05/25/2024 1:26 PM SEARCH COORDINATOR Legal Sex Female 9:00 PM CDT Gender Identity Not on file Sexual Orientation Not on file Occupation Industry Job Start Date Job End Date Retired Not on file Not on file Not on file Last Filed Vital Signs Vital Sign Reading Time Taken Comments Blood Pressure 138/72 06/03/2024 12:50 PM SEARCH COORDINATOR Pulse 69 06/03/2024 12:50 PM SEARCH COORDINATOR Temperature 36.1 C (97 F) 11/03/2019 12:30 PM CDT Respiratory Rate 16 06/03/2024 12:5 0 PM SEARCH COORDINATOR Oxygen Saturation 94% 06/03/2024 12: 50 PM SEARCH COORDINATOR Inhaled Oxygen Concentration - - Weight 63.4 kg (139 lb 12.8 oz) 025 12:50 PM SEARCH COORDINATOR Height 156.2 cm (5' 1.5) 06/03/2024 12 :50 PM SEARCH COORDINATOR Body Mass Index 25.99 06/03/2024 12:50 PM SEARCH COORDINATOR Plan of Treatment Upcoming Encounters Date Type Department Care Team (Late st Contact Info) Description 05/10/2025 8:30 AM SEARCH COORDINATOR Office Visit [facility] [place] [address] Irma Willams MD [address] [place] [address] Health Maintenance Due Date Last Done Comments [...] this topic Medical Devices Implanted Type Area Counseling Program Leader Device Identifier Shelf Expiration Date Model / Serial / Lot Knee Components Knee Components Description:Right knee Knee Components Knee Components Description:Rt knee Iol Augustus [id number] - [id number] Implanted:Qty: 1 on 10/13/2019 by Stephane Samson MD at [facility] Lens Left: Eye [employer] 01/27/2024 [id number] / [id number] / N/A Description:Implant verified by Iol [employer] Li61ao - [id number] Implanted:Qty: 1 on 11/03/2019 by Stephane Samson MD at [facility] Lens Right: Eye [employer] 08/27/2023 [id number] / [id number] Description:Lens verified pe r surgeon and chart Procedures Procedure Name Priority Date/Time Associated Diagnosis Comments LIPID PANEL Routine 06/27/2013 12:00 AM SEARCH COORDINATOR from Last 3 Months or Most Recently Relevant to Health Maintenance Results * LIPID PANEL (06/27/2013 12:00 AM SEARCH COORDINATOR) TRIGLYCERIDES 78 0 - 150 mg/dl MEDINFORMATIX [...] Health Maintenance Insurance MEDICARE MEDICARE Care Teams Teacher Theater Arts Relationship Specialty Start Date End Date Jackson Rosa MD [address] [place] [address] PCP - General INTERNAL MEDICINE 04/02/16 Irma Willams MD [address] [place] [address] Consulting Physician CARDIOVASCULAR DISEASE 11/03/23 Efrem Alves MD [address] [place] [address] Vascular/Automation Qa Analyst INTERNAL MEDICINE 12/17/23
--- OUTSIDE RECORDS SUMMARY | 2025-03-23 14:47 | XMS_ITS | Encounter Summary ---
Author Organization [facility] Address [address] [place] [address] Care Team Providers Care Vault Keeper Name Role Phone Jackson Rosa MD Primary Care Provider + Encounter Details Date Type Department Care Team (Latest Contact Info) Description 09/03/2000 Outpatient Historical [facility] Cabezas, Cyndee Crespo MD NO ADDRESS ON FILE Personal history of malignant neoplasm of breast (Primary Dx) Social History Tobacco Use Types Packs/Day Years Used Date Smoking Tobacco: Never Assessed Comments Unknown Sex and Gender Information Value Date Recorded Sex Assigned at Not on file Legal Sex Female 3:45 AM ROUTER MACHINE OPERATOR Gender Identity Not on file Sexual Orientation Not on file documented as of this encounter Plan of Treatment Not on file documented as of this encounter Visit Diagnoses Diagnosis Personal history of malignant neoplasm of breast- Primary documented in this encounter Care Teams Vault Keeper Relationship Specialty Start Date End Date Jackson Rosa MD [address] [place] [address] PCP - General 07/05/09 documented as of this encounter
--- OUTSIDE RECORDS SUMMARY | 2025-03-23 14:47 | XMS_ITS | Encounter Summary ---
Author Organization [facility] Address [address] [place] [address] Care Team Providers Care Banner Painter Name Role Phone Jackson Rosa MD Primary [...] on file Legal Sex Female 3:45 AM JAVA GOLDEN GATE DEVELOPER Gender Identity Not on file Sexual Orientation Not on file documented as of this encounter Plan of Treatment Not on file documented as of this encounter Visit Diagnoses Diagnosis Other screening mammogram- Primary documented in this encounter Care Teams Banner Painter Relationship Specialty Start Date End Date Jackson Rosa MD [address] [place] [address] PCP - General 07/05/09 documented as of this encounter
--- OUTSIDE RECORDS SUMMARY | 2025-03-23 14:47 | XMS_ITS | Encounter Summary ---
Author Organization [facility] Address [address] [place] [address] Care Team Providers Care Senior Power Plant Operator Name Role Phone Jackson Rosa MD Primary Care Provider + Encounter Details Date Type Department Care Team (Latest Contact Info) Description 03/04/2007 Outpatient Historical [facility] Cabezas, Cyndee Crespo MD NO ADDRESS ON FILE Screening Mammogram for High-Risk Patient (Primary Dx) Social History Tobacco Use Types Packs/Day Years Used Date Smoking Tobacco: Never Assessed Comments Unknown Sex and Gender Information Value Date Recorded Sex Assigned at Not on file Legal Sex Female 3:45 AM CLERICAL RECEPTIONIST Gender Identity Not on file Sexual Orientation Not on file documented as of this encounter Plan of Treatment Not on file documented as of this encounter Visit Diagnoses Diagnosis Screening mammogram for high-risk patient- Primary documented in this encounter Care Teams Senior Power Plant Operator Relationship Specialty Start Date End Date Jackson Rosa MD [address] [place] [phone] PCP - General 07/05/09 documented as of this encounter
--- OUTSIDE RECORDS SUMMARY | 2025-03-23 14:47 | XMS_ITS | Encounter Summary ---
Author Organization [facility] Address [address] [place] [address] Care Team Providers Care Suction Operator Name Role Phone Jackson Rosa MD Primary Care Provider + Encounter Details Date Type Department Care Team (Latest Contact Info) Description 09/09/2001 Outpatient Historical [facility] Cabezas, Cyndee Crespo MD NO ADDRESS ON FILE PERS HX OF BREAST MALIGNANCY (Primary Dx) Social History Tobacco Use Types Packs/Day Years Used Date Smoking Tobacco: Never Assessed Comments Unknown Sex and Gender Information Value Date Recorded Sex Assigned at Not on file Legal Sex Female 3:45 AM ELECTRICAL TEST TECHNICIAN Gender Identity Not on file Sexual Orientation Not on file documented as of this encounter Plan of Treatment Not on file documented as of this encounter Visit Diagnoses Diagnosis Personal history of malignant neoplasm of breast- Primary documented in this encounter Care Teams Suction Operator Relationship Specialty Start Date End Date Jackson Rosa MD [address] [place] [address] PCP - General 07/05/09 documented as of this encounter
--- OUTSIDE RECORDS SUMMARY | 2025-03-23 14:47 | XMS_ITS | Encounter Summary ---
Author Organization [facility] Address [facility] [place] [address] Care Team Providers Care Green Marketer Name Role Phone Jackson Rosa MD Primary Care Provider [phone] Gaurang Gonzalez MD Unavailable Unavailab Jeremiah Crowder MD Unavailable [phone] Whit Perez APRN MONITORING ANALYST-C Unavailable [phone] Irma Willams MD Unavailable Efrem Alves MD Unavailable Encounter Details Date Type Department Care Team (Late Contact Info) Description 12/01/2014 Abstract [facility] AT [address] [address] Gaurang Gonzalez MD Social History Tobacco Use Types Packs/Day Years Used Date Smoking Tobacco: Never Alcohol Use Standard Drinks/Week Comments Yes 0 (1 standard drink = 0.6 oz pur e alcohol) Occasionally, Wine. Comments Unknown Sex and Gender Information Value Date Recorded Sex Assigned at Female 05/25/2024 1:26 PM CONFIGURATION MANAGEMENT ADMINISTRATOR Legal Sex Female 9:00 PM CDT Gender Identity Not on file Sexual Orientation Not on file Occupation Industry Job Start Date Job End Date Retired Not on file Not on file Not on file documented as of this encounter Plan of Treatment Upcoming Encounters Date Type Department Care Team (Late st Contact Info) Description 05/10/2025 8:30 AM CONFIGURATION MANAGEMENT ADMINISTRATOR Office Visit [facility] [place] [address] Irma Willams MD [address] [place] [address] documented as of this encounter Visit Diagnoses Not on filedocumented in this encounter Additional Health Concerns Infection Onset Date Last Indicated Resolved Time COVID-19 Rule Out 10/10/2019 10/10/2019 10/11/2019 1:50 PM CDT COVID-19 Rule Out 10/31/2019 10/31/2019 11/01/2019 10:23 PM CDT documented as of this encounter Care Teams Green Marketer Relationship Specialty Start Date End Date Jackson Rosa MD [address] [place] [phone] PCP - General INTERNAL MEDICINE 04/02/16 Gaurang Gonzalez MD [address] [place] [address] CARDIOVASCULAR DISEASE 04/02/16 05/20/18 Jeremiah Rolon MD [address] [place] [address] Naper Supervisor Rides CARDIOVASCULAR DISEASE 07/28/18 11/02/23 Whit Perez APRN, MONITORING ANALYST-C [address] [facility] [address] [place] [address] NURSE PRACTITIONER 02/17/19 12/05/23 Irma Willams MD [address] [place] [address] Consulting Physician CARDIOVASCULAR DISEASE 11/03/23 Efrem Alves MD [address] [place] [address] Vascular/Supervisor Rides INTERNAL MEDICINE 12/17/23 documented as of this encounter
--- OUTSIDE RECORDS SUMMARY | 2025-03-23 14:47 | XMS_ITS | Encounter Summary ---
Author Organization [facility] Address [address] [place] [address] Care Team Providers Care Bull Chain Operator Name Role Phone Jackson Rosa MD Primary Care Provider + Encounter Details Date Type Department Care Team (Latest Contact Info) Description 07/12/2004 Outpatient Historical HIS [facility] Cabezas, Cyndee Crespo MD NO ADDRESS ON FILE SCREENING MAMM-MALIG NEOPL-HI RISK (Primary Dx) Social History Tobacco Use Types Packs/Day Years Used Date Smoking Tobacco: Never Assessed Comments Unknown Sex and Gender Information Value Date Recorded Sex Assigned at Not on file Legal Sex Female 3:45 AM HOSPITALITY JOB TITLES Gender Identity Not on file Sexual Orientation Not on file documented as of this encounter Plan of Treatment Not on file documented as of this encounter Visit Diagnoses Diagnosis Screening mammogram for high-risk patient- Primary documented in this encounter Care Teams Bull Chain Operator Relationship Specialty Start Date End Date Jackson Rosa MD [address] [place] [address] PCP - General 07/05/09 documented as of this encounter
--- OUTSIDE RECORDS SUMMARY | 2025-03-23 14:47 | XMS_ITS | Patient Health Record ---
Author Organization [facility] [employer] Address [address] [place] [address] Care Team Providers Care Tipple Supervisor Name Role Phone Juanito Reagan Unavailable [phone] Reason For Referral No Information Medications Medication SIG (Take, Route, Frequency, Duration) Notes Start Date End Date Status valACYclovir HCl 500 MG Tablet Oral 02/14/2023 Active Fluticasone Propionate Diskus 50 MCG/ACT Aerosol Powder Breath Activated Inhalation *Reorder from [employer] for eRx and Interaction Alerts* 02/14/2023 Active [...] 20 MG Tablet Oral 02/14/2023 Active Nystatin [id number] UNIT/ML Suspension Mouth/Throat 02/14/2023 Active Escitalopram Oxalate 10 MG Tablet Oral 02/14/2023 Active Paxlovid (300/100) 20 x 150 MG & 10 x 100MG Tablet Therapy Pack Oral *Reorder from [employer] for eRx and Interaction Alerts* 02/14/2023 Active [...] Medicare [address] [place] [address] [id number] SIDNEY ANDERSON Self - patient is the insured [employer] Medicare Supplement [address] [employer] [id number] SIDNEY ANDERSON Self - patient is the insured
--- OUTSIDE RECORDS SUMMARY | 2025-03-23 14:47 | XMS_ITS | Encounter Summary ---
Author Organization [facility] Address [address] [place] [address] Care Team Providers Care Air Intelligence Officer Name Role Phone Jackson Rosa MD Primary Care Provider + Encounter Details Date Type Department Care Team (Latest Contact Info) Description 09/05/1999 Outpatient Historical HIS [facility] Cabezas, Cyndee Crespo MD NO ADDRESS ON FILE Personal history of malignant neoplasm of breast (Primary Dx) Social History Tobacco Use Types Packs/Day Years Used Date Smoking Tobacco: Never Assessed Comments Unknown Sex and Gender Information Value Date Recorded Sex Assigned at Not on file Legal Sex Female 3:45 AM OIL TREATER Gender Identity Not on file Sexual Orientation Not on file documented as of this encounter Plan of Treatment Not on file documented as of this encounter Visit Diagnoses Diagnosis Personal history of malignant neoplasm of breast- Primary documented in this encounter Care Teams Air Intelligence Officer Relationship Specialty Start Date End Date Jackson Rosa MD [address] [place] [address] PCP - General 07/05/09 documented as of this encounter
--- OUTSIDE RECORDS SUMMARY | 2025-03-23 14:47 | XMS_ITS | Encounter Summary ---
Author Organization [facility] Address [address] [place] [address] Care Team Providers Care Adjunct Professor Of English Name Role Phone Jackson Rosa MD Primary Care Provider + Encounter Details Date Type Department Care Team (Latest Contact Info) Description 08/12/2002 Outpatient Historical HIS [facility] Cabezas, Cyndee Crespo MD NO ADDRESS ON FILE SCREENING MAMM-MAILG NEOPL-OTHER (Primary Dx) Social History Tobacco Use Types Packs/Day Years Used Date Smoking Tobacco: Never Assessed Comments Unknown Sex and Gender Information Value Date Recorded Sex Assigned at Not on file Legal Sex Female 3:45 AM CHEMISTRY TUTOR Gender Identity Not on file Sexual Orientation Not on file documented as of this encounter Plan of Treatment Not on file documented as of this encounter Visit Diagnoses Diagnosis Other screening mammogram- Primary documented in this encounter Care Teams Adjunct Professor Of English Relationship Specialty Start Date End Date Jackson Rosa MD [address] [place] [address] PCP - General 07/05/09 documented as of this encounter
--- OUTSIDE RECORDS SUMMARY | 2025-03-23 14:47 | XMS_ITS | Clinical Summary ---
Author Organization [facility] Address [address] [place] [address] Care Team Providers Care Resource Room Special Education Teacher Name Role Phone Jackson Rosa MD Primary Care Provider [phone] Allergies Active Allergy Reactions Criticality Noted Date [...] 07/04/2021 Assessment & Plan (07/04/2021 11:03 AM TEST ENGINE EVALUATOR): I explained to the patient how subclinical [...] Department Care Team Description 03/18/2025 3:30 PM TEST ENGINE EVALUATOR Office Visit [facility] at [address] [place] [address] Andrew Sky NP Chronic diarrhea [...] on file Legal Sex Female 12:56 AM TEST ENGINE EVALUATOR Gender Identity Female 10/06/2019 1:08 PM CDT Sexual Orientation Not on file Last Filed Vital Signs Vital Sign Reading Time Taken Comments Blood Pressure 136/82 03/18/2025 3:24 PM TEST ENGINE EVALUATOR Pulse 91 03/18/2025 3:24 PM TEST ENGINE EVALUATOR Temperature 36.7 C (98.1 F) 02/18/2023 8:21 AM CDT Respiratory Rate 19 12/21/2022 3:10 PM CDT Oxygen Saturation 99% 03/18/2025 3:24 PM TEST ENGINE EVALUATOR Inhaled Oxygen Concentration - - Weight 65.1 kg (143 lb 8 oz) 03/18/2025 3:24 PM TEST ENGINE EVALUATOR Height 157.5 cm (5' 2) 03/18/2025 3:24 PM TEST ENGINE EVALUATOR Body Mass Index 26.25 03/18/2025 3:24 PM TEST ENGINE EVALUATOR Plan of Treatment Health Maintenance Due Date [...] Screening Discontinued Medical Devices Implanted Type Area Audio Engineer Device Identifier Shelf Expiration Date Model / Serial / Lot Knee Replacement Right: Knee Procedures Procedure Name Priority Date/Time Associated Diagnosis Comments COLONOSCOPY 12/04/2017 11:53 AM CDT from Last 3 Months or Most Recently Relevant to Health Maintenance Results * COLONOSCOPY (12/04/2017 11:53 AM CDT) Anatomical Region Laterality Modality Other Narrative Procedure Note Dwayne Chan MD - 12/04/2017 11:53 AM CDT [facility] Patient Name: Zulma Carnes Procedure Date: 12/04/2017 11:53 AM Date of : 1945 Admit Type: Outpatient Age: 72 Gender: Female Attending MD: Dwayne Chan MD Room: [facility] ENDOSCOPY ROOM 2 Note Status: [...] passed under direct vision.The Pediatric Colonoscope PCF-H190L [id number] was introduced through the anus and advanced [...] perforation orabscess without bleeding CPT copyright 2017 [employer]. All rights reserved. The codes documented in this report are preliminary and upon rollout manager reviewmay be revised to meet current compliance requirements. Recognized by the [employer] for promoting quality in endoscopy Dwayne Chan MD ENDOSCOPY PROCEDURES Final Result from Last 3 Months or Most Recently Relevant to Health Maintenance Insurance MEDICARE [employer] [facility] [place] MEDICARE AETNA SENIOR SUPPLEMENT Advance Directives For more information, please contact: [phone] * Full Code (Latest Code Status on File) Date Activated Date Inactivated Comments 12/04/2017 11:05 AM 12/04/2017 3:39 PM Care Teams Resource Room Special Education Teacher Relationship Specialty Start Date End Date Jackson Rosa MD [address] [place] [address] PCP - General 07/04/16
--- OUTSIDE RECORDS SUMMARY | 2025-03-23 14:47 | XMS_ITS | Encounter Summary ---
Author Organization [facility] Address [address] [place] [address] Care Team Providers Care Hoop Flaring Machine Operator Helper Name Role Phone Jackson Rosa MD Primary Care Provider + Encounter Details Date Type Department Care Team (Latest Contact Info) Description 09/07/1998 Outpatient Historical HIS [facility] Cabezas, Cyndee Crsepo MD NO ADDRESS ON FILE Personal history of malignant neoplasm of breast (Primary Dx) Social History Tobacco Use Types Packs/Day Years Used Date Smoking Tobacco: Never Assessed Comments Unknown Sex and Gender Information Value Date Recorded Sex Assigned at Not on file Legal Sex Female 3:45 AM REAL ESTATE COORDINATOR Gender Identity Not on file Sexual Orientation Not on file documented as of this encounter Plan of Treatment Not on file documented as of this encounter Visit Diagnoses Diagnosis Personal history of malignant neoplasm of breast- Primary documented in this encounter Care Teams Hoop Flaring Machine Operator Helper Relationship Specialty Start Date End Date Jackson Rosa MD [address] [place] [address] PCP - General 07/05/09 documented as of this encounter
--- OUTSIDE RECORDS SUMMARY | 2025-03-23 14:47 | XMS_ITS ---
Author Organization [facility] Address [address] [place] [address] Care Team Providers Care Electrical Linesworker Name Role Phone Jackson Rosa MD Primary [...] 07/04/2021 Assessment & Plan (07/04/2021 11:03 AM OVEN LOADER): I explained to the patient how subclinical [...]
--- OUTSIDE RECORDS SUMMARY | 2025-03-23 14:47 | XMS_ITS | Encounter Summary ---
Author Organization [facility] Address [address] [place] [address] Care Team Providers Care Fire Chief'S Aide Name Role Phone Jackson Rosa MD Primary Care Provider + Encounter Details Date Type Department Care Team (Latest Contact Info) Description 03/31/2008 Outpatient Historical HIS [facility] Cabezas, Ezequiel Crespo MD NO ADDRESS ON FILE Other Screening Mammogram Social History Tobacco Use Types Packs/Day Years Used Date Smoking Tobacco: Never Assessed Comments Unknown Sex and Gender Information Value Date Recorded Sex Assigned at Not on file Legal Sex Female 3:45 AM FOOD SERVICE SPECIALIST Gender Identity Not on file Sexual Orientation Not on file documented as of this encounter Plan of Treatment Not on file documented as of this encounter Procedures Procedure Name Priority Date/Time Associated Diagnosis Comments MAMMO SCREEN BILAT W OR WO CAD Routine 03/31/2008 8:30 AM FOOD SERVICE SPECIALIST documented in this encounter Results * MAMMO DIGITAL SCREEN BILAT (03/31/2008 8:30 AM FOOD SERVICE SPECIALIST) Anatomical Region Laterality Modality Breast Bilateral Other 03/31/2008 8:30 AM FOOD SERVICE SPECIALIST Narrative 03/31/2008 12:03 PM FOOD SERVICE SPECIALIST [address] [place], [place] [address] Admit Date: 03/31/2008 ZULMA CARNES Sex: F Admit Prov: EZEQUIEL CABEZAS Date: 1945 Primary Care Prov: CMRN: [id number] Room: KIRT SSN: [id number] IMAGING SERVICES Ordering Prov: EZEQUIEL CABEZAS Accession Number: [id number] Interpretation EXAM: BILATERAL SCREENING FULL FIELD DIGITAL [...] Elena Lou - 03/31/2008 [facility] [address] [place], [place] [address] Admit Date: 03/31/2008 ZULMA CARNES Sex: F Admit Prov: EZEQUIEL CABEZAS Date: 1945 Primary Care Prov: CMRN: [id number] Room: MASONAshleigh SSN: [id number] IMAGING SERVICES Ordering Prov: EZEQUIEL CABEZAS Interpretation [...] mammogram documented in this encounter Care Teams Fire Chief'S Aide Relationship Specialty Start Date End Date Jackson Rosa MD [address] [place] [address] PCP - General 07/05/09 documented as of this encounter
--- OUTSIDE RECORDS SUMMARY | 2025-03-23 14:47 | XMS_ITS | Encounter Summary ---
Author Organization [facility] Address [address] [place] [address] Care Team Providers Care Search Engine Optimization Analyst Name Role Phone Jackson Rosa MD Primary Care Provider + Encounter Details Date Type Department Care Team (Latest Contact Info) Description 10/13/2003 Outpatient Historical HIS [facility] Cabezas, Cyndee Crespo MD NO ADDRESS ON FILE SCREENING MAMM-MAILG NEOPL-OTHER (Primary Dx) Social History Tobacco Use Types Packs/Day Years Used Date Smoking Tobacco: Never Assessed Comments Unknown Sex and Gender Information Value Date Recorded Sex Assigned at Not on file Legal Sex Female 3:45 AM INSURANCE CLAIMS REPRESENTATIVE Gender Identity Not on file Sexual Orientation Not on file documented as of this encounter Plan of Treatment Not on file documented as of this encounter Visit Diagnoses Diagnosis Other screening mammogram- Primary documented in this encounter Care Teams Search Engine Optimization Analyst Relationship Specialty Start Date End Date Jackson Rosa MD [address] [place] [address] PCP - General 07/05/09 documented as of this encounter
--- OUTSIDE RECORDS SUMMARY | 2025-03-23 14:47 | XMS_ITS | Encounter Summary ---
Author Organization [facility] Address [address] [place] [address] Care Team Providers Care School Community Relations Coordinator Name Role Phone Jackson Rosa MD Primary Care Provider + Encounter Details Date Type Department Care Team (Latest Contact Info) Description 01/29/2006 Outpatient Historical HIS [facility] GE[facility] Cabezas, Cyndee Crespo MD NO ADDRESS ON FILE Other Follow-Up Examination (Primary Dx) Social History Tobacco Use Types Packs/Day Years Used Date Smoking Tobacco: Never Assessed Comments Unknown Sex and Gender Information Value Date Recorded Sex Assigned at Not on file Legal Sex Female 3:45 AM BOOSTER STATION OPERATOR Gender Identity Not on file Sexual Orientation Not on file documented as of this encounter Plan of Treatment Not on file documented as of this encounter Visit Diagnoses Diagnosis Other follow-up examination(V67.59)- Primary Other follow-up examination documented in this encounter Care Teams School Community Relations Coordinator Relationship Specialty Start Date End Date Jackson Rosa MD [address] [place] [address] PCP - General 07/05/09 documented as of this encounter
--- OUTSIDE RECORDS SUMMARY | 2025-03-23 14:47 | XMS_ITS | Encounter Summary ---
Author Organization [facility] Address [address] [place] [address] Care Team Providers Care Drapery Examiner Name Role Phone Jackson Rosa MD [...] on file Legal Sex Female 3:45 AM DATABASE SOFTWARE TECHNICIAN Gender Identity Not on file Sexual Orientation Not on file documented as of this encounter Plan of Treatment Not on file documented as of this encounter Visit Diagnoses Diagnosis Follow-up examination, following other surgery- Primary documented in this encounter Care Teams Drapery Examiner Relationship Specialty Start Date End Date Jackson Rosa MD [address] [place] [address] PCP - General 07/05/09 documented as of this encounter
[2025-03-24 14:08] LABS: Fats, Neutral Normal (.); Fats, Total Normal (.)
[2025-03-27 00:07] LABS: Calprotectin, Fecal 90 ug/g (0-120)
[2025-03-27 07:08] LABS: Pancreatic Elastase, Fecal >800 (>200)
== END 2025-03-23 13:08 | disposition home or self-care (01) ==
PROVIDERS: PCP Internal Medicine; Visit Provider Nurse Practitioner Family
DX: K52.9 Noninfective gastroenteritis and colitis, unspecified (principal)
CPT/HCPCS: 82653; 82705; 83993